=== PATIENT | male | born 1940 | race Caucasian/White ===

== ENCOUNTER 2018-12-04 15:52 | Inpatient (IN) | payer MEDICARE ==
[~2018-12-04] VITALS: Ht 177.8 cm; Wt 74.4 kg
[~2018-12-04 15:52] MED LIST: ASPI-482 PO; CYAN1TAB28 PO; CYAN500L4 SL; FERR-36 PO; FERR55TA PO; FISH1CAP PO; GARL10002 PO; LISI-334 PO; METO25TA4 PO; MULT-18 PO; MULT1TAB52 PO; NAPR-514 PO; NAPR-677 PO; PRAV40TA2 PO; TERA2CAP3 PO
[2018-12-04] MEDS ORDERED: ASPIRIN CHEWABLE 81 MG TABLET. PO ONE (16:15)
--- NOTE | 2018-12-04 16:30 | PHYS DOC ---
Past Medical History Past Medical History: Cancer, High Cholesterol, Heart Disease, Hypertension Additional Past Medical Histor: Prostate cancer Past Surgical History: Coronary Bypass Surgery, Other Additional Past Surgical Histo: Hx of Prostate CA w/treatment and resolved, 11 stents, 2 CABG Alcohol Use: Rarely Drug Use: None Adult General Chief Complaint Chief Complaint: CHEST PAIN HPI HPI Patient is a 78 year old male who presents with 1 month history of shortness of breath and squeezing chest pain with exertion. Patient has history of a 11 stints and his wood floor layer is Josephine. Review of Systems Review of Systems Constitutional: Denies fever or chills [] Eyes: Denies change in visual acuity, redness, or eye pain [] HENT: Denies nasal congestion or sore throat [] Respiratory: cough or shortness of breath [] Cardiovascular: bilateral chest tightness GI: Denies abdominal pain, nausea, vomiting, bloody stools or diarrhea [] : Denies dysuria or hematuria [] Musculoskeletal: Denies back pain or joint pain [] Integument: Denies rash or skin lesions [] Neurologic: Denies headache, focal weakness or sensory changes [] All other systems were reviewed and found to be within normal limits, except as documented in this note. Current Medications Current Medications Current Medications Medications (Trade) Dose Ordered Sig/Ava Start Time Stop Time Status Last Admin Dose Admin Acetaminophen (Tylenol) 650 mg PRN Q4HRS PRN 12/04/18 17:00 12/05/18 16:59 Aspirin (Children'S Aspirin) 324 mg 1X ONCE 12/04/18 16:15 12/04/18 16:16 DC 12/04/18 16:41 324 MG Aspirin (Ecotrin) 81 mg DAILY 12/05/18 09:00 Atorvastatin Calcium (Lipitor) 20 mg DAILY 12/05/18 09:00 Cyanocobalamin (Vitamin B-12) 500 mcg DAILY 12/05/18 09:00 Fentanyl Citrate (Fentanyl 2ml Vial) 50 mcg PRN Q1HR PRN 12/04/18 17:00 12/04/18 17:40 DC Ferrous Sulfate (Feosol) 325 mg DAILY 12/05/18 09:00 Fish Oil (Fish Oil) 1,000 mg TID 12/04/18 21:00 Heparin Sodium (Porcine) (Heparin Sodium) 1,950 unit PRN Q6HRS PRN 12/04/18 17:45 Heparin Sodium/ Dextrose 500 ml @ 0 mls/hr CONT PRN 12/04/18 17:45 Lisinopril (Prinivil) 40 mg DAILY 12/05/18 09:00 Metoprolol Tartrate (Lopressor) 12.5 mg BID 12/04/18 21:00 Morphine Sulfate (Morphine Sulfate) 2 mg PRN Q2HR PRN 12/04/18 17:45 Multivitamins (Thera M Plus) 1 tab DAILY 12/05/18 09:00 Nitroglycerin (Nitrostat) 0.4 mg PRN Q5MIN PRN 12/04/18 17:00 12/05/18 16:59 Non-Formulary Medication (Garlic ) 1,000 mg BID 12/04/18 21:00 UNV Ondansetron HCl (Zofran) 4 mg PRN Q6HRS PRN 12/04/18 17:45 Terazosin HCl (Hytrin) 2 mg DAILY 12/05/18 09:00 UNV Allergies Allergies Allergies Coded Allergies Type Severity Reaction Last Updated Verified No Known Drug Allergies 11/29/13 No Physical Exam Physical Exam Constitutional: Well developed, well nourished, no acute distress, non-toxic appearance. [] HENT: Normocephalic, atraumatic, bilateral external ears normal, oropharynx moist, no oral exudates, nose normal. [] Eyes: PERRLA, EOMI, conjunctiva normal, no discharge. [] Neck: Normal range of motion, no tenderness, supple, no stridor. [] Cardiovascular:Heart rate regular rhythm, no murmur [] Lungs & Thorax: Bilateral upper lung lobes are clear in bilateral lower lung lobes are diminished. Abdomen: Bowel sounds normal, soft, no tenderness, no masses, no pulsatile masses. [] Skin: Warm, dry, no erythema, no rash. [] Back: No tenderness, no CVA tenderness. [] Extremities: No tenderness, no cyanosis, no clubbing, ROM intact, no edema. [] Neurologic: Alert and oriented X 3, normal motor function, normal sensory function, no focal deficits noted. [] Psychologic: Affect normal, judgement normal, mood normal. [] Current Patient Data Vital Signs Vital Signs Date Time Temp Pulse Resp B/P (MAP) Pulse Ox O2 Delivery O2 Flow Rate FiO2 12/04/18 16:00 98.4 72 18 196/81 (119) 98 Room Air 98.4 Lab Values Laboratory Tests Test 12/04/18 16:30 White Blood Count 5.3 x10^3/uL (4.0-11.0) Red Blood Count 3.75 x10^6/uL (4.30-5.70) L Hemoglobin 11.3 g/dL (13.0-17.5) L Hematocrit 33.6 % (39.0-53.0) L Mean Corpuscular Volume 90 fL (79-100) Mean Corpuscular Hemoglobin 30 pg (25-35) Mean Corpuscular Hemoglobin Concent 34 g/dL (31-37) Red Cell Distribution Width 14.1 % (11.5-14.5) Platelet Count 127 x10^3/uL (140-400) L Neutrophils (%) (Auto) 73 % (31-73) Lymphocytes (%) (Auto) 16 % (24-48) L Monocytes (%) (Auto) 6 % (0-9) Eosinophils (%) (Auto) 4 % (0-3) H Basophils (%) (Auto) 1 % (0-3) Neutrophils # (Auto) 3.9 x10^3uL (1.8-7.7) Lymphocytes # (Auto) 0.9 x10^3/uL (1.0-4.8) L Monocytes # (Auto) 0.3 x10^3/uL (0.0-1.1) Eosinophils # (Auto) 0.2 x10^3/uL (0.0-0.7) Basophils # (Auto) 0.0 x10^3/uL (0.0-0.2) Sodium Level 143 mmol/L (136-145) Potassium Level 4.2 mmol/L (3.5-5.1) Chloride Level 107 mmol/L (98-107) Carbon Dioxide Level 25 mmol/L (21-32) Anion Gap 11 (6-14) Blood Urea Nitrogen 26 mg/dL (8-26) Creatinine 1.4 mg/dL (0.7-1.3) H Estimated GFR (Cockcroft-Gault) 48.8 BUN/Creatinine Ratio 19 (6-20) Glucose Level 181 mg/dL (70-99) H Calcium Level 8.7 mg/dL (8.5-10.1) Total Bilirubin 0.3 mg/dL (0.2-1.0) Aspartate Amino Transferase (AST) 23 U/L (15-37) Alanine Aminotransferase (ALT) 28 U/L (16-63) Alkaline Phosphatase 59 U/L (46-116) Troponin I Quantitative 0.085 ng/mL (0.000-0.055) OZ-Pbz-K-Type Natriuretic Peptide 1054 pg/mL (0-449) H Total Protein 7.0 g/dL (6.4-8.2) Albumin 3.7 g/dL (3.4-5.0) Albumin/Globulin Ratio 1.1 (1.0-1.7) Laboratory Tests 12/04/18 16:30 Laboratory Tests 12/04/18 16:30 EKG EKG Sinus Rhythm and no STEMI[] Interpretation Time: [address] Sharma Radiology/Procedures Radiology/Procedures [] Impressions: [facility] [address] [place] [address] IMAGING REPORT Signed PATIENT: DOUG WALLS ACCOUNT: [id number] : 1940 LOCATION: ER AGE: 78 SEX: M EXAM STATUS: REG ER ORD. PHYSICIAN: ASHUTOSH ROQUE APRN REASON: chest pain PROCEDURE: PORTABLE CHEST 1V Single view chest dated 12/04/2018. Comparison made to 02/04/2014. CLINICAL INDICATION: Chest pain. Cough. FINDINGS: Single upright portable exam performed. Heart and mediastinal contours are stable. Patient is status post median sternotomy. Lungs are somewhat hyperinflated but otherwise clear. No consolidation or pleural effusion. No pneumothorax. IMPRESSION: 1. No acute radiographic abnormality. Stable findings compared to 02/04/2014. Electronically signed by: Larry Fitch MD (12/04/2018 4:28 PM) [facility] DICTATED and SIGNED BY: LARRY FITCH MD DATE: 12/04/18 1629 Course & Med Decision Making Course & Med Decision Making Patient is a 78 year old male who presents with 1 month history of shortness of breath and squeezing chest pain with exertion. The pain goes from left-to- right on his chest and does not radiate to the back. Patient has history of a 11 stints and his wood floor layer is Josephine. Alert and oriented. Speaks in full sentences. Skin is pink warm and dry. Mucous membranes are moist. Lungs are clear in upper lobes and diminished in lower lobes. Chest pain cannot be re- producible with palpation. Patient states he has no pain or tightness at this time. Patient states he has had a cough the last month but it is not productive. Patient denies fever, nausea, vomiting, diarrhea, abdominal pain, back pain. Patient has no extremity edema. Abdomen is soft and nontender. EKG shows sinus rhythm and no STEMI. Heart score 5. 1655: I have spoken to Dr. Crowder for admission for chest pain and consulted cardiology. Chest x-ray shows no acute findings. Blood work are unremarkable. Patient is stable and agreeable to admission. 1738: Troponin 0.085. I have notified Dr Villanueva. Dragon Disclaimer Dragon Disclaimer This electronic medical record was generated, in whole or in part, using a voice recognition dictation system. Departure Departure Impression: Primary Impression: Chest pain Disposition: ADMITTED INPATIENT Admitting Physician: Gina Crowder Condition: STABLE Referrals: IVETH HENLEY DO (PCP) Problem Qualifiers Primary Impression: Chest pain Chest pain type: unspecified Qualified Codes: R07.9 - Chest pain, unspecified ASHUTOSH ROQUE APRN Dec 04, 2018 16:30
[2018-12-04 16:39] LABS: BASO % 1 % (0-3); EOS # 0.2 x10^3/uL (0.0-0.7); EOS % 4 % (0-3); HEMATOCRIT 33.6 % (39.0-53.0); HEMOGLOBIN 11.3 g/dL (13.0-17.5); LYMPH # 0.9 x10^3/uL (1.0-4.8); LYMPH % 16 % (24-48); MEAN CORPUSCULAR HEMOGLOBIN 30 pg (25-35); MEAN CORPUSCULAR HGB CONC 34 g/dL (31-37); MEAN CORPUSCULAR VOLUME 90 fL (79-100); MONO # 0.3 x10^3/uL (0.0-1.1); MONO % 6 % (0-9); NEUT # 3.9 x10^3uL (1.8-7.7); NEUT % 73 % (31-73); PLATELET COUNT 127 x10^3/uL (140-400); RED BLOOD COUNT 3.75 x10^6/uL (4.30-5.70); RED CELL DISTRIBUTION WIDTH 14.1 % (11.5-14.5); WHITE BLOOD COUNT 5.3 x10^3/uL (4.0-11.0)
[2018-12-04] MEDS ORDERED: NITROGLYCERIN SUBLINGUAL 0.4 MG BOTTLE OF 25. SL PRN (17:00)
[2018-12-04] MEDS ORDERED: ACETAMINOPHEN 325 MG TABLET. PO PRN (17:00)
[2018-12-04] MEDS ORDERED: ONDANSETRON PF 4 MG/2 ML VIAL. IV PRN ×2 (17:00→17:45)
[2018-12-04] MEDS ORDERED: fentaNYL PF VIAL 100 MCG/2 ML VIAL IV PRN (17:00)
[2018-12-04 17:13] LABS: CALCIUM 8.7 mg/dL (8.5-10.1); CREATININE 1.4 mg/dL (0.7-1.3); GFR 48.8
[2018-12-04 17:14] LABS: POTASSIUM 4.2 mmol/L (3.5-5.1)
[2018-12-04 17:33] LABS: ALBUMIN 3.7 g/dL (3.4-5.0); ALBUMIN/GLOBULIN RATIO 1.1 (1.0-1.7); TOTAL BILIRUBIN 0.3 mg/dL (0.2-1.0)
--- NOTE | 2018-12-04 17:39 | PDOC1 ---
History and Physical Date of Admission Date of Admission DATE: 12/04/18 TIME: 17:35 Identification/Chief Complaint Chief Complaint CP on exertion Source Source: Caregiver, Chart review, Patient History of Present Illness History of Present Illness Known patient of Dr. Love, sees him every 5 months. 1 month history of intermittent S OA on exertion and chest pain, exertional. Mostly when he is walking too fast or clmibing few steps in house. Otherwise at rest he is doing fine. Patient on aspirin 81 and other medicines that is unrecalled. His pharmacy is [facility]. Past history: hypertension dyslipidemia and 11 cardiac stents. Troponin 0.085 and currently chest pain-free. Admitted for chest pain rule out in this high-risk patient. No reports of diaphoresis but claims that he thought his gait was unsteady because he was "not feeling good" Past Medical History Cardiovascular: CAD, HTN, Other Pulmonary: No pertinent hx CENTRAL NERVOUS SYSTEM: Other GI: No pertinent hx Heme/Onc: No pertinent hx Hepatobiliary: No pertinent hx Psych: No pertinent hx Musculoskeletal: Osteoarthritis Rheumatologic: No pertinent hx Infectious disease: No pertinent hx Renal/: Benign prostatic enlarg. Endocrine: No pertinent hx Past Surgical History Past Surgical History: CABG Family History Family History: Coronary Artery Disease, Diabetes Social History Smoke: No ALCOHOL: none Drugs: None Current Problem List Problem List Problems Medical Problems: (1) Chest pain Status: Acute Current Medications Current Medications Current Medications Aspirin (Children'S Aspirin) 324 mg 1X ONCE PO Last administered on 12/04/18at 16:41; Start 12/04/18 at 16:15; Stop 12/04/18 at 16:16; Status DC Ondansetron HCl (Zofran) 4 mg PRN Q8HRS PRN IV NAUSEA/VOMITING; Start 12/04/18 at 17:00; Stop 12/05/18 at 16:59 Fentanyl Citrate (Fentanyl 2ml Vial) 50 mcg PRN Q1HR PRN IV PAIN; Start at 17:00; Stop 12/05/18 at 16:59 Acetaminophen (Tylenol) 650 mg PRN Q4HRS PRN PO FEVER; Start 12/04/18 at 17:00 ; Stop 12/05/18 at 16:59 Nitroglycerin (Nitrostat) 0.4 mg PRN Q5MIN PRN SL CHEST PAIN; Start 12/04/18 at 17:00; Stop 12/05/18 at 16:59 Active Scripts Active Reported Aspir 81 (Aspirin) 81 Mg Tablet.dr 1 Tab PO DAILY Naproxen 500 Mg Tablet 500 Mg PO PRN BID PRN Multivitamins (Multivitamin) 1 Each Tablet 1 Each PO DAILY Iron (Ferrous Sulfate) 325 Mg Tablet 325 Mg PO DAILY B-12 (Cyanocobalamin (Vitamin B-12)) 500 Mcg Tab.rapdis 500 Mcg SL DAILY Garlic 1,000 Mg Capsule 1,000 Mg PO BID Fish Oil 1,200 Mg Fish Oil (Fish Oil/Dha/Epa) 1 Each Capsule 1 Each PO TID Metoprolol Tartrate 25 Mg Tablet 0.5 Tab PO BID Lisinopril 20 Mg Tablet 40 Mg PO DAILY Terazosin Hcl 2 Mg Capsule 2 Mg PO DAILY Pravastatin Sodium 40 Mg Tablet 80 Mg PO DAILY Allergies Allergies: Coded Allergies: No Known Drug Allergies (Unverified , 11/29/13) ROS Review of System As per history of present illness, the rest of ROS 14 point negative Physical Exam General: Alert, Oriented X3, Cooperative, No acute distress HEENT: Atraumatic, PERRLA, EOMI Lungs: Clear to auscultation, Normal air movement Heart: S1S2, RRR, no thrills, no rubs, no gallops Cardiovascular: S1, S2 Abdomen: Normal bowel sounds, Soft, No tenderness, No hepatosplenomegaly, No masses Male Genitals Exam: normal genitalia, normal prostate Rectal Exam: not examined PELVIC: Nml ext genitalia Extremities: No clubbing, No cyanosis, No edema, Normal pulses, No tenderness/ swelling Skin: No rashes, No breakdown, No significant lesion Vitals Vitals Vital Signs Date Time Temp Pulse Resp B/P (MAP) Pulse Ox O2 Delivery O2 Flow Rate FiO2 12/04/18 16:00 98.4 72 18 196/81 (119) 98 Room Air 98.4 Labs Labs Laboratory Tests Test 12/04/18 16:30 White Blood Count 5.3 x10^3/uL (4.0-11.0) Red Blood Count 3.75 x10^6/uL (4.30-5.70) Hemoglobin 11.3 g/dL (13.0-17.5) Hematocrit 33.6 % (39.0-53.0) Mean Corpuscular Volume 90 fL (79-100) Mean Corpuscular Hemoglobin 30 pg (25-35) Mean Corpuscular Hemoglobin Concent 34 g/dL (31-37) Red Cell Distribution Width 14.1 % (11.5-14.5) Platelet Count 127 x10^3/uL (140-400) Neutrophils (%) (Auto) 73 % (31-73) Lymphocytes (%) (Auto) 16 % (24-48) Monocytes (%) (Auto) 6 % (0-9) Eosinophils (%) (Auto) 4 % (0-3) Basophils (%) (Auto) 1 % (0-3) Neutrophils # (Auto) 3.9 x10^3uL (1.8-7.7) Lymphocytes # (Auto) 0.9 x10^3/uL (1.0-4.8) Monocytes # (Auto) 0.3 x10^3/uL (0.0-1.1) Eosinophils # (Auto) 0.2 x10^3/uL (0.0-0.7) Basophils # (Auto) 0.0 x10^3/uL (0.0-0.2) Sodium Level 143 mmol/L (136-145) Potassium Level 4.2 mmol/L (3.5-5.1) Chloride Level 107 mmol/L (98-107) Carbon Dioxide Level 25 mmol/L (21-32) Anion Gap 11 (6-14) Blood Urea Nitrogen 26 mg/dL (8-26) Creatinine 1.4 mg/dL (0.7-1.3) Estimated GFR (Cockcroft-Gault) 48.8 BUN/Creatinine Ratio 19 (6-20) Glucose Level 181 mg/dL (70-99) Calcium Level 8.7 mg/dL (8.5-10.1) Total Bilirubin 0.3 mg/dL (0.2-1.0) Aspartate Amino Transf (AST/SGOT) 23 U/L (15-37) Alanine Aminotransferase (ALT/SGPT) 28 U/L (16-63) Alkaline Phosphatase 59 U/L (46-116) Troponin I Quantitative 0.085 ng/mL (0.000-0.055) XD-Gka-Y-Type Natriuretic Peptide 1054 pg/mL (0-449) Total Protein 7.0 g/dL (6.4-8.2) Albumin 3.7 g/dL (3.4-5.0) Albumin/Globulin Ratio 1.1 (1.0-1.7) Laboratory Tests Test 12/04/18 16:30 White Blood Count 5.3 x10^3/uL (4.0-11.0) Red Blood Count 3.75 x10^6/uL (4.30-5.70) Hemoglobin 11.3 g/dL (13.0-17.5) Hematocrit 33.6 % (39.0-53.0) Mean Corpuscular Volume 90 fL (79-100) Mean Corpuscular Hemoglobin 30 pg (25-35) Mean Corpuscular Hemoglobin Concent 34 g/dL (31-37) Red Cell Distribution Width 14.1 % (11.5-14.5) Platelet Count 127 x10^3/uL (140-400) Neutrophils (%) (Auto) 73 % (31-73) Lymphocytes (%) (Auto) 16 % (24-48) Monocytes (%) (Auto) 6 % (0-9) Eosinophils (%) (Auto) 4 % (0-3) Basophils (%) (Auto) 1 % (0-3) Neutrophils # (Auto) 3.9 x10^3uL (1.8-7.7) Lymphocytes # (Auto) 0.9 x10^3/uL (1.0-4.8) Monocytes # (Auto) 0.3 x10^3/uL (0.0-1.1) Eosinophils # (Auto) 0.2 x10^3/uL (0.0-0.7) Basophils # (Auto) 0.0 x10^3/uL (0.0-0.2) Sodium Level 143 mmol/L (136-145) Potassium Level 4.2 mmol/L (3.5-5.1) Chloride Level 107 mmol/L (98-107) Carbon Dioxide Level 25 mmol/L (21-32) Anion Gap 11 (6-14) Blood Urea Nitrogen 26 mg/dL (8-26) Creatinine 1.4 mg/dL (0.7-1.3) Estimated GFR (Cockcroft-Gault) 48.8 BUN/Creatinine Ratio 19 (6-20) Glucose Level 181 mg/dL (70-99) Calcium Level 8.7 mg/dL (8.5-10.1) Total Bilirubin 0.3 mg/dL (0.2-1.0) Aspartate Amino Transf (AST/SGOT) 23 U/L (15-37) Alanine Aminotransferase (ALT/SGPT) 28 U/L (16-63) Alkaline Phosphatase 59 U/L (46-116) Troponin I Quantitative 0.085 ng/mL (0.000-0.055) EB-Uwd-O-Type Natriuretic Peptide 1054 pg/mL (0-449) Total Protein 7.0 g/dL (6.4-8.2) Albumin 3.7 g/dL (3.4-5.0) Albumin/Globulin Ratio 1.1 (1.0-1.7) VTE Prophylaxis Ordered VTE Prophylaxis Devices: Yes VTE Pharmacological Prophylaxi: Yes Assessment/Plan Assessment/Plan Stable angina Known CAD with 11 indwelling stents Hypertension, dyslipidemia on meds GERD PLAN: Admit CVC, trend enzymes, consult cardiology Get home meds from [facility] in [place] Nothing by mouth post midnight in case LHC tmr Seen at ER FULL CODE CHIQUITA LANDAVERDE MD Dec 04, 2018 17:39
[2018-12-04] MEDS ORDERED: HEPARIN 25,000UTS/500ML PREMIX 500 ML IV PRN (17:45)
[2018-12-04] MEDS ORDERED: MORPHINE SULFATE 2 MG/ML VIAL. IV PRN (17:45)
[2018-12-04 19:31] VITALS: BP_SYST 155; BP_SYST 173; BP_DIAS 74
--- NOTE | 2018-12-04 20:53 | EKG ---
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
[2018-12-04] MEDS: METOPROLOL TART IMMED RELEASE 25 MG TABLET. PO SCH (20:54)
[2018-12-04] MEDS: OMEGA-3 FATTY ACIDS/FISH OIL 1,000 MG CAPSULE. PO SCH (20:54)
[2018-12-04] MEDS: HEPARIN for IV BOLUS 10,000 UNIT/10 ML VIAL. IV PRN (20:55)
[2018-12-04] MEDS ORDERED: NON FORMULARY ITEM (Garlic 1,000 MG) PO SCH (21:00)
[2018-12-04 22:33] VITALS: BP 151/56
[2018-12-05 03:21] VITALS: BP 153/70
[2018-12-05 04:18] LABS: HEMATOCRIT 33.1 % (39.0-53.0); HEMOGLOBIN 11.1 g/dL (13.0-17.5); RED BLOOD COUNT 3.69 x10^6/uL (4.30-5.70); WHITE BLOOD COUNT 4.7 x10^3/uL (4.0-11.0)
[2018-12-05] MEDS: HEPARIN for IV BOLUS 10,000 UNIT/10 ML VIAL. IV PRN (04:57)
[2018-12-05 07:00] VITALS: BP 153/80
--- NOTE | 2018-12-05 07:30 | NUR ---
Around 0715 patient ambulated to the restroom without calling and pulled out his IV in his right forearm by accident. Direct pressure was applied to the old IV site and bandaide applied, no further complications noted. Blood cleaned up on floor and patient per hospital policy. 20 gauge IV started by Mallory (shift superintendent RN) in the right hand in one stick. IV Heparin drip restarted. Patient education completed about only getting up with assistance. No further complications or concerns noted. Will continue to monitor.
[2018-12-05] MEDS ORDERED: ANTI-COAG MONITOR BY PHARMACY. MC PRN (07:45)
[2018-12-05] MEDS: METOPROLOL TART IMMED RELEASE 25 MG TABLET. PO SCH ×2 (08:59→20:43)
[2018-12-05] MEDS: TERAZOSIN 1 MG CAPSULE. PO SCH (09:00)
[2018-12-05] MEDS: LISINOPRIL 20 MG TABLET PO SCH (09:00)
[2018-12-05] MEDS: FERROUS SULFATE 325 MG TABLET. PO SCH (09:00)
[2018-12-05] MEDS: MULTIVITAMIN with MINERAL TABLET. PO SCH (09:00)
[2018-12-05] MEDS: ASPIRIN ENTERIC COATED 81 MG TABLET.DR. PO SCH (09:00)
[2018-12-05] MEDS: OMEGA-3 FATTY ACIDS/FISH OIL 1,000 MG CAPSULE. PO SCH ×3 (09:00→20:42)
[2018-12-05] MEDS: CYANOCOBALAMIN (VITAMIN B-12) 1,000 MCG TABLET. PO SCH (09:00)
[2018-12-05] MEDS: ATORVASTATIN CALCIUM 20 MG TABLET PO SCH (09:04)
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
[2018-12-05 11:00] VITALS: BP 172/72
--- NOTE | 2018-12-05 11:27 | PDOC2 ---
CARDIAC CONSULT DATE OF CONSULT Date of Consult DATE: 12/05/18 TIME: 11:26 REASON FOR CONSULT Reason for Consult: Chest pain REFERRING PHYSICIAN Referring Physician: Dr. Franks SOURCE Source: Chart review, Patient HISTORY OF PRESENT ILLNESS HISTORY OF PRESENT ILLNESS This is an 78 yo male, with a history of CAD s/p previous CABG x2 and subsequent stents, who presented secondary to chest pain. Patient reports experiencing intermittent chest pain with exertion for the last month. Yesterday , had episode when he was pushing his in her wheelchair to the a bathroom. Describes as central chest heaviness. Shelby like someone was pushing on his chest. Associated with shortness of breath. No dizziness, diaphoresis, palpitations, or nausea/vomiting. Resolved with rest after about 30 minute. Reports compliance with medications. Blood pressure significantly elevated upon arrival. No further CP overnight. PAST MEDICAL HISTORY Cardiovascular: CAD, HTN, Hyperlipidemia Pulmonary: No pertinent hx CENTRAL NERVOUS SYSTEM: Other (no pertinent hx) GI: No pertinent hx Heme/Onc: No pertinent hx Hepatobiliary: No pertinent hx Psych: No pertinent hx Musculoskeletal: Osteoarthritis Rheumatologic: No pertinent hx Infectious disease: No pertinent hx ENT: No pertinent hx Renal/: No pertinent hx, Prostate Ca. Endocrine: No pertinent hx Dermatology: No pertinent hx PAST SURGICAL HISTORY Past Surgical History: CABG, Hernia Repair FAMILY HISTORY Family History: Coronary Artery Disease SOCIAL HISTORY Smoke: No ALCOHOL: none Drugs: None Lives: with Family CURRENT MEDICATIONS CURRENT MEDICATIONS Current Medications Medications (Trade) Dose Ordered Sig/Ava Route PRN Reason Start Time Stop Time Status Last Admin Dose Admin Aspirin (Children'S Aspirin) 324 mg 1X ONCE PO 12/04/18 16:15 12/04/18 16:16 DC 12/04/18 16:41 Lisinopril (Prinivil) 40 mg DAILY PO 12/05/18 09:00 12/05/18 09:00 Metoprolol Tartrate (Lopressor) 12.5 mg BID PO 12/04/18 21:00 12/05/18 08:59 Fish Oil (Fish Oil) 1,000 mg TID PO 12/04/18 21:00 12/04/18 20:54 Atorvastatin Calcium (Lipitor) 20 mg DAILY PO 12/05/18 09:00 12/05/18 09:04 Heparin Sodium/ Dextrose 500 ml @ 0 mls/hr CONT PRN IV SEE I/O RECORD 12/04/18 17:45 12/04/18 21:01 Heparin Sodium (Porcine) (Heparin Sodium) 1,950 unit PRN Q6HRS PRN IV FOR UFH LEVEL LESS THAN 0.2 12/04/18 17:45 12/05/18 04:57 ALLERGIES ALLERGIES: Coded Allergies: No Known Drug Allergies (Unverified , 11/29/13) ROS Review of System 14 point ROS conducted with pertinent positives noted above in HPI. PHYSICAL EXAM General: Alert, Oriented X3, Cooperative, No acute distress HEENT: Atraumatic, Mucous membr. moist/pink Lungs: Clear to auscultation Heart: Regular rate, Normal S1, Normal S2 Abdomen: Soft, No tenderness Extremities: No edema, Normal pulses Skin: No significant lesion Neuro: Normal speech, Sensation intact Psych/Mental Status: Mental status NL, Mood NL MUSCULOSKELETAL: Osteoarthritic changes both hands VITALS VITALS Vital Signs Date Time Temp Pulse Resp B/P (MAP) Pulse Ox O2 Delivery O2 Flow Rate FiO2 12/05/18 11:00 97.9 63 20 172/72 (105) 97 Room Air 97.9 LABS Lab: Laboratory Tests Test 12/04/18 16:30 12/04/18 23:00 12/05/18 03:10 12/05/18 03:50 White Blood Count 5.3 x10^3/uL (4.0-11.0) 4.7 x10^3/uL (4.0-11.0) Red Blood Count 3.75 x10^6/uL (4.30-5.70) 3.69 x10^6/uL (4.30-5.70) Hemoglobin 11.3 g/dL (13.0-17.5) 11.1 g/dL (13.0-17.5) Hematocrit 33.6 % (39.0-53.0) 33.1 % (39.0-53.0) Mean Corpuscular Volume 90 fL (79-100) 90 fL (79-100) Mean Corpuscular Hemoglobin 30 pg (25-35) 30 pg (25-35) Mean Corpuscular Hemoglobin Concent 34 g/dL (31-37) 33 g/dL (31-37) Red Cell Distribution Width 14.1 % (11.5-14.5) 14.0 % (11.5-14.5) Platelet Count 127 x10^3/uL (140-400) 112 x10^3/uL (140-400) Neutrophils (%) (Auto) 73 % (31-73) Lymphocytes (%) (Auto) 16 % (24-48) Monocytes (%) (Auto) 6 % (0-9) Eosinophils (%) (Auto) 4 % (0-3) Basophils (%) (Auto) 1 % (0-3) Neutrophils # (Auto) 3.9 x10^3uL (1.8-7.7) Lymphocytes # (Auto) 0.9 x10^3/uL (1.0-4.8) Monocytes # (Auto) 0.3 x10^3/uL (0.0-1.1) Eosinophils # (Auto) 0.2 x10^3/uL (0.0-0.7) Basophils # (Auto) 0.0 x10^3/uL (0.0-0.2) Sodium Level 143 mmol/L (136-145) Potassium Level 4.2 mmol/L (3.5-5.1) Chloride Level 107 mmol/L (98-107) Carbon Dioxide Level 25 mmol/L (21-32) Anion Gap 11 (6-14) Blood Urea Nitrogen 26 mg/dL (8-26) Creatinine 1.4 mg/dL (0.7-1.3) Estimated GFR (Cockcroft-Gault) 48.8 BUN/Creatinine Ratio 19 (6-20) Glucose Level 181 mg/dL (70-99) Calcium Level 8.7 mg/dL (8.5-10.1) Total Bilirubin 0.3 mg/dL (0.2-1.0) Aspartate Amino Transf (AST/SGOT) 23 U/L (15-37) Alanine Aminotransferase (ALT/SGPT) 28 U/L (16-63) Alkaline Phosphatase 59 U/L (46-116) Troponin I Quantitative 0.085 ng/mL (0.000-0.055) 0.079 ng/mL (0.000-0.055) 0.062 ng/mL (0.000-0.055) JM-Esd-F-Type Natriuretic Peptide 1054 pg/mL (0-449) Total Protein 7.0 g/dL (6.4-8.2) Albumin 3.7 g/dL (3.4-5.0) Albumin/Globulin Ratio 1.1 (1.0-1.7) Heparin Anti-Xa Act, Unfractionated 0.17 IU/mL (0.30-0.70) ECHOCARDIOGRAM ECHOCARDIOGRAM <Conclusion> Left ventricle systolic function is normal. The Ejection Fraction is 55-60%. There is mild concentric left ventricular hypertrophy. Transmitral Doppler flow pattern is Grade I-abnormal relaxation pattern. The left atrium is moderately dilated. The right atrium is moderately dilated. Doppler and Color-flow revealed mild mitral regurgitation. Doppler and Color Flow revealed trace to mild tricuspid regurgitation. The PA pressure was estimated at 26 mmHg. The IVC is normal in size and collapses >50% with inspiration. There is no evidence of significant pericardial effusion. DATE: 02/05/14 1802 STRESS TEST STRESS TEST Conclusion 1. Lexiscan nuclear stress test performed as per protocol. 2. No EKG evidence of stress-induced ischemia. 3. Borderline anterior wall defect suggestive of reversible ischemia. 4. No evidence of infarction. 5. Normal left ventricular systolic function with an ejection fraction of 67%. 6. Mildly abnormal Lexiscan stress test. DATE: 11/30/13 1336 HEART CATH HEART CATH Conclusion 1. Mildly elevated left ventricular filling pressure. 2. Normal LV systolic function. EF 65% 3. Severe three vessel coronary artery disease. 4. Patent SVG to LAD/D1/OM1 and SVG to RPL1/RPL2 Recommendations Aggressive Medical Therapy Event monitor to rule out significant arrhythmias. No driving until he is seen in f/u in 4 weeks. DATE: 01/01/16 1404 ASSESSMENT/PLAN ASSESSMENT/PLAN 1. Chest pain, mixed features. Possibly secondary to uncontrolled BP 2. Accelerated hypertension; remains elevated 3. Mild troponin elevation; peak 0.085 \. Most probably type II, demand ischemia in the setting of #2. 4. CAD s/p remote CABG x2 and subsequent PCI/stent. Most recent cath i n2016 showed patent SVG to LAD/D1/OM1 and SVG to RPL1/RPL2. BRUCE graft occluded and small to moderate sized RCA with a long diffuse 50-60% stenosis, which is unchanged from 2 yrs ago 5. Hyperlipidemia; statin Recommendations Echo to assess LV systolic function Resume secondary prevention BP control. BB and ABRAN resumed. Will add Norvasc as BP remains elevated Increased ambulation NPO p MN. If patient has recurrence of chest pain despite adequate BP control, will consider cardiac cath in am. RODNEY FRASER APRN Dec 05, 2018 11:27
--- NOTE | 2018-12-05 12:24 | NUR ---
SS following for discharge planning. SS reviewed pt chart. Pt is from home and is currently on room air. No discharge needs noted at this time. SS will continue to follow for pending discharge needs.
[2018-12-05] MEDS: amLODIPine BESYLATE 5 MG TABLET PO SCH (13:24)
[2018-12-05 15:00] VITALS: BP 151/65
[2018-12-05 19:00] VITALS: BP 179/79
[2018-12-05 22:37] VITALS: BP 149/58
[2018-12-06 00:46] LABS: CHOLESTEROL/HDL RATIO 2.7
[2018-12-06 03:01] VITALS: BP 152/66
[2018-12-06 07:00] VITALS: BP 155/71
[2018-12-06] MEDS: OMEGA-3 FATTY ACIDS/FISH OIL 1,000 MG CAPSULE. PO SCH ×2 (10:45→15:53)
[2018-12-06] MEDS: ASPIRIN ENTERIC COATED 81 MG TABLET.DR. PO SCH (10:46)
[2018-12-06] MEDS: FERROUS SULFATE 325 MG TABLET. PO SCH (10:46)
[2018-12-06] MEDS: MULTIVITAMIN with MINERAL TABLET. PO SCH (10:46)
[2018-12-06] MEDS: TERAZOSIN 1 MG CAPSULE. PO SCH (10:47)
[2018-12-06] MEDS: ATORVASTATIN CALCIUM 20 MG TABLET PO SCH (10:47)
[2018-12-06 10:48] VITALS: BP 140/69
[2018-12-06] MEDS: amLODIPine BESYLATE 5 MG TABLET PO SCH (10:48)
[2018-12-06] MEDS: METOPROLOL TART IMMED RELEASE 25 MG TABLET. PO SCH (10:49)
[2018-12-06] MEDS: LISINOPRIL 20 MG TABLET PO SCH (10:50)
--- NOTE | 2018-12-06 11:02 | CARD ---
MR#: [id number] Date of Study: 12/05/2018 Ordering Physician: RODNEY FRASER, Referring Physician: CHIQUITA LANDAVERDE Tech: Liudmila Rojas [facility] APPROVED REPORT EXAM: Two-dimensional and M-mode echocardiogram with Doppler and color Doppler. Other Information Quality : GoodHR: 62bpm Rhythm : NSR INDICATION Hypertension/HCVD CAD Chest Pain RISK FACTORS Hypertension Hyperlipidemia 2D DIMENSIONS RVDd4.4 (2.9-3.5cm)Left Atrium(2D)5.8 (1.6-4.0cm) IVSd1.2 (0.7-1.1cm)Aortic Root(2D)3.9 (2.0-3.7cm) LVDd4.9 (3.9-5.9cm)LVOT Diameter2.4 (1.8-2.4cm) PWd1.3 (0.7-1.1cm)LVDs3.1 (2.5-4.0cm) FS (%) 35.8 %SV72.2 ml LVEF(%)65.2 (>50%) Aortic Valve AoV Peak William.138.6cm/Gricelda Peak GR.7.7mmHg LVOT Peak William.125.5cm/sAVA (VMAX)4.00cm2 AI P 1/2 [id number] Mitral Valve MV E Kzponazl03.9cm/sMV DECEL [id number] MV A Nznejujg24.7cm/sE/A Ratio1.3 MV A Lrxlalsx510mr Pulmonary Valve PV Peak Dikegflm603.8cm/s Tricuspid Valve TR P. Cdgiprad015bz/sTR Peak Gr.22mmHg Pulmonary Vein S1 Hesklnnq70.4cm/sD2 Lqaufkwc08.7cm/s PVa [id number] LEFT VENTRICLE The left ventricle is normal size. There is mild concentric left ventricular hypertrophy. The left ve ntricular systolic function is normal. The ejection fraction is estimated at 55%. There is normal LV segmental wall motion. No left ventricle thrombus noted on this study. There is no ventricular septal defect visualized. RIGHT VENTRICLE The right ventricle is normal size. There is normal right ventricular wall thickness. The right ventr icular systolic function is normal. ATRIA The left atrium is moderately dilated. The right atrium is mildly dilated. AORTIC VALVE The aortic valve is calcified but opens well. Doppler and Color Flow revealed mild aortic regurgitati on. There is no significant aortic valvular stenosis. MITRAL VALVE The mitral valve is mildly thickened. Doppler and Color-flow revealed mild to moderate mitral regurgi tation. TRICUSPID VALVE The tricuspid valve is normal in structure and function. Doppler and Color Flow revealed mild tricusp id regurgitation. Estimated PAP is 25 mmHg. PULMONIC VALVE The pulmonary valve is normal in structure and function. Mild pulmonic regurgitation. GREAT VESSELS The aortic root is mildly enlarged. The IVC is normal in size and collapses >50% with inspiration. PERICARDIAL EFFUSION There is no pleural effusion. There is no evidence of significant pericardial effusion. Critical Notification Critical Value: No <Conclusion> The left ventricular systolic function is normal. The ejection fraction is estimated at 55%. There is normal LV segmental wall motion. The left atrium is moderately dilated. Mild aortic regurgitation. Mild to moderate mitral regurgitation. Mild tricuspid regurgitation. Estimated PAP is 25 mmHg. There is no evidence of significant pericardial effusion. Signed by : Robin Joy, Electronically Approved : 12/06/2018 11:02:29
[2018-12-06] MEDS: CYANOCOBALAMIN (VITAMIN B-12) 1,000 MCG TABLET. PO SCH (11:31)
--- NOTE | 2018-12-06 12:04 | PDOC ---
PROGRESS NOTES History of Present Illness History of Present Illness Assessment/Plan Assessment/Plan Stable angina Known CAD with 11 indwelling stents HIGH RISK PT START IV HEPARIN DRIP Hypertension, dyslipidemia on meds GERD PLAN: Admit CVC, enzymes, cardiology following home meds HOME TODAY, WILL PLAN CATH OUPT IF PAIN RE-OCCURS FULL CODE Vitals Vitals Vital Signs Date Time Temp Pulse Resp B/P (MAP) Pulse Ox O2 Delivery O2 Flow Rate FiO2 12/06/18 10:50 66 140/69 12/06/18 10:48 98.1 18 93 Room Air 98.1 Physical Exam Physical Exam Eyes: PERRLA, EOMI, conjunctiva normal, no discharge. [] Neck: Normal range of motion, no tenderness, supple, no stridor. [] Cardiovascular:Heart rate regular rhythm, no murmur [] Lungs & Thorax: Bilateral upper lung lobes are clear in bilateral lower lung lobes are diminished. Abdomen: Bowel sounds normal, soft, no tenderness, no masses, no pulsatile masses. [] Skin: Warm, dry, no erythema, no rash. [] Back: No tenderness, no CVA tenderness. [] Extremities: No tenderness, no cyanosis, no clubbing, ROM intact, no edema. [] Neurologic: Alert and oriented X 3, normal motor function, normal sensory function, no focal deficits noted. [] Psychologic: Affect normal, judgement normal, mood normal. [] General: Alert, Oriented X3, Cooperative, No acute distress Heart: Regular rate, Normal S1, Normal S2 Lungs: Clear, Other (DIMINISHED) Abdomen: Soft, No tenderness Extremities: No cyanosis, No edema, Normal pulses Skin: No significant lesion Labs LABS LEFT VENTRICLE The left ventricle is normal size. There is mild concentric left ventricular hypertrophy. The left ventricular systolic function is normal. The ejection fraction is estimated at 55%. There is normal LV segmental wall motion. No left ventricle thrombus noted on this study. There is no ventricular septal defect visualized. RIGHT VENTRICLE The right ventricle is normal size. There is normal right ventricular wall thickness. The right ventricular systolic function is normal. ATRIA The left atrium is moderately dilated. The right atrium is mildly dilated. AORTIC VALVE The aortic valve is calcified but opens well. Doppler and Color Flow revealed mild aortic regurgitation. There is no significant aortic valvular stenosis. MITRAL VALVE The mitral valve is mildly thickened. Doppler and Color-flow revealed mild to moderate mitral regurgitation. TRICUSPID VALVE The tricuspid valve is normal in structure and function. Doppler and Color Flow revealed mild tricuspid regurgitation. Estimated PAP is 25 mmHg. PULMONIC VALVE The pulmonary valve is normal in structure and function. Mild pulmonic regurgitation. GREAT VESSELS The aortic root is mildly enlarged. The IVC is normal in size and collapses >50 % with inspiration. PERICARDIAL EFFUSION There is no pleural effusion. There is no evidence of significant pericardial effusion. Critical Notification Critical Value: No <Conclusion> The left ventricular systolic function is normal. The ejection fraction is estimated at 55%. There is normal LV segmental wall motion. The left atrium is moderately dilated. Mild aortic regurgitation. Mild to moderate mitral regurgitation. Mild tricuspid regurgitation. Estimated PAP is 25 mmHg. There is no evidence of significant pericardial effusion. Assessment and Plan Assessmemt and Plan Problems Medical Problems: (1) Chest pain Status: Acute Comment Review of Relevant I have reviewed the following items nicola (where applicable) has been applied. Labs Laboratory Tests Test 12/04/18 16:30 12/04/18 23:00 12/05/18 03:10 12/05/18 03:50 White Blood Count 5.3 x10^3/uL (4.0-11.0) 4.7 x10^3/uL (4.0-11.0) Red Blood Count 3.75 x10^6/uL (4.30-5.70) 3.69 x10^6/uL (4.30-5.70) Hemoglobin 11.3 g/dL (13.0-17.5) 11.1 g/dL (13.0-17.5) Hematocrit 33.6 % (39.0-53.0) 33.1 % (39.0-53.0) Mean Corpuscular Volume 90 fL (79-100) 90 fL (79-100) Mean Corpuscular Hemoglobin 30 pg (25-35) 30 pg (25-35) Mean Corpuscular Hemoglobin Concent 34 g/dL (31-37) 33 g/dL (31-37) Red Cell Distribution Width 14.1 % (11.5-14.5) 14.0 % (11.5-14.5) Platelet Count 127 x10^3/uL (140-400) 112 x10^3/uL (140-400) Neutrophils (%) (Auto) 73 % (31-73) Lymphocytes (%) (Auto) 16 % (24-48) Monocytes (%) (Auto) 6 % (0-9) Eosinophils (%) (Auto) 4 % (0-3) Basophils (%) (Auto) 1 % (0-3) Neutrophils # (Auto) 3.9 x10^3uL (1.8-7.7) Lymphocytes # (Auto) 0.9 x10^3/uL (1.0-4.8) Monocytes # (Auto) 0.3 x10^3/uL (0.0-1.1) Eosinophils # (Auto) 0.2 x10^3/uL (0.0-0.7) Basophils # (Auto) 0.0 x10^3/uL (0.0-0.2) Sodium Level 143 mmol/L (136-145) Potassium Level 4.2 mmol/L (3.5-5.1) Chloride Level 107 mmol/L (98-107) Carbon Dioxide Level 25 mmol/L (21-32) Anion Gap 11 (6-14) Blood Urea Nitrogen 26 mg/dL (8-26) Creatinine 1.4 mg/dL (0.7-1.3) Estimated GFR (Cockcroft-Gault) 48.8 BUN/Creatinine Ratio 19 (6-20) Glucose Level 181 mg/dL (70-99) Calcium Level 8.7 mg/dL (8.5-10.1) Total Bilirubin 0.3 mg/dL (0.2-1.0) Aspartate Amino Transf (AST/SGOT) 23 U/L (15-37) Alanine Aminotransferase (ALT/SGPT) 28 U/L (16-63) Alkaline Phosphatase 59 U/L (46-116) Troponin I Quantitative 0.085 ng/mL (0.000-0.055) 0.079 ng/mL (0.000-0.055) 0.062 ng/mL (0.000-0.055) JP-Cnj-Z-Type Natriuretic Peptide 1054 pg/mL (0-449) Total Protein 7.0 g/dL (6.4-8.2) Albumin 3.7 g/dL (3.4-5.0) Albumin/Globulin Ratio 1.1 (1.0-1.7) Heparin Anti-Xa Act, Unfractionated 0.17 IU/mL (0.30-0.70) Triglycerides Level 42 mg/dL (0-150) Cholesterol Level 109 mg/dL (0-200) LDL Cholesterol, Calculated 60 mg/dL (0-100) VLDL Cholesterol, Calculated 8 mg/dL (0-40) Non-HDL Cholesterol Calculated 68 mg/dL (0-129) HDL Cholesterol 41 mg/dL (40-60) Cholesterol/HDL Ratio 2.7 Test 12/05/18 10:50 Heparin Anti-Xa Act, Unfractionated 0.33 IU/mL (0.30-0.70) Medications Current Medications Aspirin (Children'S Aspirin) 324 mg 1X ONCE PO Last administered on 12/04/18at 16:41; Start 12/04/18 at 16:15; Stop 12/04/18 at 16:16; Status DC Ondansetron HCl (Zofran) 4 mg PRN Q8HRS PRN IV NAUSEA/VOMITING; Start 12/04/18 at 17:00; Stop 12/04/18 at 17:40; Status DC Fentanyl Citrate (Fentanyl 2ml Vial) 50 mcg PRN Q1HR PRN IV PAIN; Start at 17:00; Stop 12/04/18 at 17:40; Status DC Acetaminophen (Tylenol) 650 mg PRN Q4HRS PRN PO FEVER; Start 12/04/18 at 17:00 ; Stop 12/05/18 at 16:59; Status DC Nitroglycerin (Nitrostat) 0.4 mg PRN Q5MIN PRN SL CHEST PAIN; Start 12/04/18 at 17:00; Stop 12/05/18 at 16:59; Status DC Ondansetron HCl (Zofran) 4 mg PRN Q6HRS PRN IV NAUSEA/VOMITING; Start 12/04/18 at 17:45 Morphine Sulfate (Morphine Sulfate) 2 mg PRN Q2HR PRN IV PAIN; Start 12/04/18 at 17:45 Aspirin (Ecotrin) 81 mg DAILY PO Last administered on 12/06/18at 10:46; Start at 09:00 Ferrous Sulfate (Feosol) 325 mg DAILY PO Last administered on 12/06/18at 10:46; Start 12/05/18 at 09:00 Lisinopril (Prinivil) 40 mg DAILY PO Last administered on 12/06/18 10:50; Start 12/05/18 at 09:00 Metoprolol Tartrate (Lopressor) 12.5 mg BID PO Last administered on 12/06/18 10:49; Start 12/04/18 at 21:00 Cyanocobalamin (Vitamin B-12) 500 mcg DAILY PO Last administered on 12/06/18 11:31; Start 12/05/18 at 09:00 Fish Oil (Fish Oil) 1,000 mg TID PO Last administered on 12/06/18 10:45; Start 12/04/18 at 21:00 Non-Formulary Medication (Garlic ) 1,000 mg BID PO ; Start 12/04/18 at 21:00; Status UNV Multivitamins (Thera M Plus) 1 tab DAILY PO Last administered on 12/06/18 10: 46; Start 12/05/18 at 09:00 Atorvastatin Calcium (Lipitor) 20 mg DAILY PO Last administered on 12/06/18 10 :47; Start 12/05/18 at 09:00 Terazosin HCl (Hytrin) 2 mg DAILY PO Last administered on 12/06/18 10:47; Start 12/05/18 at 09:00 Heparin Sodium/ Dextrose 500 ml @ 0 mls/hr CONT PRN IV SEE I/O RECORD Last administered on 12/04/18 21:01; Start 12/04/18 at 17:45; Stop 12/05/18 at 16:23 ; Status DC Heparin Sodium (Porcine) (Heparin Sodium) 1,950 unit PRN Q6HRS PRN IV FOR UFH LEVEL LESS THAN 0.2 Last administered on 12/05/18 04:57; Start 12/04/18 at 17: 45; Stop 12/05/18 at 16:23; Status DC Info (Anti-Coagulation Monitoring By Pharmacy) 1 each PRN DAILY PRN MC SEE COMMENTS Last administered on 12/05/18 13:40; Start 12/05/18 at 07:45; Stop 09/13 at 16:24; Status DC Amlodipine Besylate (Norvasc) 5 mg DAILY PO Last administered on 12/06/18 10: 48; Start 12/05/18 at 12:30 Active Scripts Active Reported Aspir 81 (Aspirin) 81 Mg Tablet.dr 1 Tab PO DAILY Naproxen 500 Mg Tablet 500 Mg PO PRN BID PRN Multivitamins (Multivitamin) 1 Each Tablet 1 Each PO DAILY Iron (Ferrous Sulfate) 325 Mg Tablet 325 Mg PO DAILY B-12 (Cyanocobalamin (Vitamin B-12)) 500 Mcg Tab.rapdis 500 Mcg SL DAILY Garlic 1,000 Mg Capsule 1,000 Mg PO BID Fish Oil 1,200 Mg Fish Oil (Fish Oil/Dha/Epa) 1 Each Capsule 1 Each PO TID Metoprolol Tartrate 25 Mg Tablet 0.5 Tab PO BID Lisinopril 20 Mg Tablet 40 Mg PO DAILY Terazosin Hcl 2 Mg Capsule 2 Mg PO DAILY Pravastatin Sodium 40 Mg Tablet 80 Mg PO DAILY Vitals/I & O Vital Sign - Last 24 Hours 12/05/18 12/05/18 12/05/18 12/05/18 13:24 15:00 19:00 20:00 Temp 98.0 98.0 98.0 98.0 Pulse 63 60 64 Resp 18 18 B/P (MAP) 140/77 151/65 (93) 179/79 (112) Pulse Ox 96 94 O2 Delivery Room Air Room Air Room Air 12/05/18 12/05/18 12/06/18 12/06/18 20:43 22:37 03:01 07:00 Temp 97.8 97.3 97.6 97.8 97.3 97.6 Pulse 62 58 59 62 Resp 16 16 16 B/P (MAP) 158/71 149/58 (88) 152/66 (94) 155/71 (99) Pulse Ox 93 94 95 O2 Delivery Room Air Room Air Room Air 12/06/18 12/06/18 12/06/18 12/06/18 08:00 10:47 10:48 10:48 Temp 98.1 98.1 Pulse 68 66 62 Resp 18 B/P (MAP) 140/69 140/69 140/69 (92) Pulse Ox 93 O2 Delivery Room Air Room Air 12/06/18 12/06/18 10:49 10:50 Pulse 64 66 B/P (MAP) 140/69 140/69 Intake and Output 12/05/18 12/05/18 12/06/18 15:00 23:00 07:00 Intake Total 0 ml 200 ml Output Total 800 ml Balance -800 ml 0 ml 200 ml IVETH HILL MD Dec 06, 2018 12:04
[2018-12-06 14:55] VITALS: BP 105/56
--- NOTE | 2018-12-06 16:49 | PDOC3 ---
Discharge Summary Date of Admission: Dec 04, 2018 Date of Discharge: Dec 06, 2018 Follow-Up: 3-5 days Admitting Diagnosis comment: ssessment/Plan Assessment/Plan angina Known CAD with 11 indwelling stents HIGH RISK //IV HEPARIN DRIP d/c Hypertension, dyslipidemia on meds GERD PLAN: Admit CVC, enzymes, cardiology following ok with discharge today home meds HOME TODAY, WILL PLAN CATH OUPT IF PAIN RE-OCCURS FULL CODE Vitals Vitals Vital Signs Date Time Temp Pulse Resp B/P (MAP) Pulse Ox O2 Delivery O2 Flow Rate FiO2 12/06/18 10:50 66 140/69 12/06/18 10:48 98.1 18 93 Room Air 98.1 Physical Exam Physical Exam Eyes: PERRLA, EOMI, conjunctiva normal, no discharge. [] Neck: Normal range of motion, no tenderness, supple, no stridor. [] Cardiovascular:Heart rate regular rhythm, no murmur [] Lungs & Thorax: Bilateral upper lung lobes are clear in bilateral lower lung lobes are diminished. Abdomen: Bowel sounds normal, soft, no tenderness, no masses, no pulsatile masses. [] Skin: Warm, dry, no erythema, no rash. [] Back: No tenderness, no CVA tenderness. [] Extremities: No tenderness, no cyanosis, no clubbing, ROM intact, no edema. [] Neurologic: Alert and oriented X 3, normal motor function, normal sensory function, no focal deficits noted. [] Psychologic: Affect normal, judgement normal, mood normal. [] General: Alert, Oriented X3, Cooperative, No acute distress Heart: Regular rate, Normal S1, Normal S2 Lungs: Clear, Other (DIMINISHED) Abdomen: Soft, No tenderness Extremities: No cyanosis, No edema, Normal pulses Skin: No significant lesion Labs LABS LEFT VENTRICLE The left ventricle is normal size. There is mild concentric left ventricular hypertrophy. The left ventricular systolic function is normal. The ejection fraction is estimated at 55%. There is normal LV segmental wall motion. No left ventricle thrombus noted on this study. There is no ventricular septal defect visualized. RIGHT VENTRICLE The right ventricle is normal size. There is normal right ventricular wall thickness. The right ventricular systolic function is normal. ATRIA The left atrium is moderately dilated. The right atrium is mildly dilated. AORTIC VALVE The aortic valve is calcified but opens well. Doppler and Color Flow revealed mild aortic regurgitation. There is no significant aortic valvular stenosis. MITRAL VALVE The mitral valve is mildly thickened. Doppler and Color-flow revealed mild to moderate mitral regurgitation. TRICUSPID VALVE The tricuspid valve is normal in structure and function. Doppler and Color Flow revealed mild tricuspid regurgitation. Estimated PAP is 25 mmHg. PULMONIC VALVE The pulmonary valve is normal in structure and function. Mild pulmonic regurgitation. GREAT VESSELS The aortic root is mildly enlarged. The IVC is normal in size and collapses >50 % with inspiration. PERICARDIAL EFFUSION There is no pleural effusion. There is no evidence of significant pericardial effusion. Critical Notification Critical Value: No <Conclusion> The left ventricular systolic function is normal. The ejection fraction is estimated at 55%. There is normal LV segmental wall motion. The left atrium is moderately dilated. Mild aortic regurgitation. Mild to moderate mitral regurgitation. Mild tricuspid regurgitation. Estimated PAP is 25 mmHg. There is no evidence of significant pericardial effusion. FINAL DIAGNOSIS Problems Medical Problems: (1) Chest pain Status: Acute Brief Hospital Course Mr. Aguilar is a 78 old [sex] who presented with [ angina] CONDITION AT DISCHARGE: Improved Discharge Medications Current Medications Aspirin (Children'S Aspirin) 324 mg 1X ONCE PO Last administered on 12/04/18at 16:41; Start 12/04/18 at 16:15; Stop 12/04/18 at 16:16; Status DC Ondansetron HCl (Zofran) 4 mg PRN Q8HRS PRN IV NAUSEA/VOMITING; Start 12/04/18 at 17:00; Stop 12/04/18 at 17:40; Status DC Fentanyl Citrate (Fentanyl 2ml Vial) 50 mcg PRN Q1HR PRN IV PAIN; Start at 17:00; Stop 12/04/18 at 17:40; Status DC Acetaminophen (Tylenol) 650 mg PRN Q4HRS PRN PO FEVER; Start 12/04/18 at 17:00 ; Stop 12/05/18 at 16:59; Status DC Nitroglycerin (Nitrostat) 0.4 mg PRN Q5MIN PRN SL CHEST PAIN; Start 12/04/18 at 17:00; Stop 12/05/18 at 16:59; Status DC Ondansetron HCl (Zofran) 4 mg PRN Q6HRS PRN IV NAUSEA/VOMITING; Start 12/04/18 at 17:45 Morphine Sulfate (Morphine Sulfate) 2 mg PRN Q2HR PRN IV PAIN; Start 12/04/18 at 17:45 Aspirin (Ecotrin) 81 mg DAILY PO Last administered on 12/06/18 10:46; Start at 09:00 Ferrous Sulfate (Feosol) 325 mg DAILY PO Last administered on 12/06/18 10:46; Start 12/05/18 at 09:00 Lisinopril (Prinivil) 40 mg DAILY PO Last administered on 12/06/18 10:50; Start 12/05/18 at 09:00 Metoprolol Tartrate (Lopressor) 12.5 mg BID PO Last administered on 12/06/18 10:49; Start 12/04/18 at 21:00 Cyanocobalamin (Vitamin B-12) 500 mcg DAILY PO Last administered on 12/06/18 11:31; Start 12/05/18 at 09:00 Fish Oil (Fish Oil) 1,000 mg TID PO Last administered on 12/06/18 15:53; Start 12/04/18 at 21:00 Non-Formulary Medication (Garlic ) 1,000 mg BID PO ; Start 12/04/18 at 21:00; Status UNV Multivitamins (Thera M Plus) 1 tab DAILY PO Last administered on 12/06/18 10: 46; Start 12/05/18 at 09:00 Atorvastatin Calcium (Lipitor) 20 mg DAILY PO Last administered on 12/06/18 10 :47; Start 12/05/18 at 09:00 Terazosin HCl (Hytrin) 2 mg DAILY PO Last administered on 12/06/18 10:47; Start 12/05/18 at 09:00 Heparin Sodium/ Dextrose 500 ml @ 0 mls/hr CONT PRN IV SEE I/O RECORD Last administered on 12/04/18 21:01; Start 12/04/18 at 17:45; Stop 12/05/18 at 16:23 ; Status DC Heparin Sodium (Porcine) (Heparin Sodium) 1,950 unit PRN Q6HRS PRN IV FOR UFH LEVEL LESS THAN 0.2 Last administered on 12/05/18 04:57; Start 12/04/18 at 17: 45; Stop 12/05/18 at 16:23; Status DC Info (Anti-Coagulation Monitoring By Pharmacy) 1 each PRN DAILY PRN MC SEE COMMENTS Last administered on 12/05/18at 13:40; Start 12/05/18 at 07:45; Stop 09/13 at 16:24; Status DC Amlodipine Besylate (Norvasc) 5 mg DAILY PO Last administered on 12/06/18at 10: 48; Start 12/05/18 at 12:30 Active Scripts Active Reported Aspir 81 (Aspirin) 81 Mg Tablet.dr 1 Tab PO DAILY Naproxen 500 Mg Tablet 500 Mg PO PRN BID PRN Multivitamins (Multivitamin) 1 Each Tablet 1 Each PO DAILY Iron (Ferrous Sulfate) 325 Mg Tablet 325 Mg PO DAILY B-12 (Cyanocobalamin (Vitamin B-12)) 500 Mcg Tab.rapdis 500 Mcg SL DAILY Garlic 1,000 Mg Capsule 1,000 Mg PO BID Fish Oil 1,200 Mg Fish Oil (Fish Oil/Dha/Epa) 1 Each Capsule 1 Each PO TID Metoprolol Tartrate 25 Mg Tablet 0.5 Tab PO BID Lisinopril 20 Mg Tablet 40 Mg PO DAILY Terazosin Hcl 2 Mg Capsule 2 Mg PO DAILY Pravastatin Sodium 40 Mg Tablet 80 Mg PO DAILY Vital Signs Vital Signs Date Time Temp Pulse Resp B/P (MAP) Pulse Ox O2 Delivery O2 Flow Rate FiO2 12/06/18 14:55 98.0 59 18 105/56 (72) 91 Room Air 98.0 Labs Laboratory Tests Test 12/04/18 23:00 12/05/18 03:10 12/05/18 03:50 12/05/18 10:50 Troponin I Quantitative 0.079 ng/mL (0.000-0.055) 0.062 ng/mL (0.000-0.055) Heparin Anti-Xa Act, Unfractionated 0.17 IU/mL (0.30-0.70) 0.33 IU/mL (0.30-0.70) Triglycerides Level 42 mg/dL (0-150) Cholesterol Level 109 mg/dL (0-200) LDL Cholesterol, Calculated 60 mg/dL (0-100) VLDL Cholesterol, Calculated 8 mg/dL (0-40) Non-HDL Cholesterol Calculated 68 mg/dL (0-129) HDL Cholesterol 41 mg/dL (40-60) Cholesterol/HDL Ratio 2.7 White Blood Count 4.7 x10^3/uL (4.0-11.0) Red Blood Count 3.69 x10^6/uL (4.30-5.70) Hemoglobin 11.1 g/dL (13.0-17.5) Hematocrit 33.1 % (39.0-53.0) Mean Corpuscular Volume 90 fL (79-100) Mean Corpuscular Hemoglobin 30 pg (25-35) Mean Corpuscular Hemoglobin Concent 33 g/dL (31-37) Red Cell Distribution Width 14.0 % (11.5-14.5) Platelet Count 112 x10^3/uL (140-400) Allergies Allergies Coded Allergies Type Severity Reaction Last Updated Verified No Known Drug Allergies 11/29/13 No Disposition/Orders: D/C to Home Patient Instructions d/c planning 33 min IVETH HILL MD Dec 06, 2018 16:49
[2018-12-06] MEDS ORDERED: AMLO5TAB10 PO (16:51)
--- NOTE | 2018-12-06 16:52 | DISCH ---
DISCHARGE INSTRUCTIONS Condition on Discharge Condition on Discharge: Stable Activity After Discharge Activity Instructions for Disc: Avoid exertion Bathing Instructions: No Tub Bath until see Lifting Instructions after Dis: Do not lift >10 pounds Exercise Instruction after Dis: Walk 10 min, 3 x per day, Walk 15 min, 3 x per day, Walk 30 min, 3 x per week Driving Instructions after Dis: Do not drive today Weight Bearing Status after Di: No restrictions Diet after Discharge Diet after Discharge: Cardiac Diet Texture: Regular Liquid Texture: Thin Liquid Swallowing Supervision: None needed Checks after Discharge Checks after discharge: Check blood press - daily Contacting the DRGrace after DC Call your doctor for: Concerns you may have Treatment/Equipment after DC Adaptive Equipment Issued: None IVETH HILL MD Dec 06, 2018 16:52
--- NOTE | 2018-12-06 17:17 | PDOC ---
PROGRESS NOTES Subjective Subjective Patient denied any chest pain today Objective Objective Vital Signs Date Time Temp Pulse Resp B/P (MAP) Pulse Ox O2 Delivery O2 Flow Rate FiO2 12/06/18 14:55 98.0 59 18 105/56 (72) 91 Room Air 98.0 Intake and Output 12/06/18 07:00 Intake Total 200 ml Output Total 800 ml Balance -600 ml Intake Oral 200 ml Output Urine Total 800 ml Physical Exam Abdomen: Soft, No tenderness Heart: Regular rate, Normal S1, Normal S2 Extremities: No cyanosis, No edema, Normal pulses General: Alert, Oriented X3, Cooperative, No acute distress HEENT: Atraumatic, Mucous membr. moist/pink Lungs: Clear to auscultation MUSCULOSKELETAL: Osteoarthritic changes both hands Neuro: Normal speech, Sensation intact Psych/Mental Status: Mental status NL, Mood NL Skin: No significant lesion Assessment Assessment 1. Chest pain, with mixed features in a patient with known history of coronary artery disease s/p CABG. Most recent cath in 2015 showed patent SVG to LAD/D1/ OM1 and SVG to RPL1/RPL2. BRUCE graft occluded and small to moderate sized RCA with a long diffuse 50-60% stenosis, which is unchanged from 2 yrs ago. Slight troponin elevation probably demand ischemia. 2-D echo showed normal LV systolic function without any wall motion abnormalities. He is presently chest pain- free. Continue current secondary prevention measures and follow-up with our office in 1 month. 2. Accelerated hypertension; blood pressure better controlled since admission. 3. Hyperlipidemia; statin Plan Plan of Care Problems Medical Problems: (1) Chest pain Status: Acute Comment Review of Relevant I have reviewed the following items nicola (where applicable) has been applied. Vitals/I & O Vital Sign - Last 24 Hours 12/05/18 12/05/18 12/05/18 12/05/18 19:00 20:00 20:43 22:37 Temp 98.0 97.8 98.0 97.8 Pulse 64 62 58 Resp 18 16 B/P (MAP) 179/79 (112) 158/71 149/58 (88) Pulse Ox 94 93 O2 Delivery Room Air Room Air Room Air 12/06/18 12/06/18 12/06/18 12/06/18 03:01 07:00 08:00 10:47 Temp 97.3 97.6 97.3 97.6 Pulse 59 62 68 Resp 16 16 B/P (MAP) 152/66 (94) 155/71 (99) 140/69 Pulse Ox 94 95 O2 Delivery Room Air Room Air Room Air 12/06/18 12/06/18 12/06/18 12/06/18 10:48 10:48 10:49 10:50 Temp 98.1 98.1 Pulse 66 62 64 66 Resp 18 B/P (MAP) 140/69 140/69 (92) 140/69 140/69 Pulse Ox 93 O2 Delivery Room Air 12/06/18 14:55 Temp 98.0 98.0 Pulse 59 Resp 18 B/P (MAP) 105/56 (72) Pulse Ox 91 O2 Delivery Room Air Intake and Output 12/05/18 12/05/18 12/06/18 15:00 23:00 07:00 Intake Total 0 ml 200 ml Output Total 800 ml Balance -800 ml 0 ml 200 ml RON MICHEL MD Dec 06, 2018 17:17
== END 2018-12-06 18:30 | disposition home or self-care (01) | DRG 305 ==
LOC: ER 15:52 → 2 NORTH 16:45
PROVIDERS: ADMIT Internal Medicine; ATTEND Internal Medicine
DX: I16.0 Hypertensive urgency (principal); I24.8 Other forms of acute ischemic heart disease; I25.118 Atherosclerotic heart disease of native coronary artery with other forms of angina pectoris; I10 Essential (primary) hypertension; E78.5 Hyperlipidemia, unspecified; M19.90 Unspecified osteoarthritis, unspecified site; K21.9 Gastro-esophageal reflux disease without esophagitis; E78.00 Pure hypercholesterolemia, unspecified; Z85.46 Personal history of malignant neoplasm of prostate; Z95.5 Presence of coronary angioplasty implant and graft; Z95.1 Presence of aortocoronary bypass graft; Z83.3 Family history of diabetes mellitus; Z82.49 Family history of ischemic heart disease and other diseases of the circulatory system
CPT/HCPCS: 36415; 71045; 80053; 80061; 83880; 84484; 85025; 85027; 85520; 93005; 93306; J1644; 99285-25

== ENCOUNTER 2019-08-25 13:20 | Inpatient (IN) | payer MEDICARE ==
[~2019-08-25] VITALS: Ht 177.8 cm; Wt 70.0 kg
[~2019-08-25 13:20] MED LIST changes: +AMLO5TAB10 PO; +ASPI-630 PO; +ASPI325T11 PO; +ATOR20TA PO; +ATOR20TA58 PO; +CLOP75TA PO; +GABA300C18 PO; +IRON150C11 PO; +METO-239 PO; +NAPR-683 PO; +PANT40TA77 PO; +PRED20TA PO; +TRAM50TA PO; +VALA1000 PO
[2019-08-25 13:52] LABS: BASO % 1 % (0-3); EOS # 0.2 x10^3/uL (0.0-0.7); EOS % 3 % (0-3); HEMATOCRIT 39.1 % (39.0-53.0); LYMPH % 17 % (24-48); MEAN CORPUSCULAR HEMOGLOBIN 30 pg (25-35); MEAN CORPUSCULAR HGB CONC 33 g/dL (31-37); MEAN CORPUSCULAR VOLUME 90 fL (79-100); MONO # 0.5 x10^3/uL (0.0-1.1); MONO % 8 % (0-9); NEUT # 4.3 x10^3/uL (1.8-7.7); NEUT % 71 % (31-73); PLATELET COUNT 156 x10^3/uL (140-400); RED BLOOD COUNT 4.36 x10^6/uL (4.30-5.70); RED CELL DISTRIBUTION WIDTH 15.5 % (11.5-14.5)
--- NOTE | 2019-08-25 14:00 | PHYS DOC ---
Past Medical History Past Medical History: CAD, Cancer, High Cholesterol, Heart Disease, Hypertension Additional Past Medical Histor: Prostate cancer Past Surgical History: Coronary Bypass Surgery, Tonsillectomy, Other Additional Past Surgical Histo: Hx of Prostate CA w/treatment and resolved, 12 stents, 2 CABG Alcohol Use: None Drug Use: None Adult General Chief Complaint Chief Complaint: SHORTNESS OF BREATH HPI HPI Patient is a 79 year old male with history of CAD who presents with exertional chest pain with dyspnea for the past month. Patient reports dyspnea with mild exertion and is unable to walk greater than 60 feet rapid gradually declining without to stop to catch his breath. He reports chest tightness that is nonradiating that is improved with rest. Reports occasional dizziness or lightheadedness along with palpitations. Denies nausea vomiting or sweats. Denies abdominal pain. Denies increased leg pain or swelling. No history of DVT, PE or congestive heart failure. Accompanied at bedside by his son.[] Review of Systems Review of Systems Review symptoms as per history of present illness. All other review symptoms are negative. All other systems were reviewed and found to be within normal limits, except as documented in this note. Allergies Allergies Allergies Coded Allergies Type Severity Reaction Last Updated Verified No Known Drug Allergies 11/29/13 No Physical Exam Physical Exam Constitutional: Well developed, well nourished, no acute distress, non-toxic appearance. [] HENT: Normocephalic, atraumatic, bilateral external ears normal, oropharynx moist, nose normal. [] Eyes: PERRLA, EOMI, conjunctiva normal. [] Neck: Normal range of motion, no tenderness. [] Cardiovascular: Irregular rhythm. [] Lungs & Thorax: Bilateral breath sounds clear to auscultation [] Abdomen: Bowel sounds normal, soft, no epigastric pain/tenderness. [] Skin: Warm, dry. [] Back: No tenderness, no CVA tenderness. [] Extremities: No tenderness, no edema. [] Neurologic: Alert and oriented X 3, normal motor function, normal sensory function, no focal deficits noted. [] Psychologic: Affect normal, judgement normal, mood normal. [] Current Patient Data Vital Signs Vital Signs Date Time Temp Pulse Resp B/P (MAP) Pulse Ox O2 Delivery O2 Flow Rate FiO2 08/25/19 14:30 60 16 143/62 (89) 91 Room Air 08/25/19 13:37 98.9 98.9 Lab Values Laboratory Tests Test 08/25/19 13:45 White Blood Count 6.0 x10^3/uL (4.0-11.0) Red Blood Count 4.36 x10^6/uL (4.30-5.70) Hemoglobin 13.0 g/dL (13.0-17.5) Hematocrit 39.1 % (39.0-53.0) Mean Corpuscular Volume 90 fL (79-100) Mean Corpuscular Hemoglobin 30 pg (25-35) Mean Corpuscular Hemoglobin Concent 33 g/dL (31-37) Red Cell Distribution Width 15.5 % (11.5-14.5) H Platelet Count 156 x10^3/uL (140-400) Neutrophils (%) (Auto) 71 % (31-73) Lymphocytes (%) (Auto) 17 % (24-48) L Monocytes (%) (Auto) 8 % (0-9) Eosinophils (%) (Auto) 3 % (0-3) Basophils (%) (Auto) 1 % (0-3) Neutrophils # (Auto) 4.3 x10^3/uL (1.8-7.7) Lymphocytes # (Auto) 1.0 x10^3/uL (1.0-4.8) Monocytes # (Auto) 0.5 x10^3/uL (0.0-1.1) Eosinophils # (Auto) 0.2 x10^3/uL (0.0-0.7) Basophils # (Auto) 0.0 x10^3/uL (0.0-0.2) Sodium Level 138 mmol/L (136-145) Potassium Level 4.9 mmol/L (3.5-5.1) Chloride Level 104 mmol/L (98-107) Carbon Dioxide Level 22 mmol/L (21-32) Anion Gap 12 (6-14) Blood Urea Nitrogen 24 mg/dL (8-26) Creatinine 1.5 mg/dL (0.7-1.3) H Estimated GFR (Cockcroft-Gault) 44.9 BUN/Creatinine Ratio 16 (6-20) Glucose Level 103 mg/dL (70-99) H Lactic Acid Level 1.1 mmol/L (0.4-2.0) Calcium Level 9.1 mg/dL (8.5-10.1) Magnesium Level 1.9 mg/dL (1.8-2.4) Total Bilirubin 0.5 mg/dL (0.2-1.0) Aspartate Amino Transferase (AST) 21 U/L (15-37) Alanine Aminotransferase (ALT) 13 U/L (16-63) L Alkaline Phosphatase 81 U/L (46-116) Troponin I Quantitative < 0.017 ng/mL (0.000-0.055) AY-Aok-H-Type Natriuretic Peptide 3157 pg/mL (0-449) H Total Protein 7.7 g/dL (6.4-8.2) Albumin 3.7 g/dL (3.4-5.0) Albumin/Globulin Ratio 0.9 (1.0-1.7) L Thyroid Stimulating Hormone (TSH) 5.524 uIU/mL (0.358-3.74) H Laboratory Tests 08/25/19 13:45 Laboratory Tests 08/25/19 13:45 EKG EKG [EKG: Sinus bradycardia with frequent PACs and aberrant conduction per Dr. Hannah gonzalez.] Radiology/Procedures Radiology/Procedures [CXR: No acute disease per radiology report] Course & Med Decision Making Course & Med Decision Making Pertinent Labs and Imaging studies reviewed. (See chart for details) [Patient placed and cardiovascular monitors. IV Lasix given. Patient cardiac arrhythmia. Dr. Perez content producer for hospital service to admit. EKG reviewed with Dr. Robertson. EKG is consistent with sinus per day with frequent PACs and aberrant conduction. ] Dragon Disclaimer Dragon Disclaimer This electronic medical record was generated, in whole or in part, using a voice recognition dictation system. Departure Departure Impression: Primary Impression: CHF (congestive heart failure) Disposition: ADMITTED INPATIENT Condition: IMPROVED Referrals: IVETH HENLEY DO (PCP) ETHAN BENAVIDEZ DO Aug 25, 2019 14:00
[2019-08-25 14:03] LABS: CALCIUM 9.1 mg/dL (8.5-10.1); CREATININE 1.5 mg/dL (0.7-1.3); GFR 44.9; POTASSIUM 4.9 mmol/L (3.5-5.1)
[2019-08-25 14:09] LABS: ALBUMIN 3.7 g/dL (3.4-5.0); ALBUMIN/GLOBULIN RATIO 0.9 (1.0-1.7); MAGNESIUM 1.9 mg/dL (1.8-2.4); TOTAL BILIRUBIN 0.5 mg/dL (0.2-1.0); TOTAL PROTEIN 7.7 g/dL (6.4-8.2)
--- NOTE | 2019-08-25 14:59 | RAD ---
CHEST AP ONLY Clinical Indication: Shortness of air Comparison: AP chest May 17, 2019 Findings: Median sternotomy wires and changes of CABG. Atherosclerotic and mildly tortuous thoracic aorta. There is mild cardiomegaly. The cardiomediastinal silhouette is normal. Lungs are clear. Incidental azygos fissure. There is no pneumothorax. No pleural effusion is appreciated. No acute bone abnormality. IMPRESSION: No acute cardiopulmonary process. Electronically signed by: Richard Caldwell MD (08/25/2019 2:56 PM) [facility]
[2019-08-25] MEDS ORDERED: FUROSEMIDE 40 MG/4 ML VIAL. IVP ONE (15:45)
--- NOTE | 2019-08-25 17:25 | PDOC1 ---
History and Physical Date of Admission Date of Admission DATE: 08/25/19 TIME: 17:25 Identification/Chief Complaint Chief Complaint Chest pain Source Source: Patient History of Present Illness History of Present Illness Mr Aguilar is an 79 yo M w/ PMHx CAD s/p REGI x12, CABG x2, prostate Cancer in remission, High Cholesterol, Heart Disease, Hypertension who p/w acute chest pain. He describes it as exertional chest pain with dyspnea for the past month that has progressively worsened. Unable to walk greater than 60 feet without to stop to catch his breath. His pain is described as substernal chest tightness that is nonradiating that is improved with rest with associated dizziness and palpitations. Denies nausea vomiting or sweats. Denies abdominal pain. Denies increased leg pain or swelling. His son bedside notes he underwent coronary angiography this past March and was given strict instructions to return if he experienced chest discomfort again. EKG was sinus michelle with frequent PACs and aberrant conduction. Telemetry occasionally looks to be mobitz II. CXR with no pathology. Labs significant for negative trop and Cr 1.5. In april was 1.1. Admitted for further w/u and care. Past Medical History Cardiovascular: CAD, HTN, Hyperlipidemia Pulmonary: No pertinent hx CENTRAL NERVOUS SYSTEM: CVA GI: No pertinent hx Heme/Onc: No pertinent hx Hepatobiliary: No pertinent hx Psych: No pertinent hx Musculoskeletal: Osteoarthritis, Other Rheumatologic: No pertinent hx Infectious disease: No pertinent hx Renal/: Prostate Ca. Endocrine: No pertinent hx Past Surgical History Past Surgical History: Cataract Removal, Hernia Repair, Other Family History Family History: Coronary Artery Disease, Hypertension Social History Smoke: No ALCOHOL: none Drugs: None Current Medications Current Medications Current Medications Furosemide (Lasix) 40 mg 1X ONCE IVP Last administered on 08/25/19at 16:33; Start 08/25/19 at 15:45; Stop 08/25/19 at 15:47; Status DC Active Scripts Active Prednisone 20 Mg Tablet 0.5 Tab PO DAILY 14 Days Clopidogrel (Clopidogrel Bisulfate) 75 Mg Tablet 75 Mg PO [id number] 30 Days Reported Aspirin 81 Mg Tab.chew 1 Tab PO DAILY Poly-Iron (Iron Polysaccharides Complex) 150 Mg Capsule 150 Mg PO BID Atorvastatin Calcium 20 Mg Tablet 20 Mg PO HS Pantoprazole Sodium (Pantoprazole Sodium) 40 Mg Tablet.dr 40 Mg PO DAILYAC Metoprolol Succinate ( Xl ) (Metoprolol Succinate) 25 Mg Tab.er.24h 12.5 Mg PO DAILY Amlodipine Besylate 5 Mg Tablet 5 Mg PO DAILY Tramadol Hcl 50 Mg Tablet 50 Mg PO Q6HRS PRN Gabapentin (Gabapentin) 300 Mg Capsule 300 Mg PO BID Lisinopril 20 Mg Tablet 20 Mg PO DAILY Allergies Allergies: Coded Allergies: No Known Drug Allergies (Unverified , 11/29/13) ROS General: YES: Fatigue, Malaise; No: Chills, Night Sweats, Appetite, Other PSYCHOLOGICAL ROS: No: Anxiety, Behavioral Disorder, Concentration difficultie, Decreased libido, Depression, Disorientation, Hallucinations, Hostility, Irritablity, Memory difficulties, Mood Swings, Obsessive thoughts, Physical abuse, Sexual abuse, Sleep disturbances, Suicidal ideation, Other Eyes: No Blurry vision, No Decreased vision, No Double vision, No Dry eyes, No Excessive tearing, No Eye Pain, No Itchy Eyes, No Loss of vision, No Photophobia, No Scotomata, No Uses contacts, No Uses glasses, No Other HEENT: No: Heacaches, Visual Changes, Hearing change, Nasal congestion, Nasal discharge, Oral lesions, Sinus pain, Sore Throat, Epistaxis, Sneezing, Snoring, Tinnitus, Vertigo, Vocal changes, Other ALLERGY AND IMMUNOLOGY: No: Hives, Insect Bite Sensitivity, Itchy/Watery Eyes, Nasal Congestion, Post Nasal Drip, Seasonal Allergies, Other Hematological and Lymphatic: No: Bleeding Problems, Blood Clots, Blood Transfusions, Brusing, Night Sweats, Pallor, Swollen Lymph Nodes, Other ENDOCRINE: No: Breast Changes, Galactorrhea, Hair Pattern Changes, Hot Flashes, Malaise/lethargy, Mood Swings, Palpitations, Polydipsia/polyuria, Skin Changes, Temperature Intolerance, Unexpected Weight Changes, Other Breast: No New/Changing Breast Lumps, No Nipple changes, No Nipple discharge, No Other Respiratory: YES: Shortness of breath, SOB with excertion; No: Cough, Hemoptysis, Orthopnea, Pleuritic Pain, Sputum Changes, Stridor, Tachypnea, Wheezing, Other Cardiovascular: yes Chest Pain, yes Palpitations, yes Orthopnea, yes Paroxysmal Noc. Dyspnea, yes Lt Headedness; No Edema, No Other Gastrointestinal: No Nausea, No Vomiting, No Abdominal Pain, No Diarrhea, No Constipation, No Melena, No Hematochezia, No Other Genitourinary: No Dysuria, No Frequency, No Incontinence, No Hematuria, No Retention, No Discharge, No Urgency, No Pain, No Flank Pain, No Other, No , No , No , No , No , No , No Musculoskeletal: No Gait Disturbance, No Joint Pain, No Joint Stiffness, No Joint Swelling, No Muscle Pain, No Muscular Weakness, No Pain In:, No Swelling In:, No Other Neurological: No Behavorial Changes, No Bowel/Bladder ControlChng, No Confusion, No Dizziness, No Gait Disturbance, No Headaches, No Impaired Coord/balance, No Memory Loss, No Numbness/Tingling, No Seizures, No Speech Problems, No Tremors, No Visual Changes, No Weakness, No Other Skin: No Dry Skin, No Eczema, No Hair Changes, No Lumps, No Mole Changes, No Mottling, No Nail Changes, No Pruritus, No Rash, No Skin Lesion Changes, No Other, No Acne Physical Exam General: Alert, Cooperative, No acute distress HEENT: Atraumatic, PERRLA, EOMI, Mucous membr. moist/pink Lungs: Clear to auscultation, Normal air movement Heart: S1S2, RRR, no thrills, no rubs Abdomen: Normal bowel sounds, Soft, No tenderness, No hepatosplenomegaly, No masses Extremities: No clubbing, No cyanosis, Normal pulses, No tenderness/swelling, Other (1+ edema) Skin: No rashes, No breakdown, No significant lesion Neuro: Normal gait, Normal speech, Strength at 5/5 X4 ext, Normal tone, Sensation intact, Cranial nerves 3-12 NL, Reflexes 2+ Psych/Mental Status: Mental status NL, Mood NL Vitals Vitals Vital Signs Date Time Temp Pulse Resp B/P (MAP) Pulse Ox O2 Delivery O2 Flow Rate FiO2 08/25/19 16:30 59 15 149/53 (85) 96 Room Air 08/25/19 13:37 98.9 98.9 Labs Labs Laboratory Tests Test 08/25/19 13:45 White Blood Count 6.0 x10^3/uL (4.0-11.0) Red Blood Count 4.36 x10^6/uL (4.30-5.70) Hemoglobin 13.0 g/dL (13.0-17.5) Hematocrit 39.1 % (39.0-53.0) Mean Corpuscular Volume 90 fL (79-100) Mean Corpuscular Hemoglobin 30 pg (25-35) Mean Corpuscular Hemoglobin Concent 33 g/dL (31-37) Red Cell Distribution Width 15.5 % (11.5-14.5) Platelet Count 156 x10^3/uL (140-400) Neutrophils (%) (Auto) 71 % (31-73) Lymphocytes (%) (Auto) 17 % (24-48) Monocytes (%) (Auto) 8 % (0-9) Eosinophils (%) (Auto) 3 % (0-3) Basophils (%) (Auto) 1 % (0-3) Neutrophils # (Auto) 4.3 x10^3/uL (1.8-7.7) Lymphocytes # (Auto) 1.0 x10^3/uL (1.0-4.8) Monocytes # (Auto) 0.5 x10^3/uL (0.0-1.1) Eosinophils # (Auto) 0.2 x10^3/uL (0.0-0.7) Basophils # (Auto) 0.0 x10^3/uL (0.0-0.2) Sodium Level 138 mmol/L (136-145) Potassium Level 4.9 mmol/L (3.5-5.1) Chloride Level 104 mmol/L (98-107) Carbon Dioxide Level 22 mmol/L (21-32) Anion Gap 12 (6-14) Blood Urea Nitrogen 24 mg/dL (8-26) Creatinine 1.5 mg/dL (0.7-1.3) Estimated GFR (Cockcroft-Gault) 44.9 BUN/Creatinine Ratio 16 (6-20) Glucose Level 103 mg/dL (70-99) Lactic Acid Level 1.1 mmol/L (0.4-2.0) Calcium Level 9.1 mg/dL (8.5-10.1) Magnesium Level 1.9 mg/dL (1.8-2.4) Total Bilirubin 0.5 mg/dL (0.2-1.0) Aspartate Amino Transf (AST/SGOT) 21 U/L (15-37) Alanine Aminotransferase (ALT/SGPT) 13 U/L (16-63) Alkaline Phosphatase 81 U/L (46-116) Troponin I Quantitative < 0.017 ng/mL (0.000-0.055) GV-Hgz-K-Type Natriuretic Peptide 3157 pg/mL (0-449) Total Protein 7.7 g/dL (6.4-8.2) Albumin 3.7 g/dL (3.4-5.0) Albumin/Globulin Ratio 0.9 (1.0-1.7) Thyroid Stimulating Hormone (TSH) 5.524 uIU/mL (0.358-3.74) Laboratory Tests Test 08/25/19 13:45 White Blood Count 6.0 x10^3/uL (4.0-11.0) Red Blood Count 4.36 x10^6/uL (4.30-5.70) Hemoglobin 13.0 g/dL (13.0-17.5) Hematocrit 39.1 % (39.0-53.0) Mean Corpuscular Volume 90 fL (79-100) Mean Corpuscular Hemoglobin 30 pg (25-35) Mean Corpuscular Hemoglobin Concent 33 g/dL (31-37) Red Cell Distribution Width 15.5 % (11.5-14.5) Platelet Count 156 x10^3/uL (140-400) Neutrophils (%) (Auto) 71 % (31-73) Lymphocytes (%) (Auto) 17 % (24-48) Monocytes (%) (Auto) 8 % (0-9) Eosinophils (%) (Auto) 3 % (0-3) Basophils (%) (Auto) 1 % (0-3) Neutrophils # (Auto) 4.3 x10^3/uL (1.8-7.7) Lymphocytes # (Auto) 1.0 x10^3/uL (1.0-4.8) Monocytes # (Auto) 0.5 x10^3/uL (0.0-1.1) Eosinophils # (Auto) 0.2 x10^3/uL (0.0-0.7) Basophils # (Auto) 0.0 x10^3/uL (0.0-0.2) Sodium Level 138 mmol/L (136-145) Potassium Level 4.9 mmol/L (3.5-5.1) Chloride Level 104 mmol/L (98-107) Carbon Dioxide Level 22 mmol/L (21-32) Anion Gap 12 (6-14) Blood Urea Nitrogen 24 mg/dL (8-26) Creatinine 1.5 mg/dL (0.7-1.3) Estimated GFR (Cockcroft-Gault) 44.9 BUN/Creatinine Ratio 16 (6-20) Glucose Level 103 mg/dL (70-99) Lactic Acid Level 1.1 mmol/L (0.4-2.0) Calcium Level 9.1 mg/dL (8.5-10.1) Magnesium Level 1.9 mg/dL (1.8-2.4) Total Bilirubin 0.5 mg/dL (0.2-1.0) Aspartate Amino Transf (AST/SGOT) 21 U/L (15-37) Alanine Aminotransferase (ALT/SGPT) 13 U/L (16-63) Alkaline Phosphatase 81 U/L (46-116) Troponin I Quantitative < 0.017 ng/mL (0.000-0.055) WP-Cyt-Q-Type Natriuretic Peptide 3157 pg/mL (0-449) Total Protein 7.7 g/dL (6.4-8.2) Albumin 3.7 g/dL (3.4-5.0) Albumin/Globulin Ratio 0.9 (1.0-1.7) Thyroid Stimulating Hormone (TSH) 5.524 uIU/mL (0.358-3.74) Images Images CXR - no acute abnormality VTE Prophylaxis Ordered VTE Prophylaxis Devices: Yes VTE Pharmacological Prophylaxi: Yes Assessment/Plan Assessment/Plan A/P: Chest pain - very high risk ACS. This sounds like unstable angina. nitrates or ranolazine may be indicated Aberrant conduction - will keep on telemetry, high risk for heart block TEAGAN - likely vasomotor nephropathy, will give some IVF CAD s/p REGI x12, CABG x2 - cont meds, consult cardiology Prostate Cancer in remission - stable High Cholesterol - cont statin Hypertension - Cont meds FEN - Cardiac diet PPX - lovenox FULL CODE Dispo - inpatient high risk ACS, TEAGAN MARSHA FRIAS MD Aug 25, 2019 17:25
[2019-08-25 17:33] VITALS: BP 187/84
[2019-08-25] MEDS ORDERED: ASPI325T8 PO (17:38)
[2019-08-25] MEDS ORDERED: OMEG1CAP50 PO (17:38)
[2019-08-25 19:20] VITALS: BP 165/55
[2019-08-25] MEDS ORDERED: ONDANSETRON PF 4 MG/2 ML VIAL. IVP PRN (21:45)
[2019-08-25] MEDS ORDERED: traMADol 50 MG TABLET PO PRN (21:45)
[2019-08-25] MEDS ORDERED: NITROGLYCERIN SUBLINGUAL 0.4 MG BOTTLE OF 25. SL PRN (21:45)
[2019-08-25] MEDS ORDERED: ACETAMINOPHEN 500 MG TABLET PO PRN (21:45)
[2019-08-25] MEDS: IRON POLYSACCHARIDE COMPLEX 150 MG CAPSULE PO SCH (22:35)
[2019-08-25] MEDS: ATORVASTATIN CALCIUM 20 MG TABLET PO SCH (22:35)
[2019-08-25] MEDS: GABAPENTIN 300 MG CAPSULE. PO SCH (22:35)
[2019-08-25] MEDS: ENOXAPARIN 30 MG/0.3 ML SYRINGE. SQ SCH (22:36)
[2019-08-25 22:37] VITALS: BP 156/68
[2019-08-26 03:55] VITALS: BP 119/63
[2019-08-26 07:00] VITALS: BP 153/66
--- NOTE | 2019-08-26 07:55 | CONS ---
DATE OF CONSULTATION: 08/26/2019 REASON FOR CONSULTATION: Shortness of breath and chest discomfort. HISTORY OF PRESENT ILLNESS: The patient is a pleasant 79-year-old man who comes into the hospital with progressive exertional dyspnea and chest discomfort. He reports that his symptoms started 4 weeks ago and have slowly worsened. Of note, he was admitted to the hospital in 03/2019 and underwent a PCI to one of his vein grafts. 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 Nonetheless, his symptoms were overall well controlled until approximately 3-4 weeks ago as noted. The patient reports that when he is at home, climbing from his basement steps to his kitchen causes him significant discomfort and dyspnea. He denies any associated palpitations, but he has struggled in the past with dizziness and lightheadedness. Upon arrival to the ER, he was noted to have initially heart rates in the 40s and 50s with sinus bradycardia and frequent PACs. He apparently also underwent an event monitor through the office, which I do not have the records of at this time, but he reports that there were no acute abnormalities on these event recordings. He was previously planned for an implantable loop recorder. PAST MEDICAL HISTORY: 1. Coronary artery disease, status post bypass x 2 with the most recent bypass consisting of an SVG to the LAD, OM1 and D1 and an SVG to the RPL1 and RPL2. 2. Hypertension. 3. Dyslipidemia. 4. Syncope previously with no obvious cause noted. SOCIAL HISTORY: The patient denies any alcohol, tobacco or illicit drug use. FAMILY HISTORY: Noncontributory. ALLERGIES: No known drug allergies. CURRENT CARDIAC MEDICATIONS: 1. Metoprolol XL 12.5 mg daily. 2. Amlodipine 5 mg daily. 3. Plavix 75 mg daily. 4. Aspirin 325 mg daily. 5. Atorvastatin 20 mg daily. 6. Enoxaparin 30 mg subcutaneous prophylaxis dose. 7. Fish oil 1000 mg daily. REVIEW OF SYSTEMS: Negative unless otherwise mentioned above in HPI. PHYSICAL EXAMINATION: VITAL SIGNS: 97.4, 62, 20, 119/63, 95% on room air. GENERAL: He is very alert and oriented, no acute distress. HEAD AND NECK: Unremarkable. CARDIAC: Regular rate and rhythm without any obvious murmurs, rubs or gallops. LUNGS: Clear to auscultation bilaterally. ABDOMEN: Soft, nontender, nondistended. EXTREMITIES: No edema, 2+ radial and 1+ dorsalis pedis pulses. NEUROLOGIC: No focal deficits. DIAGNOSTIC STUDIES: 1. Hemoglobin 13.0, platelets 156. Creatinine 1.5 at baseline. Troponin is negative x 1. BNP elevated at 3157. TSH at 5.5. 2. EKG demonstrates sinus bradycardia with what appears to be frequent PACs with aberrant conduction versus PVC. 3. Chest x-ray does not demonstrate any acute consolidation or heart failure process. 4. Echocardiogram in 03/2019 reveals normal LV systolic function with mild aortic and mitral insufficiency. Cardiac catheterization as noted above. IMPRESSION: 1. Dyspnea: Differential diagnosis includes diastolic heart failure versus residual small vessel ischemia. His chest x-ray and physical exam would not lend themselves to a diagnosis of heart failure, but he does have significant exertional dyspnea. His BNP level does suggest acute decompensated heart failure state. 2. History of hypertension, currently well controlled. 3. History of syncope in the setting of bradycardia: Unclear if bradycardia may be contributing to some of his heart failure symptoms. RECOMMENDATIONS: 1. We will review his outpatient event monitor recordings and we will discuss with him tomorrow regarding pacemaker placement if necessary. I don't think his symptoms are related to bradycardia. 2. We will plan for an ambulatory pulse oxygenation evaluation today and consider a right and left heart catheterization tomorrow given his worsening symptoms. Thank you for this consultation. Continue current medical therapy. AGUSTINA PHILLIPS MD DR: DENTON/hanane JOB#: [id number] / [id number] KIMBERLY
[2019-08-26] MEDS: ASPIRIN 325 MG TABLET PO SCH (08:08)
[2019-08-26] MEDS: GABAPENTIN 300 MG CAPSULE. PO SCH ×2 (08:08→21:23)
[2019-08-26] MEDS: OMEGA-3 FATTY ACIDS/FISH OIL 1,000 MG CAPSULE. PO SCH (08:08)
[2019-08-26] MEDS: PANTOPRAZOLE 40 MG TABLET.DR. PO SCH (08:08)
[2019-08-26] MEDS: IRON POLYSACCHARIDE COMPLEX 150 MG CAPSULE PO SCH ×2 (08:08→21:23)
[2019-08-26] MEDS: CLOPIDOGREL BISULFATE 75 MG TABLET PO SCH (08:08)
[2019-08-26] MEDS: METOPROLOL SUCC 24HR ER 25 MG TAB.ER.24H. PO SCH (08:09)
[2019-08-26] MEDS: amLODIPine BESYLATE 5 MG TABLET PO SCH (08:09)
[2019-08-26 11:00] VITALS: BP 106/74
--- NOTE | 2019-08-26 13:25 | PDOC ---
PROGRESS NOTES Chief Complaint Chief Complaint A/P: Chest pain - very high risk ACS. This sounds like unstable angina. nitrates or ranolazine may be indicated Aberrant conduction - will keep on telemetry, high risk for heart block. Bradycardic Dyspnea - likely dCHF or anginal sx TEAGAN - likely vasomotor nephropathy, will give some IVF CAD s/p REGI x12, CABG x2 - cont meds, consult cardiology Prostate Cancer in remission - stable High Cholesterol - cont statin Hypertension - Cont meds FEN - Cardiac diet PPX - lovenox FULL CODE Dispo - inpatient high risk ACS, TEAGAN History of Present Illness History of Present Illness Mr Aguilar is an 79 yo M w/ PMHx CAD s/p REGI x12, CABG x2, prostate Cancer in remission, High Cholesterol, Heart Disease, Hypertension who p/w acute chest pain. He describes it as exertional chest pain with dyspnea for the past month that has progressively worsened. Unable to walk greater than 60 feet without to stop to catch his breath. His pain is described as substernal chest tightness that is nonradiating that is improved with rest with associated dizziness and palpitations. Denies nausea vomiting or sweats. Denies abdominal pain. Denies increased leg pain or swelling. His son bedside notes he underwent coronary angiography this past March and was given strict instructions to return if he experienced chest discomfort again. EKG was sinus michelle with frequent PACs and aberrant conduction. Telemetry occasionally looks to be mobitz II. CXR with no pathology. Labs significant for negative trop and Cr 1.5. In april was 1.1. Admitted for further w/u and care. Still with bradycardia, he is feeling about the same as admission. He did walk to his door, but got short of breath after that. Chest still tight, but more distant. Vitals Vitals Vital Signs Date Time Temp Pulse Resp B/P (MAP) Pulse Ox O2 Delivery O2 Flow Rate FiO2 08/26/19 11:00 97.5 71 20 106/74 (85) 95 Room Air 97.5 Physical Exam General: Alert, Cooperative, No acute distress Lungs: Clear Abdomen: Normal bowel sounds, Soft, No tenderness, No hepatosplenomegaly, No masses Extremities: No clubbing, No cyanosis, Normal pulses, No tenderness/swelling, Other (1+ edema) Skin: No rashes, No breakdown, No significant lesion Labs LABS Laboratory Tests Test 08/25/19 13:45 White Blood Count 6.0 x10^3/uL (4.0-11.0) Red Blood Count 4.36 x10^6/uL (4.30-5.70) Hemoglobin 13.0 g/dL (13.0-17.5) Hematocrit 39.1 % (39.0-53.0) Mean Corpuscular Volume 90 fL (79-100) Mean Corpuscular Hemoglobin 30 pg (25-35) Mean Corpuscular Hemoglobin Concent 33 g/dL (31-37) Red Cell Distribution Width 15.5 % (11.5-14.5) Platelet Count 156 x10^3/uL (140-400) Neutrophils (%) (Auto) 71 % (31-73) Lymphocytes (%) (Auto) 17 % (24-48) Monocytes (%) (Auto) 8 % (0-9) Eosinophils (%) (Auto) 3 % (0-3) Basophils (%) (Auto) 1 % (0-3) Neutrophils # (Auto) 4.3 x10^3/uL (1.8-7.7) Lymphocytes # (Auto) 1.0 x10^3/uL (1.0-4.8) Monocytes # (Auto) 0.5 x10^3/uL (0.0-1.1) Eosinophils # (Auto) 0.2 x10^3/uL (0.0-0.7) Basophils # (Auto) 0.0 x10^3/uL (0.0-0.2) Sodium Level 138 mmol/L (136-145) Potassium Level 4.9 mmol/L (3.5-5.1) Chloride Level 104 mmol/L (98-107) Carbon Dioxide Level 22 mmol/L (21-32) Anion Gap 12 (6-14) Blood Urea Nitrogen 24 mg/dL (8-26) Creatinine 1.5 mg/dL (0.7-1.3) Estimated GFR (Cockcroft-Gault) 44.9 BUN/Creatinine Ratio 16 (6-20) Glucose Level 103 mg/dL (70-99) Lactic Acid Level 1.1 mmol/L (0.4-2.0) Calcium Level 9.1 mg/dL (8.5-10.1) Magnesium Level 1.9 mg/dL (1.8-2.4) Total Bilirubin 0.5 mg/dL (0.2-1.0) Aspartate Amino Transf (AST/SGOT) 21 U/L (15-37) Alanine Aminotransferase (ALT/SGPT) 13 U/L (16-63) Alkaline Phosphatase 81 U/L (46-116) Troponin I Quantitative < 0.017 ng/mL (0.000-0.055) GF-Chs-E-Type Natriuretic Peptide 3157 pg/mL (0-449) Total Protein 7.7 g/dL (6.4-8.2) Albumin 3.7 g/dL (3.4-5.0) Albumin/Globulin Ratio 0.9 (1.0-1.7) Thyroid Stimulating Hormone (TSH) 5.524 uIU/mL (0.358-3.74) Comment Review of Relevant I have reviewed the following items nicola (where applicable) has been applied. Labs Laboratory Tests Test 08/25/19 13:45 White Blood Count 6.0 x10^3/uL (4.0-11.0) Red Blood Count 4.36 x10^6/uL (4.30-5.70) Hemoglobin 13.0 g/dL (13.0-17.5) Hematocrit 39.1 % (39.0-53.0) Mean Corpuscular Volume 90 fL (79-100) Mean Corpuscular Hemoglobin 30 pg (25-35) Mean Corpuscular Hemoglobin Concent 33 g/dL (31-37) Red Cell Distribution Width 15.5 % (11.5-14.5) Platelet Count 156 x10^3/uL (140-400) Neutrophils (%) (Auto) 71 % (31-73) Lymphocytes (%) (Auto) 17 % (24-48) Monocytes (%) (Auto) 8 % (0-9) Eosinophils (%) (Auto) 3 % (0-3) Basophils (%) (Auto) 1 % (0-3) Neutrophils # (Auto) 4.3 x10^3/uL (1.8-7.7) Lymphocytes # (Auto) 1.0 x10^3/uL (1.0-4.8) Monocytes # (Auto) 0.5 x10^3/uL (0.0-1.1) Eosinophils # (Auto) 0.2 x10^3/uL (0.0-0.7) Basophils # (Auto) 0.0 x10^3/uL (0.0-0.2) Sodium Level 138 mmol/L (136-145) Potassium Level 4.9 mmol/L (3.5-5.1) Chloride Level 104 mmol/L (98-107) Carbon Dioxide Level 22 mmol/L (21-32) Anion Gap 12 (6-14) Blood Urea Nitrogen 24 mg/dL (8-26) Creatinine 1.5 mg/dL (0.7-1.3) Estimated GFR (Cockcroft-Gault) 44.9 BUN/Creatinine Ratio 16 (6-20) Glucose Level 103 mg/dL (70-99) Lactic Acid Level 1.1 mmol/L (0.4-2.0) Calcium Level 9.1 mg/dL (8.5-10.1) Magnesium Level 1.9 mg/dL (1.8-2.4) Total Bilirubin 0.5 mg/dL (0.2-1.0) Aspartate Amino Transf (AST/SGOT) 21 U/L (15-37) Alanine Aminotransferase (ALT/SGPT) 13 U/L (16-63) Alkaline Phosphatase 81 U/L (46-116) Troponin I Quantitative < 0.017 ng/mL (0.000-0.055) VM-Pns-F-Type Natriuretic Peptide 3157 pg/mL (0-449) Total Protein 7.7 g/dL (6.4-8.2) Albumin 3.7 g/dL (3.4-5.0) Albumin/Globulin Ratio 0.9 (1.0-1.7) Thyroid Stimulating Hormone (TSH) 5.524 uIU/mL (0.358-3.74) Laboratory Tests Test 08/25/19 13:45 White Blood Count 6.0 x10^3/uL (4.0-11.0) Red Blood Count 4.36 x10^6/uL (4.30-5.70) Hemoglobin 13.0 g/dL (13.0-17.5) Hematocrit 39.1 % (39.0-53.0) Mean Corpuscular Volume 90 fL (79-100) Mean Corpuscular Hemoglobin 30 pg (25-35) Mean Corpuscular Hemoglobin Concent 33 g/dL (31-37) Red Cell Distribution Width 15.5 % (11.5-14.5) Platelet Count 156 x10^3/uL (140-400) Neutrophils (%) (Auto) 71 % (31-73) Lymphocytes (%) (Auto) 17 % (24-48) Monocytes (%) (Auto) 8 % (0-9) Eosinophils (%) (Auto) 3 % (0-3) Basophils (%) (Auto) 1 % (0-3) Neutrophils # (Auto) 4.3 x10^3/uL (1.8-7.7) Lymphocytes # (Auto) 1.0 x10^3/uL (1.0-4.8) Monocytes # (Auto) 0.5 x10^3/uL (0.0-1.1) Eosinophils # (Auto) 0.2 x10^3/uL (0.0-0.7) Basophils # (Auto) 0.0 x10^3/uL (0.0-0.2) Sodium Level 138 mmol/L (136-145) Potassium Level 4.9 mmol/L (3.5-5.1) Chloride Level 104 mmol/L (98-107) Carbon Dioxide Level 22 mmol/L (21-32) Anion Gap 12 (6-14) Blood Urea Nitrogen 24 mg/dL (8-26) Creatinine 1.5 mg/dL (0.7-1.3) Estimated GFR (Cockcroft-Gault) 44.9 BUN/Creatinine Ratio 16 (6-20) Glucose Level 103 mg/dL (70-99) Lactic Acid Level 1.1 mmol/L (0.4-2.0) Calcium Level 9.1 mg/dL (8.5-10.1) Magnesium Level 1.9 mg/dL (1.8-2.4) Total Bilirubin 0.5 mg/dL (0.2-1.0) Aspartate Amino Transf (AST/SGOT) 21 U/L (15-37) Alanine Aminotransferase (ALT/SGPT) 13 U/L (16-63) Alkaline Phosphatase 81 U/L (46-116) Troponin I Quantitative < 0.017 ng/mL (0.000-0.055) TD-Tjs-R-Type Natriuretic Peptide 3157 pg/mL (0-449) Total Protein 7.7 g/dL (6.4-8.2) Albumin 3.7 g/dL (3.4-5.0) Albumin/Globulin Ratio 0.9 (1.0-1.7) Thyroid Stimulating Hormone (TSH) 5.524 uIU/mL (0.358-3.74) Medications Current Medications Furosemide (Lasix) 40 mg 1X ONCE IVP Last administered on 08/25/19 16:33; Start 08/25/19 at 15:45; Stop 08/25/19 at 15:47; Status DC Amlodipine Besylate (Norvasc) 5 mg DAILY PO Last administered on 08/26/19 08:09; Start 08/26/19 at 09:00 Aspirin (Vivian Aspirin) 325 mg DAILYWBKFT PO Last administered on 08/26/19 08:08; Start 08/26/19 at 08:00 Atorvastatin Calcium (Lipitor) 20 mg HS PO Last administered on 08/25/19at 22:35; Start 08/25/19 at 22:15 Clopidogrel Bisulfate (Plavix) 75 mg DAILYWBKFT PO Last administered on 08/26/19 08:08; Start 08/26/19 at 08:00 Gabapentin (Neurontin) 300 mg BID PO Last administered on 08/26/19 08:08; Start 08/25/19 at 22:15 Polysaccharide Iron Complex (Niferex 150) 150 mg BID PO Last administered on 08/26/19 08:08; Start 08/25/19 at 22:15 Metoprolol Succinate (Toprol Xl) 12.5 mg DAILY PO Last administered on 08/26/19 08:09; Start 08/26/19 at 09:00 Fish Oil (Fish Oil) 1,000 mg DAILY PO Last administered on 08/26/19 08:08; Start 08/26/19 at 09:00 Pantoprazole Sodium (Protonix) 40 mg DAILYAC PO Last administered on 08/26/19 08:08; Start 08/26/19 at 07:30 Tramadol HCl (Ultram) 50 mg PRN Q6HRS PRN PO PAIN; Start 08/25/19 at 21:45 Enoxaparin Sodium (Lovenox 30mg Syringe) 30 mg Q24H SQ Last administered on 08/25/19at 22:36; Start 08/25/19 at 22:00 Ondansetron HCl (Zofran) 4 mg PRN Q6HRS PRN IVP NAUSEA/VOMITING; Start 08/25/19 at 21:45 Acetaminophen (Tylenol) 500 mg PRN Q6HRS PRN PO MILD PAIN / TEMP; Start 08/25/19 at 21:45 Nitroglycerin (Nitrostat) 0.4 mg PRN Q5MIN PRN SL CHEST PAIN; Start 08/25/19 at 21:45 Active Scripts Active Clopidogrel (Clopidogrel Bisulfate) 75 Mg Tablet 75 Mg PO DAILYWBKFT 30 Days Reported Poly-Iron (Iron Polysaccharides Complex) 150 Mg Capsule 150 Mg PO BID Atorvastatin Calcium 20 Mg Tablet 20 Mg PO HS Pantoprazole Sodium (Pantoprazole Sodium) 40 Mg Tablet.dr 40 Mg PO DAILYAC Metoprolol Succinate ( Xl ) (Metoprolol Succinate) 25 Mg Tab.er.24h 12.5 Mg PO DAILY Amlodipine Besylate 5 Mg Tablet 5 Mg PO DAILY Tramadol Hcl 50 Mg Tablet 50 Mg PO Q6HRS PRN Gabapentin (Gabapentin) 300 Mg Capsule 300 Mg PO BID Lisinopril 20 Mg Tablet 20 Mg PO DAILY Aspirin 325 Mg Tablet 1 Tab PO DAILY Vitals/I & O Vital Sign - Last 24 Hours 08/25/19 08/25/19 08/25/19 08/25/19 13:30 13:37 14:00 14:30 Temp 98.9 98.9 Pulse 62 57 54 60 Resp 17 20 17 16 B/P (MAP) 157/62 (93) 157/62 (93) 151/70 (97) 143/62 (89) Pulse Ox 92 93 92 91 O2 Delivery Room Air Room Air Room Air Room Air 08/25/19 08/25/19 08/25/19 08/25/19 15:00 15:30 16:00 16:30 Pulse 55 59 58 59 Resp 16 16 16 15 B/P (MAP) 146/57 (86) 160/67 (98) 153/70 (97) 149/53 (85) Pulse Ox 91 95 98 96 O2 Delivery Room Air Room Air Room Air Room Air 08/25/19 08/25/19 08/25/19 08/25/19 17:33 19:20 20:00 22:37 Temp 97.6 97.4 98.2 97.6 97.4 98.2 Pulse 62 67 68 Resp 18 22 18 B/P (MAP) 187/84 (118) 165/55 (91) 156/68 (97) Pulse Ox 96 93 97 O2 Delivery Room Air Room Air Room Air Room Air 08/26/19 08/26/19 08/26/19 08/26/19 03:55 07:00 08:00 08:09 Temp 97.4 97.8 97.4 97.8 Pulse 62 66 81 Resp 20 20 B/P (MAP) 119/63 (81) 153/66 (95) 153/66 Pulse Ox 95 96 O2 Delivery Room Air Room Air Room Air 08/26/19 08/26/19 08:09 11:00 Temp 97.5 97.5 Pulse 81 71 Resp 20 B/P (MAP) 153/66 106/74 (85) Pulse Ox 95 O2 Delivery Room Air Intake and Output 08/25/19 08/25/19 08/26/19 15:00 23:00 07:00 Intake Total 100 ml Output Total 100 ml 300 ml 1500 ml Balance -100 ml -300 ml -1400 ml MARSHA FRIAS MD Aug 26, 2019 13:25
[2019-08-26 15:00] VITALS: BP 127/61
[2019-08-26 19:00] VITALS: BP 116/56
[2019-08-26] MEDS: ATORVASTATIN CALCIUM 20 MG TABLET PO SCH (21:23)
[2019-08-26] MEDS: ENOXAPARIN 30 MG/0.3 ML SYRINGE. SQ SCH (21:24)
[2019-08-26 23:00] VITALS: BP 126/61
[2019-08-27 03:00] VITALS: BP 117/55
[2019-08-27 07:00] VITALS: BP 115/72
[2019-08-27] MEDS ORDERED: ACETAMINOPHEN/CODEINE 300/30MG TABLET. PO PRN (08:45)
[2019-08-27] MEDS ORDERED: CALCIUM CARBONATE 500 MG TAB.CHEW PO PRN (08:45)
[2019-08-27] MEDS ORDERED: ACETAMINOPHEN 500 MG TABLET PO PRN (08:45)
[2019-08-27] MEDS: PANTOPRAZOLE 40 MG TABLET.DR. PO SCH (09:14)
[2019-08-27] MEDS: OMEGA-3 FATTY ACIDS/FISH OIL 1,000 MG CAPSULE. PO SCH (09:14)
[2019-08-27] MEDS: ASPIRIN 325 MG TABLET PO SCH (09:15)
[2019-08-27] MEDS: amLODIPine BESYLATE 5 MG TABLET PO SCH (09:15)
[2019-08-27] MEDS: CLOPIDOGREL BISULFATE 75 MG TABLET PO SCH (09:15)
[2019-08-27] MEDS: IRON POLYSACCHARIDE COMPLEX 150 MG CAPSULE PO SCH ×2 (09:16→20:47)
[2019-08-27] MEDS: GABAPENTIN 300 MG CAPSULE. PO SCH ×2 (09:16→20:47)
[2019-08-27] MEDS: METOPROLOL SUCC 24HR ER 25 MG TAB.ER.24H. PO SCH (09:16)
[2019-08-27 09:51] LABS: BASO % 0 % (0-3); EOS # 0.2 x10^3/uL (0.0-0.7); EOS % 4 % (0-3); HEMATOCRIT 39.9 % (39.0-53.0); HEMOGLOBIN 13.2 g/dL (13.0-17.5); LYMPH # 0.8 x10^3/uL (1.0-4.8); LYMPH % 16 % (24-48); MEAN CORPUSCULAR HEMOGLOBIN 30 pg (25-35); MEAN CORPUSCULAR HGB CONC 33 g/dL (31-37); MEAN CORPUSCULAR VOLUME 90 fL (79-100); MONO # 0.3 x10^3/uL (0.0-1.1); MONO % 7 % (0-9); NEUT # 3.6 x10^3/uL (1.8-7.7); NEUT % 74 % (31-73); PLATELET COUNT 147 x10^3/uL (140-400); RED BLOOD COUNT 4.44 x10^6/uL (4.30-5.70); RED CELL DISTRIBUTION WIDTH 15.6 % (11.5-14.5); WHITE BLOOD COUNT 4.9 x10^3/uL (4.0-11.0)
[2019-08-27 10:00] LABS: CALCIUM 8.8 mg/dL (8.5-10.1); GFR 32.2; POTASSIUM 4.8 mmol/L (3.5-5.1)
[2019-08-27] MEDS ORDERED: IV NORMAL SALINE 1000ML BAG 1,000 ML IV ONE (10:30)
[2019-08-27 11:00] VITALS: BP 127/61
--- NOTE | 2019-08-27 11:04 | PDOC ---
PROGRESS NOTES Chief Complaint Chief Complaint A/P: Chest pain - very high risk ACS. Hx CABG Aberrant conduction - Dyspnea - likely dCHF or anginal sx TEAGAN - likely vasomotor nephropathy, CAD s/p REGI x12, CABG x2 - Prostate Cancer in remission - stable High Cholesterol - cont statin Hypertension - Cont meds History of Present Illness History of Present Illness no complaints no CP sounds like planned for C tmr WIll make NPO post MN PLAN: Cont present meds NPO post MN in case H tmr 6 MW was recommended Tuesday note cards - i ordered Vitals Vitals Vital Signs Date Time Temp Pulse Resp B/P (MAP) Pulse Ox O2 Delivery O2 Flow Rate FiO2 08/27/19 09:16 70 115/72 08/27/19 07:00 97.2 18 93 Room Air 97.2 Physical Exam General: Alert, Oriented X3, Cooperative, No acute distress Heart: Regular rate, Normal S1, Normal S2, No murmurs Lungs: Clear Abdomen: Normal bowel sounds, Soft, No tenderness, No hepatosplenomegaly, No masses Extremities: No clubbing, No cyanosis, Normal pulses, No tenderness/swelling, Other (1+ edema) Skin: No rashes, No breakdown, No significant lesion Labs LABS Laboratory Tests Test 08/27/19 09:35 White Blood Count 4.9 x10^3/uL (4.0-11.0) Red Blood Count 4.44 x10^6/uL (4.30-5.70) Hemoglobin 13.2 g/dL (13.0-17.5) Hematocrit 39.9 % (39.0-53.0) Mean Corpuscular Volume 90 fL (79-100) Mean Corpuscular Hemoglobin 30 pg (25-35) Mean Corpuscular Hemoglobin Concent 33 g/dL (31-37) Red Cell Distribution Width 15.6 % (11.5-14.5) Platelet Count 147 x10^3/uL (140-400) Neutrophils (%) (Auto) 74 % (31-73) Lymphocytes (%) (Auto) 16 % (24-48) Monocytes (%) (Auto) 7 % (0-9) Eosinophils (%) (Auto) 4 % (0-3) Basophils (%) (Auto) 0 % (0-3) Neutrophils # (Auto) 3.6 x10^3/uL (1.8-7.7) Lymphocytes # (Auto) 0.8 x10^3/uL (1.0-4.8) Monocytes # (Auto) 0.3 x10^3/uL (0.0-1.1) Eosinophils # (Auto) 0.2 x10^3/uL (0.0-0.7) Basophils # (Auto) 0.0 x10^3/uL (0.0-0.2) Sodium Level 139 mmol/L (136-145) Potassium Level 4.8 mmol/L (3.5-5.1) Chloride Level 104 mmol/L (98-107) Carbon Dioxide Level 25 mmol/L (21-32) Anion Gap 10 (6-14) Blood Urea Nitrogen 42 mg/dL (8-26) Creatinine 2.0 mg/dL (0.7-1.3) Estimated GFR (Cockcroft-Gault) 32.2 Glucose Level 176 mg/dL (70-99) Calcium Level 8.8 mg/dL (8.5-10.1) Review of Systems Review of Systems neg14 pt reviewed with him Comment Review of Relevant I have reviewed the following items nicola (where applicable) has been applied. Labs Laboratory Tests Test 08/25/19 13:45 08/27/19 09:35 White Blood Count 6.0 x10^3/uL (4.0-11.0) 4.9 x10^3/uL (4.0-11.0) Red Blood Count 4.36 x10^6/uL (4.30-5.70) 4.44 x10^6/uL (4.30-5.70) Hemoglobin 13.0 g/dL (13.0-17.5) 13.2 g/dL (13.0-17.5) Hematocrit 39.1 % (39.0-53.0) 39.9 % (39.0-53.0) Mean Corpuscular Volume 90 fL (79-100) 90 fL (79-100) Mean Corpuscular Hemoglobin 30 pg (25-35) 30 pg (25-35) Mean Corpuscular Hemoglobin Concent 33 g/dL (31-37) 33 g/dL (31-37) Red Cell Distribution Width 15.5 % (11.5-14.5) 15.6 % (11.5-14.5) Platelet Count 156 x10^3/uL (140-400) 147 x10^3/uL (140-400) Neutrophils (%) (Auto) 71 % (31-73) 74 % (31-73) Lymphocytes (%) (Auto) 17 % (24-48) 16 % (24-48) Monocytes (%) (Auto) 8 % (0-9) 7 % (0-9) Eosinophils (%) (Auto) 3 % (0-3) 4 % (0-3) Basophils (%) (Auto) 1 % (0-3) 0 % (0-3) Neutrophils # (Auto) 4.3 x10^3/uL (1.8-7.7) 3.6 x10^3/uL (1.8-7.7) Lymphocytes # (Auto) 1.0 x10^3/uL (1.0-4.8) 0.8 x10^3/uL (1.0-4.8) Monocytes # (Auto) 0.5 x10^3/uL (0.0-1.1) 0.3 x10^3/uL (0.0-1.1) Eosinophils # (Auto) 0.2 x10^3/uL (0.0-0.7) 0.2 x10^3/uL (0.0-0.7) Basophils # (Auto) 0.0 x10^3/uL (0.0-0.2) 0.0 x10^3/uL (0.0-0.2) Sodium Level 138 mmol/L (136-145) 139 mmol/L (136-145) Potassium Level 4.9 mmol/L (3.5-5.1) 4.8 mmol/L (3.5-5.1) Chloride Level 104 mmol/L (98-107) 104 mmol/L (98-107) Carbon Dioxide Level 22 mmol/L (21-32) 25 mmol/L (21-32) Anion Gap 12 (6-14) 10 (6-14) Blood Urea Nitrogen 24 mg/dL (8-26) 42 mg/dL (8-26) Creatinine 1.5 mg/dL (0.7-1.3) 2.0 mg/dL (0.7-1.3) Estimated GFR (Cockcroft-Gault) 44.9 32.2 BUN/Creatinine Ratio 16 (6-20) Glucose Level 103 mg/dL (70-99) 176 mg/dL (70-99) Lactic Acid Level 1.1 mmol/L (0.4-2.0) Calcium Level 9.1 mg/dL (8.5-10.1) 8.8 mg/dL (8.5-10.1) Magnesium Level 1.9 mg/dL (1.8-2.4) Total Bilirubin 0.5 mg/dL (0.2-1.0) Aspartate Amino Transf (AST/SGOT) 21 U/L (15-37) Alanine Aminotransferase (ALT/SGPT) 13 U/L (16-63) Alkaline Phosphatase 81 U/L (46-116) Troponin I Quantitative < 0.017 ng/mL (0.000-0.055) UQ-Dvu-D-Type Natriuretic Peptide 3157 pg/mL (0-449) Total Protein 7.7 g/dL (6.4-8.2) Albumin 3.7 g/dL (3.4-5.0) Albumin/Globulin Ratio 0.9 (1.0-1.7) Thyroid Stimulating Hormone (TSH) 5.524 uIU/mL (0.358-3.74) Laboratory Tests Test 08/27/19 09:35 White Blood Count 4.9 x10^3/uL (4.0-11.0) Red Blood Count 4.44 x10^6/uL (4.30-5.70) Hemoglobin 13.2 g/dL (13.0-17.5) Hematocrit 39.9 % (39.0-53.0) Mean Corpuscular Volume 90 fL (79-100) Mean Corpuscular Hemoglobin 30 pg (25-35) Mean Corpuscular Hemoglobin Concent 33 g/dL (31-37) Red Cell Distribution Width 15.6 % (11.5-14.5) Platelet Count 147 x10^3/uL (140-400) Neutrophils (%) (Auto) 74 % (31-73) Lymphocytes (%) (Auto) 16 % (24-48) Monocytes (%) (Auto) 7 % (0-9) Eosinophils (%) (Auto) 4 % (0-3) Basophils (%) (Auto) 0 % (0-3) Neutrophils # (Auto) 3.6 x10^3/uL (1.8-7.7) Lymphocytes # (Auto) 0.8 x10^3/uL (1.0-4.8) Monocytes # (Auto) 0.3 x10^3/uL (0.0-1.1) Eosinophils # (Auto) 0.2 x10^3/uL (0.0-0.7) Basophils # (Auto) 0.0 x10^3/uL (0.0-0.2) Sodium Level 139 mmol/L (136-145) Potassium Level 4.8 mmol/L (3.5-5.1) Chloride Level 104 mmol/L (98-107) Carbon Dioxide Level 25 mmol/L (21-32) Anion Gap 10 (6-14) Blood Urea Nitrogen 42 mg/dL (8-26) Creatinine 2.0 mg/dL (0.7-1.3) Estimated GFR (Cockcroft-Gault) 32.2 Glucose Level 176 mg/dL (70-99) Calcium Level 8.8 mg/dL (8.5-10.1) Medications Current Medications Furosemide (Lasix) 40 mg 1X ONCE IVP Last administered on 08/25/19 16:33; Start 08/25/19 at 15:45; Stop 08/25/19 at 15:47; Status DC Amlodipine Besylate (Norvasc) 5 mg DAILY PO Last administered on 08/27/19 09:15; Start 08/26/19 at 09:00 Aspirin (Vivian Aspirin) 325 mg DAILYWBKFT PO Last administered on 08/27/19 09:15; Start 08/26/19 at 08:00 Atorvastatin Calcium (Lipitor) 20 mg HS PO Last administered on 08/26/19at 21:23; Start 08/25/19 at 22:15 Clopidogrel Bisulfate (Plavix) 75 mg DAILYWBKFT PO Last administered on 08/27/19 09:15; Start 08/26/19 at 08:00 Gabapentin (Neurontin) 300 mg BID PO Last administered on 08/27/19 09:16; Start 08/25/19 at 22:15 Polysaccharide Iron Complex (Niferex 150) 150 mg BID PO Last administered on 08/27/19at 09:16; Start 08/25/19 at 22:15 Metoprolol Succinate (Toprol Xl) 12.5 mg DAILY PO Last administered on 08/27/19at 09:16; Start 08/26/19 at 09:00 Fish Oil (Fish Oil) 1,000 mg DAILY PO Last administered on 08/27/19at 09:14; Start 08/26/19 at 09:00 Pantoprazole Sodium (Protonix) 40 mg DAILYAC PO Last administered on 08/27/19at 09:14; Start 08/26/19 at 07:30 Tramadol HCl (Ultram) 50 mg PRN Q6HRS PRN PO PAIN; Start 08/25/19 at 21:45 Enoxaparin Sodium (Lovenox 30mg Syringe) 30 mg Q24H SQ Last administered on 08/26/19at 21:24; Start 08/25/19 at 22:00 Ondansetron HCl (Zofran) 4 mg PRN Q6HRS PRN IVP NAUSEA/VOMITING; Start 08/25/19 at 21:45 Acetaminophen (Tylenol) 500 mg PRN Q6HRS PRN PO MILD PAIN / TEMP; Start 08/25/19 at 21:45 Nitroglycerin (Nitrostat) 0.4 mg PRN Q5MIN PRN SL CHEST PAIN; Start 08/25/19 at 21:45 Acetaminophen (Tylenol) 500 mg PRN Q6HRS PRN PO MILD PAIN / TEMP; Start 08/27/19 at 08:45; Status UNV Acetaminophen/ Codeine Phosphate (Tylenol #3) 1 tab PRN Q6HRS PRN PO MODERATE PAIN; Start 08/27/19 at 08:45 Calcium Carbonate/ Glycine (Tums) 500 mg PRN AFTMEALHC PRN PO INDIGESTION; Start 08/27/19 at 08:45 Sodium Chloride 1,000 ml @ 75 mls/hr 1X ONCE IV ; Start 08/27/19 at 10:30; Stop 08/27/19 at 23:49 Active Scripts Active Clopidogrel (Clopidogrel Bisulfate) 75 Mg Tablet 75 Mg PO DAILYWBKFT 30 Days Reported Poly-Iron (Iron Polysaccharides Complex) 150 Mg Capsule 150 Mg PO BID Atorvastatin Calcium 20 Mg Tablet 20 Mg PO HS Pantoprazole Sodium (Pantoprazole Sodium) 40 Mg Tablet.dr 40 Mg PO DAILYAC Metoprolol Succinate ( Xl ) (Metoprolol Succinate) 25 Mg Tab.er.24h 12.5 Mg PO DAILY Amlodipine Besylate 5 Mg Tablet 5 Mg PO DAILY Tramadol Hcl 50 Mg Tablet 50 Mg PO Q6HRS PRN Gabapentin (Gabapentin) 300 Mg Capsule 300 Mg PO BID Lisinopril 20 Mg Tablet 20 Mg PO DAILY Aspirin 325 Mg Tablet 1 Tab PO DAILY Vitals/I & O Vital Sign - Last 24 Hours 08/26/19 08/26/19 08/26/19 08/26/19 15:00 19:00 20:00 23:00 Temp 97.9 97.3 97.4 97.9 97.3 97.4 Pulse 56 57 55 Resp 20 20 20 B/P (MAP) 127/61 (83) 116/56 (76) 126/61 (82) Pulse Ox 97 93 92 O2 Delivery Room Air Room Air Room Air Room Air 08/27/19 08/27/19 08/27/19 08/27/19 03:00 07:00 09:15 09:16 Temp 98.1 97.2 98.1 97.2 Pulse 59 62 70 70 Resp 20 18 B/P (MAP) 117/55 (75) 115/72 (86) 115/72 115/72 Pulse Ox 93 93 O2 Delivery Room Air Room Air Intake and Output 08/26/19 08/26/19 08/27/19 15:00 23:00 07:00 Intake Total 300 ml 150 ml Output Total 500 ml 100 ml Balance -200 ml 50 ml CHIQUITA LANDAVERDE MD Aug 27, 2019 11:04
--- NOTE | 2019-08-27 12:43 | NUR ---
SS following for discharge planning. SS reviewed pt chart. Pt is from home with spouse and is currently on room air. PT/OT ordered. Pt has had previous stays in the past at [facility]. SS will await PT/OT evaluations and recommendations and will proceed accordingly with discharge planning.
--- NOTE | 2019-08-27 13:55 | EKG ---
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
[2019-08-27 15:00] VITALS: BP 135/63
--- NOTE | 2019-08-27 17:19 | PDOC ---
CARDIO Progress Notes Date and Time Date of Service 08/27/19 Time of Evaluation 1415 Subjective Subjective: No Chest Pain, No shortness of breath (at rest. C/o ANDERSEN), No Palpitations Vitals Vitals Vital Signs Date Time Temp Pulse Resp B/P (MAP) Pulse Ox O2 Delivery O2 Flow Rate FiO2 08/27/19 15:00 97.2 64 18 135/63 (87) 95 Room Air 97.2 Weight Weight [ ] Input and Output Intake and Output Intake and Output 08/27/19 07:00 Intake Total 450 ml Output Total 600 ml Balance -150 ml Intake Oral 450 ml Output Urine Total 600 ml # Voids 1 Laboratory Labs Laboratory Tests Test 08/27/19 09:35 White Blood Count 4.9 x10^3/uL (4.0-11.0) Red Blood Count 4.44 x10^6/uL (4.30-5.70) Hemoglobin 13.2 g/dL (13.0-17.5) Hematocrit 39.9 % (39.0-53.0) Mean Corpuscular Volume 90 fL (79-100) Mean Corpuscular Hemoglobin 30 pg (25-35) Mean Corpuscular Hemoglobin Concent 33 g/dL (31-37) Red Cell Distribution Width 15.6 % (11.5-14.5) Platelet Count 147 x10^3/uL (140-400) Neutrophils (%) (Auto) 74 % (31-73) Lymphocytes (%) (Auto) 16 % (24-48) Monocytes (%) (Auto) 7 % (0-9) Eosinophils (%) (Auto) 4 % (0-3) Basophils (%) (Auto) 0 % (0-3) Neutrophils # (Auto) 3.6 x10^3/uL (1.8-7.7) Lymphocytes # (Auto) 0.8 x10^3/uL (1.0-4.8) Monocytes # (Auto) 0.3 x10^3/uL (0.0-1.1) Eosinophils # (Auto) 0.2 x10^3/uL (0.0-0.7) Basophils # (Auto) 0.0 x10^3/uL (0.0-0.2) Sodium Level 139 mmol/L (136-145) Potassium Level 4.8 mmol/L (3.5-5.1) Chloride Level 104 mmol/L (98-107) Carbon Dioxide Level 25 mmol/L (21-32) Anion Gap 10 (6-14) Blood Urea Nitrogen 42 mg/dL (8-26) Creatinine 2.0 mg/dL (0.7-1.3) Estimated GFR (Cockcroft-Gault) 32.2 Glucose Level 176 mg/dL (70-99) Calcium Level 8.8 mg/dL (8.5-10.1) Physical Exam HEENT: Neck Supple W Full Motion Chest: Symmetric LUNGS: Clear to Auscultation Heart: S1S2, RRR Abdomen: Soft N/T Extremities: No Edema Neurology: alert, oriented, follow commands Assessment Assessment 1. Dyspnea; acute CHF versus small vessel ischemic. S/p IV Lasix therapy. Appears compensated 2. Sinus bradycardia; no significant pauses noted. Event monitor this past summer notable for Wenckebach and frequent PVCs 3. CAD; s/p CABG and recent PCI/stent. Cath 03/2019 with multivessel disease. [employer] of BRUCE to LAD graft and SVG to OM graft. Patent graft to the LAD and Dx system. Subtotal lesion in the vein graft to posterior lateral vessel; s/p PCI/stenting. Also had mid RCA disease with lesions up to 70-80%. Is CP free. 4. Hypertension; controlled 5. Hyperlipidemia; statin therapy 6. TEAGAN on CKD; Cr ^ from 1.5- 2 today. 7. History of prostate ca. Recommendations Agree with IVFs Continue DAPT and secondary prevention measures. ASA/plavix, statin NPO p [place]. Will repeat BMP in am Consider further ischemic workup in am. Consider outpatient loop recorder Supportive RODNEY Darling APRN Aug 27, 2019 17:18
[2019-08-27 19:35] VITALS: BP 129/57
[2019-08-27] MEDS: ATORVASTATIN CALCIUM 20 MG TABLET PO SCH (20:47)
[2019-08-27] MEDS: ENOXAPARIN 30 MG/0.3 ML SYRINGE. SQ SCH (20:48)
[2019-08-27 23:02] VITALS: BP 131/59
[2019-08-28 02:35] VITALS: BP 139/60
[2019-08-28 05:41] LABS: BASO % 0 % (0-3); EOS # 0.2 x10^3/uL (0.0-0.7); EOS % 4 % (0-3); HEMATOCRIT 37.2 % (39.0-53.0); HEMOGLOBIN 12.4 g/dL (13.0-17.5); LYMPH # 0.9 x10^3/uL (1.0-4.8); LYMPH % 17 % (24-48); MEAN CORPUSCULAR HEMOGLOBIN 30 pg (25-35); MEAN CORPUSCULAR HGB CONC 33 g/dL (31-37); MEAN CORPUSCULAR VOLUME 90 fL (79-100); MONO # 0.5 x10^3/uL (0.0-1.1); MONO % 9 % (0-9); NEUT # 3.9 x10^3/uL (1.8-7.7); NEUT % 70 % (31-73); PLATELET COUNT 128 x10^3/uL (140-400); RED BLOOD COUNT 4.16 x10^6/uL (4.30-5.70); RED CELL DISTRIBUTION WIDTH 15.2 % (11.5-14.5); WHITE BLOOD COUNT 5.6 x10^3/uL (4.0-11.0)
[2019-08-28 06:09] LABS: ALBUMIN 3.1 g/dL (3.4-5.0); ALBUMIN/GLOBULIN RATIO 0.9 (1.0-1.7); CALCIUM 8.4 mg/dL (8.5-10.1); CREATININE 1.5 mg/dL (0.7-1.3); GFR 44.9; POTASSIUM 4.5 mmol/L (3.5-5.1); TOTAL BILIRUBIN 0.4 mg/dL (0.2-1.0); TOTAL PROTEIN 6.6 g/dL (6.4-8.2)
[2019-08-28 07:00] VITALS: BP 183/77
[2019-08-28] MEDS ORDERED: ISOS30TA4 PO (09:10)
--- NOTE | 2019-08-28 09:11 | SNU/HH DC ---
DISCHARGE WITH HOME HEALTH DISCHARGE INFORMATION: Discharge Date: Aug 28, 2019 Condition on Discharge: Stable CODE STATUS: Code Status: Full HOME HEALTH: Face to Face: I certify this patient is under my care and that I, or a nurse practitioner or physician's registrar assistant working with me, had a face to face encounter that meets the physician face to face encounter requirements with this patient on []. 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 POST DISCHARGE ORDERS: Activity Instructions for Disc: Activity as tolerated, Avoid exertion Weight Bearing Status after Di: No restrictions, Full weight bearing, As tolerated DIET AFTER DISCHARGE: Cardiac Wound/Incision Care: No wound care needed CHECKS AFTER DISCHARGE: Checks after discharge: Check blood press - daily FOLLOW-UP: PCP to follow Home Health: [facility] sep 2019 (creat 1-2 )- stopped lisinopril TREATMENT/EQUIPMENT ORDERS: Adaptive Equipment Issued: None CERTIFICATION STATEMENT: Certification Statement: Certification Statement: Based on the above finding, I certify that this patient is confined to the home and needs intermittent care home care, physical therapy and/or speech therapy, or continues to need occupational therapy.~ This patient is under my care, and I have initiated the establishment of the plan of care.~ This patient will be followed by myself or a community physician who will periodically review the plan of care. Home Meds Active Scripts Isosorbide Mononitrate (ISOSORBIDE MONONITRATE ER) 30 Mg Tab.er.24h, 30 MG PO DAILY for htn, cp, #60 TAB.SR Prov:CHIQUITA LANDAVERDE MD 08/28/19 Clopidogrel Bisulfate (CLOPIDOGREL) 75 Mg Tablet, 75 MG PO DAILYWBKFT for Coronary artery disease for 30 Days, #30 TAB 2 Refills Prov:RODNEY FRASER APRN 03/29/19 Reported Medications Rodeo-3 Fatty Acids/Fish Oil (FISH OIL 1,000 MG SOFTGEL) 1 Each Capsule, 1 CAP PO DAILY for CAD for 30 Days, #30 CAP 0 Refills 08/25/19 Aspirin (ASPIRIN) 325 Mg Tablet, 1 TAB PO DAILY for CAD, #30 TAB 5 Refills 08/25/19 Iron Polysaccharides Complex (POLY-IRON) 150 Mg Capsule, 150 MG PO BID for anemia, CAP 05/19/19 Atorvastatin Calcium (ATORVASTATIN CALCIUM) 20 Mg Tablet, 20 MG PO HS for FOR CHOLESTEROL, #30 TAB 0 Refills 05/19/19 Pantoprazole Sodium (PANTOPRAZOLE SODIUM ) 40 Mg Tablet.dr, 40 MG PO DAILYAC for GERD, TAB 05/19/19 Metoprolol Succinate (METOPROLOL SUCCINATE ( XL )) 25 Mg Tab.er.24h, 12.5 MG PO DAILY for FOR HYPERTENSION, #30 TAB 0 Refills 05/19/19 Amlodipine Besylate (AMLODIPINE BESYLATE) 5 Mg Tablet, 5 MG PO DAILY for HTN, TAB 05/13/19 Tramadol Hcl (TRAMADOL HCL) 50 Mg Tablet, 50 MG PO Q6HRS PRN for PAIN, TAB 05/13/19 Gabapentin (GABAPENTIN ) 300 Mg Capsule, 300 MG PO BID for NEUROGENIC PAIN, CAP 05/13/19 Discontinued Reported Medications Lisinopril (LISINOPRIL) 20 Mg Tablet, 20 MG PO DAILY for hypertention 02/04/14 Aspirin (ASPIRIN) 81 Mg Tab.chew, 1 TAB PO DAILY for CAD, #30 TAB 3 Refills 05/19/19 CHIQUITA LANDAVERDE MD Aug 28, 2019 09:11
[2019-08-28] MEDS: ASPIRIN 325 MG TABLET PO SCH (09:48)
[2019-08-28] MEDS: ISOSORBIDE MONONITRATE ER 30 MG TAB.ER.24H PO SCH (09:48)
[2019-08-28] MEDS: OMEGA-3 FATTY ACIDS/FISH OIL 1,000 MG CAPSULE. PO SCH (09:49)
[2019-08-28] MEDS: METOPROLOL SUCC 24HR ER 25 MG TAB.ER.24H. PO SCH (09:49)
[2019-08-28] MEDS: PANTOPRAZOLE 40 MG TABLET.DR. PO SCH (09:49)
[2019-08-28] MEDS: IRON POLYSACCHARIDE COMPLEX 150 MG CAPSULE PO SCH ×2 (09:49→22:19)
[2019-08-28] MEDS: amLODIPine BESYLATE 5 MG TABLET PO SCH (09:49)
[2019-08-28] MEDS: CLOPIDOGREL BISULFATE 75 MG TABLET PO SCH (09:49)
[2019-08-28] MEDS: GABAPENTIN 300 MG CAPSULE. PO SCH ×2 (09:50→22:18)
--- NOTE | 2019-08-28 10:03 | PDOC ---
CARDIO Progress Notes Date and Time Date of Service 08/28/19 Time of Evaluation 1000 Subjective Subjective: No Chest Pain, No shortness of breath (at rest. C/o ANDERSEN), No Palpitations Vitals Vitals Vital Signs Date Time Temp Pulse Resp B/P (MAP) Pulse Ox O2 Delivery O2 Flow Rate FiO2 08/28/19 09:49 72 183/77 08/28/19 07:00 97.5 20 96 Room Air 97.5 Weight Weight [ ] Input and Output Intake and Output Intake and Output 08/28/19 07:00 Intake Total 1040 ml Output Total 1090 ml Balance -50 ml Intake Oral 1040 ml Output Urine Total 1090 ml # Voids 1 Laboratory Labs Laboratory Tests Test 08/28/19 05:15 White Blood Count 5.6 x10^3/uL (4.0-11.0) Red Blood Count 4.16 x10^6/uL (4.30-5.70) Hemoglobin 12.4 g/dL (13.0-17.5) Hematocrit 37.2 % (39.0-53.0) Mean Corpuscular Volume 90 fL (79-100) Mean Corpuscular Hemoglobin 30 pg (25-35) Mean Corpuscular Hemoglobin Concent 33 g/dL (31-37) Red Cell Distribution Width 15.2 % (11.5-14.5) Platelet Count 128 x10^3/uL (140-400) Neutrophils (%) (Auto) 70 % (31-73) Lymphocytes (%) (Auto) 17 % (24-48) Monocytes (%) (Auto) 9 % (0-9) Eosinophils (%) (Auto) 4 % (0-3) Basophils (%) (Auto) 0 % (0-3) Neutrophils # (Auto) 3.9 x10^3/uL (1.8-7.7) Lymphocytes # (Auto) 0.9 x10^3/uL (1.0-4.8) Monocytes # (Auto) 0.5 x10^3/uL (0.0-1.1) Eosinophils # (Auto) 0.2 x10^3/uL (0.0-0.7) Basophils # (Auto) 0.0 x10^3/uL (0.0-0.2) Sodium Level 140 mmol/L (136-145) Potassium Level 4.5 mmol/L (3.5-5.1) Chloride Level 106 mmol/L (98-107) Carbon Dioxide Level 24 mmol/L (21-32) Anion Gap 10 (6-14) Blood Urea Nitrogen 41 mg/dL (8-26) Creatinine 1.5 mg/dL (0.7-1.3) Estimated GFR (Cockcroft-Gault) 44.9 BUN/Creatinine Ratio 27 (6-20) Glucose Level 86 mg/dL (70-99) Calcium Level 8.4 mg/dL (8.5-10.1) Total Bilirubin 0.4 mg/dL (0.2-1.0) Aspartate Amino Transf (AST/SGOT) 14 U/L (15-37) Alanine Aminotransferase (ALT/SGPT) 16 U/L (16-63) Alkaline Phosphatase 72 U/L (46-116) Total Protein 6.6 g/dL (6.4-8.2) Albumin 3.1 g/dL (3.4-5.0) Albumin/Globulin Ratio 0.9 (1.0-1.7) Physical Exam HEENT: Neck Supple W Full Motion Chest: Symmetric LUNGS: Clear to Auscultation Heart: S1S2, RRR Abdomen: Soft N/T Extremities: No Edema Neurology: alert, oriented, follow commands Assessment Assessment 1. Dyspnea; acute CHF versus small vessel ischemic. Now compensated 2. Sinus bradycardia; no significant pauses noted. Event monitor this past summer notable for Wenckebach and frequent PVCs 3. CAD; s/p CABG and recent PCI/stent. Cath 03/2019 with multivessel disease. ORDER CLERK of BRUCE to LAD graft and SVG to OM graft. Patent graft to the LAD and Dx system. Subtotal lesion in the vein graft to posterior lateral vessel; s/p PCI/stenting. Also had mid RCA disease with lesions up to 70-80%. Is CP free. 4. Hypertension; controlled 5. Hyperlipidemia; statin therapy 6. TEAGAN on CKD; Cr better today s/p IVFs Recommendations Continue DAPT and secondary prevention measures. ASA/plavix, statin Pulmonary evaluation NPO p MN. Will proceed with MPI in am to evaluate presence of reversible ischemia Consider outpatient loop recorder Supportive care RODNEY FRASER APRN Aug 28, 2019 10:03
[2019-08-28 11:00] VITALS: BP 111/59
--- NOTE | 2019-08-28 12:11 | PDOC ---
PROGRESS NOTES Chief Complaint Chief Complaint A/P: Chest pain - very high risk ACS. Hx CABG Aberrant conduction - Dyspnea - likely dCHF or anginal sx TEAGAN - likely vasomotor nephropathy, CAD s/p REGI x12, CABG x2 - Prostate Cancer in remission - stable High Cholesterol - cont statin Hypertension - Cont meds History of Present Illness History of Present Illness no complaints walking with PT for mPI today no CP PLAN: Cont present meds MPI today I saw him walking with PT, did great No o2 needs, initially thoughts of 6 MW Vitals Vitals Vital Signs Date Time Temp Pulse Resp B/P (MAP) Pulse Ox O2 Delivery O2 Flow Rate FiO2 08/28/19 09:49 72 183/77 08/28/19 08:00 Room Air 08/28/19 07:00 97.5 20 96 97.5 Physical Exam General: Alert, Oriented X3, Cooperative, No acute distress Heart: Regular rate, Normal S1, Normal S2, No murmurs Lungs: Clear Abdomen: Normal bowel sounds, Soft, No tenderness, No hepatosplenomegaly, No masses Extremities: No clubbing, No cyanosis, Normal pulses, No tenderness/swelling, Other (1+ edema) Skin: No rashes, No breakdown, No significant lesion Labs LABS Laboratory Tests Test 08/28/19 05:15 White Blood Count 5.6 x10^3/uL (4.0-11.0) Red Blood Count 4.16 x10^6/uL (4.30-5.70) Hemoglobin 12.4 g/dL (13.0-17.5) Hematocrit 37.2 % (39.0-53.0) Mean Corpuscular Volume 90 fL (79-100) Mean Corpuscular Hemoglobin 30 pg (25-35) Mean Corpuscular Hemoglobin Concent 33 g/dL (31-37) Red Cell Distribution Width 15.2 % (11.5-14.5) Platelet Count 128 x10^3/uL (140-400) Neutrophils (%) (Auto) 70 % (31-73) Lymphocytes (%) (Auto) 17 % (24-48) Monocytes (%) (Auto) 9 % (0-9) Eosinophils (%) (Auto) 4 % (0-3) Basophils (%) (Auto) 0 % (0-3) Neutrophils # (Auto) 3.9 x10^3/uL (1.8-7.7) Lymphocytes # (Auto) 0.9 x10^3/uL (1.0-4.8) Monocytes # (Auto) 0.5 x10^3/uL (0.0-1.1) Eosinophils # (Auto) 0.2 x10^3/uL (0.0-0.7) Basophils # (Auto) 0.0 x10^3/uL (0.0-0.2) Sodium Level 140 mmol/L (136-145) Potassium Level 4.5 mmol/L (3.5-5.1) Chloride Level 106 mmol/L (98-107) Carbon Dioxide Level 24 mmol/L (21-32) Anion Gap 10 (6-14) Blood Urea Nitrogen 41 mg/dL (8-26) Creatinine 1.5 mg/dL (0.7-1.3) Estimated GFR (Cockcroft-Gault) 44.9 BUN/Creatinine Ratio 27 (6-20) Glucose Level 86 mg/dL (70-99) Calcium Level 8.4 mg/dL (8.5-10.1) Total Bilirubin 0.4 mg/dL (0.2-1.0) Aspartate Amino Transf (AST/SGOT) 14 U/L (15-37) Alanine Aminotransferase (ALT/SGPT) 16 U/L (16-63) Alkaline Phosphatase 72 U/L (46-116) Total Protein 6.6 g/dL (6.4-8.2) Albumin 3.1 g/dL (3.4-5.0) Albumin/Globulin Ratio 0.9 (1.0-1.7) Review of Systems Review of Systems no cp, neg 14 pt reviewed Comment Review of Relevant I have reviewed the following items nicola (where applicable) has been applied. Labs Laboratory Tests Test 08/27/19 09:35 08/28/19 05:15 White Blood Count 4.9 x10^3/uL (4.0-11.0) 5.6 x10^3/uL (4.0-11.0) Red Blood Count 4.44 x10^6/uL (4.30-5.70) 4.16 x10^6/uL (4.30-5.70) Hemoglobin 13.2 g/dL (13.0-17.5) 12.4 g/dL (13.0-17.5) Hematocrit 39.9 % (39.0-53.0) 37.2 % (39.0-53.0) Mean Corpuscular Volume 90 fL (79-100) 90 fL (79-100) Mean Corpuscular Hemoglobin 30 pg (25-35) 30 pg (25-35) Mean Corpuscular Hemoglobin Concent 33 g/dL (31-37) 33 g/dL (31-37) Red Cell Distribution Width 15.6 % (11.5-14.5) 15.2 % (11.5-14.5) Platelet Count 147 x10^3/uL (140-400) 128 x10^3/uL (140-400) Neutrophils (%) (Auto) 74 % (31-73) 70 % (31-73) Lymphocytes (%) (Auto) 16 % (24-48) 17 % (24-48) Monocytes (%) (Auto) 7 % (0-9) 9 % (0-9) Eosinophils (%) (Auto) 4 % (0-3) 4 % (0-3) Basophils (%) (Auto) 0 % (0-3) 0 % (0-3) Neutrophils # (Auto) 3.6 x10^3/uL (1.8-7.7) 3.9 x10^3/uL (1.8-7.7) Lymphocytes # (Auto) 0.8 x10^3/uL (1.0-4.8) 0.9 x10^3/uL (1.0-4.8) Monocytes # (Auto) 0.3 x10^3/uL (0.0-1.1) 0.5 x10^3/uL (0.0-1.1) Eosinophils # (Auto) 0.2 x10^3/uL (0.0-0.7) 0.2 x10^3/uL (0.0-0.7) Basophils # (Auto) 0.0 x10^3/uL (0.0-0.2) 0.0 x10^3/uL (0.0-0.2) Sodium Level 139 mmol/L (136-145) 140 mmol/L (136-145) Potassium Level 4.8 mmol/L (3.5-5.1) 4.5 mmol/L (3.5-5.1) Chloride Level 104 mmol/L (98-107) 106 mmol/L (98-107) Carbon Dioxide Level 25 mmol/L (21-32) 24 mmol/L (21-32) Anion Gap 10 (6-14) 10 (6-14) Blood Urea Nitrogen 42 mg/dL (8-26) 41 mg/dL (8-26) Creatinine 2.0 mg/dL (0.7-1.3) 1.5 mg/dL (0.7-1.3) Estimated GFR (Cockcroft-Gault) 32.2 44.9 Glucose Level 176 mg/dL (70-99) 86 mg/dL (70-99) Calcium Level 8.8 mg/dL (8.5-10.1) 8.4 mg/dL (8.5-10.1) BUN/Creatinine Ratio 27 (6-20) Total Bilirubin 0.4 mg/dL (0.2-1.0) Aspartate Amino Transf (AST/SGOT) 14 U/L (15-37) Alanine Aminotransferase (ALT/SGPT) 16 U/L (16-63) Alkaline Phosphatase 72 U/L (46-116) Total Protein 6.6 g/dL (6.4-8.2) Albumin 3.1 g/dL (3.4-5.0) Albumin/Globulin Ratio 0.9 (1.0-1.7) Laboratory Tests Test 08/28/19 05:15 White Blood Count 5.6 x10^3/uL (4.0-11.0) Red Blood Count 4.16 x10^6/uL (4.30-5.70) Hemoglobin 12.4 g/dL (13.0-17.5) Hematocrit 37.2 % (39.0-53.0) Mean Corpuscular Volume 90 fL (79-100) Mean Corpuscular Hemoglobin 30 pg (25-35) Mean Corpuscular Hemoglobin Concent 33 g/dL (31-37) Red Cell Distribution Width 15.2 % (11.5-14.5) Platelet Count 128 x10^3/uL (140-400) Neutrophils (%) (Auto) 70 % (31-73) Lymphocytes (%) (Auto) 17 % (24-48) Monocytes (%) (Auto) 9 % (0-9) Eosinophils (%) (Auto) 4 % (0-3) Basophils (%) (Auto) 0 % (0-3) Neutrophils # (Auto) 3.9 x10^3/uL (1.8-7.7) Lymphocytes # (Auto) 0.9 x10^3/uL (1.0-4.8) Monocytes # (Auto) 0.5 x10^3/uL (0.0-1.1) Eosinophils # (Auto) 0.2 x10^3/uL (0.0-0.7) Basophils # (Auto) 0.0 x10^3/uL (0.0-0.2) Sodium Level 140 mmol/L (136-145) Potassium Level 4.5 mmol/L (3.5-5.1) Chloride Level 106 mmol/L (98-107) Carbon Dioxide Level 24 mmol/L (21-32) Anion Gap 10 (6-14) Blood Urea Nitrogen 41 mg/dL (8-26) Creatinine 1.5 mg/dL (0.7-1.3) Estimated GFR (Cockcroft-Gault) 44.9 BUN/Creatinine Ratio 27 (6-20) Glucose Level 86 mg/dL (70-99) Calcium Level 8.4 mg/dL (8.5-10.1) Total Bilirubin 0.4 mg/dL (0.2-1.0) Aspartate Amino Transf (AST/SGOT) 14 U/L (15-37) Alanine Aminotransferase (ALT/SGPT) 16 U/L (16-63) Alkaline Phosphatase 72 U/L (46-116) Total Protein 6.6 g/dL (6.4-8.2) Albumin 3.1 g/dL (3.4-5.0) Albumin/Globulin Ratio 0.9 (1.0-1.7) Medications Current Medications Furosemide (Lasix) 40 mg 1X ONCE IVP Last administered on 08/25/19at 16:33; Start 08/25/19 at 15:45; Stop 08/25/19 at 15:47; Status DC Amlodipine Besylate (Norvasc) 5 mg DAILY PO Last administered on 08/28/19at 09:49; Start 08/26/19 at 09:00 Aspirin (Vivian Aspirin) 325 mg DAILYWBKFT PO Last administered on 08/28/19 09:48; Start 08/26/19 at 08:00 Atorvastatin Calcium (Lipitor) 20 mg HS PO Last administered on 08/27/19 20:47; Start 08/25/19 at 22:15 Clopidogrel Bisulfate (Plavix) 75 mg DAILYWBKFT PO Last administered on 08/28/19 09:49; Start 08/26/19 at 08:00 Gabapentin (Neurontin) 300 mg BID PO Last administered on 08/28/19 09:50; Start 08/25/19 at 22:15 Polysaccharide Iron Complex (Niferex 150) 150 mg BID PO Last administered on 08/28/19 09:49; Start 08/25/19 at 22:15 Metoprolol Succinate (Toprol Xl) 12.5 mg DAILY PO Last administered on 08/28/19 09:49; Start 08/26/19 at 09:00 Fish Oil (Fish Oil) 1,000 mg DAILY PO Last administered on 08/28/19 09:49; Start 08/26/19 at 09:00 Pantoprazole Sodium (Protonix) 40 mg DAILYAC PO Last administered on 08/28/19 09:49; Start 08/26/19 at 07:30 Tramadol HCl (Ultram) 50 mg PRN Q6HRS PRN PO PAIN; Start 08/25/19 at 21:45 Enoxaparin Sodium (Lovenox 30mg Syringe) 30 mg Q24H SQ Last administered on 08/27/19 20:48; Start 08/25/19 at 22:00 Ondansetron HCl (Zofran) 4 mg PRN Q6HRS PRN IVP NAUSEA/VOMITING; Start 08/25/19 at 21:45 Acetaminophen (Tylenol) 500 mg PRN Q6HRS PRN PO MILD PAIN / TEMP; Start 08/25/19 at 21:45 Nitroglycerin (Nitrostat) 0.4 mg PRN Q5MIN PRN SL CHEST PAIN; Start 08/25/19 at 21:45 Acetaminophen (Tylenol) 500 mg PRN Q6HRS PRN PO MILD PAIN / TEMP; Start 08/27/19 at 08:45; Status UNV Acetaminophen/ Codeine Phosphate (Tylenol #3) 1 tab PRN Q6HRS PRN PO MODERATE PAIN; Start 08/27/19 at 08:45 Calcium Carbonate/ Glycine (Tums) 500 mg PRN AFTMEALHC PRN PO INDIGESTION; Start 08/27/19 at 08:45 Sodium Chloride 1,000 ml @ 75 mls/hr 1X ONCE IV Last administered on 08/27/19at 10:30; Start 08/27/19 at 10:30; Stop 08/27/19 at 23:49; Status DC Isosorbide Mononitrate (Imdur) 30 mg DAILY PO Last administered on 08/28/19at 09:48; Start 08/28/19 at 09:00 Active Scripts Active Isosorbide Mononitrate Er (Isosorbide Mononitrate) 30 Mg Tab.er.24h 30 Mg PO DAILY Clopidogrel (Clopidogrel Bisulfate) 75 Mg Tablet 75 Mg PO DAILYWBKFT 30 Days Reported Fish Oil 1,000 Mg Softgel (Paramus-3 Fatty Acids/Fish Oil) 1 Each Capsule 1 Cap PO DAILY 30 Days Aspirin 325 Mg Tablet 1 Tab PO DAILY Poly-Iron (Iron Polysaccharides Complex) 150 Mg Capsule 150 Mg PO BID Atorvastatin Calcium 20 Mg Tablet 20 Mg PO HS Pantoprazole Sodium (Pantoprazole Sodium) 40 Mg Tablet.dr 40 Mg PO DAILYAC Metoprolol Succinate ( Xl ) (Metoprolol Succinate) 25 Mg Tab.er.24h 12.5 Mg PO DAILY Amlodipine Besylate 5 Mg Tablet 5 Mg PO DAILY Tramadol Hcl 50 Mg Tablet 50 Mg PO Q6HRS PRN Gabapentin (Gabapentin) 300 Mg Capsule 300 Mg PO BID Vitals/I & O Vital Sign - Last 24 Hours 08/27/19 08/27/19 08/27/19 08/27/19 15:00 19:35 19:35 23:02 Temp 97.2 97.8 97.2 97.2 97.8 97.2 Pulse 64 67 66 Resp 18 20 16 B/P (MAP) 135/63 (87) 129/57 (81) 131/59 (83) Pulse Ox 95 97 96 O2 Delivery Room Air Room Air Room Air Room Air 08/28/19 08/28/19 08/28/19 08/28/19 02:35 07:00 08:00 09:48 Temp 97.8 97.5 97.8 97.5 Pulse 49 72 72 Resp 16 20 B/P (MAP) 139/60 (86) 183/77 (112) 183/77 Pulse Ox 96 96 O2 Delivery Room Air Room Air Room Air 08/28/19 08/28/19 09:49 09:49 Pulse 72 72 B/P (MAP) 183/77 183/77 Intake and Output 08/27/19 08/27/19 08/28/19 15:00 23:00 07:00 Intake Total 400 ml 640 ml 0 ml Output Total 240 ml 850 ml Balance 160 ml 640 ml -850 ml Nutrition Consultation Dietary Evaluation: Recommendations by RD: Increase Calorie Intake Comments: Continue w/cardiac diet as ordered, honor food preferences, and provide snacks as requested Expected Outcomes/Goals: PO intake to meet >75% est needs Interpretation of weight loss: >10% in 6 months Malnutrition Findings: Body Fat Depletion (Non Severe: Mild Depletion Weight Status: Appropriate CHIQUITA LANDAVERDE MD Aug 28, 2019 12:10
[2019-08-28] MEDS ORDERED: REGADENOSON 0.4 MG/5 ML DISP.SYRIN. IV ONE (13:00)
--- NOTE | 2019-08-28 14:59 | NUR ---
SS following up with discharge planning. PT/OT recommended home independent at discharge. Pt is currently on room air. SS will continue to follow for discharge planning.
[2019-08-28 15:00] VITALS: BP 137/64
--- NOTE | 2019-08-28 15:01 | RAD ---
MR#: [id number] Date of Study: 08/28/2019 Ordering Physician: RODNEY FRASER, Referring Physician: SLADE CHARLTON Tech: SERA Robledo ARRT (R) (N) APPROVED REPORT Test Type: Pharmacological Stress Nurse/Tech: Pauly Verde R.N. Test Indications: c/p Cardiac History: stents, CABG, htn, Medications: See Electronic Medical Record Medical History: See Electronic Medical Record Resting ECG: SR Resting Heart Rate: 66 bpm Resting Blood Pressure: 108/53mmHg Pretest Chest Pain: No chest pain Nurse/Tech Notes S1S2, lungs CTA Consent: The procedure was explained to the patient in lay terms. Informed consent was witnessed. Juan eout was entered into [employer]. History and Stress Test performed by SERA Robledo ARRT (R) (N) Pharm. Details Pharmacologic stress testing was performed using 0.4mg per 5ml of regadenoson given intravenously ove r 7-10 seconds. Stress Symptoms slight SOB, h/a POST EXERCISE Reason for Termination: Infusion complete Max HR: 101 bpm Max Blood Pressure: 123/38mmHg Blood Pressure response to exercise: Normal blood pressure response during stress. Heart Rate response to exercise: wnl Chest Pain: No. Arrhythmia: Yes. started having frequent pvc's ST Change: No. 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 No ischemic c hanges at peak stress. PVC's without any significant arrhythmias. Imaging Protocol IMAGE PROTOCOL: Rest Tc-99m/stress Tc-99m 1 day Rest: Stress: Viability: Radiopharm.Tc99m QdrtymgteCo40l Sestamibi Dose10.5mCi 30.5mCi Img Date 08/28/2019 08/28/2019 Inj-Img [id number]. 60min. Rest Admin Site:IV - Left AntecubitalAdministrator:SERA Robledo ARRT (R)(N) Stress Admin Site: IV - Left AntecubitalAdministrator: RT Masoud Madera)(N) STRESS DATA End Diast. Vol.114.0mlAv. Heart Rate72.0bpm End Syst. Vol.33.0mlCO Index BSA0.0L/min Myocardial Hcwz644.0gEject. Ytpylzbi64.0% Stress Rates Pk. Fill Rate2.78EDV/secLVtime Pk. Fill 90.88msec Pk. Empty Rate3.31ESV/secLVtime Pk. Avlye811.64msec 1/3 Pk. Fill2.00EDV/sec Stress Scores Regional WT0.00Summed WT1.00 Regional WM0.00Summed WM14.00 Study quality was good. Left Ventricular size was Normal at Rest and Stress. Lung uptake was . Left Ventricular ejection fraction is 71%. The rest and stress images show normal perfusion, normal contraction and thickening. LV Perf. Quant 17 Seg. SSS1.00 17 Seg. SRS0.00 17 Seg. SDS1.00 Stress Defect Extent (% LAD)0.00Rest Defect Extent (% LAD)0.00Rev. Defect Extent (% LAD)0.00 Stress Defect Extent (% LCX) 7.50Rest Defect Extent (% LCX)0.00Rev. Defect Extent (% LCX)7.50 Stress Defect Extent (% RCA)0.00Rest Defect Extent (% RCA)0.00Rev. Defect Extent (% RCA)0.00 Stress Defect Extent (% DARYL)1.30Rest Defect Extent (% DARYL)0.00Rev. Defect Extent (% DARYL)1.30 Conclusion 1. Regadenoson cardioisotope stress test did not show any evidence of ischemia or infarct. 2. Normal left ventricular systolic function with ejection fraction calculated at 71%. 3. Low risk for cardiac events. Signed by : Robin Joy, Electronically Approved : 08/28/2019 15:01:35
--- NOTE | 2019-08-28 17:26 | RAD ---
High-resolution chest CT without contrast Clinical indications: Shortness of air. Possible interstitial lung disease. COMPARISON: May 14, 2019 CTA of the chest. TECHNIQUE: High-resolution chest CT was performed without contrast. Without contrast, the sensitivity to detect organ pathology is decreased. PQRS compliance Statement One or more of the following individualized dose reduction techniques were utilized for this study: 1. Automated exposure control 2. Adjustment of the mA and/or kV according to patient size 3. Use of iterative reconstruction technique FINDINGS: No enlarged thoracic lymphadenopathy is evident. No focal aneurysmal dilatation of the thoracic aorta is seen. Calcified atheromatous disease of the coronary arteries is seen. Heart size is normal. No pericardial effusion is seen. Bilateral bronchiectasis is seen. There is mild linear atelectasis or scarring within both lower lobes and the inferior aspect of the right middle lobe and the inferior segment of the lingula. No lung consolidation or lung mass or groundglass lung infiltrates are seen. No peripheral interstitial lung infiltrates or honeycombing is seen and therefore there are no findings indicative of pulmonary fibrosis. No pleural effusion or pneumothorax is seen. The proximal bronchial tree is patent. No adrenal mass is evident. No lytic process is seen. IMPRESSION: Bilateral bronchiectasis. Bilateral linear atelectasis or scarring. No lung consolidation or lung mass is evident. There are no findings indicative of pulmonary fibrosis. Electronically signed by: Charlie Gutierres MD (08/28/2019 5:23 PM) [facility]
[2019-08-28 19:15] VITALS: BP 120/41
[2019-08-28] MEDS: ATORVASTATIN CALCIUM 20 MG TABLET PO SCH (22:19)
[2019-08-28] MEDS: ENOXAPARIN 30 MG/0.3 ML SYRINGE. SQ SCH (22:19)
[2019-08-28 23:00] VITALS: BP 163/75
--- NOTE | 2019-08-29 01:35 | CONS ---
DATE OF CONSULTATION: 08/28/2019 ATTENDING PHYSICIAN: Dr. Robertson. REASON FOR CONSULTATION: The patient is seen in pulmonary consultation at the request of Dr. Robertson for dyspnea. HISTORY OF PRESENT ILLNESS: The patient is an 79-year-old male that has a history of coronary artery disease, status post previous bypass x 2 with most recent stent placement back in 03/2019. The patient reports over the last several weeks, he has noticed some increasing shortness of breath, mostly with exertion. He is unable to climb on his steps in the home without experiencing dyspnea. I was asked to see him in consultation for further evaluation and management. He has never smoked, does not carry a diagnosis of asthma or COPD. 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 He denies fever or chills. No productive cough, no wheezing. He has had no previous history of DVT or pulmonary embolism. No recent acute onset of shortness of breath associated with pleurisy, syncope or near syncopal episode. PAST MEDICAL HISTORY: 1. Coronary artery disease as described above. 2. Hyperlipidemia. 3. Hypertension. 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 FAMILY HISTORY: No family history of lung disorders. ALLERGIES: No known drug allergies. REVIEW OF SYSTEMS: CONSTITUTIONAL: No fever or chills. EYES: No change in visual acuity. HENT: No nasal congestion or sore throat. PULMONARY: As indicated above. CARDIOVASCULAR: No chest pain. No pressure. GASTROINTESTINAL: No nausea, vomiting, or diarrhea. GENITOURINARY: No dysuria or frequency. MUSCULOSKELETAL: No localized muscle aches or joint pains. SKIN: No new skin rashes. NEUROLOGIC: No headaches, diplopia or blurred vision. PHYSICAL EXAMINATION: GENERAL: On exam, the patient was in no respiratory distress. VITAL SIGNS: Stable. O2 saturation was greater than 92%. HEENT: Eyes, the sclerae were nonicteric. NECK: Jugular venous distention was not elevated. No lymphadenopathy. CHEST: Full expansion. LUNGS: Adequate airway flow with no wheezes. CARDIOVASCULAR: Regular rate and rhythm with S1, S2, no S3. ABDOMEN: Soft, nontender, nondistended. EXTREMITIES: No clubbing, cyanosis or edema. IMAGING: Chest x-ray was reviewed, no acute cardiopulmonary process. LABORATORY DATA: Reviewed. White count was normal. Hemoglobin and hematocrit were noted. His stress test today revealed a normal left ventricular ejection fraction calculated at 71%. The isotope stress test did not show any evidence of ischemia or infarct. IMPRESSION: 1. Progressive dyspnea, etiology unclear. 2. Hypertension. 3. Dyslipidemia. 4. Coronary artery disease with previous bypass surgery and recent PCI back in 03/2019. PLAN: Clinically, I do not think that the patient's dyspnea is related to pulmonary system. With that being said, I will complete the work-up with a high resolution CT of the chest to rule out the possibility of interstitial lung disease, related to his occupation. In addition, I will check spirometry to rule out the possibility of obstructive lung disorder. I do appreciate the privilege in sharing in the patient's care. GABINO HERNANDEZ MD DR: YAMILA/hanane JOB#: [id number] / [id number]
[2019-08-29 03:11] VITALS: BP 152/66
[2019-08-29 07:00] VITALS: BP_SYST 126; BP_SYST 130; BP_DIAS 63; BP_DIAS 80
[2019-08-29] MEDS: PANTOPRAZOLE 40 MG TABLET.DR. PO SCH (07:38)
[2019-08-29] MEDS: ASPIRIN 325 MG TABLET PO SCH (09:06)
[2019-08-29] MEDS: IRON POLYSACCHARIDE COMPLEX 150 MG CAPSULE PO SCH (09:06)
[2019-08-29] MEDS: OMEGA-3 FATTY ACIDS/FISH OIL 1,000 MG CAPSULE. PO SCH (09:06)
[2019-08-29] MEDS: GABAPENTIN 300 MG CAPSULE. PO SCH (09:07)
[2019-08-29] MEDS: CLOPIDOGREL BISULFATE 75 MG TABLET PO SCH (09:07)
[2019-08-29] MEDS: METOPROLOL SUCC 24HR ER 25 MG TAB.ER.24H. PO SCH (09:08)
[2019-08-29] MEDS: ISOSORBIDE MONONITRATE ER 30 MG TAB.ER.24H PO SCH (09:09)
[2019-08-29] MEDS: amLODIPine BESYLATE 5 MG TABLET PO SCH (09:09)
--- NOTE | 2019-08-29 10:21 | PDOC ---
CARDIO Progress Notes Date and Time Date of Service 08/29/19 Time of Evaluation 1015 Subjective Subjective: No Chest Pain, No shortness of breath, No Palpitations Vitals Vitals Vital Signs Date Time Temp Pulse Resp B/P (MAP) Pulse Ox O2 Delivery O2 Flow Rate FiO2 08/29/19 09:09 73 176/72 08/29/19 07:45 Room Air 08/29/19 07:00 97.6 16 95 97.6 Weight Weight [ ] Input and Output Intake and Output Intake and Output 08/29/19 07:00 Intake Total 800 ml Output Total 700 ml Balance 100 ml Intake Oral 800 ml Output Urine Total 700 ml # Voids 1 Physical Exam HEENT: Neck Supple W Full Motion Chest: Symmetric LUNGS: Clear to Auscultation Heart: S1S2, RRR Abdomen: Soft N/T Extremities: No Edema Neurology: alert, oriented, follow commands Assessment Assessment 1. Dyspnea;improved 2. Sinus bradycardia; no significant pauses noted. Event monitor this past summer notable for Wenckebach and frequent PVCs 3. CAD; s/p CABG and recent PCI/stent. Cath 03/2019 with multivessel disease. 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 Patent graft to the LAD and Dx system. Subtotal lesion in the vein graft to posterior lateral vessel; s/p PCI/stenting. Also had mid RCA disease with lesions up to 70-80%. Is CP free. MPI without evidence of ischemia or infarct 4. Hypertension; controlled 5. Hyperlipidemia; statin therapy 6. TEAGAN on CKD Recommendations Continue DAPT and secondary prevention measures. ASA/plavix, statin, Imdur, and low-dose BB Supportive care May discharge from a CV standpoint and f/u in our office with Dr. Burton in 4 weeks RODNEY FRASER APRN Aug 29, 2019 10:21
[2019-08-29 11:00] VITALS: BP 121/59
--- NOTE | 2019-08-29 11:02 | PDOC ---
PULMONARY PROGRESS NOTES Subjective PAT NOT MORE SOA Vitals Vital Signs Date Time Temp Pulse Resp B/P (MAP) Pulse Ox O2 Delivery O2 Flow Rate FiO2 08/29/19 09:09 73 176/72 08/29/19 07:45 Room Air 08/29/19 07:00 97.6 16 95 97.6 ROS: No Nausea, No Chest Pain, No Abdominal Pain, No Increase Cough General: Alert, No acute distress Lungs: Crackles Cardiovascular: S1, S2 Abdomen: Soft Neuro Exam: Alert Extremities: No Edema Skin: Warm Labs Laboratory Tests Test 08/28/19 05:15 White Blood Count 5.6 x10^3/uL (4.0-11.0) Red Blood Count 4.16 x10^6/uL (4.30-5.70) Hemoglobin 12.4 g/dL (13.0-17.5) Hematocrit 37.2 % (39.0-53.0) Mean Corpuscular Volume 90 fL (79-100) Mean Corpuscular Hemoglobin 30 pg (25-35) Mean Corpuscular Hemoglobin Concent 33 g/dL (31-37) Red Cell Distribution Width 15.2 % (11.5-14.5) Platelet Count 128 x10^3/uL (140-400) Neutrophils (%) (Auto) 70 % (31-73) Lymphocytes (%) (Auto) 17 % (24-48) Monocytes (%) (Auto) 9 % (0-9) Eosinophils (%) (Auto) 4 % (0-3) Basophils (%) (Auto) 0 % (0-3) Neutrophils # (Auto) 3.9 x10^3/uL (1.8-7.7) Lymphocytes # (Auto) 0.9 x10^3/uL (1.0-4.8) Monocytes # (Auto) 0.5 x10^3/uL (0.0-1.1) Eosinophils # (Auto) 0.2 x10^3/uL (0.0-0.7) Basophils # (Auto) 0.0 x10^3/uL (0.0-0.2) Sodium Level 140 mmol/L (136-145) Potassium Level 4.5 mmol/L (3.5-5.1) Chloride Level 106 mmol/L (98-107) Carbon Dioxide Level 24 mmol/L (21-32) Anion Gap 10 (6-14) Blood Urea Nitrogen 41 mg/dL (8-26) Creatinine 1.5 mg/dL (0.7-1.3) Estimated GFR (Cockcroft-Gault) 44.9 BUN/Creatinine Ratio 27 (6-20) Glucose Level 86 mg/dL (70-99) Calcium Level 8.4 mg/dL (8.5-10.1) Total Bilirubin 0.4 mg/dL (0.2-1.0) Aspartate Amino Transf (AST/SGOT) 14 U/L (15-37) Alanine Aminotransferase (ALT/SGPT) 16 U/L (16-63) Alkaline Phosphatase 72 U/L (46-116) Total Protein 6.6 g/dL (6.4-8.2) Albumin 3.1 g/dL (3.4-5.0) Albumin/Globulin Ratio 0.9 (1.0-1.7) Medications Active Scripts Medications Dose Route/Sig Max Daily Dose Days Date Category Isosorbide Mononitrate Er (Isosorbide Mononitrate) 30 Mg Tab.er.24h 30 Mg PO DAILY 08/28/19 Rx Fish Oil 1,000 Mg Softgel ([place]-3 Fatty Acids/Fish Oil) 1 Each Capsule 1 Cap PO DAILY 30 08/25/19 Reported Aspirin 325 Mg Tablet 1 Tab PO DAILY 08/25/19 Reported Poly-Iron (Iron Polysaccharides Complex) 150 Mg Capsule 150 Mg PO BID 05/19/19 Reported Atorvastatin Calcium 20 Mg Tablet 20 Mg PO HS 05/19/19 Reported Pantoprazole Sodium (Pantoprazole Sodium) 40 Mg Tablet.dr 40 Mg PO DAILYAC 05/19/19 Reported Metoprolol Succinate ( Xl ) (Metoprolol Succinate) 25 Mg Tab.er.24h 12.5 Mg PO DAILY 05/19/19 Reported Amlodipine Besylate 5 Mg Tablet 5 Mg PO DAILY 05/13/19 Reported Tramadol Hcl 50 Mg Tablet 50 Mg PO Q6HRS PRN 05/13/19 Reported Gabapentin (Gabapentin) 300 Mg Capsule 300 Mg PO BID 05/13/19 Reported Clopidogrel (Clopidogrel Bisulfate) 75 Mg Tablet 75 Mg PO DAILYWBKFT 30 03/29/19 Rx Impression . 1. Progressive dyspnea, MULTIFACTORIAL SEC TO CARD SOME MILD OBSTRUCTIVE LUNG DZ 2. Hypertension. 3. Dyslipidemia. 4. Coronary artery disease with previous bypass surgery and recent PCI back in 03/2019. Plan . CT REVIEWED NO ILD OR FIBROSIS SOME MILD BRONCHIECTASIS SPIROMETRY TODAY FOLLOW UP IN OFFICE GABINO HERNANDEZ MD Aug 29, 2019 11:02
--- NOTE | 2019-08-29 13:06 | PDOC3 ---
Discharge Summary Visit Information Date of Admission: Aug 25, 2019 Date of Discharge: Aug 29, 2019 Admitting Diagnosis Comment: Chest pain - low risk MPI 71% EF Hx CABG Aberrant conduction - Dyspnea - likely dCHF TEAGAN - likely vasomotor nephropathy, CAD s/p REGI x12, CABG x2 - Prostate Cancer in remission - stable High Cholesterol - cont statin Hypertension - Cont meds Brief Hospital Course Allergies Allergies Coded Allergies Type Severity Reaction Last Updated Verified No Known Drug Allergies 11/29/13 No Vital Signs Vital Signs Date Time Temp Pulse Resp B/P (MAP) Pulse Ox O2 Delivery O2 Flow Rate FiO2 08/29/19 11:00 97.9 66 20 121/59 (79) 97 Room Air 97.9 08/29/19 07:00 Lab Results Laboratory Tests Test 08/28/19 05:15 White Blood Count 5.6 x10^3/uL (4.0-11.0) Red Blood Count 4.16 x10^6/uL (4.30-5.70) Hemoglobin 12.4 g/dL (13.0-17.5) Hematocrit 37.2 % (39.0-53.0) Mean Corpuscular Volume 90 fL (79-100) Mean Corpuscular Hemoglobin 30 pg (25-35) Mean Corpuscular Hemoglobin Concent 33 g/dL (31-37) Red Cell Distribution Width 15.2 % (11.5-14.5) Platelet Count 128 x10^3/uL (140-400) Neutrophils (%) (Auto) 70 % (31-73) Lymphocytes (%) (Auto) 17 % (24-48) Monocytes (%) (Auto) 9 % (0-9) Eosinophils (%) (Auto) 4 % (0-3) Basophils (%) (Auto) 0 % (0-3) Neutrophils # (Auto) 3.9 x10^3/uL (1.8-7.7) Lymphocytes # (Auto) 0.9 x10^3/uL (1.0-4.8) Monocytes # (Auto) 0.5 x10^3/uL (0.0-1.1) Eosinophils # (Auto) 0.2 x10^3/uL (0.0-0.7) Basophils # (Auto) 0.0 x10^3/uL (0.0-0.2) Sodium Level 140 mmol/L (136-145) Potassium Level 4.5 mmol/L (3.5-5.1) Chloride Level 106 mmol/L (98-107) Carbon Dioxide Level 24 mmol/L (21-32) Anion Gap 10 (6-14) Blood Urea Nitrogen 41 mg/dL (8-26) Creatinine 1.5 mg/dL (0.7-1.3) Estimated GFR (Cockcroft-Gault) 44.9 BUN/Creatinine Ratio 27 (6-20) Glucose Level 86 mg/dL (70-99) Calcium Level 8.4 mg/dL (8.5-10.1) Total Bilirubin 0.4 mg/dL (0.2-1.0) Aspartate Amino Transf (AST/SGOT) 14 U/L (15-37) Alanine Aminotransferase (ALT/SGPT) 16 U/L (16-63) Alkaline Phosphatase 72 U/L (46-116) Total Protein 6.6 g/dL (6.4-8.2) Albumin 3.1 g/dL (3.4-5.0) Albumin/Globulin Ratio 0.9 (1.0-1.7) Brief Hospital Course Mr. Aguilar is a 79 old with CAD and admitted foR CP but MPI Low risk wIth EF 71%. CLeared for home to cont all cardiAc meds, no PT needs. NEEDED to stop lisinopril bec creat 1.5 range, - i educated him, and asked for pcp RECHECK bmp I MONTH, jenny 140s SYSTOLIC,OFF ABRAN INHIBITOR cONSULTS; CARDS pROC mpi dISPO; HOME WITH Discharge Information Condition at Discharge: Improved, Stable Follow Up: Weeks (cards as instructed) Disposition/Orders: D/C to Home Scheduled Amlodipine Besylate (Amlodipine Besylate) 5 Mg Tablet, 5 MG PO DAILY for HTN, (Reported) Entered as Reported by: DENTON PEARL on 05/13/19 0112 Last Taken: Unknown Dose on 08/25/19 Last Action: Continued on 08/25/192148 by MARSHA FRIAS MD Aspirin (Aspirin) 325 Mg Tablet, 1 TAB PO DAILY for CAD, #30 Ref 5 (Reported) Entered as Reported by: NIRANJAN NAIK on 08/25/191737 Last Taken: Unknown Dose on 08/25/19 Last Action: Continued on 08/25/192148 by MARSHA FRIAS MD Atorvastatin Calcium (Atorvastatin Calcium) 20 Mg Tablet, 20 MG PO HS for FOR CHOLESTEROL, #30 Ref 0 (Reported) Entered as Reported by: NIRANJAN JHA on 05/19/19 1111 Last Taken: Unknown Dose on 08/25/19 Last Action: Continued on 08/25/192148 by MARSHA FRIAS MD Clopidogrel Bisulfate (Clopidogrel) 75 Mg Tablet, 75 MG PO DAILYWBKFT for Coronary artery disease for 30 Days, #30 Ref 2 Prescribed by: RODNEY FRASER APRN on 03/29/19 0850 Last Taken: Unknown Dose on 08/25/19 Last Action: Continued on 08/25/192148 by MARSHA FRIAS MD Gabapentin (Gabapentin ) 300 Mg Capsule, 300 MG PO BID for NEUROGENIC PAIN, (Reported) Entered as Reported by: DENTON PEARL on 05/13/19 0111 Last Taken: Unknown Dose on 08/25/19 Last Action: Continued on 08/25/192148 by MARSHA FRIAS MD Iron Polysaccharides Complex (Poly-Iron) 150 Mg Capsule, 150 MG PO BID for anemia, (Reported) Entered as Reported by: NIRANJAN JHA on 05/19/19 1113 Last Taken: Unknown Dose on 08/25/19 Last Action: Continued on 08/25/192148 by MARSHA FRIAS MD Isosorbide Mononitrate (Isosorbide Mononitrate Er) 30 Mg Tab.er.24h, 30 MG PO DAILY for htn, cp, #60 Prescribed by: CHIQUITA LANDAVERDE on 08/28/19 0910 Metoprolol Succinate (Metoprolol Succinate ( Xl )) 25 Mg Tab.er.24h, 12.5 MG PO DAILY for FOR HYPERTENSION, #30 Ref 0 (Reported) Entered as Reported by: NIRANJAN JHA on 05/19/19 1109 Last Taken: Unknown Dose on 08/25/19 Last Action: Continued on 08/25/192148 by MARSHA FRIAS MD [place]-3 Fatty Acids/Fish Oil (Fish Oil 1,000 Mg Softgel) 1 Each Capsule, 1 CAP PO DAILY for CAD for 30 Days, #30 Ref 0 (Reported) Entered as Reported by: NIRANJAN NAIK on 08/25/191737 Last Taken: Unknown Dose on 08/25/19 Last Action: Continued on 08/25/192148 by MARSHA FRIAS MD Pantoprazole Sodium (Pantoprazole Sodium ) 40 Mg Tablet.dr, 40 MG PO DAILYAC for GERD, (Reported) Entered as Reported by: NIRANJAN JHA on 05/19/19 1109 Last Taken: Unknown Dose on 08/25/19 Last Action: Continued on 08/25/192148 by MARSHA FRIAS MD Scheduled PRN Tramadol Hcl (Tramadol Hcl) 50 Mg Tablet, 50 MG PO Q6HRS PRN for PAIN, (Reported) Entered as Reported by: DENTON PEARL on 05/13/19 0111 Last Taken: Unknown Dose on 08/25/19 Last Action: Continued on 08/25/192148 by MARSHA FRIAS MD Discontinued Medications Aspirin (Aspirin) 81 Mg Tab.chew, 1 TAB PO DAILY for CAD, #30 Ref 3 (Reported) Entered as Reported by: NIRANJAN JHA on 05/19/19 112 Last Taken: Unknown Dose on 08/25/19 Last Action: Discontinued on 08/25/191737 by NIRANJAN NAIK Lisinopril (Lisinopril) 20 Mg Tablet, 20 MG PO DAILY for hypertention, (Reported) Entered as Reported by: ROOSEVELT WATTS on 02/04/14 1537 Last Taken: Unknown Dose on 08/25/19 Last Action: Reviewed on 08/25/191737 by CHIQUITA PEREZ MD Aug 29, 2019 13:06
[2019-08-29 15:00] VITALS: BP 114/67
--- NOTE | 2019-08-29 17:00 | NUR ---
Discharge Note: [place] Discharge instructions and discharge home medications reviewed with Patient and a copy given. All questions have been answered and understanding verbalized. The following instructions and handouts were given: HF, malnutrition, SOA Discontinued lines and drains: Peripheral IV intact. Patient discharged to Home or Self Care with Family Member via Wheelchair
--- NOTE | 2019-08-31 14:14 | RESP ---
DATE OF SERVICE: 08/29/2019 STUDY: The patient underwent a spirometry. FINDINGS: The FEV1 to FVC ratio was 79%. FEV1 was 3.11 liters at 105% of predicted. FVC was likewise normal at 102% of predicted. IMPRESSION: Spirometry, no evidence of airflow limitation. GABINO HERNANDEZ MD DR: YAMILA/hanane JOB#: [id number] / [id number]
== END 2019-08-29 17:00 | disposition home or self-care (01) | DRG 682 ==
LOC: ER 13:20 → 2 SOUTH 15:30
PROVIDERS: ADMIT Internal Medicine; ATTEND Internal Medicine
DX: N17.0 Acute kidney failure with tubular necrosis (principal); I50.31 Acute diastolic (congestive) heart failure; I13.0 Hypertensive heart and chronic kidney disease with heart failure and stage 1 through stage 4 chronic kidney disease, or unspecified chronic kidney disease; I25.110 Atherosclerotic heart disease of native coronary artery with unstable angina pectoris; M19.90 Unspecified osteoarthritis, unspecified site; N18.9 Chronic kidney disease, unspecified; I44.1 Atrioventricular block, second degree; E78.00 Pure hypercholesterolemia, unspecified; E78.5 Hyperlipidemia, unspecified; Z98.49 Cataract extraction status, unspecified eye; Z85.46 Personal history of malignant neoplasm of prostate; Z95.1 Presence of aortocoronary bypass graft; Z95.5 Presence of coronary angioplasty implant and graft; Z86.73 Personal history of transient ischemic attack (TIA), and cerebral infarction without residual deficits; Z82.49 Family history of ischemic heart disease and other diseases of the circulatory system
CPT/HCPCS: 36415; 71045; 71250; 78452; 80048; 80053; 83605; 83735; 83880; 84443; 84484; 85025; 93005; 93017; 94010; 94618; A9500; J1650; J1940; J2785; J7030; 97116; 97535; G0378

== ENCOUNTER 2020-06-12 14:01 | Outpatient (CLI) | payer MEDICARE ==
[2020-02-20 14:29] VITALS: BP 135/79
[~2020-06-12 14:01] MED LIST changes: +APIX2.5T PO; +ASPI325T8 PO; +ISOS30TA4 PO; +MULT-445 PO; -MULT1TAB52 PO; +OMEG1CAP50 PO; -VALA1000 PO; +VALA10008 PO
[2020-06-16] MEDS ORDERED: MAGN400C PO (07:17)
[2020-06-16] MEDS ORDERED: VITA1TAB19 PO (07:17)
[2020-06-16] MEDS ORDERED: TRAM50TA PO (07:17)
[2020-06-16] MEDS ORDERED: ESCITALOPRAM OX10 MG PO (07:17)
[2020-06-16] MEDS ORDERED: PYRI50CA PO (07:17)
[2020-06-16] MEDS ORDERED: APIX2.5T PO (07:20)
== END 2020-06-16 13:04 | disposition home or self-care (01) ==
LOC: LAB 14:01
PROVIDERS: ATTEND Internal Medicine Cardiovascular Disease
DX: Z01.812 Encounter for preprocedural laboratory examination (principal); I25.10 Atherosclerotic heart disease of native coronary artery without angina pectoris; Z20.828 Contact with and (suspected) exposure to other viral communicable diseases
CPT/HCPCS: U0003-CS

== ENCOUNTER → 2020-06-16 | Outpatient (CLI) | payer MEDICARE ==
[~2020-06-16] VITALS: Ht 177.8 cm; Wt 77.1 kg
[2020-06-16] VITALS (10 sets, daily range): BP systolic 117–169; BP diastolic 58–81
[~2020-06-16] MED LIST changes: +0.9 % SODIUM CHLORIDE 10 ML DISP.SYRIN. IV PRN; +ESCITALOPRAM OX10 MG PO; +HEPARIN for ARTERIAL LINE 1,500 ML ONE; +HYDROcodone/APAP 5/325MG 1 TAB TABLET PO PRN; +IODIXANOL 320 MG/ML 100 ML VIAL. IART ONE; +IODIXANOL 320 MG/ML 100 ML VIAL. ONE; +IV NORMAL SALINE 1000ML BAG 1,000 ML IV SCH; +LIDOCAINE 1% Multi-Dose 20 ML VIAL. INJ ONE; +LIDOCAINE 1% Multi-Dose 20 ML VIAL. ONE; +MAGN400C PO; +MIDAZOLAM HCL/PF 5 MG/5 ML VIAL. IV ONE; +MIDAZOLAM HCL/PF 5 MG/5 ML VIAL. ONE; +NITROGLYCERIN SUBLINGUAL 0.4 MG BOTTLE OF 25. SL PRN; +PYRI50CA PO; +VITA1TAB19 PO; +fentaNYL PF VIAL 100 MCG/2 ML VIAL IV ONE; +fentaNYL PF VIAL 100 MCG/2 ML VIAL ONE
[2020-06-16 07:48] LABS: HEMATOCRIT 38.7 % (39.0-53.0); HEMOGLOBIN 13.3 g/dL (13.0-17.5); RED BLOOD COUNT 4.32 x10^6/uL (4.30-5.70); RED CELL DISTRIBUTION WIDTH 13.5 % (11.5-14.5); WHITE BLOOD COUNT 5.6 x10^3/uL (4.0-11.0)
[2020-06-16 07:54] LABS: CALCIUM 8.7 mg/dL (8.5-10.1); CREATININE 1.3 mg/dL (0.7-1.3); POTASSIUM 4.5 mmol/L (3.5-5.1)
[2020-06-16 08:04] LABS: PROTHROMBIN TIME PATIENT 12.8 SEC (11.7-14.0)
--- NOTE | 2020-06-16 09:36 | PDOC ---
MODERATE SEDATION ASSESSMENT RISKS/ALTERNATIVES Risks/Alternatives Risks and alternatives of this type of sedation and procedure discussed with: RISK/ALTERNATIVES: Patient H & P ON CHART H & P H & P on chart and reviewed for co-morbid conditions and appropriate labs. H&P ON CHART: Yes STATUS PREG STATUS ASSESSED: N/A MEDS/ALLERGIES REVIEWED Meds/Allergies Reviewed Medications and Allergies including time and route of recently administered narcotics and sedatives. MEDS/ALLERGIES REVIEWED: Yes ASA RATING ASA RATING: II AIRWAY ASSESSMENT Airway Assessment Airway patency, oral function limitations, presence of caps, crowns, dentures, partials, and ability to extend neck assessed. AIRWAY ASSESSMENT: Yes MALLAMPATI SCORE MALLAMPATI SCORE: II PRE-SEDATION ASSESSMENT PRE-SEDATION ASSESSMENT: Yes AYDIN VINES MD Jun 16, 2020 09:36
--- NOTE | 2020-06-16 12:11 | CARD ---
MR#: [id number] Date of Study: 06/16/2020 Ordering Physician: AYDIN VILLANUEVA, Referring Physician: AYDIN VILLANUEVA, Raul: Sola Connauarmindajessika APPROVED REPORT Procedures Left heart catheterization Selective coronary angiogram Bypass graft injections. The patient is an 79-year-old male with a history of bypass surgery, multiple stents and episodes of mild recurrence of chest pain. He had a stent placed approximately 1 year ago. He had recurrence of symptoms. After discussion of risks and benefits of a cardiac catheterization the patient consented to an angiogram to determine the status as his most recent stent and to see if any new lesions had f ormed. After informed consent was obtained the patient was brought to the heart catheterization lab. The ar ea of the right femoral artery was prepared in the usual manner with Betadine, sterile draping and lo chucky anesthetic. An 18-gauge needle was used to enter the right femoral artery, a wire placed and a 6 Maltese sheath placed over wire. A 6 Maltese JL4 diagnostic catheter was advanced and used to engage the left system. Sequential injections of various views were obtained. A 6 Maltese JR4 diagnostic c atheter was then advanced in the ascending aorta. It was used to engage the right coronary artery , the saphenous vein graft to the right PL artery and the saphenous vein graft to the diagonal left cir cumflex system. Sequential injections in various views of all vessels were obtained. The catheter w as then removed and a pigtail catheter advanced to the left ventricle. No left ventriculogram was pe rformed. Pressures were obtained and a pullback pressure measurement was made. The catheter was rem richard from the patient. Injection of the sheath showed normal placement. The sheath was removed and sealed with an Angio-Seal product. The patient had no immediate complications. Findings. Hemodynamics. LV pressure of 150/4/14, aortic root pressure of 148/90. Coronaries. Left main. The left main had a 30% lesion. Left anterior descending. The LAD was proximally occluded as it had been on previous angiograms. Left circumflex. The left circumflex was proximally occluded as it had been on previous angiograms. Right coronary artery. The right coronary was a moderate to moderately small vessel. It had diffuse proximal to mid disease with lesions up to 80%. Grafts. The BRUCE graft to the LAD was occluded on a previous angiogram. The saphenous vein graft to the obtuse marginal system which had been stented was occluded as it has been on a previous angiogram. The saphenous vein graft to the LAD and diagonal system was patent with no new lesions from the previ ous angiogram. The saphenous gradient vein graft to the right PL branch was previously stented and was patent. <Conclusion> Multivessel coronary artery disease as noted above. Previously occluded BRUCE to the LAD and a saphenous vein graft to the left circumflex system. Patent stent in the saphenous vein graft to the right PL branch. Diffuse disease in the right coronary artery. Signed by : Aydin Villanueva MD Electronically Approved : 06/16/2020 12:10:32
--- NOTE | 2020-06-16 13:02 | NUR ---
pt discharged to home via [facility]
--- NOTE | 2020-06-16 13:02 | NUR ---
pt discharged to home via private vehicle with family. PIV dc'd. Discharged instructions reviewed with pt.
== END | disposition home or self-care (01) ==
LOC: CCL 06:41
PROVIDERS: ATTEND Internal Medicine Cardiovascular Disease
DX: I25.10 Atherosclerotic heart disease of native coronary artery without angina pectoris (principal); E78.5 Hyperlipidemia, unspecified; I13.0 Hypertensive heart and chronic kidney disease with heart failure and stage 1 through stage 4 chronic kidney disease, or unspecified chronic kidney disease; N18.3 Chronic kidney disease, stage 3 (moderate); I50.9 Heart failure, unspecified; E11.22 Type 2 diabetes mellitus with diabetic chronic kidney disease; E78.00 Pure hypercholesterolemia, unspecified; Z98.890 Other specified postprocedural states; Z79.84 Long term (current) use of oral hypoglycemic drugs; Z95.0 Presence of cardiac pacemaker; Z79.899 Other long term (current) drug therapy
CPT/HCPCS: 36415; 80048; 85027; 85610; 93459; 99152; 99153; C1760; C1769; C1892; G0269; J1644; J2250; J3010; J3490; Q9967; C1771

== ENCOUNTER → 2021-04-10 | Outpatient (CLI) | payer MEDICARE ==
[2020-06-16 12:00] VITALS: BP 132/65
[~2021-04-10] MED LIST changes: -0.9 % SODIUM CHLORIDE 10 ML DISP.SYRIN. IV PRN; +AMLO-186 PO; -AMLO5TAB10 PO; -HEPARIN for ARTERIAL LINE 1,500 ML ONE; -HYDROcodone/APAP 5/325MG 1 TAB TABLET PO PRN; -IODIXANOL 320 MG/ML 100 ML VIAL. IART ONE; -IODIXANOL 320 MG/ML 100 ML VIAL. ONE; -ISOS30TA4 PO; +ISOS30TA68 PO; -IV NORMAL SALINE 1000ML BAG 1,000 ML IV SCH; -LIDOCAINE 1% Multi-Dose 20 ML VIAL. INJ ONE; -LIDOCAINE 1% Multi-Dose 20 ML VIAL. ONE; -LISI-334 PO; +LISI20TA18 PO; -MIDAZOLAM HCL/PF 5 MG/5 ML VIAL. IV ONE; -MIDAZOLAM HCL/PF 5 MG/5 ML VIAL. ONE; -NITROGLYCERIN SUBLINGUAL 0.4 MG BOTTLE OF 25. SL PRN; -fentaNYL PF VIAL 100 MCG/2 ML VIAL IV ONE; -fentaNYL PF VIAL 100 MCG/2 ML VIAL ONE
--- NOTE | 2021-04-13 18:16 | CARD ---
MR#: [id number] Date of Study: 04/10/2021 Ordering Physician: AYDIN VILLANUEVA, Referring Physician: AYDIN VILLANUEVA, Tech: Delfino Jeffrey [facility] APPROVED REPORT EXAM: Two-dimensional and M-mode echocardiogram with Doppler and color Doppler. Other Information Quality : AverageHR: 64bpm Rhythm : NSR INDICATION Dyspnea upon exertion Surgery/Intervention ICD/Pacemaker: CABG: RISK FACTORS Hypertension Hyperlipidemia 2D DIMENSIONS Left Atrium(2D)5.4 (1.6-4.0cm)IVSd1.2 (0.7-1.1cm) Aortic Root(2D)3.7 (2.0-3.7cm)LVDd4.5 (3.9-5.9cm) LVOT Diameter2.3 (1.8-2.4cm)PWd1.2 (0.7-1.1cm) LVDs3.5 (2.5-4.0cm)FS (%) 21.2 % SV39.4 ml Aortic Valve AoV Peak William.86.1cm/sAoV VTI20.1cm AO Peak GR.3.0mmHgLVOT Peak William.74.9cm/s AO Mean GR.2mmHgAVA (VMAX)3.49cm2 AI P 1/2 [id number] Mitral Valve MV E Ttxtfdaw53.1cm/sMV E Peak Gr.4mmHg MV DECEL [id number] A Gwweopad92.2cm/s MV E Mean Gr.1mmHgE/A Ratio1.1 Pulmonary Valve PV Peak Kimycntu57.0cm/s Tricuspid Valve TR P. [id number]/sTR Peak Gr.22mmHg Pulmonary Vein S1 Mvrfdfsc57.9cm/sD2 Zejvlwps33.3cm/s LEFT VENTRICLE The left ventricle is normal size. There is borderline to mild concentric left ventricular hypertroph y. The systolic function is mildly impaired. The Ejection Fraction is estimated at 45%. There is mild global hypokinesis with increased septal hypokinesis. No left ventricle thrombus noted on this stud y. There is no ventricular septal defect visualized. There is no left ventricular aneurysm. There is no mass noted in the left ventricle. RIGHT VENTRICLE The right ventricle is normal size. There is normal right ventricular wall thickness. The right ventr icular systolic function is normal. There is a device lead noted in RV ATRIA The left atrium is moderately dilated. The right atrium is mildly dilated. The interatrial septum is intact with no evidence for an atrial septal defect or patent foramen ovale as noted on 2-D or Dopple r imaging. AORTIC VALVE The aortic valve is mildly sclerotic. Doppler and Color Flow revealed mild aortic regurgitation. Ther e is no significant aortic valvular stenosis. There is no aortic valvular vegetation. MITRAL VALVE The mitral valve is normal in structure and function. There is no evidence of mitral valve prolapse. There is no mitral valve stenosis. Doppler and Color-flow revealed mild mitral regurgitation. TRICUSPID VALVE The tricuspid valve is normal in structure and function. Doppler and Color Flow revealed mild tricusp id regurgitation. There is no tricuspid valve prolapse or vegetation. There is no tricuspid valve tamy nosis. PULMONIC VALVE The pulmonary valve is normal in structure and function. Doppler and Color Flow revealed no pulmonic valvular regurgitation. There is no pulmonic valvular stenosis. GREAT VESSELS The aortic root is normal in size. The ascending aorta is normal in size. The pulmonary artery is nor mal. The IVC is normal in size and collapses >50% with inspiration. PERICARDIAL EFFUSION There is no pleural effusion. There is no evidence of significant pericardial effusion. Critical Notification Critical Value: No <Conclusion> The left ventricle is normal size. The systolic function is mildly impaired. The Ejection Fraction is estimated at 45%. There is mild global hypokinesis with increased septal hypokinesis. There is borderline to mild concentric left ventricular hypertrophy. Doppler and Color Flow revealed mild aortic regurgitation. There is no significant aortic valvular stenosis. Doppler and Color-flow revealed mild mitral regurgitation. Doppler and Color Flow revealed mild tricuspid regurgitation. Signed by : Aydin Villanueva MD Electronically Approved : 04/13/2021 18:16:23
== END ==
LOC: ECHO 15:02
PROVIDERS: ATTEND Internal Medicine Cardiovascular Disease
DX: I08.3 Combined rheumatic disorders of mitral, aortic and tricuspid valves (principal); R06.09 Other forms of dyspnea
CPT/HCPCS: 93306

== ENCOUNTER 2021-12-11 12:03 | Inpatient (IN) | payer MEDICARE ==
[2021-12-10 19:57] VITALS: BP 140/71
[~2021-12-11] VITALS: Ht 177.8 cm; Wt 73.7 kg
[2021-12-11 12:50] LABS: BASO % 1 % (0-3); EOS # 0.1 x10^3/uL (0.0-0.7); EOS % 2 % (0-3); HEMATOCRIT 41.4 % (39.0-53.0); HEMOGLOBIN 13.1 g/dL (13.0-17.5); LYMPH # 0.7 x10^3/uL (1.0-4.8); LYMPH % 19 % (24-48); MEAN CORPUSCULAR HEMOGLOBIN 28 pg (25-35); MEAN CORPUSCULAR HGB CONC 32 g/dL (31-37); MEAN CORPUSCULAR VOLUME 88 fL (79-100); MONO # 0.4 x10^3/uL (0.0-1.1); MONO % 12 % (0-9); NEUT # 2.5 x10^3/uL (1.8-7.7); NEUT % 66 % (31-73); PLATELET COUNT 101 x10^3/uL (140-400); RED BLOOD COUNT 4.73 x10^6/uL (4.30-5.70); RED CELL DISTRIBUTION WIDTH 16.4 % (11.5-14.5); WHITE BLOOD COUNT 3.8 x10^3/uL (4.0-11.0)
[2021-12-11 13:00] LABS: CALCIUM 8.9 mg/dL (8.5-10.1); CREATININE 1.7 mg/dL (0.7-1.3); GFR 38.7; POTASSIUM 4.5 mmol/L (3.5-5.1)
--- NOTE | 2021-12-11 13:01 | RAD ---
XR CHEST 1V History: Reason: soa, cp / Spl. Instructions: / History: Comparison: February 20, 2020 Findings: Severe diffuse interstitial thickening with ill-defined opacities. Small bilateral pleural effusions, left greater the right. Left-sided pacemaker. Enlarged cardiac size. Prior median sternotomy. No pne umothorax. Glenohumeral DJD, left greater than right. Impression: 1. Severe diffuse interstitial thickening with ill-defined opacities, concerning for pulmonary edema . 2. Small bilateral pleural effusions, left greater than right. Electronically signed by: Buck Turner DO (12/11/2021 12:59 PM) [id number]
[2021-12-11 13:05] LABS: ALBUMIN 3.3 g/dL (3.4-5.0); ALBUMIN/GLOBULIN RATIO 0.8 (1.0-1.7); MAGNESIUM 1.9 mg/dL (1.8-2.4); TOTAL BILIRUBIN 1.8 mg/dL (0.2-1.0); TOTAL PROTEIN 7.2 g/dL (6.4-8.2)
[2021-12-11 13:23] LABS: PLT ESTIMATE DECREASED (ADEQUATE)
[2021-12-11 13:24] LABS: ANISOCYTOSIS SLIGHT; BIZZARE CELLS OCC
[2021-12-11] MEDS ORDERED: FUROSEMIDE 40 MG/4 ML VIAL. IVP ONE (13:30)
--- NOTE | 2021-12-11 13:44 | PHYS DOC ---
Past Medical History Past Medical History: CAD, Cancer, CVA, High Cholesterol, Heart Disease, Hypertension, CA Additional Past Medical Histor: Prostate cancer Past Surgical History: Coronary Bypass Surgery, Tonsillectomy, Other Additional Past Surgical Histo: Hx of Prostate CA w/treatment and resolved, 12 stents, 2 CABG Smoking Status: Never Smoker Alcohol Use: Rarely Drug Use: None General Adult EDM: Chief Complaint: CHEST PAIN HPI: HPI: 81-year-old male past medical history of CVA, CAD w/CABG, HFrEF (45%, 7/21), tachybradycardia system status post dual-chamber pacemaker, hypertension, hyperlipidemia, and prostate cancer, presents to the ED with complaints of "my breathing hurts when chest so bad, it has been going on for quite some time," for the past 3 months. Rthat will be acceptable at work right now we have had a pediatric on this morning at 6 down for the remodeled clinic but I cannot airway That was like 8:00 CPR for an hour now there is even no change in color like remainders shoulder malleolus no Visicol Dr. Rossi which I have not anticoagulated told me about how dangerous those are eports pain is worse with walking and when he goes to [facility] he needs to use a motorized cart to get around due to difficulties breathing with walking. Ports history of right leg swelling. No prior history of DVT or PE. Was seen by Dr. Love for this and referred to Dr. Elizabeth. Has a chest x-ray scheduled for December [address] Elizabeth on December 22. 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 Denies any history of tobacco use. No history of underlying lung disease or asthma. No history of COVID and has been vaccinated for COVID Review of Systems: Review of Systems: Constitutional: Denies fever or chills. [] Eyes: Denies change in visual acuity. [] HENT: Denies nasal congestion or sore throat. [] Respiratory: Denies cough or hemoptysis Cardiovascular: Denies syncope or edema. [] GI: Denies abdominal pain, nausea, vomiting, bloody stools or diarrhea. [] : Denies dysuria or hematuria Musculoskeletal: Denies back pain or joint pain. [] Integument: Denies rash or diaphoresis Neurologic: Denies headache, focal weakness or sensory changes. [] Endocrine: Denies polyuria or polydipsia. [] Lymphatic: Denies swollen glands. [] Psychiatric: Denies depression or anxiety. [] Heart Score: C/O Chest Pain: No Risk Factors: Risk Factors: DM, Current or recent (<one month) smoker, HTN, HLP, family history of CAD, obesity. Risk Scores: Score 0 - 3: 2.5% MACE over next 6 weeks - Discharge Home Score 4 - 6: 20.3% MACE over next 6 weeks - Admit for Clinical Observation Score 7 - 10: 72.7% MACE over next 6 weeks - Early Invasive Strategies Allergies: Allergies: Allergies Coded Allergies Type Severity Reaction Last Updated Verified No Known Drug Allergies 11/29/13 No Physical Exam: PE: Constitutional: Well developed, well nourished, no acute distress, non-toxic appearance. HENT: Normocephalic, atraumatic, Eyes: EOMI, conjunctiva normal, no discharge. Neck: Normal range of motion, supple, Cardiovascular: S1/2 present, regular rhythm Lungs & Thorax: Speaking in full sentences, bilateral equal chest rise, no tachypnea or increased work of breathing Abdomen: soft, no tenderness, Skin: Warm, dry, no erythema, no rash. [] Back: No tenderness, no CVA tenderness. [] Extremities: No tenderness, no cyanosis, right lower extremity swelling present Neurologic: Alert and oriented X 3, normal motor function, normal sensory function, no focal deficits noted. [] Psychologic: Affect normal, judgement normal, mood normal. [] Current Patient Data: Labs: Laboratory Tests Test 12/11/21 12:25 White Blood Count 3.8 x10^3/uL (4.0-11.0) L Red Blood Count 4.73 x10^6/uL (4.30-5.70) Hemoglobin 13.1 g/dL (13.0-17.5) Hematocrit 41.4 % (39.0-53.0) Mean Corpuscular Volume 88 fL (79-100) Mean Corpuscular Hemoglobin 28 pg (25-35) Mean Corpuscular Hemoglobin Concent 32 g/dL (31-37) Red Cell Distribution Width 16.4 % (11.5-14.5) H Platelet Count 101 x10^3/uL (140-400) L Neutrophils (%) (Auto) 66 % (31-73) Lymphocytes (%) (Auto) 19 % (24-48) L Monocytes (%) (Auto) 12 % (0-9) H Eosinophils (%) (Auto) 2 % (0-3) Basophils (%) (Auto) 1 % (0-3) Neutrophils # (Auto) 2.5 x10^3/uL (1.8-7.7) Lymphocytes # (Auto) 0.7 x10^3/uL (1.0-4.8) L Monocytes # (Auto) 0.4 x10^3/uL (0.0-1.1) Eosinophils # (Auto) 0.1 x10^3/uL (0.0-0.7) Basophils # (Auto) 0.0 x10^3/uL (0.0-0.2) Platelet Estimate Pending Sodium Level 140 mmol/L (136-145) Potassium Level 4.5 mmol/L (3.5-5.1) Chloride Level 106 mmol/L (98-107) Carbon Dioxide Level 25 mmol/L (21-32) Anion Gap 9 (6-14) Blood Urea Nitrogen 22 mg/dL (8-26) Creatinine 1.7 mg/dL (0.7-1.3) H Estimated GFR (Cockcroft-Gault) 38.7 BUN/Creatinine Ratio 13 (6-20) Glucose Level 94 mg/dL (70-99) Calcium Level 8.9 mg/dL (8.5-10.1) Magnesium Level 1.9 mg/dL (1.8-2.4) Total Bilirubin 1.8 mg/dL (0.2-1.0) H Aspartate Amino Transferase (AST) 46 U/L (15-37) H Alanine Aminotransferase (ALT) 49 U/L (16-63) Alkaline Phosphatase 107 U/L (46-116) Troponin I High Sensitivity 32 ng/L (4-75) JC-Tts-Q-Type Natriuretic Peptide 40419 pg/mL (0-449) H Total Protein 7.2 g/dL (6.4-8.2) Albumin 3.3 g/dL (3.4-5.0) L Albumin/Globulin Ratio 0.8 (1.0-1.7) L Lipase 98 U/L (73-393) Laboratory Tests 3/18/22 12:25 Laboratory Tests 12/11/21 12:25 Vital Signs: Vital Signs Date Time Temp Pulse Resp B/P (MAP) Pulse Ox O2 Delivery O2 Flow Rate FiO2 12/11/21 13:11 63 22 167/79 (108) 98 Room Air 12/11/21 12:03 97.9 97.9 EKG: EKG: Ventricular paced rhythm (LBBB present) at 74 bpm, left axis deviation, QTC 520, T wave inversion 1 aVL, no ST elevation or ST depression, denies any active chest pain Ventricular paced rhythm 61 bpm, left axis deviation, QTC 531, T wave inversion 1, aVL and V6, no ST elevation or ST depression Radiology/Procedures: Radiology/Procedures: IMAGING REPORT Signed PATIENT: DOUG WALLS RACCOUNT: [id number] : 1940 LOCATION: ER AGE: 81 SEX: M EXAM STATUS: REG ER ORD. PHYSICIAN: ZENA HERNÁNDEZ DO REASON: soa, cp PROCEDURE: PORTABLE CHEST 1V XR CHEST 1V History: Reason: soa, cp / Spl. Instructions: / History: Comparison: February 20, 2020 Findings: Severe diffuse interstitial thickening with ill-defined opacities. Small bilateral pleural effusions, left greater the right. Left-sided pacemaker. Enlar ged cardiac size. Prior median sternotomy. No pneumothorax. Glenohumeral DJD, left greater than right. Impression: 1. Severe diffuse interstitial thickening with ill-defined opacities, concerning for pulmonary edema. 2. Small bilateral pleural effusions, left greater than right. Electronically signed by: Buck Turner DO (12/11/2021 12:59 PM) [id number] DICTATED and SIGNED BY: BUCK TURNER DO DATE: 12/11/21 1258 IMAGING REPORT Signed PATIENT: DOUG WALLS RACCOUNT: [id number] : 1940 LOCATION: [address] [place] [address] AGE: 81 SEX: M EXAM STATUS: ADM IN ORD. PHYSICIAN: ZENA HERNÁNDEZ DO REASON: soa/cp ABD. PAIN PROCEDURE: CT CHEST ABDOMEN PELVIS WO CT CHEST_ABDOMEN_ AND PELVIS WITHOUT CONTRAST History: Abdominal pain. Shortness of breath. Technique: CT of the chest, abdomen and pelvis were performed with intravenous contrast. Coronal and sagittal reconstructions were performed. Exposure: One or more of the following individualized dose reduction techniques were utilized for this examination: 1. Automated exposure control 2. Adjustment of the mA and/or kV according to patient size 3. Use of iterative reconstruction technique. Comparison: CT chest May 14, 2019 Findings: Chest: Moderate bilateral pleural effusions with adjacent atelectasis, left greater than right. Cardiomegaly. Prior median sternotomy. Moderate atheromatous plaque within the aorta. Coronary artery calcifications. Small mediastinal lymp h nodes. No pathologic enlarged lymph nodes. No pneumothorax. Left upper and lower lobe groundglass opacities with mild bibasilar opacities in the right middle and lower lobes. Abdomen and pelvis: Small to moderate upper abdominal and pelvic ascites most prominent perihepatic. Mesenteric edema. The liver, spleen, adrenal glands, and pancreas have unremarkable noncontrast appearance. No renal calculi. No hydronephrosis. Decompressed urinary bladder. Distended gallbladder. No gallbladder wall thickening. Colonic diverticulosis. Appendix is not well seen. No evidence of bowel obstruction. No pathologic lymphadenopathy. Severe atheromatous plaque throughout the nonaneurysmal abdominal aorta and branch vessels. Postoperative changes within the region of the prostate. Bones: Small sclerotic lesions within within the right posterior 10th and right anterior fourth ribs, unchanged. Small sclerotic lesions within T10 and T12 vertebral bodies, unchanged. Sclerotic lesions within the right iliac bone measures 0.7 cm and 1.6 cm. Multilevel lumbar spondylosis. Impression: Chest CT: 1. Moderate bilateral pleural effusions with adjacent atelectasis. 2. Multifocal ground glass opacities, may represent edema or infection. Abdomen and pelvis CT: 1. Small to moderate abdominal and pelvic ascites with mesenteric edema. 2. Distended gallbladder. 3. Scattered sclerotic lesions within the pelvis, thoracic spine and right ribs, may represent bone islands in the absence of concern for malignancy. Electronically signed by: Buck Turner DO (12/11/2021 3:21 PM) [id number] DICTATED and SIGNED BY: BUCK TURNER DO DATE: 12/11/21 1458 IMAGING REPORT Signed PATIENT: DOUG WALLS RACCOUNT: [id number] : 1940 LOCATION: ER AGE: 81 SEX: M EXAM STATUS: REG ER ORD. PHYSICIAN: ZENA HERNÁNDEZ DO REASON: right leg swelling, r/o dvt PROCEDURE: VENOUS LOWER EXTREMITY RIGHT EXAMINATION: US DPLX VENOUS EXTREMITY LOWER RT (LOWER EXTREMITY VENOUS ULTRASOUND) CLINICAL HISTORY: Right lower extremity edema. TECHNIQUE: Sonographic grayscale images obtained of the right lower extremity deep venous system with color flow Doppler, compression, and augmentation techniques as indicated. Images obtained and stored in a permanent archive. COMPARISON: None FINDINGS: No evidence of absent flow or incompressibility within the common femoral vein, femoral vein, or popliteal vein. Visualized calf veins appear patent on limited evaluation. IMPRESSION: No evidence of right lower extremity DVT. Electronically signed by: Colt Peters DO (12/11/2021 1:55 PM) [facility] DICTATED and SIGNED BY: COLT PETERS DO DATE: 12/11/21 1352 Course & Med Decision Making: Course & Med Decision Making Pertinent Labs and Imaging studies reviewed. (See chart for details) Concern for exertional dyspnea in the setting of chest pain, c/w pulmonary edema and bilateral small pleural effusions. IV Lasix given in emergency department. Labs show elevated BNP and CKD. CT chest, abdomen pelvis without contrast concerning for effusions, edema vs infectious process, rapid covid pending. Right venous US no evidence of DVT. Will admit for further medical management and cardiology consultation. Patient stable at time of admission agrees with this plan. I have spoken with the patient and/or caregivers. I have explained the patient's condition, diagnosis and treatment plan based on the information available to me at this time. I have answered the patient's and/or caregivers questions and answered any concerns. The patient and/or caregivers have as good an understanding of the patient's diagnosis, condition and treatment plan as can be expected at this point. The patient has been stabilized within the capability of the emergency department. The patient will be transported for further care and management or will be moved to an observation or inpatient service. I have communicated with the staff or medical practitioner taking over this patient's care. Cristina Disclaimer: Cristina Disclaimer: This electronic medical record was generated, in whole or in part, using a voice recognition dictation system. Departure Departure Impression: Primary Impression: Acute exacerbation of CHF (congestive heart failure) Additional Impressions: Bilateral pleural effusion CKD (chronic kidney disease) Disposition: ADMITTED INPATIENT Admitting Physician: ARMEN (Dr. Schulz) Condition: STABLE Referrals: IVETH HENLEY DO (PCP) ZENA HERNÁNDEZ DO Dec 11, 2021 13:44
--- NOTE | 2021-12-11 13:57 | RAD ---
EXAMINATION: US DPLX VENOUS EXTREMITY LOWER RT (LOWER EXTREMITY VENOUS ULTRASOUND) CLINICAL HISTORY: Right lower extremity edema. TECHNIQUE: Sonographic grayscale images obtained of the right lower extremity deep venous system with color flow Doppler, compression, and augmentation techniques as indicated. Images obtained and stor ed in a permanent archive. COMPARISON: None FINDINGS: No evidence of absent flow or incompressibility within the common femoral vein, femoral vein, or popl iteal vein. Visualized calf veins appear patent on limited evaluation. IMPRESSION: No evidence of right lower extremity DVT. Electronically signed by: Colt Bautista DO (12/11/2021 1:55 PM) [facility]
[2021-12-11 14:02] LABS: AMPHETAMINE/METHAMPHETAMINE NEG (NEG); BARBITURATES NEG (NEG); BENZODIAZEPINES NEG (NEG); CANNABINOIDS NEG (NEG); COCAINE NEG (NEG); METHADONE NEG (NEG); OPIATES NEG (NEG); PHENCYCLIDINE NEG (NEG)
[2021-12-11 14:30] VITALS: BP 163/85
--- NOTE | 2021-12-11 14:45 | NUR ---
ADMISSION PATIENT ARRIVES ON THE FLOOR VIA W/C FROM ED. ROOM AIR, NO DISTRESS NOTED. TELE APPLIED, ET VS OBTAINED.
[2021-12-11 15:00] VITALS: BP 163/85
[2021-12-11] MEDS ORDERED: ONDANSETRON PF 4 MG/2 ML VIAL. IVP PRN (15:15)
[2021-12-11] MEDS ORDERED: oxyCODONE/APAP 5/325 1 TAB TABLET PO PRN (15:15)
[2021-12-11] MEDS ORDERED: ELECTROLYTE (NON-ICU) PROTOCOL. MC PRN (15:15)
[2021-12-11] MEDS ORDERED: CALCIUM CARBONATE 500 MG TAB.CHEW PO PRN (15:15)
--- NOTE | 2021-12-11 15:15 | PDOC1 ---
History and Physical Date of Service: DOS: DATE: 12/11/21 TIME: 15:15 Chief Complaint: Chief Complain: Shortness of breath, chest pain History of Present Illness: HPI: Patient is an 81-year-old male who presented to the emergency room due to a 3- month history of left-sided chest pain. Says it was not particularly worse today (he eventually decided to present to the emergency room. Says that he has seen Dr. Stapleton for this issue after their office visit was referred to Dr. Hernandez. Has not been able to follow-up since then. Apparently has a chest x-ray scheduled for the and her appointment on the with pulmonary. Patient also does endorse shortness of breath going on with all of this. He has a chronic right lower extremity swelling. Denies any history of lung disease. Cardiac disease listed below. Covid vaccinated Past Medical/Surgical History: PMH/PSH: CVA, CAD w/CABG, HFrEF (45%, 7), tachybradycardia Allergies: Allergies: Coded Allergies: No Known Drug Allergies (Unverified , 11/29/13) Family History: Family History: htn Social History: Social History: Denies tobacco or drug use. Social alcohol use Current Medications: Current Medications Current Medications Furosemide (Lasix) 40 mg 1X ONCE IVP Last administered on 12/11/21at 13:42; Start 12/11/21 at 13:30; Stop 12/11/21 at 13:33; Status DC Active Scripts Active Metoprolol Succinate ( Xl ) (Metoprolol Succinate) 25 Mg Tab.er.24h 25 Mg PO DAILY 30 Days Eliquis (Apixaban) 2.5 Mg Tablet 2.5 Mg PO BID 30 Days Clopidogrel (Clopidogrel Bisulfate) 75 Mg Tablet 75 Mg PO DAILYWBKFT 30 Days Reported Eliquis (Apixaban) 2.5 Mg Tablet 2.5 Mg PO BID Vitamin B-6 (Pyridoxine Hcl) 50 Mg Capsule 2 Cap PO DAILY 30 Days B Complex (Vitamin B Complex) 1 Each Tablet 1 Tab PO DAILY 30 Days Magnesium (Magnesium Oxide) 400 Mg Capsule 1 Cap PO DAILY 30 Days Tramadol Hcl 50 Mg Tablet 50 Mg PO DAILY PRN Escitalopram Oxalate 10 Mg Tablet 1 Tab PO DAILY Fish Oil 1,000 Mg Softgel ([place]-3 Fatty Acids/Fish Oil) 1 Each Capsule 1 Cap PO DAILY 30 Days Atorvastatin Calcium 20 Mg Tablet 40 Mg PO HS Pantoprazole Sodium (Pantoprazole Sodium) 40 Mg Tablet.dr 40 Mg PO DAILYAC Gabapentin (Gabapentin) 300 Mg Capsule 300 Mg PO BID ROS: Review of Systems Review of System Unless noted in HPI 14 point review of systems was negative Physical Exam: Vital Signs: Vital Signs Date Time Temp Pulse Resp B/P (MAP) Pulse Ox O2 Delivery O2 Flow Rate FiO2 12/11/21 14:00 62 20 162/76 (104) 96 Room Air 12/11/21 12:03 97.9 97.9 Physcial Exam: GEN: No apparent distress. Alert and oriented HEENT: Normal cephalic, atraumatic, external auditory canals are patent EYES: Extraocular muscles are intact, pupil are equally round and reactive to light and accommodation MUSCULOSKELETAL: Well developed , well nourished, good range of motion ENDOCRINE: No thyromegaly was palpated LYMPHATICS: No cervical chain or axillary nodes were noted HEMATOPOIETIC: No bruising NECK: Supple, no JVD, no thyromegaly was noted LUNGS: Clear to auscultation in all lung macias without rhonchi or wheezing HEART: RRR, S1, S2 present. Peripheral pulses intact, no obvious murmurs noted ABDOMEN: Soft, nontender. Positive bowel sounds, no organomegaly, normal bowel sounds EXTREMITIES: Without clubbing, cyanosis, or edema. Pedal pulses intact. Negative Homans sign NEUROLOGIC: Normal speech and tone. A&O x 3, moves all extremities, no obvious focal deficits PSYCHIATRIC: Normal affect, normal mood. Stable SKIN: No ulcerations or rashes, good skin turgor, no jaundice VASCULAR: Good capillary refill, neurovascular bundle appears to be intact Labs: Labs: Laboratory Tests Test 12/11/21 12:25 12/11/21 13:45 White Blood Count 3.8 x10^3/uL (4.0-11.0) Red Blood Count 4.73 x10^6/uL (4.30-5.70) Hemoglobin 13.1 g/dL (13.0-17.5) Hematocrit 41.4 % (39.0-53.0) Mean Corpuscular Volume 88 fL (79-100) Mean Corpuscular Hemoglobin 28 pg (25-35) Mean Corpuscular Hemoglobin Concent 32 g/dL (31-37) Red Cell Distribution Width 16.4 % (11.5-14.5) Platelet Count 101 x10^3/uL (140-400) Neutrophils (%) (Auto) 66 % (31-73) Lymphocytes (%) (Auto) 19 % (24-48) Monocytes (%) (Auto) 12 % (0-9) Eosinophils (%) (Auto) 2 % (0-3) Basophils (%) (Auto) 1 % (0-3) Neutrophils # (Auto) 2.5 x10^3/uL (1.8-7.7) Lymphocytes # (Auto) 0.7 x10^3/uL (1.0-4.8) Monocytes # (Auto) 0.4 x10^3/uL (0.0-1.1) Eosinophils # (Auto) 0.1 x10^3/uL (0.0-0.7) Basophils # (Auto) 0.0 x10^3/uL (0.0-0.2) Platelet Estimate Decreased (ADEQUATE) Giant Platelets Occ Anisocytosis Slight RBC Morphology Bizarre Forms Occ Sodium Level 140 mmol/L (136-145) Potassium Level 4.5 mmol/L (3.5-5.1) Chloride Level 106 mmol/L (98-107) Carbon Dioxide Level 25 mmol/L (21-32) Anion Gap 9 (6-14) Blood Urea Nitrogen 22 mg/dL (8-26) Creatinine 1.7 mg/dL (0.7-1.3) Estimated GFR (Cockcroft-Gault) 38.7 BUN/Creatinine Ratio 13 (6-20) Glucose Level 94 mg/dL (70-99) Calcium Level 8.9 mg/dL (8.5-10.1) Magnesium Level 1.9 mg/dL (1.8-2.4) Total Bilirubin 1.8 mg/dL (0.2-1.0) Aspartate Amino Transf (AST/SGOT) 46 U/L (15-37) Alanine Aminotransferase (ALT/SGPT) 49 U/L (16-63) Alkaline Phosphatase 107 U/L (46-116) Troponin I High Sensitivity 32 ng/L (4-75) QG-Vgn-J-Type Natriuretic Peptide 04788 pg/mL (0-449) Total Protein 7.2 g/dL (6.4-8.2) Albumin 3.3 g/dL (3.4-5.0) Albumin/Globulin Ratio 0.8 (1.0-1.7) Lipase 98 U/L (73-393) Urine Opiates Screen Neg (NEG) Urine Methadone Screen Neg (NEG) Urine Barbiturates Neg (NEG) Urine Phencyclidine Screen Neg (NEG) Urine Amphetamine/Methamphetamine Neg (NEG) Urine Benzodiazepines Screen Neg (NEG) Urine Cocaine Screen Neg (NEG) Urine Cannabinoids Screen Neg (NEG) Urine Ethyl Alcohol Neg (NEG) Laboratory Tests Test 12/11/21 12:25 12/11/21 13:45 White Blood Count 3.8 x10^3/uL (4.0-11.0) Red Blood Count 4.73 x10^6/uL (4.30-5.70) Hemoglobin 13.1 g/dL (13.0-17.5) Hematocrit 41.4 % (39.0-53.0) Mean Corpuscular Volume 88 fL (79-100) Mean Corpuscular Hemoglobin 28 pg (25-35) Mean Corpuscular Hemoglobin Concent 32 g/dL (31-37) Red Cell Distribution Width 16.4 % (11.5-14.5) Platelet Count 101 x10^3/uL (140-400) Neutrophils (%) (Auto) 66 % (31-73) Lymphocytes (%) (Auto) 19 % (24-48) Monocytes (%) (Auto) 12 % (0-9) Eosinophils (%) (Auto) 2 % (0-3) Basophils (%) (Auto) 1 % (0-3) Neutrophils # (Auto) 2.5 x10^3/uL (1.8-7.7) Lymphocytes # (Auto) 0.7 x10^3/uL (1.0-4.8) Monocytes # (Auto) 0.4 x10^3/uL (0.0-1.1) Eosinophils # (Auto) 0.1 x10^3/uL (0.0-0.7) Basophils # (Auto) 0.0 x10^3/uL (0.0-0.2) Platelet Estimate Decreased (ADEQUATE) Giant Platelets Occ Anisocytosis Slight RBC Morphology Bizarre Forms Occ Sodium Level 140 mmol/L (136-145) Potassium Level 4.5 mmol/L (3.5-5.1) Chloride Level 106 mmol/L (98-107) Carbon Dioxide Level 25 mmol/L (21-32) Anion Gap 9 (6-14) Blood Urea Nitrogen 22 mg/dL (8-26) Creatinine 1.7 mg/dL (0.7-1.3) Estimated GFR (Cockcroft-Gault) 38.7 BUN/Creatinine Ratio 13 (6-20) Glucose Level 94 mg/dL (70-99) Calcium Level 8.9 mg/dL (8.5-10.1) Magnesium Level 1.9 mg/dL (1.8-2.4) Total Bilirubin 1.8 mg/dL (0.2-1.0) Aspartate Amino Transf (AST/SGOT) 46 U/L (15-37) Alanine Aminotransferase (ALT/SGPT) 49 U/L (16-63) Alkaline Phosphatase 107 U/L (46-116) Troponin I High Sensitivity 32 ng/L (4-75) QF-Btm-E-Type Natriuretic Peptide 87091 pg/mL (0-449) Total Protein 7.2 g/dL (6.4-8.2) Albumin 3.3 g/dL (3.4-5.0) Albumin/Globulin Ratio 0.8 (1.0-1.7) Lipase 98 U/L (73-393) Urine Opiates Screen Neg (NEG) Urine Methadone Screen Neg (NEG) Urine Barbiturates Neg (NEG) Urine Phencyclidine Screen Neg (NEG) Urine Amphetamine/Methamphetamine Neg (NEG) Urine Benzodiazepines Screen Neg (NEG) Urine Cocaine Screen Neg (NEG) Urine Cannabinoids Screen Neg (NEG) Urine Ethyl Alcohol Neg (NEG) Assessment/Plan Assessment/Plan Acute on chronic CHF, bilateral pleural effusions ascites. History of CAD HFrEF 45% EF tachybradycardia -Presented today with 3-month history of chronic chest pain -Elevated BNP otherwise cardiac work-up unremarkable. -Given 40 IV Lasix in emergency room. Will give another dose tonight. Also given ascites will give a dose of 50 or 100 Aldactone -Home meds resumed as indicated -Cards and pulmonary consults -not sure if GI needs to be involed with ascites, will see how things progress -cardiac diet, 2L fluid restriction Justifications for Admission Other Justification EUCEDA,CHRISTOPHER MD Dec 11, 2021 15:15
--- NOTE | 2021-12-11 15:24 | RAD ---
CT CHEST_ABDOMEN_ AND PELVIS WITHOUT CONTRAST History: Abdominal pain. Shortness of breath. Technique: CT of the chest, abdomen and pelvis were performed with intravenous contrast. Coronal and sagittal reconstructions were performed. Exposure: One or more of the following individualized dose reduction techniques were utilized for thi s examination: 1. Automated exposure control 2. Adjustment of the mA and/or kV according to patient size 3. Use of iterative reconstruction technique. Comparison: CT chest May 14, 2019 Findings: Chest: Moderate bilateral pleural effusions with adjacent atelectasis, left greater than right. Cardi omegaly. Prior median sternotomy. Moderate atheromatous plaque within the aorta. Coronary artery calc ifications. Small mediastinal lymph nodes. No pathologic enlarged lymph nodes. No pneumothorax. Left upper and lower lobe groundglass opacities with mild bibasilar opacities in the right middle and lower lobes. Abdomen and pelvis: Small to moderate upper abdominal and pelvic ascites most prominent perihepatic. Mesenteric edema. The liver, spleen, adrenal glands, and pancreas have unremarkable noncontrast appearance. No renal ca lculi. No hydronephrosis. Decompressed urinary bladder. Distended gallbladder. No gallbladder wall thickening. Colonic diverticulosis. Appendix is not well seen. No evidence of bowel obstruction. No pathologic ly mphadenopathy. Severe atheromatous plaque throughout the nonaneurysmal abdominal aorta and branch ves sels. Postoperative changes within the region of the prostate. Bones: Small sclerotic lesions within within the right posterior 10th and right anterior fourth ribs, unchanged. Small sclerotic lesions within T10 and T12 vertebral bodies, unchanged. Sclerotic lesions within the right iliac bone measures 0.7 cm and 1.6 cm. Multilevel lumbar spondylosis. Impression: Chest CT: 1. Moderate bilateral pleural effusions with adjacent atelectasis. 2. Multifocal ground glass opacities, may represent edema or infection. Abdomen and pelvis CT: 1. Small to moderate abdominal and pelvic ascites with mesenteric edema. 2. Distended gallbladder. 3. Scattered sclerotic lesions within the pelvis, thoracic spine and right ribs, may represent bone islands in the absence of concern for malignancy. Electronically signed by: Buck Turner DO (12/11/2021 3:21 PM) [id number]
--- NOTE | 2021-12-11 15:55 | EKG ---
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
--- NOTE | 2021-12-11 15:56 | EKG ---
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
[2021-12-11] MEDS: FUROSEMIDE 40 MG/4 ML VIAL. IVP SCH (16:18)
[2021-12-11 19:23] VITALS: BP 151/77
[2021-12-11] MEDS: ATORVASTATIN CALCIUM 20 MG TABLET PO SCH (20:35)
[2021-12-11] MEDS: APIXABAN 2.5 MG TABLET. PO SCH (20:35)
[2021-12-11] MEDS: GABAPENTIN 300 MG CAPSULE. PO SCH (20:35)
[2021-12-11] MEDS: SENNOSIDES/DOCUSATE 8.6/50MG TABLET. PO SCH (20:36)
[2021-12-11 22:47] VITALS: BP 125/58
[2021-12-12 03:02] VITALS: BP 138/72
--- NOTE | 2021-12-12 04:11 | NUR ---
Pt. heard calling out after fall, nursing went into room and found pt. on floor and bleeding from nose and skin tear on right wrist and upper lip area. Pt. totally alert and oriented and stated, "I think I just lost my balance on the way to the bathroom." Pt. assisted back to bed and used urinal at bedside instead of carrying it to bathroom to use it. Call light in reach and encouraged pt to use it and bed alarm on. Call in to Dr. Schulz, awaiting call back.
[2021-12-12 07:00] VITALS: BP 122/76
[2021-12-12] MEDS: SENNOSIDES/DOCUSATE 8.6/50MG TABLET. PO SCH ×2 (07:57→20:22)
[2021-12-12] MEDS: CLOPIDOGREL BISULFATE 75 MG TABLET PO SCH ×2 (07:57→08:00)
[2021-12-12] MEDS: METOPROLOL SUCC 24HR ER 25 MG TAB.ER.24H. PO SCH (07:57)
[2021-12-12] MEDS: CITALOPRAM 20 MG TABLET. PO SCH (07:57)
[2021-12-12] MEDS: GABAPENTIN 300 MG CAPSULE. PO SCH ×2 (07:57→20:22)
[2021-12-12] MEDS: FUROSEMIDE 40 MG/4 ML VIAL. IVP SCH (07:58)
[2021-12-12] MEDS: PANTOPRAZOLE 40 MG TABLET.DR. PO SCH (07:58)
[2021-12-12] MEDS: APIXABAN 2.5 MG TABLET. PO SCH ×2 (07:58→20:22)
--- NOTE | 2021-12-12 08:04 | CONS ---
DATE OF CONSULTATION: 12/12/2021 REASON FOR CONSULTATION: I was asked to see this 81-year-old gentleman for shortness of breath, chest pain. HISTORY OF PRESENT ILLNESS: He is a lifelong nonsmoker, does not have any history of lung disease. He has significant history of coronary artery disease status post CABG and cardiac catheterization in 2019 did show 3-vessel disease. His last echo done in 2020 did show ejection fraction of 45%. He has had shortness of breath and chest pain for the past 3 months. The pain is vague and in his chest area. He presented to the Emergency Room and received Lasix. Now, he denies shortness of breath or chest pain. He is on Eliquis. He denies cough, sputum production, fever or chills. He received COVID vaccine. PAST MEDICAL HISTORY: Coronary artery disease, CABG, systolic CHF, cardiomyopathy, prostate cancer, hypercholesterolemia, hypertension, tonsillectomy. ALLERGIES: No known drug allergies. MEDICATIONS: Currently, he is on Celexa, Toprol-XL, Plavix, Protonix, Neurontin, Lipitor, Eliquis, Lasix 40 mg IV daily. SOCIAL HISTORY: Lifelong nonsmoker. FAMILY HISTORY: Hypertension. REVIEW OF SYSTEMS: As mentioned as above. He fell earlier this morning, had some nosebleed, now it is stopped. Other systems otherwise negative. PHYSICAL EXAMINATION: GENERAL: This is an elderly gentleman. VITAL SIGNS: His O2 saturation on room air is 94%, respiratory rate 20, heart rate 60, blood pressure 138/72, temperature 97.7. HEENT: Normocephalic, atraumatic. Pupils equal, round, reactive to light. Nose: There is some edema on the bridge of the nose, dried blood in nostrils. NECK: There is no JVD or lymphadenopathy. CARDIOVASCULAR: Regular rate and rhythm. Distant heart sounds. CHEST: Inspection is normal. LUNGS: There are bibasilar crackles, dullness at the bases. ABDOMEN: Soft. There is no mass. EXTREMITIES: There is no edema. LYMPHATICS: There is no lymphadenopathy. NEUROLOGIC: Alert and oriented. LABORATORY DATA: I reviewed the following lab data: CT of the chest did show bilateral pleural effusion with atelectasis. Multifocal ground glass opacities. CT of abdomen and pelvis showed small to moderate abdominal and pelvic ascites and mesenteric edema, distended gallbladder, scattered sclerotic lesions with the pelvis, thoracic spine, right ribs, may represent bone island in the absence of concern for malignancy. His lower extremity venous Doppler was negative. WBC 3.8, hemoglobin 13.1, platelet 101. Sodium 140, potassium 4.5, chloride 106, CO2 of 25, BUN 22, creatinine 1.7, total bilirubin 1.8. Troponin 32/29/34 within normal limit. BNP 14,217. His urine drug screen was negative. IMPRESSION: 1. Dyspnea secondary to acute systolic congestive heart failure, doubt pulmonary embolism as he has been on Eliquis. 2. Abnormal CT of the chest consistent with acute systolic congestive heart failure. 3. Acute systolic congestive heart failure. 4. Coronary artery disease. 5. Acute kidney injury. PLAN AND RECOMMENDATION: 1. Elevated bilirubin and distended bladder in CT, workup per primary. 2. I suspect his ascites is secondary to volume overload. 3. I agree with Lasix. Monitor creatinine and potassium. 4. Influenza A and B and COVID testing. 5. Status post fall, agree with CT of the head, which was ordered per primary. 6. I agree with Cardiology consultation. 7. His chest pain and shortness of breath resolved with Lasix. 8. The findings and recommendations were discussed with the patient and RN. I have answered all of the patient's questions. Thank you very much for allowing me to participate in care of this very nice gentleman. GAIL GUILLAUME: Adelina TID: [id number]
[2021-12-12 08:08] LABS: INFLUENZA A PATIENT NEGATIVE (NEGATIVE); INFLUENZA B PATIENT NEGATIVE (NEGATIVE)
--- NOTE | 2021-12-12 10:58 | PDOC ---
[facility] PROGRESS NOTE Date of Service DOS: DATE: 12/12/21 TIME: 10:55 Chief Complaint Chief Complaint Acute on chronic systolic diastolic heart failure History of CAD TEAGAN Fall with facial trauma last night History of Present Illness History of Present Illness 12/12/2021 Patient seen and examined He fell last night and suffered facial trauma We have a CT of the head it is just completed but results are pending Discussed with RN Chart reviewed Vitals/I&O Vitals/I&O: Vital Signs Date Time Temp Pulse Resp B/P (MAP) Pulse Ox O2 Delivery O2 Flow Rate FiO2 12/12/21 08:00 Room Air 12/12/21 07:57 60 138/72 12/12/21 07:00 97.5 18 94 97.5 I & O 12/11/21 12/11/21 12/12/21 15:00 23:00 07:00 Intake Total 150 ml 0 ml Output Total 2350 ml 1450 ml Balance -2200 ml -1450 ml Physical Exam Physical Exam: HEENT He has some bruising around both eyes and the nasal septum and nares appear a little swollen and bruised General: No acute distress Heart: Regular rate Lungs: Crackles Abdomen: Normal bowel sounds Extremities: No clubbing Skin: No rashes Labs Labs: Laboratory Tests Test 12/11/21 12:25 12/11/21 13:45 12/11/21 15:47 12/11/21 22:30 White Blood Count 3.8 x10^3/uL (4.0-11.0) Red Blood Count 4.73 x10^6/uL (4.30-5.70) Hemoglobin 13.1 g/dL (13.0-17.5) Hematocrit 41.4 % (39.0-53.0) Mean Corpuscular Volume 88 fL (79-100) Mean Corpuscular Hemoglobin 28 pg (25-35) Mean Corpuscular Hemoglobin Concent 32 g/dL (31-37) Red Cell Distribution Width 16.4 % (11.5-14.5) Platelet Count 101 x10^3/uL (140-400) Neutrophils (%) (Auto) 66 % (31-73) Lymphocytes (%) (Auto) 19 % (24-48) Monocytes (%) (Auto) 12 % (0-9) Eosinophils (%) (Auto) 2 % (0-3) Basophils (%) (Auto) 1 % (0-3) Neutrophils # (Auto) 2.5 x10^3/uL (1.8-7.7) Lymphocytes # (Auto) 0.7 x10^3/uL (1.0-4.8) Monocytes # (Auto) 0.4 x10^3/uL (0.0-1.1) Eosinophils # (Auto) 0.1 x10^3/uL (0.0-0.7) Basophils # (Auto) 0.0 x10^3/uL (0.0-0.2) Platelet Estimate Decreased (ADEQUATE) Giant Platelets Occ Anisocytosis Slight RBC Morphology Bizarre Forms Occ Sodium Level 140 mmol/L (136-145) Potassium Level 4.5 mmol/L (3.5-5.1) Chloride Level 106 mmol/L (98-107) Carbon Dioxide Level 25 mmol/L (21-32) Anion Gap 9 (6-14) Blood Urea Nitrogen 22 mg/dL (8-26) Creatinine 1.7 mg/dL (0.7-1.3) Estimated GFR (Cockcroft-Gault) 38.7 BUN/Creatinine Ratio 13 (6-20) Glucose Level 94 mg/dL (70-99) Calcium Level 8.9 mg/dL (8.5-10.1) Magnesium Level 1.9 mg/dL (1.8-2.4) Total Bilirubin 1.8 mg/dL (0.2-1.0) Aspartate Amino Transf (AST/SGOT) 46 U/L (15-37) Alanine Aminotransferase (ALT/SGPT) 49 U/L (16-63) Alkaline Phosphatase 107 U/L (46-116) Troponin I High Sensitivity 32 ng/L (4-75) 29 ng/L (4-75) 34 ng/L (4-75) VT-Eym-G-Type Natriuretic Peptide 67225 pg/mL (0-449) Total Protein 7.2 g/dL (6.4-8.2) Albumin 3.3 g/dL (3.4-5.0) Albumin/Globulin Ratio 0.8 (1.0-1.7) Lipase 98 U/L (73-393) Urine Opiates Screen Neg (NEG) Urine Methadone Screen Neg (NEG) Urine Barbiturates Neg (NEG) Urine Phencyclidine Screen Neg (NEG) Urine Amphetamine/Methamphetamine Neg (NEG) Urine Benzodiazepines Screen Neg (NEG) Urine Cocaine Screen Neg (NEG) Urine Cannabinoids Screen Neg (NEG) Urine Ethyl Alcohol Neg (NEG) Test 12/12/21 07:20 Influenza Type A Antigen Negative (NEGATIVE) Influenza Type B Antigen Negative (NEGATIVE) SARS-CoV-2 Antigen (Rapid) Negative (NEGATIVE) Assessment and Plan Assessmemt and Plan HeartProblems Medical Problems: (1) Acute exacerbation of CHF (congestive heart failure) Status: Acute (2) Bilateral pleural effusion Status: Acute (3) CKD (chronic kidney disease) Status: Acu Acute on chronic systolic diastolic heart failure History of CAD TEAGAN Fall with facial trauma last night Plan Awaiting CT report Continue cardiac monitoring As needed O2 per nasal cannula Wound correction meds DVT prophylaxis PT OT Full code Suspect he will need fpc We will consult GI regarding elevated bilirubin Respiratory isolation Cardiology consultation pending Awaiting Covid and flu testing Long-term prognosis guarded Per pulmonary recommendations please see the following and we certainly agree and appreciate their input; IMPRESSION: 1. Dyspnea secondary to acute systolic congestive heart failure, doubt pulmonary embolism as he has been on Eliquis. 2. Abnormal CT of the chest consistent with acute systolic congestive heart failure. 3. Acute systolic congestive heart failure. 4. Coronary artery disease. 5. Acute kidney injury. PLAN AND RECOMMENDATION: 1. Elevated bilirubin and distended bladder in CT, workup per primary. 2. I suspect his ascites is secondary to volume overload. 3. I agree with Lasix. Monitor creatinine and potassium. 4. Influenza A and B and COVID testing. 5. Status post fall, agree with CT of the head, which was ordered per primary. 6. I agree with Cardiology consultation. 7. His chest pain and shortness of breath resolved with Lasix. 8. The findings and recommendations were discussed with the patient and RN. I have answered all of the patient's questions. Comment Review of Relevant I have reviewed the following items nicola (where applicable) has been applied. Medications: Current Medications Medications (Trade) Dose Ordered Sig/Ava Route PRN Reason Start Time Stop Time Status Last Admin Dose Admin Furosemide (Lasix) 40 mg 1X ONCE IVP 12/11/21 13:30 12/11/21 13:33 DC 12/11/21 13:42 Apixaban (Eliquis) 2.5 mg BID PO 12/11/21 21:00 12/12/21 07:58 Atorvastatin Calcium (Lipitor) 40 mg HS PO 12/11/21 21:00 12/11/21 20:35 Gabapentin (Neurontin) 300 mg BID PO 12/11/21 21:00 12/12/21 07:57 Metoprolol Succinate (Toprol Xl) 25 mg DAILY PO 12/12/21 09:00 12/12/21 07:57 Pantoprazole Sodium (Protonix) 40 mg DAILYAC PO 12/12/21 07:30 12/12/21 07:58 Citalopram Hydrobromide (CeleXA) 20 mg DAILY PO 12/12/21 09:00 12/12/21 07:57 Senna/Docusate Sodium (Senna Plus) 1 tab BID PO 12/11/21 21:00 12/12/21 07:57 Furosemide (Lasix) 40 mg DAILY IVP 12/11/21 16:00 12/12/21 07:58 Justifications for Admission Other Justification RADHA FOWLER III DO Dec 12, 2021 10:58
[2021-12-12 11:00] VITALS: BP 136/81
--- NOTE | 2021-12-12 13:27 | RAD ---
CT HEAD AND MAXILLOFACIAL WO History: Reason: fall FALL ON HIS NOSE / Spl. Instructions: / History: . Pain Comparison: February 15, 2020 Technique: Noncontrast CT imaging was performed of the head and maxillofacial. Coronal and sagittal r econstructions were performed. Exposure: One or more of the following individualized dose reduction techniques were utilized for thi s examination: 1. Automated exposure control 2. Adjustment of the mA and/or kV according to patient size 3. Use of iterative reconstruction technique. Findings: Head CT: No intracranial hemorrhage. No mass effect. No hydrocephalus. Mild brain parenchymal volume loss. Moderate foci of decreased attenuation within the hemispheric whi te matter, most often due to chronic microvascular ischemia, unchanged. Intracranial atheromatous chucky cifications. Maxillofacial CT: Acute comminuted bilateral nasal bone fracture with minimal displacement. There is overlying soft tissue swelling. Orbits are unremarkable. Mild right maxillary sinus mucosal thickening. Mild ethmoid sinus mucosal th ickening. Mastoid air cells are clear. Multilevel cervical spondylosis partially imaged. TMJ arthropa thy. Multifocal carious dentition. No acute calvarial fracture. Impression: Head CT: 1. No acute intracranial abnormality. Maxillofacial CT: 1. Acute comminuted bilateral nasal bone fracture. Electronically signed by: Buck Turner DO (12/12/2021 1:25 PM) [facility]
[2021-12-12 14:59] VITALS: BP 133/64
--- NOTE | 2021-12-12 15:05 | NUR ---
CT OF FACIAL RESULT CALLED TO DR. FOWLER. NO ORDERS RECEIVED.
--- NOTE | 2021-12-12 17:25 | PDOC2 ---
CONSULT Date of Consult Date of Consult DATE: 12/12/21 TIME: 17:17 Reason for Consult Reason for Consult: Shortness of breath, chest pain Referring Physician Referring Physician: Dr. Schulz Identification/Chief Complaint Chief Complaint Shortness of breath and chest pain. Source Source: Chart review, Patient History of Present Illness Reason for Visit: The patient is a 81-year-old male who was admitted through the emergency room for episodes of increasing shortness of breath and chest discomfort. His initial studies were significant for a chest x-ray with probable pulmonary edema, a CT scan of the chest abdomen pelvis that showed moderate bilateral pleural effusions as well as edema. A right lower extremity venous ultrasound showed no DVT. His EKG shows a paced rhythm. Initial troponin was 32 and sequential troponins remain normal at 2934. Potassium 4.5, creatinine 1.7 and a BNP of 14 217. Patient is followed in the office and has an extensive cardiac history including previous bypass surgery and multiple PCI's. Most recent catheterization on 06/16/2020 showed diffuse disease but no interventions were performed and the patient was continued on medical treatment. Due to his persistent pain he had an outpatient nuclear stress test scheduled in 2 weeks. He additionally was being scheduled for pulmonary consult for his continued shortness of breath. He has a pacemaker placed in recent interrogation shows normal functioning. Past Medical History Cardiovascular: CAD, CHF, HTN, Hyperlipidemia Pulmonary: No pertinent hx CENTRAL NERVOUS SYSTEM: CVA GI: No pertinent hx Heme/Onc: No pertinent hx Hepatobiliary: No pertinent hx Psych: No pertinent hx Musculoskeletal: Osteoarthritis, Other Rheumatologic: No pertinent hx Infectious disease: Herpes zoster Renal/: Chronic renal insuff, Prostate Ca. Endocrine: No pertinent hx Past Surgical History Past Surgical History: CABG, Cataract Removal, Hernia Repair, Other (Multiple coronary PCI's) Family History Family History: Coronary Artery Disease Social History Social History: Other No ALCOHOL: none Drugs: None Lives: with Family Domestic Violence: Neg Current Problem List Problem List Problems Medical Problems: (1) Acute exacerbation of CHF (congestive heart failure) Status: Acute (2) Bilateral pleural effusion Status: Acute (3) CKD (chronic kidney disease) Status: Acute Current Medications Current Medications Current Medications Furosemide (Lasix) 40 mg 1X ONCE IVP Last administered on 12/11/21at 13:42; Start 12/11/21 at 13:30; Stop 12/11/21 at 13:33; Status DC Apixaban (Eliquis) 2.5 mg BID PO Last administered on 12/12/21at 07:58; Start 12/11/21 at 21:00 Atorvastatin Calcium (Lipitor) 40 mg HS PO Last administered on 12/11/21at 20:35; Start 12/11/21 at 21:00 Clopidogrel Bisulfate (Plavix) 75 mg DAILYWBKFT PO ; Start 12/12/21 at 08:00; Stop 12/12/21 at 08:11; Status DC Gabapentin (Neurontin) 300 mg BID PO Last administered on 12/12/21at 07:57; Start 12/11/21 at 21:00 Metoprolol Succinate (Toprol Xl) 25 mg DAILY PO Last administered on 12/12/21at 07:57; Start 12/12/21 at 09:00 Pantoprazole Sodium (Protonix) 40 mg DAILYAC PO Last administered on 12/12/21at 07:58; Start 12/12/21 at 07:30 Citalopram Hydrobromide (CeleXA) 20 mg DAILY PO Last administered on 12/12/21at 07:57; Start 12/12/21 at 09:00 Ondansetron HCl (Zofran) 4 mg PRN Q6HRS PRN IVP NAUSEA/VOMITING; Start 12/11/21 at 15:15 Calcium Carbonate/ Glycine (Tums) 500 mg PRN Q3HRS PRN PO UPSET STOMACH; Start 12/11/21 at 15:15 Info (Non-Icu Electrolyte Protocol) 1 ea PRN DAILY PRN MC SEE COMMENTS; Start 12/11/21 at 15:15 Oxycodone/ Acetaminophen (Percocet 5/325) 1 tab PRN Q4HRS PRN PO MILD PAIN, 1ST CHOICE; Start 12/11/21 at 15:15 Oxycodone/ Acetaminophen (Percocet 5/325) 2 tab PRN Q4HRS PRN PO MODERATE PAIN, SEVERE PAIN; Start 12/11/21 at 15:15 Senna/Docusate Sodium (Senna Plus) 1 tab BID PO Last administered on 12/12/21at 07:57; Start 12/11/21 at 21:00 Furosemide (Lasix) 40 mg DAILY IVP Last administered on 12/12/21at 07:58; Start 12/11/21 at 16:00 Active Scripts Active Metoprolol Succinate ( Xl ) (Metoprolol Succinate) 25 Mg Tab.er.24h 25 Mg PO DAILY 30 Days Eliquis (Apixaban) 2.5 Mg Tablet 2.5 Mg PO BID 30 Days Reported Eliquis (Apixaban) 2.5 Mg Tablet 2.5 Mg PO BID Vitamin B-6 (Pyridoxine Hcl) 50 Mg Capsule 2 Cap PO DAILY 30 Days B Complex (Vitamin B Complex) 1 Each Tablet 1 Tab PO DAILY 30 Days Magnesium (Magnesium Oxide) 400 Mg Capsule 1 Cap PO DAILY 30 Days Tramadol Hcl 50 Mg Tablet 50 Mg PO DAILY PRN Escitalopram Oxalate 10 Mg Tablet 1 Tab PO DAILY Fish Oil 1,000 Mg Softgel (Anza-3 Fatty Acids/Fish Oil) 1 Each Capsule 1 Cap PO DAILY 30 Days Atorvastatin Calcium 20 Mg Tablet 40 Mg PO HS Pantoprazole Sodium (Pantoprazole Sodium) 40 Mg Tablet.dr 40 Mg PO DAILYAC Gabapentin (Gabapentin) 300 Mg Capsule 300 Mg PO BID Allergies Allergies: Coded Allergies: No Known Drug Allergies (Unverified , 11/29/13) ROS General: YES: Fatigue Respiratory: YES: Shortness of breath, SOB with excertion Cardiovascular: yes Chest Pain Physical Exam General: mild distress HEENT: Atraumatic Lungs: Other (Bilaterally decreased breath sounds) Heart: Regular rate Abdomen: Normal bowel sounds Vitals VITALS Vital Signs Date Time Temp Pulse Resp B/P (MAP) Pulse Ox O2 Delivery O2 Flow Rate FiO2 12/12/21 14:59 96.7 59 18 133/64 (87) 95 Room Air 96.7 Labs Labs Laboratory Tests Test 12/11/21 12:25 12/11/21 13:45 12/11/21 15:47 12/11/21 22:30 White Blood Count 3.8 x10^3/uL (4.0-11.0) Red Blood Count 4.73 x10^6/uL (4.30-5.70) Hemoglobin 13.1 g/dL (13.0-17.5) Hematocrit 41.4 % (39.0-53.0) Mean Corpuscular Volume 88 fL (79-100) Mean Corpuscular Hemoglobin 28 pg (25-35) Mean Corpuscular Hemoglobin Concent 32 g/dL (31-37) Red Cell Distribution Width 16.4 % (11.5-14.5) Platelet Count 101 x10^3/uL (140-400) Neutrophils (%) (Auto) 66 % (31-73) Lymphocytes (%) (Auto) 19 % (24-48) Monocytes (%) (Auto) 12 % (0-9) Eosinophils (%) (Auto) 2 % (0-3) Basophils (%) (Auto) 1 % (0-3) Neutrophils # (Auto) 2.5 x10^3/uL (1.8-7.7) Lymphocytes # (Auto) 0.7 x10^3/uL (1.0-4.8) Monocytes # (Auto) 0.4 x10^3/uL (0.0-1.1) Eosinophils # (Auto) 0.1 x10^3/uL (0.0-0.7) Basophils # (Auto) 0.0 x10^3/uL (0.0-0.2) Platelet Estimate Decreased (ADEQUATE) Giant Platelets Occ Anisocytosis Slight RBC Morphology Bizarre Forms Occ Sodium Level 140 mmol/L (136-145) Potassium Level 4.5 mmol/L (3.5-5.1) Chloride Level 106 mmol/L (98-107) Carbon Dioxide Level 25 mmol/L (21-32) Anion Gap 9 (6-14) Blood Urea Nitrogen 22 mg/dL (8-26) Creatinine 1.7 mg/dL (0.7-1.3) Estimated GFR (Cockcroft-Gault) 38.7 BUN/Creatinine Ratio 13 (6-20) Glucose Level 94 mg/dL (70-99) Calcium Level 8.9 mg/dL (8.5-10.1) Magnesium Level 1.9 mg/dL (1.8-2.4) Total Bilirubin 1.8 mg/dL (0.2-1.0) Aspartate Amino Transf (AST/SGOT) 46 U/L (15-37) Alanine Aminotransferase (ALT/SGPT) 49 U/L (16-63) Alkaline Phosphatase 107 U/L (46-116) Troponin I High Sensitivity 32 ng/L (4-75) 29 ng/L (4-75) 34 ng/L (4-75) MD-Lri-N-Type Natriuretic Peptide 90422 pg/mL (0-449) Total Protein 7.2 g/dL (6.4-8.2) Albumin 3.3 g/dL (3.4-5.0) Albumin/Globulin Ratio 0.8 (1.0-1.7) Lipase 98 U/L (73-393) Urine Opiates Screen Neg (NEG) Urine Methadone Screen Neg (NEG) Urine Barbiturates Neg (NEG) Urine Phencyclidine Screen Neg (NEG) Urine Amphetamine/Methamphetamine Neg (NEG) Urine Benzodiazepines Screen Neg (NEG) Urine Cocaine Screen Neg (NEG) Urine Cannabinoids Screen Neg (NEG) Urine Ethyl Alcohol Neg (NEG) Test 12/12/21 07:08 12/12/21 07:20 Coronavirus (COVID-19)(PCR) Not detected (NOT DETECTD) Influenza Type A Antigen Negative (NEGATIVE) Influenza Type B Antigen Negative (NEGATIVE) SARS-CoV-2 Antigen (Rapid) Negative (NEGATIVE) Laboratory Tests Test 12/11/21 22:30 12/12/21 07:08 12/12/21 07:20 Troponin I High Sensitivity 34 ng/L (4-75) Coronavirus (COVID-19)(PCR) Not detected (NOT DETECTD) Influenza Type A Antigen Negative (NEGATIVE) Influenza Type B Antigen Negative (NEGATIVE) SARS-CoV-2 Antigen (Rapid) Negative (NEGATIVE) Images Images As above. Assessment/Plan Assessment/Plan 1. Acute on chronic systolic heart failure. Patient has been treated with diuresis and is feeling mildly better. We will continue on diuretics. Continuing to monitor lab. We will update an echocardiogram. 2. Chest discomfort. Long-term difficulties with chest discomfort as noted above. Catheterization as noted above. Once the patient's heart failure has resolved will proceed with a probable outpatient nuclear stress test as was previously scheduled. 3. Permanent pacemaker. Normal functioning on recent interrogation. 3. Bilateral pleural effusions. Continue diuresis. Followed by pulmonary. 5. Hyperlipidemia. Continue statin medications. 6. Hypertension. We will continue on present medications and monitor. Thank you for allowing us to participate in the care of your patient. AYDIN VINES MD Dec 12, 2021 17:25
[2021-12-12 18:44] VITALS: BP 140/71
[2021-12-12] MEDS: ATORVASTATIN CALCIUM 20 MG TABLET PO SCH (20:23)
[2021-12-12 22:20] VITALS: BP 127/68
[2021-12-13 02:40] VITALS: BP 137/69
[2021-12-13 04:23] LABS: BASO % 1 % (0-3); EOS # 0.1 x10^3/uL (0.0-0.7); EOS % 3 % (0-3); HEMATOCRIT 40.6 % (39.0-53.0); HEMOGLOBIN 13.5 g/dL (13.0-17.5); LYMPH # 0.7 x10^3/uL (1.0-4.8); LYMPH % 17 % (24-48); MEAN CORPUSCULAR HEMOGLOBIN 28 pg (25-35); MEAN CORPUSCULAR HGB CONC 33 g/dL (31-37); MEAN CORPUSCULAR VOLUME 85 fL (79-100); MONO # 0.5 x10^3/uL (0.0-1.1); MONO % 13 % (0-9); NEUT # 2.8 x10^3/uL (1.8-7.7); NEUT % 67 % (31-73); PLATELET COUNT 94 x10^3/uL (140-400); RED BLOOD COUNT 4.79 x10^6/uL (4.30-5.70); WHITE BLOOD COUNT 4.1 x10^3/uL (4.0-11.0)
[2021-12-13 04:47] LABS: CALCIUM 8.4 mg/dL (8.5-10.1); CREATININE 1.5 mg/dL (0.7-1.3); GFR 44.7; POTASSIUM 3.6 mmol/L (3.5-5.1)
--- NOTE | 2021-12-13 05:44 | PDOC ---
PULMONARY PROGRESS NOTES DATE: 12/13/21 TIME: 05:44 Subjective on 02 5lpm had ? apnea episode per rn denies cp sob Vitals Vital Signs Date Time Temp Pulse Resp B/P (MAP) Pulse Ox O2 Delivery O2 Flow Rate FiO2 12/13/21 02:40 98.0 65 20 137/69 (91) 96 Nasal Cannula 2.0 98.0 General: Alert, No acute distress HEENT: Other (nose bridge edema) Lungs: Crackles Cardiovascular: S1, S2 Abdomen: Soft Neuro Exam: Alert Extremities: No Edema Skin: Warm Labs Laboratory Tests Test 12/11/21 12:25 12/11/21 13:45 12/11/21 15:47 12/11/21 22:30 White Blood Count 3.8 x10^3/uL (4.0-11.0) Red Blood Count 4.73 x10^6/uL (4.30-5.70) Hemoglobin 13.1 g/dL (13.0-17.5) Hematocrit 41.4 % (39.0-53.0) Mean Corpuscular Volume 88 fL (79-100) Mean Corpuscular Hemoglobin 28 pg (25-35) Mean Corpuscular Hemoglobin Concent 32 g/dL (31-37) Red Cell Distribution Width 16.4 % (11.5-14.5) Platelet Count 101 x10^3/uL (140-400) Neutrophils (%) (Auto) 66 % (31-73) Lymphocytes (%) (Auto) 19 % (24-48) Monocytes (%) (Auto) 12 % (0-9) Eosinophils (%) (Auto) 2 % (0-3) Basophils (%) (Auto) 1 % (0-3) Neutrophils # (Auto) 2.5 x10^3/uL (1.8-7.7) Lymphocytes # (Auto) 0.7 x10^3/uL (1.0-4.8) Monocytes # (Auto) 0.4 x10^3/uL (0.0-1.1) Eosinophils # (Auto) 0.1 x10^3/uL (0.0-0.7) Basophils # (Auto) 0.0 x10^3/uL (0.0-0.2) Platelet Estimate Decreased (ADEQUATE) Giant Platelets Occ Anisocytosis Slight RBC Morphology Bizarre Forms Occ Sodium Level 140 mmol/L (136-145) Potassium Level 4.5 mmol/L (3.5-5.1) Chloride Level 106 mmol/L (98-107) Carbon Dioxide Level 25 mmol/L (21-32) Anion Gap 9 (6-14) Blood Urea Nitrogen 22 mg/dL (8-26) Creatinine 1.7 mg/dL (0.7-1.3) Estimated GFR (Cockcroft-Gault) 38.7 BUN/Creatinine Ratio 13 (6-20) Glucose Level 94 mg/dL (70-99) Calcium Level 8.9 mg/dL (8.5-10.1) Magnesium Level 1.9 mg/dL (1.8-2.4) Total Bilirubin 1.8 mg/dL (0.2-1.0) Aspartate Amino Transf (AST/SGOT) 46 U/L (15-37) Alanine Aminotransferase (ALT/SGPT) 49 U/L (16-63) Alkaline Phosphatase 107 U/L (46-116) Troponin I High Sensitivity 32 ng/L (4-75) 29 ng/L (4-75) 34 ng/L (4-75) YT-Bbq-O-Type Natriuretic Peptide 91108 pg/mL (0-449) Total Protein 7.2 g/dL (6.4-8.2) Albumin 3.3 g/dL (3.4-5.0) Albumin/Globulin Ratio 0.8 (1.0-1.7) Lipase 98 U/L (73-393) Urine Opiates Screen Neg (NEG) Urine Methadone Screen Neg (NEG) Urine Barbiturates Neg (NEG) Urine Phencyclidine Screen Neg (NEG) Urine Amphetamine/Methamphetamine Neg (NEG) Urine Benzodiazepines Screen Neg (NEG) Urine Cocaine Screen Neg (NEG) Urine Cannabinoids Screen Neg (NEG) Urine Ethyl Alcohol Neg (NEG) Test 12/12/21 07:08 12/12/21 07:20 12/13/21 04:00 Coronavirus (COVID-19)(PCR) Not detected (NOT DETECTD) Influenza Type A Antigen Negative (NEGATIVE) Influenza Type B Antigen Negative (NEGATIVE) SARS-CoV-2 Antigen (Rapid) Negative (NEGATIVE) White Blood Count 4.1 x10^3/uL (4.0-11.0) Red Blood Count 4.79 x10^6/uL (4.30-5.70) Hemoglobin 13.5 g/dL (13.0-17.5) Hematocrit 40.6 % (39.0-53.0) Mean Corpuscular Volume 85 fL (79-100) Mean Corpuscular Hemoglobin 28 pg (25-35) Mean Corpuscular Hemoglobin Concent 33 g/dL (31-37) Red Cell Distribution Width 16.0 % (11.5-14.5) Platelet Count 94 x10^3/uL (140-400) Neutrophils (%) (Auto) 67 % (31-73) Lymphocytes (%) (Auto) 17 % (24-48) Monocytes (%) (Auto) 13 % (0-9) Eosinophils (%) (Auto) 3 % (0-3) Basophils (%) (Auto) 1 % (0-3) Neutrophils # (Auto) 2.8 x10^3/uL (1.8-7.7) Lymphocytes # (Auto) 0.7 x10^3/uL (1.0-4.8) Monocytes # (Auto) 0.5 x10^3/uL (0.0-1.1) Eosinophils # (Auto) 0.1 x10^3/uL (0.0-0.7) Basophils # (Auto) 0.0 x10^3/uL (0.0-0.2) Sodium Level 138 mmol/L (136-145) Potassium Level 3.6 mmol/L (3.5-5.1) Chloride Level 103 mmol/L (98-107) Carbon Dioxide Level 25 mmol/L (21-32) Anion Gap 10 (6-14) Blood Urea Nitrogen 24 mg/dL (8-26) Creatinine 1.5 mg/dL (0.7-1.3) Estimated GFR (Cockcroft-Gault) 44.7 Glucose Level 93 mg/dL (70-99) Calcium Level 8.4 mg/dL (8.5-10.1) Laboratory Tests Test 12/12/21 07:08 12/12/21 07:20 12/13/21 04:00 Coronavirus (COVID-19)(PCR) Not detected (NOT DETECTD) Influenza Type A Antigen Negative (NEGATIVE) Influenza Type B Antigen Negative (NEGATIVE) SARS-CoV-2 Antigen (Rapid) Negative (NEGATIVE) White Blood Count 4.1 x10^3/uL (4.0-11.0) Red Blood Count 4.79 x10^6/uL (4.30-5.70) Hemoglobin 13.5 g/dL (13.0-17.5) Hematocrit 40.6 % (39.0-53.0) Mean Corpuscular Volume 85 fL (79-100) Mean Corpuscular Hemoglobin 28 pg (25-35) Mean Corpuscular Hemoglobin Concent 33 g/dL (31-37) Red Cell Distribution Width 16.0 % (11.5-14.5) Platelet Count 94 x10^3/uL (140-400) Neutrophils (%) (Auto) 67 % (31-73) Lymphocytes (%) (Auto) 17 % (24-48) Monocytes (%) (Auto) 13 % (0-9) Eosinophils (%) (Auto) 3 % (0-3) Basophils (%) (Auto) 1 % (0-3) Neutrophils # (Auto) 2.8 x10^3/uL (1.8-7.7) Lymphocytes # (Auto) 0.7 x10^3/uL (1.0-4.8) Monocytes # (Auto) 0.5 x10^3/uL (0.0-1.1) Eosinophils # (Auto) 0.1 x10^3/uL (0.0-0.7) Basophils # (Auto) 0.0 x10^3/uL (0.0-0.2) Sodium Level 138 mmol/L (136-145) Potassium Level 3.6 mmol/L (3.5-5.1) Chloride Level 103 mmol/L (98-107) Carbon Dioxide Level 25 mmol/L (21-32) Anion Gap 10 (6-14) Blood Urea Nitrogen 24 mg/dL (8-26) Creatinine 1.5 mg/dL (0.7-1.3) Estimated GFR (Cockcroft-Gault) 44.7 Glucose Level 93 mg/dL (70-99) Calcium Level 8.4 mg/dL (8.5-10.1) Medications Active Scripts Medications Dose Route/Sig Max Daily Dose Days Date Category Eliquis (Apixaban) 2.5 Mg Tablet 2.5 Mg PO BID 06/16/20 Reported Vitamin B-6 (Pyridoxine Hcl) 50 Mg Capsule 2 Cap PO DAILY 30 06/16/20 Reported B Complex (Vitamin B Complex) 1 Each Tablet 1 Tab PO DAILY 30 06/16/20 Reported Magnesium (Magnesium Oxide) 400 Mg Capsule 1 Cap PO DAILY 30 06/16/20 Reported Tramadol Hcl 50 Mg Tablet 50 Mg PO DAILY PRN 06/16/20 Reported Escitalopram Oxalate 10 Mg Tablet 1 Tab PO DAILY 06/16/20 Reported Metoprolol Succinate ( Xl ) (Metoprolol Succinate) 25 Mg Tab.er.24h 25 Mg PO DAILY 30 02/20/20 Rx Eliquis (Apixaban) 2.5 Mg Tablet 2.5 Mg PO BID 30 02/20/20 Rx Fish Oil 1,000 Mg Softgel ([place]-3 Fatty Acids/Fish Oil) 1 Each Capsule 1 Cap PO DAILY 30 08/25/19 Reported Atorvastatin Calcium 20 Mg Tablet 40 Mg PO HS 05/19/19 Reported Pantoprazole Sodium (Pantoprazole Sodium) 40 Mg Tablet.dr 40 Mg PO DAILYAC 05/19/19 Reported Gabapentin (Gabapentin) 300 Mg Capsule 300 Mg PO BID 05/13/[address]: 1. No acute intracranial abnormality. Maxillofacial CT: 1. Acute comminuted bilateral nasal bone fracture. Impression . IMPRESSION: 1. Dyspnea secondary to acute systolic congestive heart failure, doubt pulmonary embolism as he has been on Eliquis. 2. Abnormal CT of the chest consistent with acute systolic congestive heart failure. 3. Acute systolic congestive heart failure. 4. Coronary artery disease. 5. Acute kidney injury. Plan . PLAN AND RECOMMENDATION: 1. Elevated bilirubin and distended gallbladder in CT, workup per primary. 2. I suspect his ascites is secondary to volume overload. 3. Lasix. keep I<O Monitor creatinine and potassium. repeat cxr in am may need thoracentesis 4. Influenza A and B and COVID testing, neg 5. Status post fall, CT of the head, Head CT: No acute intracranial abnormality. Acute comminuted bilateral nasal bone fracture. PER PRIMARY 6. follow Cardiology recommendation. echo ordered mpi as out pt planned 7. His chest pain and shortness of breath resolved with Lasix. 8. ? apnea during sleep ? joce recommend psg as out pt 9. titrate fio2 to keep sat 90% 10. suspect has old blood inside his nose add ns nasal spray prn The findings and recommendations were discussed with the patient and RN. PANCHO LOPEZ MD Dec 13, 2021 05:44
[2021-12-13] MEDS ORDERED: SODIUM CHLORIDE 0.65% NASAL SPRAY 45ML BOTTLE. NS PRN (06:30)
[2021-12-13 06:31] VITALS: BP 140/72
[2021-12-13] MEDS: SENNOSIDES/DOCUSATE 8.6/50MG TABLET. PO SCH ×2 (07:44→20:51)
[2021-12-13] MEDS: METOPROLOL SUCC 24HR ER 25 MG TAB.ER.24H. PO SCH (07:44)
[2021-12-13] MEDS: CITALOPRAM 20 MG TABLET. PO SCH (07:44)
[2021-12-13] MEDS: GABAPENTIN 300 MG CAPSULE. PO SCH ×2 (07:44→20:50)
[2021-12-13] MEDS: PANTOPRAZOLE 40 MG TABLET.DR. PO SCH (07:45)
[2021-12-13] MEDS: FUROSEMIDE 40 MG/4 ML VIAL. IVP SCH (07:45)
[2021-12-13] MEDS: APIXABAN 2.5 MG TABLET. PO SCH ×2 (07:45→20:50)
--- NOTE | 2021-12-13 10:09 | PDOC2 ---
CONSULT Date of Consult Date of Consult DATE: 12/13/21 TIME: 10:03 Reason for Consult Reason for Consult: RENAL FAILURE Referring Physician Referring Physician: KINSEY Identification/Chief Complaint Chief Complaint SOB AND CHEST PAIN History of Present Illness Reason for Visit: THIS IS AN 81 YR OLD WITH SOB AND CHEST. NOTED TO HAVE CHF WITH ELEVATED BNP LEVELS. CARDIOLOGY EVALUATION AND ECHO PENDING. CR OF 1.7. HAS HX OF HTN AND CKD. CR BASELINE IS ABOUT 1.5-1.7. HE HAS A HX OF CAD WITH PPM AND CABG IN THE PAST. NO OTHER HX NOTED. CT IMAGING OF THE ABD SHOWED NORMAL RENAL MORPHOLOGY Past Medical History Cardiovascular: CAD, CHF, HTN, Hyperlipidemia Pulmonary: No pertinent hx CENTRAL NERVOUS SYSTEM: CVA GI: No pertinent hx Heme/Onc: No pertinent hx Hepatobiliary: No pertinent hx Psych: No pertinent hx Musculoskeletal: Osteoarthritis, Other Rheumatologic: No pertinent hx Infectious disease: Herpes zoster Renal/: Chronic renal insuff, Prostate Ca. Endocrine: No pertinent hx Past Surgical History Past Surgical History: CABG, Cataract Removal, Hernia Repair, Other (Multiple coronary PCI's) Family History Family History: Coronary Artery Disease Social History Social History: Other No ALCOHOL: none Drugs: None Lives: with Family Domestic Violence: Neg Current Problem List Problem List Problems Medical Problems: (1) Acute exacerbation of CHF (congestive heart failure) Status: Acute (2) Bilateral pleural effusion Status: Acute (3) CKD (chronic kidney disease) Status: Acute Current Medications Current Medications Current Medications Furosemide (Lasix) 40 mg 1X ONCE IVP Last administered on 12/11/21at 13:42; Start 12/11/21 at 13:30; Stop 12/11/21 at 13:33; Status DC Apixaban (Eliquis) 2.5 mg BID PO Last administered on 12/13/21at 07:45; Start 12/11/21 at 21:00 Atorvastatin Calcium (Lipitor) 40 mg HS PO Last administered on 12/12/21at 20:23; Start 12/11/21 at 21:00 Clopidogrel Bisulfate (Plavix) 75 mg DAILYWBKFT PO ; Start 12/12/21 at 08:00; Stop 12/12/21 at 08:11; Status DC Gabapentin (Neurontin) 300 mg BID PO Last administered on 12/13/21at 07:44; Start 12/11/21 at 21:00 Metoprolol Succinate (Toprol Xl) 25 mg DAILY PO Last administered on 12/13/21at 07:44; Start 12/12/21 at 09:00 Pantoprazole Sodium (Protonix) 40 mg DAILYAC PO Last administered on 12/13/21at 07:45; Start 12/12/21 at 07:30 Citalopram Hydrobromide (CeleXA) 20 mg DAILY PO Last administered on 12/13/21at 07:44; Start 12/12/21 at 09:00 Ondansetron HCl (Zofran) 4 mg PRN Q6HRS PRN IVP NAUSEA/VOMITING; Start 12/11/21 at 15:15 Calcium Carbonate/ Glycine (Tums) 500 mg PRN Q3HRS PRN PO UPSET STOMACH; Start 12/11/21 at 15:15 Info (Non-Icu Electrolyte Protocol) 1 ea PRN DAILY PRN MC SEE COMMENTS; Start 12/11/21 at 15:15 Oxycodone/ Acetaminophen (Percocet 5/325) 1 tab PRN Q4HRS PRN PO MILD PAIN, 1ST CHOICE Last administered on 12/13/21at 07:59; Start 12/11/21 at 15:15 Oxycodone/ Acetaminophen (Percocet 5/325) 2 tab PRN Q4HRS PRN PO MODERATE PAIN, SEVERE PAIN; Start 12/11/21 at 15:15 Senna/Docusate Sodium (Senna Plus) 1 tab BID PO Last administered on 12/13/21at 07:44; Start 12/11/21 at 21:00 Furosemide (Lasix) 40 mg DAILY IVP Last administered on 12/13/21at 07:45; Start 12/11/21 at 16:00 Sodium Chloride (Saline Mist Nasal) 1 hortencia PRN Q1HR PRN NS NASAL CONGESTION Last administered on 12/13/21at 07:43; Start 12/13/21 at 06:30 Active Scripts Active Metoprolol Succinate ( Xl ) (Metoprolol Succinate) 25 Mg Tab.er.24h 25 Mg PO DAILY 30 Days Eliquis (Apixaban) 2.5 Mg Tablet 2.5 Mg PO BID 30 Days Reported Eliquis (Apixaban) 2.5 Mg Tablet 2.5 Mg PO BID Vitamin B-6 (Pyridoxine Hcl) 50 Mg Capsule 2 Cap PO DAILY 30 Days B Complex (Vitamin B Complex) 1 Each Tablet 1 Tab PO DAILY 30 Days Magnesium (Magnesium Oxide) 400 Mg Capsule 1 Cap PO DAILY 30 Days Tramadol Hcl 50 Mg Tablet 50 Mg PO DAILY PRN Escitalopram Oxalate 10 Mg Tablet 1 Tab PO DAILY Fish Oil 1,000 Mg Softgel ([place]-3 Fatty Acids/Fish Oil) 1 Each Capsule 1 Cap PO DAILY 30 Days Atorvastatin Calcium 20 Mg Tablet 40 Mg PO HS Pantoprazole Sodium (Pantoprazole Sodium) 40 Mg Tablet.dr 40 Mg PO DAILYAC Gabapentin (Gabapentin) 300 Mg Capsule 300 Mg PO BID Allergies Allergies: Coded Allergies: No Known Drug Allergies (Unverified , 11/29/13) ROS General: YES: Fatigue PSYCHOLOGICAL ROS: YES: Anxiety Eyes: Yes Decreased vision HEENT: YES: Heacaches Respiratory: YES: Cough, Shortness of breath Cardiovascular: yes Chest Pain Gastrointestinal: Yes Nausea Genitourinary: YES Other (NOCTURIA) Musculoskeletal: Yes Muscular Weakness Neurological: Yes Weakness Skin: Yes Dry Skin Physical Exam General: Alert, Cooperative, No acute distress HEENT: Atraumatic, PERRLA Lungs: Clear to auscultation Heart: Regular rate Abdomen: Normal bowel sounds Extremities: No clubbing Skin: No breakdown Neuro: Normal speech Psych/Mental Status: Mood NL MUSCULOSKELETAL: No joint tenderness, No deformity, No swelling Vitals VITALS Vital Signs Date Time Temp Pulse Resp B/P (MAP) Pulse Ox O2 Delivery O2 Flow Rate FiO2 12/13/21 07:59 97 Room Air 2.0 12/13/21 07:44 65 137/69 12/13/21 06:31 98.4 18 98.4 Labs Labs Laboratory Tests Test 12/11/21 12:25 12/11/21 13:45 12/11/21 15:47 12/11/21 22:30 White Blood Count 3.8 x10^3/uL (4.0-11.0) Red Blood Count 4.73 x10^6/uL (4.30-5.70) Hemoglobin 13.1 g/dL (13.0-17.5) Hematocrit 41.4 % (39.0-53.0) Mean Corpuscular Volume 88 fL (79-100) Mean Corpuscular Hemoglobin 28 pg (25-35) Mean Corpuscular Hemoglobin Concent 32 g/dL (31-37) Red Cell Distribution Width 16.4 % (11.5-14.5) Platelet Count 101 x10^3/uL (140-400) Neutrophils (%) (Auto) 66 % (31-73) Lymphocytes (%) (Auto) 19 % (24-48) Monocytes (%) (Auto) 12 % (0-9) Eosinophils (%) (Auto) 2 % (0-3) Basophils (%) (Auto) 1 % (0-3) Neutrophils # (Auto) 2.5 x10^3/uL (1.8-7.7) Lymphocytes # (Auto) 0.7 x10^3/uL (1.0-4.8) Monocytes # (Auto) 0.4 x10^3/uL (0.0-1.1) Eosinophils # (Auto) 0.1 x10^3/uL (0.0-0.7) Basophils # (Auto) 0.0 x10^3/uL (0.0-0.2) Platelet Estimate Decreased (ADEQUATE) Giant Platelets Occ Anisocytosis Slight RBC Morphology Bizarre Forms Occ Sodium Level 140 mmol/L (136-145) Potassium Level 4.5 mmol/L (3.5-5.1) Chloride Level 106 mmol/L (98-107) Carbon Dioxide Level 25 mmol/L (21-32) Anion Gap 9 (6-14) Blood Urea Nitrogen 22 mg/dL (8-26) Creatinine 1.7 mg/dL (0.7-1.3) Estimated GFR (Cockcroft-Gault) 38.7 BUN/Creatinine Ratio 13 (6-20) Glucose Level 94 mg/dL (70-99) Calcium Level 8.9 mg/dL (8.5-10.1) Magnesium Level 1.9 mg/dL (1.8-2.4) Total Bilirubin 1.8 mg/dL (0.2-1.0) Aspartate Amino Transf (AST/SGOT) 46 U/L (15-37) Alanine Aminotransferase (ALT/SGPT) 49 U/L (16-63) Alkaline Phosphatase 107 U/L (46-116) Troponin I High Sensitivity 32 ng/L (4-75) 29 ng/L (4-75) 34 ng/L (4-75) IK-Dom-O-Type Natriuretic Peptide 35052 pg/mL (0-449) Total Protein 7.2 g/dL (6.4-8.2) Albumin 3.3 g/dL (3.4-5.0) Albumin/Globulin Ratio 0.8 (1.0-1.7) Lipase 98 U/L (73-393) Urine Opiates Screen Neg (NEG) Urine Methadone Screen Neg (NEG) Urine Barbiturates Neg (NEG) Urine Phencyclidine Screen Neg (NEG) Urine Amphetamine/Methamphetamine Neg (NEG) Urine Benzodiazepines Screen Neg (NEG) Urine Cocaine Screen Neg (NEG) Urine Cannabinoids Screen Neg (NEG) Urine Ethyl Alcohol Neg (NEG) Test 12/12/21 07:08 12/12/21 07:20 12/13/21 04:00 Coronavirus (COVID-19)(PCR) Not detected (NOT DETECTD) Influenza Type A Antigen Negative (NEGATIVE) Influenza Type B Antigen Negative (NEGATIVE) SARS-CoV-2 Antigen (Rapid) Negative (NEGATIVE) White Blood Count 4.1 x10^3/uL (4.0-11.0) Red Blood Count 4.79 x10^6/uL (4.30-5.70) Hemoglobin 13.5 g/dL (13.0-17.5) Hematocrit 40.6 % (39.0-53.0) Mean Corpuscular Volume 85 fL (79-100) Mean Corpuscular Hemoglobin 28 pg (25-35) Mean Corpuscular Hemoglobin Concent 33 g/dL (31-37) Red Cell Distribution Width 16.0 % (11.5-14.5) Platelet Count 94 x10^3/uL (140-400) Neutrophils (%) (Auto) 67 % (31-73) Lymphocytes (%) (Auto) 17 % (24-48) Monocytes (%) (Auto) 13 % (0-9) Eosinophils (%) (Auto) 3 % (0-3) Basophils (%) (Auto) 1 % (0-3) Neutrophils # (Auto) 2.8 x10^3/uL (1.8-7.7) Lymphocytes # (Auto) 0.7 x10^3/uL (1.0-4.8) Monocytes # (Auto) 0.5 x10^3/uL (0.0-1.1) Eosinophils # (Auto) 0.1 x10^3/uL (0.0-0.7) Basophils # (Auto) 0.0 x10^3/uL (0.0-0.2) Sodium Level 138 mmol/L (136-145) Potassium Level 3.6 mmol/L (3.5-5.1) Chloride Level 103 mmol/L (98-107) Carbon Dioxide Level 25 mmol/L (21-32) Anion Gap 10 (6-14) Blood Urea Nitrogen 24 mg/dL (8-26) Creatinine 1.5 mg/dL (0.7-1.3) Estimated GFR (Cockcroft-Gault) 44.7 Glucose Level 93 mg/dL (70-99) Calcium Level 8.4 mg/dL (8.5-10.1) Laboratory Tests Test 12/13/21 04:00 White Blood Count 4.1 x10^3/uL (4.0-11.0) Red Blood Count 4.79 x10^6/uL (4.30-5.70) Hemoglobin 13.5 g/dL (13.0-17.5) Hematocrit 40.6 % (39.0-53.0) Mean Corpuscular Volume 85 fL (79-100) Mean Corpuscular Hemoglobin 28 pg (25-35) Mean Corpuscular Hemoglobin Concent 33 g/dL (31-37) Red Cell Distribution Width 16.0 % (11.5-14.5) Platelet Count 94 x10^3/uL (140-400) Neutrophils (%) (Auto) 67 % (31-73) Lymphocytes (%) (Auto) 17 % (24-48) Monocytes (%) (Auto) 13 % (0-9) Eosinophils (%) (Auto) 3 % (0-3) Basophils (%) (Auto) 1 % (0-3) Neutrophils # (Auto) 2.8 x10^3/uL (1.8-7.7) Lymphocytes # (Auto) 0.7 x10^3/uL (1.0-4.8) Monocytes # (Auto) 0.5 x10^3/uL (0.0-1.1) Eosinophils # (Auto) 0.1 x10^3/uL (0.0-0.7) Basophils # (Auto) 0.0 x10^3/uL (0.0-0.2) Sodium Level 138 mmol/L (136-145) Potassium Level 3.6 mmol/L (3.5-5.1) Chloride Level 103 mmol/L (98-107) Carbon Dioxide Level 25 mmol/L (21-32) Anion Gap 10 (6-14) Blood Urea Nitrogen 24 mg/dL (8-26) Creatinine 1.5 mg/dL (0.7-1.3) Estimated GFR (Cockcroft-Gault) 44.7 Glucose Level 93 mg/dL (70-99) Calcium Level 8.4 mg/dL (8.5-10.1) Images Images PATIENT: DOUG WALLS RACCOUNT: [id number] : 1940 LOCATION: ER AGE: 81 SEX: M EXAM STATUS: REG ER ORD. PHYSICIAN: ZENA HERNÁNDEZ DO REASON: soa, cp PROCEDURE: PORTABLE CHEST 1V XR CHEST 1V History: Reason: soa, cp / Spl. Instructions: / History: Comparison: February 20, 2020 Findings: Severe diffuse interstitial thickening with ill-defined opacities. Small bilateral pleural effusions, left greater the right. Left-sided pacemaker. Enlarged cardiac size. Prior median sternotomy. No pneumothorax. Glenohumeral DJD, left greater than right. Impression: 1. Severe diffuse interstitial thickening with ill-defined opacities, concerning for pulmonary edema. 2. Small bilateral pleural effusions, left greater than right. Electronically signed by: Buck Turner DO (12/11/2021 12:59 PM) [id number] Assessment/Plan Assessment/Plan IMP CKD STAGE 3B WITH CR STABLE AT 1.5-1.7 ACUTE ON CHRONIC SYSTOLIC CHF CHEST PAIN-HX OF CAD AND CABG HX OF PPM HX HTN PLAN CONT WITH DIURESIS LABS IN AM CARDIOLOGY EVAL WILL FOLLOW JUNG MONGE MD Dec 13, 2021 10:09
[2021-12-13 10:44] VITALS: BP 109/58
--- NOTE | 2021-12-13 12:14 | PDOC2 ---
CONSULT Date of Consult Date of Consult DATE: 12/13/21 TIME: 12:10 Reason for Consult Reason for Consult: Abnormal LFTS History of Present Illness Reason for Visit: 81 yo Male admitted for CHF/breathing difficulties is sen with increased T laine and AST level with normal ALT and Alk phos. He deneis any history of liver disease or alcohol abuse. Ct scan of abd was unrevealing for cirrhosis or mass. Presently he is feeling better without additional complaints. Past Medical History Cardiovascular: CAD, CHF, HTN, Hyperlipidemia Pulmonary: No pertinent hx CENTRAL NERVOUS SYSTEM: CVA GI: No pertinent hx Heme/Onc: No pertinent hx Hepatobiliary: No pertinent hx Psych: No pertinent hx Musculoskeletal: Osteoarthritis, Other Rheumatologic: No pertinent hx Infectious disease: Herpes zoster Renal/: Chronic renal insuff, Prostate Ca. Endocrine: No pertinent hx Past Surgical History Past Surgical History: CABG, Cataract Removal, Hernia Repair, Other (Multiple coronary PCI's) Family History Family History: Coronary Artery Disease Social History Social History: Other No ALCOHOL: none Drugs: None Lives: with Family Domestic Violence: Neg Current Problem List Problem List Problems Medical Problems: (1) Acute exacerbation of CHF (congestive heart failure) Status: Acute (2) Bilateral pleural effusion Status: Acute (3) CKD (chronic kidney disease) Status: Acute Current Medications Current Medications Current Medications Furosemide (Lasix) 40 mg 1X ONCE IVP Last administered on 12/11/21at 13:42; Start 12/11/21 at 13:30; Stop 12/11/21 at 13:33; Status DC Apixaban (Eliquis) 2.5 mg BID PO Last administered on 12/13/21at 07:45; Start 12/11/21 at 21:00 Atorvastatin Calcium (Lipitor) 40 mg HS PO Last administered on 12/12/21at 20:23 ; Start 12/11/21 at 21:00 Clopidogrel Bisulfate (Plavix) 75 mg DAILYWBKFT PO ; Start 12/12/21 at 08:00; Stop 12/12/21 at 08:11; Status DC Gabapentin (Neurontin) 300 mg BID PO Last administered on 12/13/21at 07:44; Start 12/11/21 at 21:00 Metoprolol Succinate (Toprol Xl) 25 mg DAILY PO Last administered on 12/13/21at 07:44; Start 12/12/21 at 09:00 Pantoprazole Sodium (Protonix) 40 mg DAILYAC PO Last administered on 12/13/21at 07:45; Start 12/12/21 at 07:30 Citalopram Hydrobromide (CeleXA) 20 mg DAILY PO Last administered on 12/13/21at 07:44; Start 12/12/21 at 09:00 Ondansetron HCl (Zofran) 4 mg PRN Q6HRS PRN IVP NAUSEA/VOMITING; Start 12/11/21 at 15:15 Calcium Carbonate/ Glycine (Tums) 500 mg PRN Q3HRS PRN PO UPSET STOMACH; Start 12/11/21 at 15:15 Info (Non-Icu Electrolyte Protocol) 1 ea PRN DAILY PRN MC SEE COMMENTS; Start 12/11/21 at 15:15 Oxycodone/ Acetaminophen (Percocet 5/325) 1 tab PRN Q4HRS PRN PO MILD PAIN, 1ST CHOICE Last administered on 12/13/21at 07:59; Start 12/11/21 at 15:15 Oxycodone/ Acetaminophen (Percocet 5/325) 2 tab PRN Q4HRS PRN PO MODERATE PAIN, SEVERE PAIN; Start 12/11/21 at 15:15 Senna/Docusate Sodium (Senna Plus) 1 tab BID PO Last administered on 12/13/21at 07:44; Start 12/11/21 at 21:00 Furosemide (Lasix) 40 mg DAILY IVP Last administered on 12/13/21at 07:45; Start 12/11/21 at 16:00 Sodium Chloride (Saline Mist Nasal) 1 hortencia PRN Q1HR PRN NS NASAL CONGESTION Last administered on 12/13/21at 07:43; Start 12/13/21 at 06:30 Active Scripts Active Metoprolol Succinate ( Xl ) (Metoprolol Succinate) 25 Mg Tab.er.24h 25 Mg PO DAILY 30 Days Eliquis (Apixaban) 2.5 Mg Tablet 2.5 Mg PO BID 30 Days Reported Eliquis (Apixaban) 2.5 Mg Tablet 2.5 Mg PO BID Vitamin B-6 (Pyridoxine Hcl) 50 Mg Capsule 2 Cap PO DAILY 30 Days B Complex (Vitamin B Complex) 1 Each Tablet 1 Tab PO DAILY 30 Days Magnesium (Magnesium Oxide) 400 Mg Capsule 1 Cap PO DAILY 30 Days Tramadol Hcl 50 Mg Tablet 50 Mg PO DAILY PRN Escitalopram Oxalate 10 Mg Tablet 1 Tab PO DAILY Fish Oil 1,000 Mg Softgel ([place]-3 Fatty Acids/Fish Oil) 1 Each Capsule 1 Cap PO DAILY 30 Days Atorvastatin Calcium 20 Mg Tablet 40 Mg PO HS Pantoprazole Sodium (Pantoprazole Sodium) 40 Mg Tablet.dr 40 Mg PO DAILYAC Gabapentin (Gabapentin) 300 Mg Capsule 300 Mg PO BID Allergies Allergies: Coded Allergies: No Known Drug Allergies (Unverified , 11/29/13) Physical Exam Lungs: Clear to auscultation Heart: Normal S1, Normal S2 Abdomen: Normal bowel sounds, Soft Vitals VITALS Vital Signs Date Time Temp Pulse Resp B/P (MAP) Pulse Ox O2 Delivery O2 Flow Rate FiO2 12/13/21 10:44 97.8 65 18 109/58 (75) 92 Nasal Cannula 2.0 97.8 Labs Labs Laboratory Tests Test 12/11/21 12:25 12/11/21 13:45 12/11/21 15:47 12/11/21 22:30 White Blood Count 3.8 x10^3/uL (4.0-11.0) Red Blood Count 4.73 x10^6/uL (4.30-5.70) Hemoglobin 13.1 g/dL (13.0-17.5) Hematocrit 41.4 % (39.0-53.0) Mean Corpuscular Volume 88 fL (79-100) Mean Corpuscular Hemoglobin 28 pg (25-35) Mean Corpuscular Hemoglobin Concent 32 g/dL (31-37) Red Cell Distribution Width 16.4 % (11.5-14.5) Platelet Count 101 x10^3/uL (140-400) Neutrophils (%) (Auto) 66 % (31-73) Lymphocytes (%) (Auto) 19 % (24-48) Monocytes (%) (Auto) 12 % (0-9) Eosinophils (%) (Auto) 2 % (0-3) Basophils (%) (Auto) 1 % (0-3) Neutrophils # (Auto) 2.5 x10^3/uL (1.8-7.7) Lymphocytes # (Auto) 0.7 x10^3/uL (1.0-4.8) Monocytes # (Auto) 0.4 x10^3/uL (0.0-1.1) Eosinophils # (Auto) 0.1 x10^3/uL (0.0-0.7) Basophils # (Auto) 0.0 x10^3/uL (0.0-0.2) Platelet Estimate Decreased (ADEQUATE) Giant Platelets Occ Anisocytosis Slight RBC Morphology Bizarre Forms Occ Sodium Level 140 mmol/L (136-145) Potassium Level 4.5 mmol/L (3.5-5.1) Chloride Level 106 mmol/L (98-107) Carbon Dioxide Level 25 mmol/L (21-32) Anion Gap 9 (6-14) Blood Urea Nitrogen 22 mg/dL (8-26) Creatinine 1.7 mg/dL (0.7-1.3) Estimated GFR (Cockcroft-Gault) 38.7 BUN/Creatinine Ratio 13 (6-20) Glucose Level 94 mg/dL (70-99) Calcium Level 8.9 mg/dL (8.5-10.1) Magnesium Level 1.9 mg/dL (1.8-2.4) Total Bilirubin 1.8 mg/dL (0.2-1.0) Aspartate Amino Transf (AST/SGOT) 46 U/L (15-37) Alanine Aminotransferase (ALT/SGPT) 49 U/L (16-63) Alkaline Phosphatase 107 U/L (46-116) Troponin I High Sensitivity 32 ng/L (4-75) 29 ng/L (4-75) 34 ng/L (4-75) IH-Gwz-[id number]-Type Natriuretic Peptide 32070 pg/mL (0-449) Total Protein 7.2 g/dL (6.4-8.2) Albumin 3.3 g/dL (3.4-5.0) Albumin/Globulin Ratio 0.8 (1.0-1.7) Lipase 98 U/L (73-393) Urine Opiates Screen Neg (NEG) Urine Methadone Screen Neg (NEG) Urine Barbiturates Neg (NEG) Urine Phencyclidine Screen Neg (NEG) Urine Amphetamine/Methamphetamine Neg (NEG) Urine Benzodiazepines Screen Neg (NEG) Urine Cocaine Screen Neg (NEG) Urine Cannabinoids Screen Neg (NEG) Urine Ethyl Alcohol Neg (NEG) Test 12/12/21 07:08 12/12/21 07:12/13/21 04:00 Coronavirus (COVID-19)(PCR) Not detected (NOT DETECTD) Influenza Type A Antigen Negative (NEGATIVE) Influenza Type B Antigen Negative (NEGATIVE) SARS-CoV-2 Antigen (Rapid) Negative (NEGATIVE) White Blood Count 4.1 x10^3/uL (4.0-11.0) Red Blood Count 4.79 x10^6/uL (4.30-5.70) Hemoglobin 13.5 g/dL (13.0-17.5) Hematocrit 40.6 % (39.0-53.0) Mean Corpuscular Volume 85 fL (79-100) Mean Corpuscular Hemoglobin 28 pg (25-35) Mean Corpuscular Hemoglobin Concent 33 g/dL (31-37) Red Cell Distribution Width 16.0 % (11.5-14.5) Platelet Count 94 x10^3/uL (140-400) Neutrophils (%) (Auto) 67 % (31-73) Lymphocytes (%) (Auto) 17 % (24-48) Monocytes (%) (Auto) 13 % (0-9) Eosinophils (%) (Auto) 3 % (0-3) Basophils (%) (Auto) 1 % (0-3) Neutrophils # (Auto) 2.8 x10^3/uL (1.8-7.7) Lymphocytes # (Auto) 0.7 x10^3/uL (1.0-4.8) Monocytes # (Auto) 0.5 x10^3/uL (0.0-1.1) Eosinophils # (Auto) 0.1 x10^3/uL (0.0-0.7) Basophils # (Auto) 0.0 x10^3/uL (0.0-0.2) Sodium Level 138 mmol/L (136-145) Potassium Level 3.6 mmol/L (3.5-5.1) Chloride Level 103 mmol/L (98-107) Carbon Dioxide Level 25 mmol/L (21-32) Anion Gap 10 (6-14) Blood Urea Nitrogen 24 mg/dL (8-26) Creatinine 1.5 mg/dL (0.7-1.3) Estimated GFR (Cockcroft-Gault) 44.7 Glucose Level 93 mg/dL (70-99) Calcium Level 8.4 mg/dL (8.5-10.1) Laboratory Tests Test 12/13/21 04:00 White Blood Count 4.1 x10^3/uL (4.0-11.0) Red Blood Count 4.79 x10^6/uL (4.30-5.70) Hemoglobin 13.5 g/dL (13.0-17.5) Hematocrit 40.6 % (39.0-53.0) Mean Corpuscular Volume 85 fL (79-100) Mean Corpuscular Hemoglobin 28 pg (25-35) Mean Corpuscular Hemoglobin Concent 33 g/dL (31-37) Red Cell Distribution Width 16.0 % (11.5-14.5) Platelet Count 94 x10^3/uL (140-400) Neutrophils (%) (Auto) 67 % (31-73) Lymphocytes (%) (Auto) 17 % (24-48) Monocytes (%) (Auto) 13 % (0-9) Eosinophils (%) (Auto) 3 % (0-3) Basophils (%) (Auto) 1 % (0-3) Neutrophils # (Auto) 2.8 x10^3/uL (1.8-7.7) Lymphocytes # (Auto) 0.7 x10^3/uL (1.0-4.8) Monocytes # (Auto) 0.5 x10^3/uL (0.0-1.1) Eosinophils # (Auto) 0.1 x10^3/uL (0.0-0.7) Basophils # (Auto) 0.0 x10^3/uL (0.0-0.2) Sodium Level 138 mmol/L (136-145) Potassium Level 3.6 mmol/L (3.5-5.1) Chloride Level 103 mmol/L (98-107) Carbon Dioxide Level 25 mmol/L (21-32) Anion Gap 10 (6-14) Blood Urea Nitrogen 24 mg/dL (8-26) Creatinine 1.5 mg/dL (0.7-1.3) Estimated GFR (Cockcroft-Gault) 44.7 Glucose Level 93 mg/dL (70-99) Calcium Level 8.4 mg/dL (8.5-10.1) Assessment/Plan Assessment/Plan Abnormal lFTS- most likely secondary to CHF. [place] disease possible as well. Plan repeat LFTS in am consider hepatitis serologies and US if they remain elevated CHAD MACARIO MD Dec 13, 2021 12:14
--- NOTE | 2021-12-13 12:50 | PDOC ---
[employer] PROGRESS NOTE Date of Service DOS: DATE: 12/13/21 TIME: 12:48 Chief Complaint Chief Complaint Acute on chronic systolic diastolic heart failure History of CAD TEAGAN Fall with facial trauma last night History of Present Illness History of Present Illness 12/13/2021 Patient seen and examined He is resting with no apparent distress CT of the head after his fall yesterday confirmed nasal fractures Chart reviewed Discussed with RN 12/12/2021 Patient seen and examined He fell last night and suffered facial trauma We have a CT of the head it is just completed but results are pending Discussed with RN Chart reviewed Vitals/I&O Vitals/I&O: Vital Signs Date Time Temp Pulse Resp B/P (MAP) Pulse Ox O2 Delivery O2 Flow Rate FiO2 12/13/21 10:44 97.8 65 18 109/58 (75) 92 Nasal Cannula 2.0 97.8 I & O 12/12/21 12/12/21 12/13/21 15:00 23:00 07:00 Intake Total 300 ml 450 ml 100 ml Output Total 500 ml 425 ml 300 ml Balance -200 ml 25 ml -200 ml Physical Exam Physical Exam: HEENT He has some bruising around both eyes and the nasal septum and nares appear a little swollen and bruised General: No acute distress Heart: Normal S1, Normal S2 Lungs: Crackles Abdomen: Normal bowel sounds, Soft Extremities: No clubbing Skin: No breakdown Labs Labs: Laboratory Tests Test 12/13/21 04:00 White Blood Count 4.1 x10^3/uL (4.0-11.0) Red Blood Count 4.79 x10^6/uL (4.30-5.70) Hemoglobin 13.5 g/dL (13.0-17.5) Hematocrit 40.6 % (39.0-53.0) Mean Corpuscular Volume 85 fL (79-100) Mean Corpuscular Hemoglobin 28 pg (25-35) Mean Corpuscular Hemoglobin Concent 33 g/dL (31-37) Red Cell Distribution Width 16.0 % (11.5-14.5) Platelet Count 94 x10^3/uL (140-400) Neutrophils (%) (Auto) 67 % (31-73) Lymphocytes (%) (Auto) 17 % (24-48) Monocytes (%) (Auto) 13 % (0-9) Eosinophils (%) (Auto) 3 % (0-3) Basophils (%) (Auto) 1 % (0-3) Neutrophils # (Auto) 2.8 x10^3/uL (1.8-7.7) Lymphocytes # (Auto) 0.7 x10^3/uL (1.0-4.8) Monocytes # (Auto) 0.5 x10^3/uL (0.0-1.1) Eosinophils # (Auto) 0.1 x10^3/uL (0.0-0.7) Basophils # (Auto) 0.0 x10^3/uL (0.0-0.2) Sodium Level 138 mmol/L (136-145) Potassium Level 3.6 mmol/L (3.5-5.1) Chloride Level 103 mmol/L (98-107) Carbon Dioxide Level 25 mmol/L (21-32) Anion Gap 10 (6-14) Blood Urea Nitrogen 24 mg/dL (8-26) Creatinine 1.5 mg/dL (0.7-1.3) Estimated GFR (Cockcroft-Gault) 44.7 Glucose Level 93 mg/dL (70-99) Calcium Level 8.4 mg/dL (8.5-10.1) Assessment and Plan Assessmemt and Plan Problems Medical Problems: (1) Acute exacerbation of CHF (congestive heart failure) Status: Acute (2) Bilateral pleural effusion Status: Acute (3) CKD (chronic kidney disease) Status: Acute Acute on chronic systolic diastolic heart failure History of CAD TEAGAN Fall with facial trauma and nasal fractures Plan Continue cardiac monitoring As needed O2 per nasal cannula [facility] meds DVT prophylaxis PT OT Full code Appreciate subspecialist input (GI and cardiology) Respiratory isolation Long-term prognosis guarded Suspect he will need to go to senior care Comment Review of Relevant I have reviewed the following items nicola (where applicable) has been applied. Medications: Current Medications Medications (Trade) Dose Ordered Sig/Ava Route PRN Reason Start Time Stop Time Status Last Admin Dose Admin Sodium Chloride (Saline Mist Nasal) 1 hortencia PRN Q1HR PRN NS NASAL CONGESTION 12/13/21 06:30 12/13/21 07:43 Justifications for Admission Other Justification RADHA FOWLER III DO Dec 13, 2021 12:50
--- NOTE | 2021-12-13 12:55 | PDOC ---
PROGRESS NOTES Date of Service DATE: 12/13/21 TIME: 12:53 Subjective Subjective Patient seen and examined He is significantly more comfortable today. Objective Objective Vital Signs Date Time Temp Pulse Resp B/P (MAP) Pulse Ox O2 Delivery O2 Flow Rate FiO2 12/13/21 10:44 97.8 65 18 109/58 (75) 92 Nasal Cannula 2.0 97.8 Intake and Output 12/13/21 07:00 Intake Total 850 ml Output Total 1225 ml Balance -375 ml Intake Oral 850 ml Output Urine Total 1225 ml Physical Exam Abdomen: Normal bowel sounds Heart: Regular rate General: No acute distress Lungs: Other (Mildly decreased breath sounds) Assessment Assessment Problems Medical Problems: (1) Acute exacerbation of CHF (congestive heart failure) Status: Acute (2) Bilateral pleural effusion Status: Acute (3) CKD (chronic kidney disease) Status: Acute Assessment/Plan 1. Acute on chronic systolic heart failure. Patient looks and feels better today. We will continue on present treatment. Monitoring lab. We will update the patient's echo. 2. Chest discomfort. Long-term difficulties with chest discomfort as noted above. Catheterization as noted above. Troponins are normal x3. Once the patient's heart failure has resolved will proceed with a probable outpatient nuclear stress test as was previously scheduled. 3. Permanent pacemaker. Normal functioning on recent interrogation. 3. Bilateral pleural effusions. Continue diuresis. Followed by pulmonary. 5. Hyperlipidemia. Continue statin medications. 6. Hypertension. We will continue on present medications and monitor. Comment Review of Relevant I have reviewed the following items nicola (where applicable) has been applied. Labs Laboratory Tests Test 12/11/21 13:45 12/11/21 15:47 12/11/21 22:30 12/12/21 07:08 Urine Opiates Screen Neg (NEG) Urine Methadone Screen Neg (NEG) Urine Barbiturates Neg (NEG) Urine Phencyclidine Screen Neg (NEG) Urine Amphetamine/Methamphetamine Neg (NEG) Urine Benzodiazepines Screen Neg (NEG) Urine Cocaine Screen Neg (NEG) Urine Cannabinoids Screen Neg (NEG) Urine Ethyl Alcohol Neg (NEG) Troponin I High Sensitivity 29 ng/L (4-75) 34 ng/L (4-75) Coronavirus (COVID-19)(PCR) Not detected (NOT DETECTD) Test 12/12/21 07:20 12/13/21 04:00 Influenza Type A Antigen Negative (NEGATIVE) Influenza Type B Antigen Negative (NEGATIVE) SARS-CoV-2 Antigen (Rapid) Negative (NEGATIVE) White Blood Count 4.1 x10^3/uL (4.0-11.0) Red Blood Count 4.79 x10^6/uL (4.30-5.70) Hemoglobin 13.5 g/dL (13.0-17.5) Hematocrit 40.6 % (39.0-53.0) Mean Corpuscular Volume 85 fL (79-100) Mean Corpuscular Hemoglobin 28 pg (25-35) Mean Corpuscular Hemoglobin Concent 33 g/dL (31-37) Red Cell Distribution Width 16.0 % (11.5-14.5) Platelet Count 94 x10^3/uL (140-400) Neutrophils (%) (Auto) 67 % (31-73) Lymphocytes (%) (Auto) 17 % (24-48) Monocytes (%) (Auto) 13 % (0-9) Eosinophils (%) (Auto) 3 % (0-3) Basophils (%) (Auto) 1 % (0-3) Neutrophils # (Auto) 2.8 x10^3/uL (1.8-7.7) Lymphocytes # (Auto) 0.7 x10^3/uL (1.0-4.8) Monocytes # (Auto) 0.5 x10^3/uL (0.0-1.1) Eosinophils # (Auto) 0.1 x10^3/uL (0.0-0.7) Basophils # (Auto) 0.0 x10^3/uL (0.0-0.2) Sodium Level 138 mmol/L (136-145) Potassium Level 3.6 mmol/L (3.5-5.1) Chloride Level 103 mmol/L (98-107) Carbon Dioxide Level 25 mmol/L (21-32) Anion Gap 10 (6-14) Blood Urea Nitrogen 24 mg/dL (8-26) Creatinine 1.5 mg/dL (0.7-1.3) Estimated GFR (Cockcroft-Gault) 44.7 Glucose Level 93 mg/dL (70-99) Calcium Level 8.4 mg/dL (8.5-10.1) Laboratory Tests Test 12/13/21 04:00 White Blood Count 4.1 x10^3/uL (4.0-11.0) Red Blood Count 4.79 x10^6/uL (4.30-5.70) Hemoglobin 13.5 g/dL (13.0-17.5) Hematocrit 40.6 % (39.0-53.0) Mean Corpuscular Volume 85 fL (79-100) Mean Corpuscular Hemoglobin 28 pg (25-35) Mean Corpuscular Hemoglobin Concent 33 g/dL (31-37) Red Cell Distribution Width 16.0 % (11.5-14.5) Platelet Count 94 x10^3/uL (140-400) Neutrophils (%) (Auto) 67 % (31-73) Lymphocytes (%) (Auto) 17 % (24-48) Monocytes (%) (Auto) 13 % (0-9) Eosinophils (%) (Auto) 3 % (0-3) Basophils (%) (Auto) 1 % (0-3) Neutrophils # (Auto) 2.8 x10^3/uL (1.8-7.7) Lymphocytes # (Auto) 0.7 x10^3/uL (1.0-4.8) Monocytes # (Auto) 0.5 x10^3/uL (0.0-1.1) Eosinophils # (Auto) 0.1 x10^3/uL (0.0-0.7) Basophils # (Auto) 0.0 x10^3/uL (0.0-0.2) Sodium Level 138 mmol/L (136-145) Potassium Level 3.6 mmol/L (3.5-5.1) Chloride Level 103 mmol/L (98-107) Carbon Dioxide Level 25 mmol/L (21-32) Anion Gap 10 (6-14) Blood Urea Nitrogen 24 mg/dL (8-26) Creatinine 1.5 mg/dL (0.7-1.3) Estimated GFR (Cockcroft-Gault) 44.7 Glucose Level 93 mg/dL (70-99) Calcium Level 8.4 mg/dL (8.5-10.1) Medications Current Medications Furosemide (Lasix) 40 mg 1X ONCE IVP Last administered on 12/11/21at 13:42; Start 12/11/21 at 13:30; Stop 12/11/21 at 13:33; Status DC Apixaban (Eliquis) 2.5 mg BID PO Last administered on 12/13/21at 07:45; Start 12/11/21 at 21:00 Atorvastatin Calcium (Lipitor) 40 mg HS PO Last administered on 12/12/21at 20:23; Start 12/11/21 at 21:00 Clopidogrel Bisulfate (Plavix) 75 mg DAILYWBKFT PO ; Start 12/12/21 at 08:00; S top 12/12/21 at 08:11; Status DC Gabapentin (Neurontin) 300 mg BID PO Last administered on 12/13/21at 07:44; Start 12/11/21 at 21:00 Metoprolol Succinate (Toprol Xl) 25 mg DAILY PO Last administered on 12/13/21at 07:44; Start 12/12/21 at 09:00 Pantoprazole Sodium (Protonix) 40 mg DAILYAC PO Last administered on 12/13/21at 07:45; Start 12/12/21 at 07:30 Citalopram Hydrobromide (CeleXA) 20 mg DAILY PO Last administered on 12/13/21at 07:44; Start 12/12/21 at 09:00 Ondansetron HCl (Zofran) 4 mg PRN Q6HRS PRN IVP NAUSEA/VOMITING; Start 12/11/21 at 15:15 Calcium Carbonate/ Glycine (Tums) 500 mg PRN Q3HRS PRN PO UPSET STOMACH; Start 12/11/21 at 15:15 Info (Non-Icu Electrolyte Protocol) 1 ea PRN DAILY PRN MC SEE COMMENTS; Start 12/11/21 at 15:15 Oxycodone/ Acetaminophen (Percocet 5/325) 1 tab PRN Q4HRS PRN PO MILD PAIN, 1ST CHOICE Last administered on 12/13/21at 07:59; Start 12/11/21 at 15:15 Oxycodone/ Acetaminophen (Percocet 5/325) 2 tab PRN Q4HRS PRN PO MODERATE PAIN, SEVERE PAIN; Start 12/11/21 at 15:15 Senna/Docusate Sodium (Senna Plus) 1 tab BID PO Last administered on 12/13/21at 07:44; Start 12/11/21 at 21:00 Furosemide (Lasix) 40 mg DAILY IVP Last administered on 12/13/21at 07:45; Start 12/11/21 at 16:00 Sodium Chloride (Saline Mist Nasal) 1 hortencia PRN Q1HR PRN NS NASAL CONGESTION Last administered on 12/13/21at 07:43; Start 12/13/21 at 06:30 Active Scripts Active Metoprolol Succinate ( Xl ) (Metoprolol Succinate) 25 Mg Tab.er.24h 25 Mg PO DAILY 30 Days Eliquis (Apixaban) 2.5 Mg Tablet 2.5 Mg PO BID 30 Days Reported Eliquis (Apixaban) 2.5 Mg Tablet 2.5 Mg PO BID Vitamin B-6 (Pyridoxine Hcl) 50 Mg Capsule 2 Cap PO DAILY 30 Days B Complex (Vitamin B Complex) 1 Each Tablet 1 Tab PO DAILY 30 Days Magnesium (Magnesium Oxide) 400 Mg Capsule 1 Cap PO DAILY 30 Days Tramadol Hcl 50 Mg Tablet 50 Mg PO DAILY PRN Escitalopram Oxalate 10 Mg Tablet 1 Tab PO DAILY Fish Oil 1,000 Mg Softgel ([place]-3 Fatty Acids/Fish Oil) 1 Each Capsule 1 Cap PO DAILY 30 Days Atorvastatin Calcium 20 Mg Tablet 40 Mg PO HS Pantoprazole Sodium (Pantoprazole Sodium) 40 Mg Tablet.dr 40 Mg PO DAILYAC Gabapentin (Gabapentin) 300 Mg Capsule 300 Mg PO BID Vitals/I & O Vital Sign - Last 24 Hours 12/12/21 12/12/21 12/12/21 12/12/21 14:59 18:44 20:03 22:20 Temp 96.7 97.3 98.9 96.7 97.3 98.9 Pulse 59 59 64 Resp 18 20 20 B/P (MAP) 133/64 (87) 140/71 (94) 127/68 (87) Pulse Ox 95 97 96 O2 Delivery Room Air Room Air Room Air Nasal Cannula O2 Flow Rate 2.0 12/13/21 12/13/21 12/13/21 12/13/21 02:40 06:31 07:44 07:59 Temp 98.0 98.4 98.0 98.4 Pulse 65 64 65 Resp 20 18 B/P (MAP) 137/69 (91) 140/72 (94) 137/69 Pulse Ox 96 97 97 O2 Delivery Nasal Cannula Nasal Cannula Room Air O2 Flow Rate 2.0 2.0 2.0 12/13/21 12/13/21 12/13/21 08:00 08:25 10:44 Temp 97.8 97.8 Pulse 65 Resp 20 18 B/P (MAP) 109/58 (75) Pulse Ox 92 92 O2 Delivery Room Air Room Air Nasal Cannula O2 Flow Rate 2.0 2.0 2.0 Intake and Output 12/12/21 12/12/21 12/13/21 15:00 23:00 07:00 Intake Total 300 ml 450 ml 100 ml Output Total 500 ml 425 ml 300 ml Balance -200 ml 25 ml -200 ml Justifications for Admission Other Justification AYDIN VINES MD Dec 13, 2021 12:55
--- NOTE | 2021-12-13 14:28 | RAD ---
XR SHOULDER_RIGHT 2+ VIEWS History: Reason: pain with fall / Spl. Instructions: / History: Technique: 3 views right shoulder Comparison: None. Findings: No dislocation. No acute fracture. Moderate glenohumeral DJD. Superior migration of the humeral head in relation to the glenoid, may indicate chronic rotator cuff tear. Linear calcination within the reg ion of the rotator cuff, may indicate calcific tendinosis. Mild acromioclavicular DJD. Impression: 1. No acute osseous abnormality. 2. Moderate glenohumeral DJD with findings that may indicate chronic rotator cuff tear and calcific tendinosis. Electronically signed by: Buck Turner DO (12/13/2021 2:26 PM) ADRIANNE
[2021-12-13 15:00] VITALS: BP 94/48
[2021-12-13 19:30] VITALS: BP 109/47
[2021-12-13] MEDS: ATORVASTATIN CALCIUM 20 MG TABLET PO SCH (20:50)
[2021-12-13 22:45] VITALS: BP 124/71
[2021-12-14 03:27] VITALS: BP 121/60
[2021-12-14 04:10] LABS: BASO % 0 % (0-3); EOS # 0.1 x10^3/uL (0.0-0.7); EOS % 2 % (0-3); HEMOGLOBIN 12.8 g/dL (13.0-17.5); LYMPH # 0.8 x10^3/uL (1.0-4.8); LYMPH % 16 % (24-48); MEAN CORPUSCULAR HEMOGLOBIN 28 pg (25-35); MEAN CORPUSCULAR HGB CONC 33 g/dL (31-37); MEAN CORPUSCULAR VOLUME 85 fL (79-100); MONO # 0.7 x10^3/uL (0.0-1.1); MONO % 16 % (0-9); NEUT # 3.1 x10^3/uL (1.8-7.7); NEUT % 66 % (31-73); PLATELET COUNT 89 x10^3/uL (140-400); RED BLOOD COUNT 4.58 x10^6/uL (4.30-5.70); WHITE BLOOD COUNT 4.7 x10^3/uL (4.0-11.0)
[2021-12-14 04:42] LABS: ALBUMIN 2.6 g/dL (3.4-5.0); ALBUMIN/GLOBULIN RATIO 0.7 (1.0-1.7); CALCIUM 8.1 mg/dL (8.5-10.1); CREATININE 1.6 mg/dL (0.7-1.3); GFR 41.5; POTASSIUM 3.3 mmol/L (3.5-5.1); TOTAL BILIRUBIN 1.8 mg/dL (0.2-1.0); TOTAL PROTEIN 6.2 g/dL (6.4-8.2)
[2021-12-14 07:00] VITALS: BP 121/66
[2021-12-14] MEDS: CITALOPRAM 20 MG TABLET. PO SCH (08:39)
[2021-12-14] MEDS: GABAPENTIN 300 MG CAPSULE. PO SCH ×2 (08:39→21:34)
[2021-12-14] MEDS: PANTOPRAZOLE 40 MG TABLET.DR. PO SCH (08:39)
[2021-12-14] MEDS: METOPROLOL SUCC 24HR ER 25 MG TAB.ER.24H. PO SCH (08:39)
[2021-12-14] MEDS: APIXABAN 2.5 MG TABLET. PO SCH ×2 (08:39→21:34)
[2021-12-14] MEDS: FUROSEMIDE 40 MG/4 ML VIAL. IVP SCH (08:40)
[2021-12-14] MEDS: oxyCODONE/APAP 5/325 1 TAB TABLET PO PRN ×2 (08:57→13:05)
[2021-12-14] MEDS: SENNOSIDES/DOCUSATE 8.6/50MG TABLET. PO SCH ×2 (08:57→21:34)
--- NOTE | 2021-12-14 09:28 | PDOC ---
CARDIO Progress Notes Date and Time Date of Service 12/14/21 Time of Evaluation 0920 Subjective Subjective: No Chest Pain, No shortness of breath, No Palpitations, No Dizziness Vitals Vitals Vital Signs Date Time Temp Pulse Resp B/P (MAP) Pulse Ox O2 Delivery O2 Flow Rate FiO2 12/14/21 08:57 20 96 Nasal Cannula 2.0 12/14/21 08:39 75 121/66 12/14/21 07:00 97.6 97.6 Weight Weight [ ] Input and Output Intake and Output Intake and Output 12/14/21 07:00 Intake Total 1318 ml Output Total 400 ml Balance 918 ml Intake Oral 1318 ml Output Urine Total 400 ml Laboratory Labs Laboratory Tests Test 12/14/21 04:00 White Blood Count 4.7 x10^3/uL (4.0-11.0) Red Blood Count 4.58 x10^6/uL (4.30-5.70) Hemoglobin 12.8 g/dL (13.0-17.5) Hematocrit 39.0 % (39.0-53.0) Mean Corpuscular Volume 85 fL (79-100) Mean Corpuscular Hemoglobin 28 pg (25-35) Mean Corpuscular Hemoglobin Concent 33 g/dL (31-37) Red Cell Distribution Width 16.0 % (11.5-14.5) Platelet Count 89 x10^3/uL (140-400) Neutrophils (%) (Auto) 66 % (31-73) Lymphocytes (%) (Auto) 16 % (24-48) Monocytes (%) (Auto) 16 % (0-9) Eosinophils (%) (Auto) 2 % (0-3) Basophils (%) (Auto) 0 % (0-3) Neutrophils # (Auto) 3.1 x10^3/uL (1.8-7.7) Lymphocytes # (Auto) 0.8 x10^3/uL (1.0-4.8) Monocytes # (Auto) 0.7 x10^3/uL (0.0-1.1) Eosinophils # (Auto) 0.1 x10^3/uL (0.0-0.7) Basophils # (Auto) 0.0 x10^3/uL (0.0-0.2) Sodium Level 135 mmol/L (136-145) Potassium Level 3.3 mmol/L (3.5-5.1) Chloride Level 101 mmol/L (98-107) Carbon Dioxide Level 27 mmol/L (21-32) Anion Gap 7 (6-14) Blood Urea Nitrogen 25 mg/dL (8-26) Creatinine 1.6 mg/dL (0.7-1.3) Estimated GFR (Cockcroft-Gault) 41.5 BUN/Creatinine Ratio 16 (6-20) Glucose Level 104 mg/dL (70-99) Calcium Level 8.1 mg/dL (8.5-10.1) Magnesium Level 1.6 mg/dL (1.8-2.4) Total Bilirubin 1.8 mg/dL (0.2-1.0) Aspartate Amino Transf (AST/SGOT) 30 U/L (15-37) Alanine Aminotransferase (ALT/SGPT) 35 U/L (16-63) Alkaline Phosphatase 94 U/L (46-116) Total Protein 6.2 g/dL (6.4-8.2) Albumin 2.6 g/dL (3.4-5.0) Albumin/Globulin Ratio 0.7 (1.0-1.7) Physical Exam HEENT: Neck Supple W Full Motion Chest: Symmetric LUNGS: Other (diminished bases ) Heart: irregularly irregular (AFIB, rate controlled ) Abdomen: Soft N/T Extremities: No Edema Neurology: alert, oriented, follow commands Assessment Assessment 1. Acute on chronic systolic heart failure; improved s/p IV diuresis 2. 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 3. Chest pain, atypical. Most recent [facility] 06/15 without intervention. AMI ruled out. 4. CAD: past CABG with recent PCI/REGI 03/2019 on vein graft to the posterior lateral vessel. Clinically stable. 5. 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 recent device check with normal function, stable lead impedances. AFIB burden 100% 6. CKD; Cr stable 7. Hypertension; controlled 8. Hyperlipidemia; statin 9. Hypokalemia, hypomagnesemia 10. Elevated LFTs; improved Recommendations Covert Lasix to oral Secondary prevention Replace electrolytes Metoprolol for rate control Eliquis for stroke prophylaxis. Outpatient ischemic evaluation Supportive care Justicifation of Admission Dx: Justifications for Admission: Justification of Admission Dx: Yes Comments: Acute on chronic systolic CHF RODNEY FRASER APRN Dec 14, 2021 09:27
--- NOTE | 2021-12-14 09:43 | PDOC ---
[facility] PROGRESS NOTE Date of Service DOS: DATE: 12/14/21 TIME: 09:42 Chief Complaint Chief Complaint Acute on chronic systolic diastolic heart failure History of CAD TEAGAN Fall with facial trauma last night History of Present Illness History of Present Illness 12/14/2021 Patient seen and examined Discussed with RN Discussed with case management Chart reviewed He seems to be approaching his baseline 12/13/2021 Patient seen and examined He is resting with no apparent distress CT of the head after his fall yesterday confirmed nasal fractures Chart reviewed Discussed with RN 12/12/2021 Patient seen and examined He fell last night and suffered facial trauma We have a CT of the head it is just completed but results are pending Discussed with RN Chart reviewed Vitals/I&O Vitals/I&O: Vital Signs Date Time Temp Pulse Resp B/P (MAP) Pulse Ox O2 Delivery O2 Flow Rate FiO2 12/14/21 08:57 20 96 Nasal Cannula 2.0 12/14/21 08:39 75 121/66 12/14/21 07:00 97.6 97.6 I & O 12/13/21 12/13/21 12/14/21 15:00 23:00 07:00 Intake Total 418 ml 300 ml 600 ml Output Total 100 ml 300 ml Balance 318 ml 300 ml 300 ml Physical Exam Physical Exam: HEENT He has some bruising around both eyes and the nasal septum and nares appear a little swollen and bruised General: Alert, Oriented X3, No acute distress Heart: Regular rate Lungs: Clear Abdomen: Normal bowel sounds Extremities: No clubbing Skin: No breakdown Labs Labs: Laboratory Tests Test 12/14/21 04:00 White Blood Count 4.7 x10^3/uL (4.0-11.0) Red Blood Count 4.58 x10^6/uL (4.30-5.70) Hemoglobin 12.8 g/dL (13.0-17.5) Hematocrit 39.0 % (39.0-53.0) Mean Corpuscular Volume 85 fL (79-100) Mean Corpuscular Hemoglobin 28 pg (25-35) Mean Corpuscular Hemoglobin Concent 33 g/dL (31-37) Red Cell Distribution Width 16.0 % (11.5-14.5) Platelet Count 89 x10^3/uL (140-400) Neutrophils (%) (Auto) 66 % (31-73) Lymphocytes (%) (Auto) 16 % (24-48) Monocytes (%) (Auto) 16 % (0-9) Eosinophils (%) (Auto) 2 % (0-3) Basophils (%) (Auto) 0 % (0-3) Neutrophils # (Auto) 3.1 x10^3/uL (1.8-7.7) Lymphocytes # (Auto) 0.8 x10^3/uL (1.0-4.8) Monocytes # (Auto) 0.7 x10^3/uL (0.0-1.1) Eosinophils # (Auto) 0.1 x10^3/uL (0.0-0.7) Basophils # (Auto) 0.0 x10^3/uL (0.0-0.2) Sodium Level 135 mmol/L (136-145) Potassium Level 3.3 mmol/L (3.5-5.1) Chloride Level 101 mmol/L (98-107) Carbon Dioxide Level 27 mmol/L (21-32) Anion Gap 7 (6-14) Blood Urea Nitrogen 25 mg/dL (8-26) Creatinine 1.6 mg/dL (0.7-1.3) Estimated GFR (Cockcroft-Gault) 41.5 BUN/Creatinine Ratio 16 (6-20) Glucose Level 104 mg/dL (70-99) Calcium Level 8.1 mg/dL (8.5-10.1) Magnesium Level 1.6 mg/dL (1.8-2.4) Total Bilirubin 1.8 mg/dL (0.2-1.0) Aspartate Amino Transf (AST/SGOT) 30 U/L (15-37) Alanine Aminotransferase (ALT/SGPT) 35 U/L (16-63) Alkaline Phosphatase 94 U/L (46-116) Total Protein 6.2 g/dL (6.4-8.2) Albumin 2.6 g/dL (3.4-5.0) Albumin/Globulin Ratio 0.7 (1.0-1.7) Assessment and Plan Assessmemt and Plan Problems Medical Problems: (1) Acute exacerbation of CHF (congestive heart failure) Status: Acute (2) Bilateral pleural effusion Status: Acute (3) CKD (chronic kidney disease) Status: Acute Acute on chronic systolic diastolic heart failure History of CAD TEAGAN Fall with facial trauma and nasal fractures Plan Continue cardiac monitoring As needed O2 per nasal cannula Wound residential meds DVT prophylaxis PT OT Full code Appreciate subspecialist input (GI and cardiology) Respiratory isolation Long-term prognosis guarded He lives at home with his he wants to go there tomorrow if safe we will discharge tomorrow with home health or nursing home? Per cardiology recommendations please see the following and we certainly agree and appreciate their input; Assessment/Plan 1. Acute on chronic systolic heart failure. Patient looks and feels better today. We will continue on present treatment. Monitoring lab. We will update the patient's echo. 2. Chest discomfort. Long-term difficulties with chest discomfort as noted above. Catheterization as noted above. Troponins are normal x3. Once the patient's heart failure has resolved will proceed with a probable outpatient nuclear stress test as was previously scheduled. 3. Permanent pacemaker. Normal functioning on recent interrogation. 3. Bilateral pleural effusions. Continue diuresis. Followed by pulmonary. 5. Hyperlipidemia. Continue statin medications. 6. Hypertension. We will continue on present medications and monitor. Comment Review of Relevant I have reviewed the following items nicola (where applicable) has been applied. Justifications for Admission Other Justification RADHA FOWLER III DO Dec 14, 2021 09:43
--- NOTE | 2021-12-14 09:54 | NUR ---
SS following for discharge planning. SS reviewed pt chart and discussed with pt RN. Pt is from home with spouse and is currently requiring oxygen at two liters nasal canula. COVID19 negative. Pt has no home oxygen. Pulmonology, Nephrology, Cardiology, and GI following. Pt on IV Lasix. PT/OT recommended acute rehabilitation. SS met with pt and discussed discharge planning and inpatient rehabilitation. Pt declining inpatient rehabilitation stating that he has been to rehab twice and does not feel that it has done much for him. 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 Pt reported that he has home care services arranged for his . Pt reported that he will go home and get stronger once he's home because he needs to take care of his . SS discussed home healthcare with pt and pt is declining at this time. Pt's RN notified. SS will continue to follow for discharge planning.
[2021-12-14 10:10] VITALS: BP 139/60
--- NOTE | 2021-12-14 10:24 | RAD ---
XR CHEST 1V History: Reason: fu effusion / Spl. Instructions: / History: Comparison: December 11, 2021 Findings: Decreased interstitial thickening with ill-defined opacities. Small bilateral pleural effusions, decr eased compared to prior. Enlarged cardiac size, unchanged. Prior mid sternotomy. Left-sided pacemaker , unchanged. No pneumothorax. Glenohumeral DJD. Impression: 1. Decreased interstitial thickening and ill-defined opacities. 2. Decreased small pleural effusions. Electronically signed by: Buck Turner DO (12/14/2021 10:22 AM) [id number]
--- NOTE | 2021-12-14 10:33 | PDOC ---
DATE OF SERVICE DATE: 12/14/21 TIME: 10:33 SUBJECTIVE ROS Remains on nasal cannula. Denies any chest pain or shortness of breath. OBJECTIVE Vital Signs Vital Signs Date Time Temp Pulse Resp B/P (MAP) Pulse Ox O2 Delivery O2 Flow Rate FiO2 12/14/21 10:10 97.3 66 20 139/60 (86) 94 Nasal Cannula 2.0 97.3 I & 0 Intake and Output 12/14/21 07:00 Intake Total 1318 ml Output Total 400 ml Balance 918 ml Intake Oral 1318 ml Output Urine Total 400 ml PHYSICAL EXAM Physical Exam General: Alert, Cooperative, No acute distress HEENT: Atraumatic, PERRLA Lungs: Clear to auscultation Heart: Regular rate Abdomen: Normal bowel sounds Extremities: No clubbing Skin: No breakdown Neuro: Normal speech Psych/Mental Status: Mood NL MUSCULOSKELETAL: No joint tenderness, No deformity, No swelling DIAGNOSIS/ASSESSMENT Assessment & Plan CKD stage 3B - Creat stable at 1.5-1.7. Maintain fluid balance, avoid Nephrotoxins . Monitor Acute on Chronic systolic CHF Diuresis per Cardiology HypoNatremia mild , monitor HypoKalemia- Mild 2/2 diuresis- replace -HX of CAD HX HTN BP stable COMMENT/RELEVANT DATA Meds Current Medications Medications (Trade) Dose Ordered Sig/Ava Start Time Stop Time Status Last Admin Dose Admin Apixaban (Eliquis) 2.5 mg BID 12/11/21 21:00 12/14/21 08:39 2.5 MG Atorvastatin Calcium (Lipitor) 40 mg HS 12/11/21 21:00 12/13/21 20:50 40 MG Calcium Carbonate/ Glycine (Tums) 500 mg PRN Q3HRS PRN 12/11/21 15:15 Citalopram Hydrobromide (CeleXA) 20 mg DAILY 12/12/21 09:00 12/14/21 08:39 20 MG Clopidogrel Bisulfate (Plavix) 75 mg DAILYWBKFT 12/12/21 08:00 12/12/21 08:11 DC Furosemide (Lasix) 40 mg DAILY 12/11/21 16:00 12/14/21 08:40 40 MG Gabapentin (Neurontin) 300 mg BID 12/11/21 21:00 12/14/21 08:39 300 MG Info (Non-Icu Electrolyte Protocol) 1 ea PRN DAILY PRN 12/11/21 15:15 Metoprolol Succinate (Toprol Xl) 25 mg DAILY 12/12/21 09:00 12/14/21 08:39 25 MG Ondansetron HCl (Zofran) 4 mg PRN Q6HRS PRN 12/11/21 15:15 Oxycodone/ Acetaminophen (Percocet 5/325) 2 tab PRN Q4HRS PRN 12/11/21 15:15 12/14/21 08:57 2 TAB Pantoprazole Sodium (Protonix) 40 mg DAILYAC 12/12/21 07:30 12/14/21 08:39 40 MG Senna/Docusate Sodium (Senna Plus) 1 tab BID 12/11/21 21:00 12/13/21 20:51 1 TAB Sodium Chloride (Saline Mist Nasal) 1 hortencia PRN Q1HR PRN 12/13/21 06:30 12/13/21 07:43 1 HORTENCIA Lab Laboratory Tests Test 12/14/21 04:00 White Blood Count 4.7 x10^3/uL (4.0-11.0) Red Blood Count 4.58 x10^6/uL (4.30-5.70) Hemoglobin 12.8 g/dL (13.0-17.5) Hematocrit 39.0 % (39.0-53.0) Mean Corpuscular Volume 85 fL (79-100) Mean Corpuscular Hemoglobin 28 pg (25-35) Mean Corpuscular Hemoglobin Concent 33 g/dL (31-37) Red Cell Distribution Width 16.0 % (11.5-14.5) Platelet Count 89 x10^3/uL (140-400) Neutrophils (%) (Auto) 66 % (31-73) Lymphocytes (%) (Auto) 16 % (24-48) Monocytes (%) (Auto) 16 % (0-9) Eosinophils (%) (Auto) 2 % (0-3) Basophils (%) (Auto) 0 % (0-3) Neutrophils # (Auto) 3.1 x10^3/uL (1.8-7.7) Lymphocytes # (Auto) 0.8 x10^3/uL (1.0-4.8) Monocytes # (Auto) 0.7 x10^3/uL (0.0-1.1) Eosinophils # (Auto) 0.1 x10^3/uL (0.0-0.7) Basophils # (Auto) 0.0 x10^3/uL (0.0-0.2) Sodium Level 135 mmol/L (136-145) Potassium Level 3.3 mmol/L (3.5-5.1) Chloride Level 101 mmol/L (98-107) Carbon Dioxide Level 27 mmol/L (21-32) Anion Gap 7 (6-14) Blood Urea Nitrogen 25 mg/dL (8-26) Creatinine 1.6 mg/dL (0.7-1.3) Estimated GFR (Cockcroft-Gault) 41.5 BUN/Creatinine Ratio 16 (6-20) Glucose Level 104 mg/dL (70-99) Calcium Level 8.1 mg/dL (8.5-10.1) Magnesium Level 1.6 mg/dL (1.8-2.4) Total Bilirubin 1.8 mg/dL (0.2-1.0) Aspartate Amino Transf (AST/SGOT) 30 U/L (15-37) Alanine Aminotransferase (ALT/SGPT) 35 U/L (16-63) Alkaline Phosphatase 94 U/L (46-116) Total Protein 6.2 g/dL (6.4-8.2) Albumin 2.6 g/dL (3.4-5.0) Albumin/Globulin Ratio 0.7 (1.0-1.7) Results All relevant outside records, renal labs, imaging studies, telemetry/EKG's were reviewed. Other History: Reason: fu effusion / Spl. Instructions: / History: Comparison: December 11, 2021 Findings: Decreased interstitial thickening with ill-defined opacities. Small bilateral pleural effusions, decreased compared to prior. Enlarged cardiac size, unchanged. Prior mid sternotomy. Left-sided pacemaker, unchanged. No pneumothorax. Glenohumeral DJD. Impression: 1. Decreased interstitial thickening and ill-defined opacities. 2. Decreased small pleural effusions. Electronically signed by: Buck Turner DO (12/14/2021 10:22 AM) [id number] Justicifation of Admission Dx: Justifications for Admission: Justification of Admission Dx: N/A DAVID MACIAS MD Dec 14, 2021 10:33
--- NOTE | 2021-12-14 11:18 | PDOC ---
PULMONARY PROGRESS NOTES DATE: 12/14/21 TIME: 11:16 Subjective Remains on nasal cannula. Denies any chest pain or shortness of breath. Vitals Vital Signs Date Time Temp Pulse Resp B/P (MAP) Pulse Ox O2 Delivery O2 Flow Rate FiO2 12/14/21 10:10 97.3 66 20 139/60 (86) 94 Nasal Cannula 2.0 97.3 General: Alert, No acute distress HEENT: Other (nose bridge edema) Lungs: Clear Cardiovascular: S1, S2 Abdomen: Soft Neuro Exam: Alert Extremities: No Edema Skin: Warm Labs Laboratory Tests Test 12/13/21 04:00 12/14/21 04:00 White Blood Count 4.1 x10^3/uL (4.0-11.0) 4.7 x10^3/uL (4.0-11.0) Red Blood Count 4.79 x10^6/uL (4.30-5.70) 4.58 x10^6/uL (4.30-5.70) Hemoglobin 13.5 g/dL (13.0-17.5) 12.8 g/dL (13.0-17.5) Hematocrit 40.6 % (39.0-53.0) 39.0 % (39.0-53.0) Mean Corpuscular Volume 85 fL (79-100) 85 fL (79-100) Mean Corpuscular Hemoglobin 28 pg (25-35) 28 pg (25-35) Mean Corpuscular Hemoglobin Concent 33 g/dL (31-37) 33 g/dL (31-37) Red Cell Distribution Width 16.0 % (11.5-14.5) 16.0 % (11.5-14.5) Platelet Count 94 x10^3/uL (140-400) 89 x10^3/uL (140-400) Neutrophils (%) (Auto) 67 % (31-73) 66 % (31-73) Lymphocytes (%) (Auto) 17 % (24-48) 16 % (24-48) Monocytes (%) (Auto) 13 % (0-9) 16 % (0-9) Eosinophils (%) (Auto) 3 % (0-3) 2 % (0-3) Basophils (%) (Auto) 1 % (0-3) 0 % (0-3) Neutrophils # (Auto) 2.8 x10^3/uL (1.8-7.7) 3.1 x10^3/uL (1.8-7.7) Lymphocytes # (Auto) 0.7 x10^3/uL (1.0-4.8) 0.8 x10^3/uL (1.0-4.8) Monocytes # (Auto) 0.5 x10^3/uL (0.0-1.1) 0.7 x10^3/uL (0.0-1.1) Eosinophils # (Auto) 0.1 x10^3/uL (0.0-0.7) 0.1 x10^3/uL (0.0-0.7) Basophils # (Auto) 0.0 x10^3/uL (0.0-0.2) 0.0 x10^3/uL (0.0-0.2) Sodium Level 138 mmol/L (136-145) 135 mmol/L (136-145) Potassium Level 3.6 mmol/L (3.5-5.1) 3.3 mmol/L (3.5-5.1) Chloride Level 103 mmol/L (98-107) 101 mmol/L (98-107) Carbon Dioxide Level 25 mmol/L (21-32) 27 mmol/L (21-32) Anion Gap 10 (6-14) 7 (6-14) Blood Urea Nitrogen 24 mg/dL (8-26) 25 mg/dL (8-26) Creatinine 1.5 mg/dL (0.7-1.3) 1.6 mg/dL (0.7-1.3) Estimated GFR (Cockcroft-Gault) 44.7 41.5 Glucose Level 93 mg/dL (70-99) 104 mg/dL (70-99) Calcium Level 8.4 mg/dL (8.5-10.1) 8.1 mg/dL (8.5-10.1) BUN/Creatinine Ratio 16 (6-20) Magnesium Level 1.6 mg/dL (1.8-2.4) Total Bilirubin 1.8 mg/dL (0.2-1.0) Aspartate Amino Transf (AST/SGOT) 30 U/L (15-37) Alanine Aminotransferase (ALT/SGPT) 35 U/L (16-63) Alkaline Phosphatase 94 U/L (46-116) Total Protein 6.2 g/dL (6.4-8.2) Albumin 2.6 g/dL (3.4-5.0) Albumin/Globulin Ratio 0.7 (1.0-1.7) Laboratory Tests Test 12/14/21 04:00 White Blood Count 4.7 x10^3/uL (4.0-11.0) Red Blood Count 4.58 x10^6/uL (4.30-5.70) Hemoglobin 12.8 g/dL (13.0-17.5) Hematocrit 39.0 % (39.0-53.0) Mean Corpuscular Volume 85 fL (79-100) Mean Corpuscular Hemoglobin 28 pg (25-35) Mean Corpuscular Hemoglobin Concent 33 g/dL (31-37) Red Cell Distribution Width 16.0 % (11.5-14.5) Platelet Count 89 x10^3/uL (140-400) Neutrophils (%) (Auto) 66 % (31-73) Lymphocytes (%) (Auto) 16 % (24-48) Monocytes (%) (Auto) 16 % (0-9) Eosinophils (%) (Auto) 2 % (0-3) Basophils (%) (Auto) 0 % (0-3) Neutrophils # (Auto) 3.1 x10^3/uL (1.8-7.7) Lymphocytes # (Auto) 0.8 x10^3/uL (1.0-4.8) Monocytes # (Auto) 0.7 x10^3/uL (0.0-1.1) Eosinophils # (Auto) 0.1 x10^3/uL (0.0-0.7) Basophils # (Auto) 0.0 x10^3/uL (0.0-0.2) Sodium Level 135 mmol/L (136-145) Potassium Level 3.3 mmol/L (3.5-5.1) Chloride Level 101 mmol/L (98-107) Carbon Dioxide Level 27 mmol/L (21-32) Anion Gap 7 (6-14) Blood Urea Nitrogen 25 mg/dL (8-26) Creatinine 1.6 mg/dL (0.7-1.3) Estimated GFR (Cockcroft-Gault) 41.5 BUN/Creatinine Ratio 16 (6-20) Glucose Level 104 mg/dL (70-99) Calcium Level 8.1 mg/dL (8.5-10.1) Magnesium Level 1.6 mg/dL (1.8-2.4) Total Bilirubin 1.8 mg/dL (0.2-1.0) Aspartate Amino Transf (AST/SGOT) 30 U/L (15-37) Alanine Aminotransferase (ALT/SGPT) 35 U/L (16-63) Alkaline Phosphatase 94 U/L (46-116) Total Protein 6.2 g/dL (6.4-8.2) Albumin 2.6 g/dL (3.4-5.0) Albumin/Globulin Ratio 0.7 (1.0-1.7) Medications Active Scripts Medications Dose Route/Sig Max Daily Dose Days Date Category Eliquis (Apixaban) 2.5 Mg Tablet 2.5 Mg PO BID 06/16/20 Reported Vitamin B-6 (Pyridoxine Hcl) 50 Mg Capsule 2 Cap PO DAILY 30 06/16/20 Reported B Complex (Vitamin B Complex) 1 Each Tablet 1 Tab PO DAILY 30 06/16/20 Reported Magnesium (Magnesium Oxide) 400 Mg Capsule 1 Cap PO DAILY 30 06/16/20 Reported Tramadol Hcl 50 Mg Tablet 50 Mg PO DAILY PRN 06/16/20 Reported Escitalopram Oxalate 10 Mg Tablet 1 Tab PO DAILY 06/16/20 Reported Metoprolol Succinate ( Xl ) (Metoprolol Succinate) 25 Mg Tab.er.24h 25 Mg PO DAILY 30 02/20/20 Rx Eliquis (Apixaban) 2.5 Mg Tablet 2.5 Mg PO BID 30 02/20/20 Rx Fish Oil 1,000 Mg Softgel (Sunman-3 Fatty Acids/Fish Oil) 1 Each Capsule 1 Cap PO DAILY 30 08/25/19 Reported Atorvastatin Calcium 20 Mg Tablet 40 Mg PO HS 05/19/19 Reported Pantoprazole Sodium (Pantoprazole Sodium) 40 Mg Tablet.dr 40 Mg PO DAILYAC 05/19/19 Reported Gabapentin (Gabapentin) 300 Mg Capsule 300 Mg PO BID 05/13/[address]: 1. No acute intracranial abnormality. Maxillofacial CT: 1. Acute comminuted bilateral nasal bone fracture. Impression . IMPRESSION: 1. Dyspnea secondary to acute systolic congestive heart failure, doubt pulmonary embolism as he has been on Eliquis. 2. Abnormal CT of the chest consistent with acute systolic congestive heart failure. Patient has prominent interstitial markings and mild to moderate basal pleural effusions. 3. Acute systolic congestive heart failure. 4. Coronary artery disease. 5. Acute kidney injury. Stable 6. Cardiomyopathy with an EF of 45%. Plan . PLAN AND RECOMMENDATION: 1. Elevated bilirubin and distended gallbladder in CT, workup per primary. 2. I suspect his ascites is secondary to volume overload. 3. Lasix. keep I<O Monitor creatinine and potassium. Clinically stable. Will monitor closely for the need for thoracentesis. 4. Influenza A and B and COVID testing, neg 5. Status post fall, CT of the head, Head CT: No acute intracranial abnormality. Acute comminuted bilateral nasal bone fracture. PER PRIMARY 6. follow Cardiology recommendation. echo ordered mpi as out pt planned 7. His chest pain and shortness of breath resolved with Lasix. 8. ? apnea during sleep ? joce recommend psg as out pt 9. titrate fio2 to keep sat 90% 10. suspect has old blood inside his nose add ns nasal spray prn The findings and recommendations were discussed with the patient and RN. SALAS RODRIGUEZ MD Dec 14, 2021 11:18
--- NOTE | 2021-12-14 11:53 | PDOC ---
Date of Service: DATE: 12/14/21 TIME: 11:48 Subjective: Subjective: No GI complaints. Objective: Vital Signs: Vital Signs Date Time Temp Pulse Resp B/P (MAP) Pulse Ox O2 Delivery O2 Flow Rate FiO2 12/14/21 10:10 97.3 66 20 139/60 (86) 94 Nasal Cannula 2.0 97.3 Labs: Laboratory Tests Test 12/14/21 04:00 White Blood Count 4.7 x10^3/uL Red Blood Count 4.58 x10^6/uL Hemoglobin 12.8 g/dL Hematocrit 39.0 % Mean Corpuscular Volume 85 fL Mean Corpuscular Hemoglobin 28 pg Mean Corpuscular Hemoglobin Concent 33 g/dL Red Cell Distribution Width 16.0 % Platelet Count 89 x10^3/uL Neutrophils (%) (Auto) 66 % Lymphocytes (%) (Auto) 16 % Monocytes (%) (Auto) 16 % Eosinophils (%) (Auto) 2 % Basophils (%) (Auto) 0 % Neutrophils # (Auto) 3.1 x10^3/uL Lymphocytes # (Auto) 0.8 x10^3/uL Monocytes # (Auto) 0.7 x10^3/uL Eosinophils # (Auto) 0.1 x10^3/uL Basophils # (Auto) 0.0 x10^3/uL Sodium Level 135 mmol/L Potassium Level 3.3 mmol/L Chloride Level 101 mmol/L Carbon Dioxide Level 27 mmol/L Anion Gap 7 Blood Urea Nitrogen 25 mg/dL Creatinine 1.6 mg/dL Estimated GFR (Cockcroft-Gault) 41.5 BUN/Creatinine Ratio 16 Glucose Level 104 mg/dL Calcium Level 8.1 mg/dL Magnesium Level 1.6 mg/dL Total Bilirubin 1.8 mg/dL Aspartate Amino Transf (AST/SGOT) 30 U/L Alanine Aminotransferase (ALT/SGPT) 35 U/L Alkaline Phosphatase 94 U/L Total Protein 6.2 g/dL Albumin 2.6 g/dL Albumin/Globulin Ratio 0.7 PE: GEN: NAD LUNGS: diminished some, NC 2L HEART: RRR ABD: S/ND/NT NEURO/PSYCH: A & O 3, [place] A/P: CHF, CKD Mildly elevated bilirubin - stable COVID negative -- Doubt primary liver issue, monitor GI-jennings. Justicifation of Admission Dx: Justifications for Admission: Justification of Admission Dx: Yes JOEL HERNANDEZ Dec 14, 2021 11:53
[2021-12-14] MEDS ORDERED: POTASSIUM CHLORIDE 20 MEQ TABLET.ER. PO ONE (15:00)
[2021-12-14] MEDS ORDERED: MAGNESIUM SULFATE 2GM 50 ML IV ONE (15:00)
[2021-12-14 15:05] VITALS: BP 95/55
--- NOTE | 2021-12-14 16:48 | CARD ---
MR#: [id number] Date of Study: 12/14/2021 Ordering Physician: RODNEY FRAESR, Referring Physician: RODNEY FRASER, Tech: Liudmila Rojas [facility] APPROVED REPORT EXAM: Two-dimensional and M-mode echocardiogram with Doppler and color Doppler. Other Information Quality : GoodHR: 61bpm Rhythm : LBBB INDICATION Cardiac Disease: CAD RISK FACTORS Hypertension Obesity Hyperlipidemia Diabetes 2D DIMENSIONS Left Atrium(2D)5.6 (1.6-4.0cm)IVSd1.3 (0.7-1.1cm) Aortic Root(2D)4.1 (2.0-3.7cm)LVDd5.4 (3.9-5.9cm) LVOT Diameter2.6 (1.8-2.4cm)PWd1.2 (0.7-1.1cm) LVDs4.6 (2.5-4.0cm)FS (%) 14.1 % SV42.0 ml Tricuspid Valve TR P. [id number]/sTR Peak Gr.37mmHg LEFT VENTRICLE The Left Ventricle is mildly dilated. There is mild concentric left ventricular hypertrophy. The syst olic function is severely impaired. LV ejection fraction is estimated at 25%. There is severe global hypokinesis of the left ventricle. RIGHT VENTRICLE The right ventricle is mildly dilated. There is normal right ventricular wall thickness. Systolic fun ction is borderline reduced. ATRIA The left atrium is moderately dilated. The right atrium is mildly dilated. The interatrial septum is intact with no evidence for an atrial septal defect or patent foramen ovale as noted on 2-D or Dopple r imaging. AORTIC VALVE The aortic valve is normal in structure and function. There is no significant aortic valvular stenosi s. MITRAL VALVE The mitral valve is normal in structure and function. There is no evidence of mitral valve prolapse. There is no mitral valve stenosis. Doppler and Color-flow revealed moderate mitral regurgitation. TRICUSPID VALVE The tricuspid valve is normal in structure and function. Doppler and Color Flow revealed mild tricusp id regurgitation. Estimated PAP 47 mmHg. There is no tricuspid valve stenosis. PULMONIC VALVE The pulmonary valve is normal in structure and function. GREAT VESSELS The aortic root is normal in size. The ascending aorta is normal in size. The IVC is dilated and [place] apses <50% with inspiration. PERICARDIAL EFFUSION There is no evidence of significant pericardial effusion. Critical Notification Critical Value: No <Conclusion> The Left Ventricle is mildly dilated. The systolic function is severely impaired. LV ejection fraction is estimated at 25%. There is severe global hypokinesis of the left ventricle. There is mild concentric left ventricular hypertrophy. There is no significant aortic valvular stenosis. Doppler and Color-flow revealed moderate mitral regurgitation. Doppler and Color Flow revealed mild tricuspid regurgitation. Estimated PAP 47 mmHg. Signed by : Gautam Villanueva MD Electronically Approved : 12/14/2021 16:47:33
[2021-12-14 19:24] VITALS: BP 106/62
[2021-12-14] MEDS: ATORVASTATIN CALCIUM 20 MG TABLET PO SCH (21:34)
[2021-12-14 22:59] VITALS: BP 107/62
[2021-12-15 03:20] LABS: BASO % 0 % (0-3); EOS # 0.2 x10^3/uL (0.0-0.7); EOS % 3 % (0-3); HEMATOCRIT 37.6 % (39.0-53.0); HEMOGLOBIN 12.5 g/dL (13.0-17.5); LYMPH # 0.6 x10^3/uL (1.0-4.8); LYMPH % 12 % (24-48); MEAN CORPUSCULAR HEMOGLOBIN 28 pg (25-35); MEAN CORPUSCULAR HGB CONC 33 g/dL (31-37); MEAN CORPUSCULAR VOLUME 85 fL (79-100); MONO # 0.6 x10^3/uL (0.0-1.1); MONO % 12 % (0-9); NEUT # 3.7 x10^3/uL (1.8-7.7); NEUT % 73 % (31-73); PLATELET COUNT 96 x10^3/uL (140-400); RED BLOOD COUNT 4.43 x10^6/uL (4.30-5.70); RED CELL DISTRIBUTION WIDTH 16.1 % (11.5-14.5); WHITE BLOOD COUNT 5.1 x10^3/uL (4.0-11.0)
[2021-12-15 03:46] VITALS: BP 121/67
[2021-12-15 07:00] VITALS: BP 104/57
[2021-12-15] MEDS: PANTOPRAZOLE 40 MG TABLET.DR. PO SCH (08:21)
[2021-12-15] MEDS: CITALOPRAM 20 MG TABLET. PO SCH (08:22)
[2021-12-15] MEDS: METOPROLOL SUCC 24HR ER 25 MG TAB.ER.24H. PO SCH (08:22)
[2021-12-15] MEDS: APIXABAN 2.5 MG TABLET. PO SCH ×2 (08:22→20:09)
[2021-12-15] MEDS: GABAPENTIN 300 MG CAPSULE. PO SCH ×2 (08:22→20:09)
[2021-12-15] MEDS: FUROSEMIDE 40 MG/4 ML VIAL. IVP SCH (08:24)
[2021-12-15] MEDS: SENNOSIDES/DOCUSATE 8.6/50MG TABLET. PO SCH ×2 (08:24→20:09)
--- NOTE | 2021-12-15 08:32 | RAD ---
XR CHEST 1V History: Reason: CHF / Spl. Instructions: / History: Comparison: December 14, 2021 Findings: Mild interstitial thickening. Decreased patchy bibasilar opacities. Decreased small bilateral pleural effusions. Enlarged cardiac size, unchanged. Prior median sternotomy. Stable left-sided pacemaker. N o pneumothorax. Glenohumeral DJD. Impression: 1. Decreased patchy bibasilar opacities and small pleural effusions. Electronically signed by: Buck Turner DO (12/15/2021 8:29 AM) [id number]
--- NOTE | 2021-12-15 09:49 | PDOC ---
[employer] PROGRESS NOTE Date of Service DOS: DATE: 12/15/21 TIME: 09:39 Chief Complaint Chief Complaint Acute on chronic systolic diastolic heart failure History of CAD - s/p CABG x5 in 2002 [place] Fall with facial trauma - nasal fracture History of Present Illness History of Present Illness 12/15: Radiograph improved. His dyspnea on exertion has minimally improved no further wheezing. He is feeling weak and a little unsteady today especially after a fall. 12/14/2021 Patient seen and examined Discussed with RN Discussed with case management Chart reviewed He seems to be approaching his baseline 12/13/2021 Patient seen and examined He is resting with no apparent distress CT of the head after his fall yesterday confirmed nasal fractures Chart reviewed Discussed with RN 12/12/2021 Patient seen and examined He fell last night and suffered facial trauma We have a CT of the head it is just completed but results are pending Discussed with RN Chart reviewed Vitals/I&O Vitals/I&O: Vital Signs Date Time Temp Pulse Resp B/P (MAP) Pulse Ox O2 Delivery O2 Flow Rate FiO2 12/15/21 08:22 75 140/63 12/15/21 07:00 98.4 18 95 Room Air 98.4 12/14/21 19:30 2.0 I & O 12/14/21 12/14/21 12/15/21 15:00 23:00 07:00 Intake Total 610 ml 300 ml 100 ml Output Total 900 ml Balance 610 ml -600 ml 100 ml Physical Exam Physical Exam: HEENT He has some bruising around both eyes and the nasal septum and nares appear a little swollen and bruised General: Alert, Oriented X3, No acute distress Heart: Regular rate Lungs: Clear Abdomen: Normal bowel sounds Extremities: No clubbing Skin: No breakdown Labs Labs: Laboratory Tests Test 12/15/21 02:20 White Blood Count 5.1 x10^3/uL (4.0-11.0) Red Blood Count 4.43 x10^6/uL (4.30-5.70) Hemoglobin 12.5 g/dL (13.0-17.5) Hematocrit 37.6 % (39.0-53.0) Mean Corpuscular Volume 85 fL (79-100) Mean Corpuscular Hemoglobin 28 pg (25-35) Mean Corpuscular Hemoglobin Concent 33 g/dL (31-37) Red Cell Distribution Width 16.1 % (11.5-14.5) Platelet Count 96 x10^3/uL (140-400) Neutrophils (%) (Auto) 73 % (31-73) Lymphocytes (%) (Auto) 12 % (24-48) Monocytes (%) (Auto) 12 % (0-9) Eosinophils (%) (Auto) 3 % (0-3) Basophils (%) (Auto) 0 % (0-3) Neutrophils # (Auto) 3.7 x10^3/uL (1.8-7.7) Lymphocytes # (Auto) 0.6 x10^3/uL (1.0-4.8) Monocytes # (Auto) 0.6 x10^3/uL (0.0-1.1) Eosinophils # (Auto) 0.2 x10^3/uL (0.0-0.7) Basophils # (Auto) 0.0 x10^3/uL (0.0-0.2) Assessment and Plan Assessmemt and Plan Problems Medical Problems: (1) Acute exacerbation of CHF (congestive heart failure) Status: Acute (2) Bilateral pleural effusion Status: Acute (3) CKD (chronic kidney disease) Status: Acute Comment Review of Relevant I have reviewed the following items nicola (where applicable) has been applied. Medications: Current Medications Medications (Trade) Dose Ordered Sig/Ava Route PRN Reason Start Time Stop Time Status Last Admin Dose Admin Magnesium Sulfate 50 ml @ 25 mls/hr 1X ONCE IV 12/14/21 15:00 12/14/21 16:59 DC 12/14/21 14:58 Potassium Chloride (Klor-Con) 40 meq 1X ONCE PO 12/14/21 15:00 12/14/21 15:01 DC 12/14/21 14:52 Justifications for Admission Other Justification MARSHA FRIAS MD Dec 15, 2021 09:49
--- NOTE | 2021-12-15 10:05 | PDOC ---
Date of Service: DATE: 12/15/21 TIME: 10:03 Subjective: Subjective: No GI complaints. Objective: Vital Signs: Vital Signs Date Time Temp Pulse Resp B/P (MAP) Pulse Ox O2 Delivery O2 Flow Rate FiO2 12/15/21 08:22 75 140/63 12/15/21 07:50 Room Air 12/15/21 07:00 98.4 18 95 98.4 12/14/21 19:30 2.0 Labs: Laboratory Tests Test 12/15/21 02:20 White Blood Count 5.1 x10^3/uL Red Blood Count 4.43 x10^6/uL Hemoglobin 12.5 g/dL Hematocrit 37.6 % Mean Corpuscular Volume 85 fL Mean Corpuscular Hemoglobin 28 pg Mean Corpuscular Hemoglobin Concent 33 g/dL Red Cell Distribution Width 16.1 % Platelet Count 96 x10^3/uL Neutrophils (%) (Auto) 73 % Lymphocytes (%) (Auto) 12 % Monocytes (%) (Auto) 12 % Eosinophils (%) (Auto) 3 % Basophils (%) (Auto) 0 % Neutrophils # (Auto) 3.7 x10^3/uL Lymphocytes # (Auto) 0.6 x10^3/uL Monocytes # (Auto) 0.6 x10^3/uL Eosinophils # (Auto) 0.2 x10^3/uL Basophils # (Auto) 0.0 x10^3/uL Imaging: CXR 12/15 Impression: 1. Decreased patchy bibasilar opacities and small pleural effusions. PE: GEN: NAD LUNGS: some diminished, on room air HEART: RRR ABD: NABS, S/ND/NT NEURO/PSYCH: A & O 3 A/P: Mildly elevated bilirubin - 1.8 yesterday, doubt primary liver issue - suspect related to CHF -- Monitor GI-jennings. Justicifation of Admission Dx: Justifications for Admission: Justification of Admission Dx: Yes JOEL HERNANDEZ Dec 15, 2021 10:05
--- NOTE | 2021-12-15 10:11 | PDOC ---
PULMONARY PROGRESS NOTES DATE: 12/15/21 TIME: 10:10 Subjective Currently off the oxygen. Denies any chest pain or shortness of breath. Vitals Vital Signs Date Time Temp Pulse Resp B/P (MAP) Pulse Ox O2 Delivery O2 Flow Rate FiO2 12/15/21 08:22 75 140/63 12/15/21 07:50 Room Air 12/15/21 07:00 98.4 18 95 98.4 12/14/21 19:30 2.0 General: Alert, No acute distress HEENT: Other (nose bridge edema) Lungs: Clear Cardiovascular: S1, S2 Abdomen: Soft Neuro Exam: Alert Extremities: No Edema Skin: Warm Labs Laboratory Tests Test 12/14/21 04:00 12/15/21 02:20 White Blood Count 4.7 x10^3/uL (4.0-11.0) 5.1 x10^3/uL (4.0-11.0) Red Blood Count 4.58 x10^6/uL (4.30-5.70) 4.43 x10^6/uL (4.30-5.70) Hemoglobin 12.8 g/dL (13.0-17.5) 12.5 g/dL (13.0-17.5) Hematocrit 39.0 % (39.0-53.0) 37.6 % (39.0-53.0) Mean Corpuscular Volume 85 fL (79-100) 85 fL (79-100) Mean Corpuscular Hemoglobin 28 pg (25-35) 28 pg (25-35) Mean Corpuscular Hemoglobin Concent 33 g/dL (31-37) 33 g/dL (31-37) Red Cell Distribution Width 16.0 % (11.5-14.5) 16.1 % (11.5-14.5) Platelet Count 89 x10^3/uL (140-400) 96 x10^3/uL (140-400) Neutrophils (%) (Auto) 66 % (31-73) 73 % (31-73) Lymphocytes (%) (Auto) 16 % (24-48) 12 % (24-48) Monocytes (%) (Auto) 16 % (0-9) 12 % (0-9) Eosinophils (%) (Auto) 2 % (0-3) 3 % (0-3) Basophils (%) (Auto) 0 % (0-3) 0 % (0-3) Neutrophils # (Auto) 3.1 x10^3/uL (1.8-7.7) 3.7 x10^3/uL (1.8-7.7) Lymphocytes # (Auto) 0.8 x10^3/uL (1.0-4.8) 0.6 x10^3/uL (1.0-4.8) Monocytes # (Auto) 0.7 x10^3/uL (0.0-1.1) 0.6 x10^3/uL (0.0-1.1) Eosinophils # (Auto) 0.1 x10^3/uL (0.0-0.7) 0.2 x10^3/uL (0.0-0.7) Basophils # (Auto) 0.0 x10^3/uL (0.0-0.2) 0.0 x10^3/uL (0.0-0.2) Sodium Level 135 mmol/L (136-145) Potassium Level 3.3 mmol/L (3.5-5.1) Chloride Level 101 mmol/L (98-107) Carbon Dioxide Level 27 mmol/L (21-32) Anion Gap 7 (6-14) Blood Urea Nitrogen 25 mg/dL (8-26) Creatinine 1.6 mg/dL (0.7-1.3) Estimated GFR (Cockcroft-Gault) 41.5 BUN/Creatinine Ratio 16 (6-20) Glucose Level 104 mg/dL (70-99) Calcium Level 8.1 mg/dL (8.5-10.1) Magnesium Level 1.6 mg/dL (1.8-2.4) Total Bilirubin 1.8 mg/dL (0.2-1.0) Aspartate Amino Transf (AST/SGOT) 30 U/L (15-37) Alanine Aminotransferase (ALT/SGPT) 35 U/L (16-63) Alkaline Phosphatase 94 U/L (46-116) Total Protein 6.2 g/dL (6.4-8.2) Albumin 2.6 g/dL (3.4-5.0) Albumin/Globulin Ratio 0.7 (1.0-1.7) Laboratory Tests Test 12/15/21 02:20 White Blood Count 5.1 x10^3/uL (4.0-11.0) Red Blood Count 4.43 x10^6/uL (4.30-5.70) Hemoglobin 12.5 g/dL (13.0-17.5) Hematocrit 37.6 % (39.0-53.0) Mean Corpuscular Volume 85 fL (79-100) Mean Corpuscular Hemoglobin 28 pg (25-35) Mean Corpuscular Hemoglobin Concent 33 g/dL (31-37) Red Cell Distribution Width 16.1 % (11.5-14.5) Platelet Count 96 x10^3/uL (140-400) Neutrophils (%) (Auto) 73 % (31-73) Lymphocytes (%) (Auto) 12 % (24-48) Monocytes (%) (Auto) 12 % (0-9) Eosinophils (%) (Auto) 3 % (0-3) Basophils (%) (Auto) 0 % (0-3) Neutrophils # (Auto) 3.7 x10^3/uL (1.8-7.7) Lymphocytes # (Auto) 0.6 x10^3/uL (1.0-4.8) Monocytes # (Auto) 0.6 x10^3/uL (0.0-1.1) Eosinophils # (Auto) 0.2 x10^3/uL (0.0-0.7) Basophils # (Auto) 0.0 x10^3/uL (0.0-0.2) Medications Active Scripts Medications Dose Route/Sig Max Daily Dose Days Date Category Eliquis (Apixaban) 2.5 Mg Tablet 2.5 Mg PO BID 06/16/20 Reported Vitamin B-6 (Pyridoxine Hcl) 50 Mg Capsule 2 Cap PO DAILY 30 06/16/20 Reported B Complex (Vitamin B Complex) 1 Each Tablet 1 Tab PO DAILY 30 06/16/20 Reported Magnesium (Magnesium Oxide) 400 Mg Capsule 1 Cap PO DAILY 30 06/16/20 Reported Tramadol Hcl 50 Mg Tablet 50 Mg PO DAILY PRN 06/16/20 Reported Escitalopram Oxalate 10 Mg Tablet 1 Tab PO DAILY 06/16/20 Reported Metoprolol Succinate ( Xl ) (Metoprolol Succinate) 25 Mg Tab.er.24h 25 Mg PO DAILY 30 02/20/20 Rx Eliquis (Apixaban) 2.5 Mg Tablet 2.5 Mg PO BID 30 02/20/20 Rx Fish Oil 1,000 Mg Softgel ([place]-3 Fatty Acids/Fish Oil) 1 Each Capsule 1 Cap PO DAILY 30 08/25/19 Reported Atorvastatin Calcium 20 Mg Tablet 40 Mg PO HS 05/19/19 Reported Pantoprazole Sodium (Pantoprazole Sodium) 40 Mg Tablet.dr 40 Mg PO DAILYAC 05/19/19 Reported Gabapentin (Gabapentin) 300 Mg Capsule 300 Mg PO BID 05/13/19 Reported Comments Chest x-ray reviewed 12/15/2021. Resolving CHF and improving pleural effusions. Head CT: 1. No acute intracranial abnormality. Maxillofacial CT: 1. Acute comminuted bilateral nasal bone fracture. Impression . IMPRESSION: 1. Dyspnea secondary to acute systolic congestive heart failure, doubt pulmonary embolism as he has been on Eliquis. 2. Abnormal CT of the chest consistent with acute systolic congestive heart failure. Patient has prominent interstitial markings and mild to moderate basal pleural effusions. 3. Acute systolic congestive heart failure. 4. Coronary artery disease. 5. Acute kidney injury. Stable 6. Cardiomyopathy with an EF of 25%. Plan . PLAN AND RECOMMENDATION: 1. Patient is clinically improved. Chest x-ray shows resolution of CHF and improvement in basal effusions. No intervention for thoracentesis at present. 2. I suspect his ascites is secondary to volume overload. 3. Lasix. keep I<O Monitor creatinine and potassium. Clinically stable. 4. Influenza A and B and COVID testing, neg 5. Status post fall, CT of the head, Head CT: No acute intracranial abnormality. Acute comminuted bilateral nasal bone fracture. PER PRIMARY 6. follow Cardiology recommendation. echo ordered mpi as out pt planned 7. His chest pain and shortness of breath resolved with Lasix. 8. ? apnea during sleep ? joce recommend psg as out pt 9. titrate fio2 to keep sat 90% 10. Patient's overall pulmonary status is stable. SALAS RODRIGUEZ MD Dec 15, 2021 10:11
--- NOTE | 2021-12-15 10:18 | PDOC ---
DATE OF SERVICE DATE: 12/15/21 TIME: 10:17 SUBJECTIVE ROS Denies any chest pain or shortness of breath.States feeling better OBJECTIVE Vital Signs Vital Signs Date Time Temp Pulse Resp B/P (MAP) Pulse Ox O2 Delivery O2 Flow Rate FiO2 12/15/21 08:22 75 140/63 12/15/21 07:50 Room Air 12/15/21 07:00 98.4 18 95 98.4 12/14/21 19:30 2.0 I & 0 Intake and Output 12/15/21 07:00 Intake Total 1010 ml Output Total 900 ml Balance 110 ml Intake Oral 960 ml IV Total 50 ml Output Urine Total 900 ml PHYSICAL EXAM Physical Exam General: Alert, Cooperative, No acute distress HEENT: Atraumatic, PERRLA Lungs: Clear to auscultation Heart: Regular rate Abdomen: Normal bowel sounds Extremities: No clubbing Skin: No breakdown Neuro: Normal speech Psych/Mental Status: Mood NL MUSCULOSKELETAL: No joint tenderness, No deformity, No swelling DIAGNOSIS/ASSESSMENT Assessment & Plan CKD stage 3B - Creat stable at 1.5-1.7. Maintain fluid balance, avoid Nephrotoxins .No labs today Monitor Acute on Chronic systolic CHF Diuresis per Cardiology - currently on IV Lasix HypoNatremia mild , monitor HypoKalemia- Mild 2/2 diuresis- replace -HX of CAD HX HTN BP stable COMMENT/RELEVANT DATA Meds Current Medications Medications (Trade) Dose Ordered Sig/Ava Start Time Stop Time Status Last Admin Dose Admin Apixaban (Eliquis) 2.5 mg BID 12/11/21 21:00 12/15/21 08:22 2.5 MG Atorvastatin Calcium (Lipitor) 40 mg HS 12/11/21 21:00 12/14/21 21:34 40 MG Calcium Carbonate/ Glycine (Tums) 500 mg PRN Q3HRS PRN 12/11/21 15:15 Citalopram Hydrobromide (CeleXA) 20 mg DAILY 12/12/21 09:00 12/15/21 08:22 20 MG Clopidogrel Bisulfate (Plavix) 75 mg [id number] 12/12/21 08:00 12/12/21 08:11 DC Furosemide (Lasix) 40 mg DAILY 12/11/21 16:00 12/15/21 08:24 40 MG Gabapentin (Neurontin) 300 mg BID 12/11/21 21:00 12/15/21 08:22 300 MG Info (Non-Icu Electrolyte Protocol) 1 ea PRN DAILY PRN 12/11/21 15:15 Magnesium Sulfate 50 ml @ 25 mls/hr 1X ONCE 12/14/21 15:00 12/14/21 16:59 DC 12/14/21 14:58 25 MLS/HR Metoprolol Succinate (Toprol Xl) 25 mg DAILY 12/12/21 09:00 12/15/21 08:22 25 MG Ondansetron HCl (Zofran) 4 mg PRN Q6HRS PRN 12/11/21 15:15 Oxycodone/ Acetaminophen (Percocet 5/325) 2 tab PRN Q4HRS PRN 12/11/21 15:15 12/14/21 13:05 2 TAB Pantoprazole Sodium (Protonix) 40 mg DAILYAC 12/12/21 07:30 12/15/21 08:21 40 MG Potassium Chloride (Klor-Con) 40 meq 1X ONCE 12/14/21 15:00 12/14/21 15:01 DC 12/14/21 14:52 40 MEQ Senna/Docusate Sodium (Senna Plus) 1 tab BID 12/11/21 21:00 12/14/21 21:34 1 TAB Sodium Chloride (Saline Mist Nasal) 1 hortencia PRN Q1HR PRN 12/13/21 06:30 12/13/21 07:43 1 HORTENCIA Lab Laboratory Tests Test 12/15/21 02:20 White Blood Count 5.1 x10^3/uL (4.0-11.0) Red Blood Count 4.43 x10^6/uL (4.30-5.70) Hemoglobin 12.5 g/dL (13.0-17.5) Hematocrit 37.6 % (39.0-53.0) Mean Corpuscular Volume 85 fL (79-100) Mean Corpuscular Hemoglobin 28 pg (25-35) Mean Corpuscular Hemoglobin Concent 33 g/dL (31-37) Red Cell Distribution Width 16.1 % (11.5-14.5) Platelet Count 96 x10^3/uL (140-400) Neutrophils (%) (Auto) 73 % (31-73) Lymphocytes (%) (Auto) 12 % (24-48) Monocytes (%) (Auto) 12 % (0-9) Eosinophils (%) (Auto) 3 % (0-3) Basophils (%) (Auto) 0 % (0-3) Neutrophils # (Auto) 3.7 x10^3/uL (1.8-7.7) Lymphocytes # (Auto) 0.6 x10^3/uL (1.0-4.8) Monocytes # (Auto) 0.6 x10^3/uL (0.0-1.1) Eosinophils # (Auto) 0.2 x10^3/uL (0.0-0.7) Basophils # (Auto) 0.0 x10^3/uL (0.0-0.2) Results All relevant outside records, renal labs, imaging studies, telemetry/EKG's were reviewed. Justicifation of Admission Dx: Justifications for Admission: Justification of Admission Dx: Yes DAVID MACIAS MD Dec 15, 2021 10:18
[2021-12-15 11:00] VITALS: BP 110/62
--- NOTE | 2021-12-15 13:57 | PDOC ---
CARDIO Progress Notes Date and Time Date of Service 12/15/21 Time of Evaluation 1350 Subjective Subjective: No Chest Pain, No shortness of breath, No Palpitations, No Dizziness Vitals Vitals Vital Signs Date Time Temp Pulse Resp B/P (MAP) Pulse Ox O2 Delivery O2 Flow Rate FiO2 12/15/21 11:00 97.8 68 18 110/62 (78) 94 Room Air 97.8 12/14/21 19:30 2.0 Weight Weight [ ] Input and Output Intake and Output Intake and Output 12/15/21 07:00 Intake Total 1010 ml Output Total 900 ml Balance 110 ml Intake Oral 960 ml IV Total 50 ml Output Urine Total 900 ml Laboratory Labs Laboratory Tests Test 12/15/21 02:20 White Blood Count 5.1 x10^3/uL (4.0-11.0) Red Blood Count 4.43 x10^6/uL (4.30-5.70) Hemoglobin 12.5 g/dL (13.0-17.5) Hematocrit 37.6 % (39.0-53.0) Mean Corpuscular Volume 85 fL (79-100) Mean Corpuscular Hemoglobin 28 pg (25-35) Mean Corpuscular Hemoglobin Concent 33 g/dL (31-37) Red Cell Distribution Width 16.1 % (11.5-14.5) Platelet Count 96 x10^3/uL (140-400) Neutrophils (%) (Auto) 73 % (31-73) Lymphocytes (%) (Auto) 12 % (24-48) Monocytes (%) (Auto) 12 % (0-9) Eosinophils (%) (Auto) 3 % (0-3) Basophils (%) (Auto) 0 % (0-3) Neutrophils # (Auto) 3.7 x10^3/uL (1.8-7.7) Lymphocytes # (Auto) 0.6 x10^3/uL (1.0-4.8) Monocytes # (Auto) 0.6 x10^3/uL (0.0-1.1) Eosinophils # (Auto) 0.2 x10^3/uL (0.0-0.7) Basophils # (Auto) 0.0 x10^3/uL (0.0-0.2) Physical Exam HEENT: Neck Supple W Full Motion Chest: Symmetric LUNGS: Other (diminished bases ) Heart: irregularly irregular (AFIB, rate controlled ) Abdomen: Soft N/T Extremities: No Edema Neurology: alert, oriented, follow commands Assessment Assessment 1. Acute on chronic systolic heart failure; improved s/p IV diuresis 2. 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 3. Chest pain, atypical. Most recent C 06/15 without intervention. AMI ruled out. 4. CAD: past CABG with recent PCI/REGI 03/2019 on vein graft to the posterior lateral vessel. Clinically stable. 5. 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 recent device check with normal function, stable lead impedances. AFIB burden 100% 6. CKD; Cr stable 7. Hypertension; controlled 8. Hyperlipidemia; statin 9. Hypokalemia, hypomagnesemia 10. Elevated LFTs; improved Recommendations Covert Lasix to oral AM labs Secondary prevention Metoprolol for rate control Eliquis for stroke prophylaxis. Outpatient ischemic evaluation Supportive care Justicifation of Admission Dx: Justifications for Admission: Justification of Admission Dx: Yes RODNEY FRASER APRN Dec 15, 2021 13:57
[2021-12-15 15:00] VITALS: BP 111/50
--- NOTE | 2021-12-15 15:40 | NUR ---
SS following up with discharge planning. SS reviewed pt chart and discussed with pt RN. Pt is currently on room air. GI, Cardiology, Pulmonology, and Nephrology following. Pt on IV Lasix. COVID19 negative. Pt declining correction unit. Pt now agreeable to home healthcare with no preference of company. Referral sent to [facility], ; fax [phone], and pt accepted on services. SS will continue to follow for discharge planning.
[2021-12-15 19:40] VITALS: BP 111/53
[2021-12-15] MEDS: ATORVASTATIN CALCIUM 20 MG TABLET PO SCH (20:10)
[2021-12-15 22:35] VITALS: BP 108/52
[2021-12-16 02:50] VITALS: BP 109/59
[2021-12-16 05:09] LABS: BASO % 1 % (0-3); EOS # 0.2 x10^3/uL (0.0-0.7); EOS % 4 % (0-3); HEMOGLOBIN 11.8 g/dL (13.0-17.5); LYMPH # 0.7 x10^3/uL (1.0-4.8); LYMPH % 17 % (24-48); MEAN CORPUSCULAR HEMOGLOBIN 28 pg (25-35); MEAN CORPUSCULAR HGB CONC 33 g/dL (31-37); MEAN CORPUSCULAR VOLUME 85 fL (79-100); MONO # 0.5 x10^3/uL (0.0-1.1); MONO % 11 % (0-9); NEUT # 2.9 x10^3/uL (1.8-7.7); NEUT % 68 % (31-73); PLATELET COUNT 105 x10^3/uL (140-400); RED BLOOD COUNT 4.26 x10^6/uL (4.30-5.70); WHITE BLOOD COUNT 4.2 x10^3/uL (4.0-11.0)
[2021-12-16 05:26] LABS: CALCIUM 8.3 mg/dL (8.5-10.1); CREATININE 1.7 mg/dL (0.7-1.3); GFR 38.7
[2021-12-16 07:00] VITALS: BP 143/77
[2021-12-16] MEDS: CITALOPRAM 20 MG TABLET. PO SCH (08:25)
[2021-12-16] MEDS: SENNOSIDES/DOCUSATE 8.6/50MG TABLET. PO SCH (08:25)
[2021-12-16] MEDS: METOPROLOL SUCC 24HR ER 25 MG TAB.ER.24H. PO SCH (08:25)
[2021-12-16] MEDS: GABAPENTIN 300 MG CAPSULE. PO SCH (08:25)
[2021-12-16] MEDS: PANTOPRAZOLE 40 MG TABLET.DR. PO SCH (08:26)
[2021-12-16] MEDS: APIXABAN 2.5 MG TABLET. PO SCH (08:26)
[2021-12-16] MEDS ORDERED: FUROSEMIDE 20 MG TABLET PO SCH (09:00)
--- NOTE | 2021-12-16 09:15 | PDOC ---
DATE OF SERVICE DATE: 12/16/21 TIME: 09:15 SUBJECTIVE ROS Denies any chest pain or shortness of breath.States feeling better , Off O2, sitting up in chair OBJECTIVE Vital Signs Vital Signs Date Time Temp Pulse Resp B/P (MAP) Pulse Ox O2 Delivery O2 Flow Rate FiO2 12/16/21 08:25 70 143/77 12/16/21 07:34 Room Air 12/16/21 07:00 98.2 18 96 98.2 I & 0 Intake and Output 12/16/21 07:00 Intake Total 100 ml Output Total 1400 ml Balance -1300 ml Intake Oral 100 ml Output Urine Total 1400 ml # Voids 2 PHYSICAL EXAM Physical Exam General: Alert, Cooperative, No acute distress HEENT: Atraumatic, PERRLA Lungs: Clear to auscultation Heart: Regular rate Abdomen: Normal bowel sounds Extremities: No clubbing Skin: No breakdown Neuro: Normal speech Psych/Mental Status: Mood NL MUSCULOSKELETAL: No joint tenderness, No deformity, No swelling DIAGNOSIS/ASSESSMENT Assessment & Plan CKD stage 3B - Creat stable at 1.5-1.7. Maintain fluid balance, avoid Nephrotoxins .No labs today Monitor Acute on Chronic systolic CHF Diuresis per Cardiology - switched to PO lasix HypoNatremia mild , monitor HypoKalemia- resolved -HX of CAD HX HTN BP stable COMMENT/RELEVANT DATA Meds Current Medications Medications (Trade) Dose Ordered Sig/Ava Start Time Stop Time Status Last Admin Dose Admin Apixaban (Eliquis) 2.5 mg BID 12/11/21 21:00 12/16/21 08:26 2.5 MG Atorvastatin Calcium (Lipitor) 40 mg HS 12/11/21 21:00 12/15/21 20:10 40 MG Calcium Carbonate/ Glycine (Tums) 500 mg PRN Q3HRS PRN 12/11/21 15:15 Citalopram Hydrobromide (CeleXA) 20 mg DAILY 12/12/21 09:00 12/16/21 08:25 20 MG Clopidogrel Bisulfate (Plavix) 75 mg DAILYWBKFT 12/12/21 08:00 12/12/21 08:11 DC Furosemide (Lasix) 20 mg DAILY 12/16/21 09:00 12/16/21 08:26 20 MG Gabapentin (Neurontin) 300 mg BID 12/11/21 21:00 12/16/21 08:25 300 MG Info (Non-Icu Electrolyte Protocol) 1 ea PRN DAILY PRN 12/11/21 15:15 Magnesium Sulfate 50 ml @ 25 mls/hr 1X ONCE 12/14/21 15:00 12/14/21 16:59 DC 12/14/21 14:58 25 MLS/HR Metoprolol Succinate (Toprol Xl) 25 mg DAILY 12/12/21 09:00 12/16/21 08:25 25 MG Ondansetron HCl (Zofran) 4 mg PRN Q6HRS PRN 12/11/21 15:15 Oxycodone/ Acetaminophen (Percocet 5/325) 2 tab PRN Q4HRS PRN 12/11/21 15:15 12/14/21 13:05 2 TAB Pantoprazole Sodium (Protonix) 40 mg DAILYAC 12/12/21 07:30 12/16/21 08:26 40 MG Potassium Chloride (Klor-Con) 40 meq 1X ONCE 12/14/21 15:00 12/14/21 15:01 DC 12/14/21 14:52 40 MEQ Senna/Docusate Sodium (Senna Plus) 1 tab BID 12/11/21 21:00 12/16/21 08:25 1 TAB Sodium Chloride (Saline Mist Nasal) 1 hortencia PRN Q1HR PRN 12/13/21 06:30 12/13/21 07:43 1 HORTENCIA Lab Laboratory Tests Test 12/16/21 03:30 White Blood Count 4.2 x10^3/uL (4.0-11.0) Red Blood Count 4.26 x10^6/uL (4.30-5.70) Hemoglobin 11.8 g/dL (13.0-17.5) Hematocrit 36.0 % (39.0-53.0) Mean Corpuscular Volume 85 fL (79-100) Mean Corpuscular Hemoglobin 28 pg (25-35) Mean Corpuscular Hemoglobin Concent 33 g/dL (31-37) Red Cell Distribution Width 16.0 % (11.5-14.5) Platelet Count 105 x10^3/uL (140-400) Neutrophils (%) (Auto) 68 % (31-73) Lymphocytes (%) (Auto) 17 % (24-48) Monocytes (%) (Auto) 11 % (0-9) Eosinophils (%) (Auto) 4 % (0-3) Basophils (%) (Auto) 1 % (0-3) Neutrophils # (Auto) 2.9 x10^3/uL (1.8-7.7) Lymphocytes # (Auto) 0.7 x10^3/uL (1.0-4.8) Monocytes # (Auto) 0.5 x10^3/uL (0.0-1.1) Eosinophils # (Auto) 0.2 x10^3/uL (0.0-0.7) Basophils # (Auto) 0.0 x10^3/uL (0.0-0.2) Sodium Level 134 mmol/L (136-145) Potassium Level 4.0 mmol/L (3.5-5.1) Chloride Level 100 mmol/L (98-107) Carbon Dioxide Level 26 mmol/L (21-32) Anion Gap 8 (6-14) Blood Urea Nitrogen 34 mg/dL (8-26) Creatinine 1.7 mg/dL (0.7-1.3) Estimated GFR (Cockcroft-Gault) 38.7 Glucose Level 89 mg/dL (70-99) Calcium Level 8.3 mg/dL (8.5-10.1) Results All relevant outside records, renal labs, imaging studies, telemetry/EKG's were reviewed. Justicifation of Admission Dx: Justifications for Admission: Justification of Admission Dx: Yes DAVID MACIAS MD Dec 16, 2021 09:15
--- NOTE | 2021-12-16 09:26 | PDOC ---
Date of Service: DATE: 12/16/21 TIME: 09:23 Subjective: Subjective: Was sleeping still - says feels fine. Objective: Vital Signs: Vital Signs Date Time Temp Pulse Resp B/P (MAP) Pulse Ox O2 Delivery O2 Flow Rate FiO2 12/16/21 08:25 70 143/77 12/16/21 07:34 Room Air 12/16/21 07:00 98.2 18 96 98.2 Labs: Laboratory Tests Test 12/16/21 03:30 White Blood Count 4.2 x10^3/uL Red Blood Count 4.26 x10^6/uL Hemoglobin 11.8 g/dL Hematocrit 36.0 % Mean Corpuscular Volume 85 fL Mean Corpuscular Hemoglobin 28 pg Mean Corpuscular Hemoglobin Concent 33 g/dL Red Cell Distribution Width 16.0 % Platelet Count 105 x10^3/uL Neutrophils (%) (Auto) 68 % Lymphocytes (%) (Auto) 17 % Monocytes (%) (Auto) 11 % Eosinophils (%) (Auto) 4 % Basophils (%) (Auto) 1 % Neutrophils # (Auto) 2.9 x10^3/uL Lymphocytes # (Auto) 0.7 x10^3/uL Monocytes # (Auto) 0.5 x10^3/uL Eosinophils # (Auto) 0.2 x10^3/uL Basophils # (Auto) 0.0 x10^3/uL Sodium Level 134 mmol/L Potassium Level 4.0 mmol/L Chloride Level 100 mmol/L Carbon Dioxide Level 26 mmol/L Anion Gap 8 Blood Urea Nitrogen 34 mg/dL Creatinine 1.7 mg/dL Estimated GFR (Cockcroft-Gault) 38.7 Glucose Level 89 mg/dL Calcium Level 8.3 mg/dL PE: GEN: NAD - was sleeping LUNGS: CTAB HEART: RRR ABD: S/ND/NT NEURO/PSYCH: drowsy this morning A/P: Mildly elevated bilirubin - suspect related to CHF Mild anemia, thrombocytopenia CHF, CKD -- Can recheck LFTs. Justicifation of Admission Dx: Justifications for Admission: Justification of Admission Dx: Yes JOEL HERNANDEZ Dec 16, 2021 09:25
--- NOTE | 2021-12-16 09:47 | PDOC ---
PULMONARY PROGRESS NOTES DATE: 12/16/21 TIME: 09:46 Subjective Currently off the oxygen. Denies any chest pain or shortness of breath. Vitals Vital Signs Date Time Temp Pulse Resp B/P (MAP) Pulse Ox O2 Delivery O2 Flow Rate FiO2 12/16/21 08:25 70 143/77 12/16/21 07:34 Room Air 12/16/21 07:00 98.2 18 96 98.2 General: Alert, No acute distress HEENT: Other (nose bridge edema) Lungs: Clear Cardiovascular: S1, S2 Abdomen: Soft Neuro Exam: Alert Extremities: No Edema Skin: Warm Labs Laboratory Tests Test 12/15/21 02:20 12/16/21 03:30 White Blood Count 5.1 x10^3/uL (4.0-11.0) 4.2 x10^3/uL (4.0-11.0) Red Blood Count 4.43 x10^6/uL (4.30-5.70) 4.26 x10^6/uL (4.30-5.70) Hemoglobin 12.5 g/dL (13.0-17.5) 11.8 g/dL (13.0-17.5) Hematocrit 37.6 % (39.0-53.0) 36.0 % (39.0-53.0) Mean Corpuscular Volume 85 fL (79-100) 85 fL (79-100) Mean Corpuscular Hemoglobin 28 pg (25-35) 28 pg (25-35) Mean Corpuscular Hemoglobin Concent 33 g/dL (31-37) 33 g/dL (31-37) Red Cell Distribution Width 16.1 % (11.5-14.5) 16.0 % (11.5-14.5) Platelet Count 96 x10^3/uL (140-400) 105 x10^3/uL (140-400) Neutrophils (%) (Auto) 73 % (31-73) 68 % (31-73) Lymphocytes (%) (Auto) 12 % (24-48) 17 % (24-48) Monocytes (%) (Auto) 12 % (0-9) 11 % (0-9) Eosinophils (%) (Auto) 3 % (0-3) 4 % (0-3) Basophils (%) (Auto) 0 % (0-3) 1 % (0-3) Neutrophils # (Auto) 3.7 x10^3/uL (1.8-7.7) 2.9 x10^3/uL (1.8-7.7) Lymphocytes # (Auto) 0.6 x10^3/uL (1.0-4.8) 0.7 x10^3/uL (1.0-4.8) Monocytes # (Auto) 0.6 x10^3/uL (0.0-1.1) 0.5 x10^3/uL (0.0-1.1) Eosinophils # (Auto) 0.2 x10^3/uL (0.0-0.7) 0.2 x10^3/uL (0.0-0.7) Basophils # (Auto) 0.0 x10^3/uL (0.0-0.2) 0.0 x10^3/uL (0.0-0.2) Sodium Level 134 mmol/L (136-145) Potassium Level 4.0 mmol/L (3.5-5.1) Chloride Level 100 mmol/L (98-107) Carbon Dioxide Level 26 mmol/L (21-32) Anion Gap 8 (6-14) Blood Urea Nitrogen 34 mg/dL (8-26) Creatinine 1.7 mg/dL (0.7-1.3) Estimated GFR (Cockcroft-Gault) 38.7 Glucose Level 89 mg/dL (70-99) Calcium Level 8.3 mg/dL (8.5-10.1) Laboratory Tests Test 12/16/21 03:30 White Blood Count 4.2 x10^3/uL (4.0-11.0) Red Blood Count 4.26 x10^6/uL (4.30-5.70) Hemoglobin 11.8 g/dL (13.0-17.5) Hematocrit 36.0 % (39.0-53.0) Mean Corpuscular Volume 85 fL (79-100) Mean Corpuscular Hemoglobin 28 pg (25-35) Mean Corpuscular Hemoglobin Concent 33 g/dL (31-37) Red Cell Distribution Width 16.0 % (11.5-14.5) Platelet Count 105 x10^3/uL (140-400) Neutrophils (%) (Auto) 68 % (31-73) Lymphocytes (%) (Auto) 17 % (24-48) Monocytes (%) (Auto) 11 % (0-9) Eosinophils (%) (Auto) 4 % (0-3) Basophils (%) (Auto) 1 % (0-3) Neutrophils # (Auto) 2.9 x10^3/uL (1.8-7.7) Lymphocytes # (Auto) 0.7 x10^3/uL (1.0-4.8) Monocytes # (Auto) 0.5 x10^3/uL (0.0-1.1) Eosinophils # (Auto) 0.2 x10^3/uL (0.0-0.7) Basophils # (Auto) 0.0 x10^3/uL (0.0-0.2) Sodium Level 134 mmol/L (136-145) Potassium Level 4.0 mmol/L (3.5-5.1) Chloride Level 100 mmol/L (98-107) Carbon Dioxide Level 26 mmol/L (21-32) Anion Gap 8 (6-14) Blood Urea Nitrogen 34 mg/dL (8-26) Creatinine 1.7 mg/dL (0.7-1.3) Estimated GFR (Cockcroft-Gault) 38.7 Glucose Level 89 mg/dL (70-99) Calcium Level 8.3 mg/dL (8.5-10.1) Medications Active Scripts Medications Dose Route/Sig Max Daily Dose Days Date Category Eliquis (Apixaban) 2.5 Mg Tablet 2.5 Mg PO BID 06/16/20 Reported Vitamin B-6 (Pyridoxine Hcl) 50 Mg Capsule 2 Cap PO DAILY 30 06/16/20 Reported B Complex (Vitamin B Complex) 1 Each Tablet 1 Tab PO DAILY 30 06/16/20 Reported Magnesium (Magnesium Oxide) 400 Mg Capsule 1 Cap PO DAILY 30 06/16/20 Reported Tramadol Hcl 50 Mg Tablet 50 Mg PO DAILY PRN 06/16/20 Reported Escitalopram Oxalate 10 Mg Tablet 1 Tab PO DAILY 06/16/20 Reported Metoprolol Succinate ( Xl ) (Metoprolol Succinate) 25 Mg Tab.er.24h 25 Mg PO DAILY 30 02/20/20 Rx Eliquis (Apixaban) 2.5 Mg Tablet 2.5 Mg PO BID 30 02/20/20 Rx Fish Oil 1,000 Mg Softgel ([place]-3 Fatty Acids/Fish Oil) 1 Each Capsule 1 Cap PO DAILY 30 08/25/19 Reported Atorvastatin Calcium 20 Mg Tablet 40 Mg PO HS 05/19/19 Reported Pantoprazole Sodium (Pantoprazole Sodium) 40 Mg Tablet.dr 40 Mg PO DAILYAC 05/19/19 Reported Gabapentin (Gabapentin) 300 Mg Capsule 300 Mg PO BID 05/13/19 Reported Comments Chest x-ray reviewed 12/15/2021. Resolving CHF and improving pleural effusions. Head CT: 1. No acute intracranial abnormality. Maxillofacial CT: 1. Acute comminuted bilateral nasal bone fracture. Impression . IMPRESSION: 1. Dyspnea secondary to acute systolic congestive heart failure, doubt pulmonary embolism as he has been on Eliquis. Resolved. 2. Abnormal CT of the chest consistent with acute systolic congestive heart failure. Patient has prominent interstitial markings and mild to moderate basal pleural effusions. Significantly improved on follow-up chest x-ray. 3. Acute systolic congestive heart failure. 4. Coronary artery disease. 5. Acute kidney injury. Stable 6. Cardiomyopathy with an EF of 25%. Plan . PLAN AND RECOMMENDATION: 1. Patient is clinically improved. Chest x-ray shows resolution of CHF and improvement in basal effusions. No intervention for thoracentesis at present. 2. I suspect his ascites is secondary to volume overload. 3. Lasix. keep I<O Monitor creatinine and potassium. Clinically stable. 4. Influenza A and B and COVID testing, neg 5. Status post fall, CT of the head, Head CT: No acute intracranial abnormality. Acute comminuted bilateral nasal bone fracture. PER PRIMARY 6. follow Cardiology recommendation. echo ordered mpi as out pt planned 7. His chest pain and shortness of breath resolved with Lasix. 8. ? apnea during sleep ? joce recommend psg as out pt 9. titrate fio2 to keep sat 90% 10. Patient's overall pulmonary status is stable. SALAS RODRIGUEZ MD Dec 16, 2021 09:47
[2021-12-16 10:10] LABS: ALBUMIN 2.8 g/dL (3.4-5.0); DIRECT BILIRUBIN 0.7 mg/dL (0.0-0.2); TOTAL BILIRUBIN 1.6 mg/dL (0.2-1.0); TOTAL PROTEIN 6.1 g/dL (6.4-8.2)
[2021-12-16 10:29] VITALS: BP 108/55
--- NOTE | 2021-12-16 11:11 | PDOC ---
RODNEY FRASER [employer] 12/16/21 1111: CARDIO Progress Notes Date and Time Date of Service 12/16/21 Time of Evaluation 1100 Subjective Subjective: No Chest Pain, No shortness of breath, No Palpitations, No Dizziness Vitals Vitals Vital Signs Date Time Temp Pulse Resp B/P (MAP) Pulse Ox O2 Delivery O2 Flow Rate FiO2 12/16/21 10:29 97.4 65 18 108/55 (72) 99 Room Air 97.4 Weight Weight [ ] Input and Output Intake and Output Intake and Output 12/16/21 07:00 Intake Total 100 ml Output Total 1400 ml Balance -1300 ml Intake Oral 100 ml Output Urine Total 1400 ml # Voids 2 Laboratory Labs Laboratory Tests Test 12/16/21 03:30 White Blood Count 4.2 x10^3/uL (4.0-11.0) Red Blood Count 4.26 x10^6/uL (4.30-5.70) Hemoglobin 11.8 g/dL (13.0-17.5) Hematocrit 36.0 % (39.0-53.0) Mean Corpuscular Volume 85 fL (79-100) Mean Corpuscular Hemoglobin 28 pg (25-35) Mean Corpuscular Hemoglobin Concent 33 g/dL (31-37) Red Cell Distribution Width 16.0 % (11.5-14.5) Platelet Count 105 x10^3/uL (140-400) Neutrophils (%) (Auto) 68 % (31-73) Lymphocytes (%) (Auto) 17 % (24-48) Monocytes (%) (Auto) 11 % (0-9) Eosinophils (%) (Auto) 4 % (0-3) Basophils (%) (Auto) 1 % (0-3) Neutrophils # (Auto) 2.9 x10^3/uL (1.8-7.7) Lymphocytes # (Auto) 0.7 x10^3/uL (1.0-4.8) Monocytes # (Auto) 0.5 x10^3/uL (0.0-1.1) Eosinophils # (Auto) 0.2 x10^3/uL (0.0-0.7) Basophils # (Auto) 0.0 x10^3/uL (0.0-0.2) Sodium Level 134 mmol/L (136-145) Potassium Level 4.0 mmol/L (3.5-5.1) Chloride Level 100 mmol/L (98-107) Carbon Dioxide Level 26 mmol/L (21-32) Anion Gap 8 (6-14) Blood Urea Nitrogen 34 mg/dL (8-26) Creatinine 1.7 mg/dL (0.7-1.3) Estimated GFR (Cockcroft-Gault) 38.7 Glucose Level 89 mg/dL (70-99) Calcium Level 8.3 mg/dL (8.5-10.1) Total Bilirubin 1.6 mg/dL (0.2-1.0) Direct Bilirubin 0.7 mg/dL (0.0-0.2) Aspartate Amino Transf (AST/SGOT) 38 U/L (15-37) Alanine Aminotransferase (ALT/SGPT) 40 U/L (16-63) Alkaline Phosphatase 88 U/L (46-116) Total Protein 6.1 g/dL (6.4-8.2) Albumin 2.8 g/dL (3.4-5.0) Physical Exam HEENT: Neck Supple W Full Motion Chest: Symmetric LUNGS: Other (diminished bases ) Heart: irregularly irregular (AFIB, rate controlled ) Abdomen: Soft N/T Extremities: No Edema Neurology: alert, oriented, follow commands Assessment Assessment 1. Acute on chronic systolic heart failure; improved s/p IV diuresis 2. 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 3. Chest pain, atypical. Most recent LHC 06/15 without intervention. AMI ruled out. 4. CAD: past CABG with recent PCI/REGI 03/2019 on vein graft to the posterior lateral vessel. Clinically stable. 5. 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 recent device check with normal function, stable lead impedances. AFIB burden 100% 6. CKD; Cr stable 7. Hypertension; controlled 8. Hyperlipidemia; statin 9. Hypokalemia, hypomagnesemia 10. Elevated LFTs; improved Recommendations Low-dose oral Lasix. Secondary prevention Metoprolol for rate control Eliquis for stroke prophylaxis. Outpatient ischemic evaluation Supportive care Follow up with Dr. Vines as scheduled Justicifation of Admission Dx: Justifications for Admission: Justification of Admission Dx: Yes AYDIN VINES MD 12/16/21 1550: CARDIO Progress Notes Assessment Assessment Patient seen and examined He is mildly more comfortable today. I agree with our nurse practitioners assessment and plan. Acute on chronic systolic heart failure; improved s/p IV diuresis. Changing to oral Lasix. 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 Most recent [facility] 06/15 without intervention. AMI ruled out. CAD: past CABG with recent PCI/REGI 03/2019 on vein graft to the posterior lateral vessel. Clinically stable. 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 recent device check with normal function, stable lead impedances. AFIB burden 100% CKD; Cr stable Hypertension; controlled Hyperlipidemia; statin Hypokalemia, hypomagnesemia Elevated LFTs; improved RODNEY FRASER APRN Dec 16, 2021 11:11 AYDIN VINES MD Dec 16, 2021 15:50
[2021-12-16] MEDS ORDERED: FURO20TA3 PO (12:10)
--- NOTE | 2021-12-16 12:12 | SNU/HH DC ---
DISCHARGE WITH HOME HEALTH DISCHARGE INFORMATION: Discharge Date: Dec 16, 2021 Final Diagnosis: Problems Medical Problems: (1) Acute exacerbation of CHF (congestive heart failure) Status: Acute (2) Bilateral pleural effusion Status: Acute (3) CKD (chronic kidney disease) Status: Acute Condition on Discharge: Stable CODE STATUS: Code Status: Full HOME HEALTH: Face to Face: I certify this patient is under my care and that I, or a nurse practitioner or physician's medical assistant secretary working with me, had a face to face encounter that meets the physician face to face encounter requirements with this patient on 12/16/2021. Medical Complications: CHF, HTN Mcc For: Assess & Educate Safety, Medication Management RN For Eval/Treatment: Yes Physical Therapy For: Evalulation/Treatment Occupational Therapy For: Evaluation/Treatment Pt Meets Homebound Status: Unsteady balance w/ amb,, Extreme weakness w/ amb., Limited distance walking POST DISCHARGE ORDERS: Activity Instructions for Disc: Activity as tolerated, Avoid exertion Weight Bearing Status after Di: No restrictions, Full weight bearing, As tolerated Bathing Instructions: No Tub Bath until see DIET AFTER DISCHARGE: Cardiac Wound/Incision Care: Ice to area for comfort, May get incision wet CHECKS AFTER DISCHARGE: Checks after discharge: Check blood press - daily, Weigh Yourself Daily FOLLOW-UP: Additional Instructions: For left foot pain - Dr. Rob Kennedy: [facility] [id number] [facility], [address] [address] TREATMENT/EQUIPMENT ORDERS: Adaptive Equipment Issued: None CERTIFICATION STATEMENT: Certification Statement: Certification Statement: Based on the above finding, I certify that this patient is confined to the home and needs intermittent long-term care, physical therapy and/or speech therapy, or continues to need occupational therapy.~ This patient is under my care, and I have initiated the establishment of the plan of care.~ This patient will be followed by myself or a community physician who will periodically review the plan of care. Home Meds Active Scripts Furosemide (FUROSEMIDE) 20 Mg Tablet, 20 MG PO DAILY for CHF for 30 Days, #30 TAB 2 Refills Prov:MARSHA FRIAS MD 12/16/21 Metoprolol Succinate (METOPROLOL SUCCINATE ( XL )) 25 Mg Tab.er.24h, 25 MG PO DAILY for CAD for 30 Days, #30 TAB.SR 3 Refills Prov:NIMCO RAPHAEL MANAGER [employer] 02/20/20 Reported Medications Apixaban (ELIQUIS) 2.5 Mg Tablet, 2.5 MG PO BID for blood thinner, TAB 06/16/20 Pyridoxine Hcl (VITAMIN B-6) 50 Mg Capsule, 2 CAP PO DAILY for supplement for 30 Days, #60 CAP 0 Refills 06/16/20 Vitamin B Complex (B COMPLEX) 1 Each Tablet, 1 TAB PO DAILY for supplement for 30 Days, #30 TAB 0 Refills 06/16/20 Magnesium Oxide (MAGNESIUM) 400 Mg Capsule, 1 CAP PO DAILY for supplement for 30 Days, #30 CAP 0 Refills 06/16/20 Tramadol Hcl (TRAMADOL HCL) 50 Mg Tablet, 50 MG PO DAILY PRN for PAIN, TAB 0 Refills 06/16/20 Escitalopram Oxalate (ESCITALOPRAM OXALATE) 10 Mg Tablet, 1 TAB PO DAILY for anxiety, #30 TAB 3 Refills 06/16/20 [place]-3 Fatty Acids/Fish Oil (FISH OIL 1,000 MG SOFTGEL) 1 Each Capsule, 1 CAP PO DAILY for CAD for 30 Days, #30 CAP 0 Refills 08/25/19 Atorvastatin Calcium (ATORVASTATIN CALCIUM) 20 Mg Tablet, 40 MG PO HS for FOR CHOLESTEROL, #30 TAB 0 Refills 05/19/19 Pantoprazole Sodium (PANTOPRAZOLE SODIUM ) 40 Mg Tablet.dr, 40 MG PO DAILYAC for GERD, TAB 05/19/19 Gabapentin (GABAPENTIN ) 300 Mg Capsule, 300 MG PO BID for NEUROGENIC PAIN, CAP 05/13/19 Discontinued Scripts Apixaban (ELIQUIS) 2.5 Mg Tablet, 2.5 MG PO BID for anticoagulation for 30 Days, #60 TAB Prov:RADHA FOWLER III DO 02/20/20 MARSHA FRIAS MD Dec 16, 2021 12:12
--- NOTE | 2021-12-16 12:16 | PDOC ---
[facility] PROGRESS NOTE Date of Service DOS: DATE: 12/16/21 TIME: 12:13 Chief Complaint Chief Complaint Acute on chronic systolic diastolic heart failure - improved s/p IV diuresis. 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 recent device check with normal function, stable lead impedances. AFIB burden 100% Hypertension; controlled Hyperlipidemia; statin Hypokalemia, hypomagnesemia - replaced Elevated LFTs; improved, likely due to congestive hepatopathy History of Present Illness History of Present Illness 12/16: Worked well with therapy advised home with home health. Complaining of some left arch pain but overall shortness of breath is improved swelling is improved. Advised to continue home furosemide and metoprolol based on elevated creatinine and low blood pressure will not be able to tolerate ABRAN or ARB. 12/15: Radiograph improved. His dyspnea on exertion has minimally improved no further wheezing. He is feeling weak and a little unsteady today especially after a fall. 12/14/2021 Patient seen and examined Discussed with RN Discussed with case management Chart reviewed He seems to be approaching his baseline 12/13/2021 Patient seen and examined He is resting with no apparent distress CT of the head after his fall yesterday confirmed nasal fractures Chart reviewed Discussed with RN 12/12/2021 Patient seen and examined He fell last night and suffered facial trauma We have a CT of the head it is just completed but results are pending Discussed with RN Chart reviewed Vitals/I&O Vitals/I&O: Vital Signs Date Time Temp Pulse Resp B/P (MAP) Pulse Ox O2 Delivery O2 Flow Rate FiO2 12/16/21 10:29 97.4 65 18 108/55 (72) 99 Room Air 97.4 I & O 12/15/21 12/15/21 12/16/21 15:00 23:00 07:00 Intake Total 0 ml 100 ml Output Total 550 ml 450 ml 400 ml Balance -550 ml -450 ml -300 ml Physical Exam Physical Exam: HEENT He has some bruising around both eyes and the nasal septum and nares appear a little swollen and bruised General: Alert, Oriented X3, No acute distress Heart: Regular rate Lungs: Clear Abdomen: Normal bowel sounds Extremities: No clubbing Skin: No breakdown Labs Labs: Laboratory Tests Test 12/16/21 03:30 White Blood Count 4.2 x10^3/uL (4.0-11.0) Red Blood Count 4.26 x10^6/uL (4.30-5.70) Hemoglobin 11.8 g/dL (13.0-17.5) Hematocrit 36.0 % (39.0-53.0) Mean Corpuscular Volume 85 fL (79-100) Mean Corpuscular Hemoglobin 28 pg (25-35) Mean Corpuscular Hemoglobin Concent 33 g/dL (31-37) Red Cell Distribution Width 16.0 % (11.5-14.5) Platelet Count 105 x10^3/uL (140-400) Neutrophils (%) (Auto) 68 % (31-73) Lymphocytes (%) (Auto) 17 % (24-48) Monocytes (%) (Auto) 11 % (0-9) Eosinophils (%) (Auto) 4 % (0-3) Basophils (%) (Auto) 1 % (0-3) Neutrophils # (Auto) 2.9 x10^3/uL (1.8-7.7) Lymphocytes # (Auto) 0.7 x10^3/uL (1.0-4.8) Monocytes # (Auto) 0.5 x10^3/uL (0.0-1.1) Eosinophils # (Auto) 0.2 x10^3/uL (0.0-0.7) Basophils # (Auto) 0.0 x10^3/uL (0.0-0.2) Sodium Level 134 mmol/L (136-145) Potassium Level 4.0 mmol/L (3.5-5.1) Chloride Level 100 mmol/L (98-107) Carbon Dioxide Level 26 mmol/L (21-32) Anion Gap 8 (6-14) Blood Urea Nitrogen 34 mg/dL (8-26) Creatinine 1.7 mg/dL (0.7-1.3) Estimated GFR (Cockcroft-Gault) 38.7 Glucose Level 89 mg/dL (70-99) Calcium Level 8.3 mg/dL (8.5-10.1) Total Bilirubin 1.6 mg/dL (0.2-1.0) Direct Bilirubin 0.7 mg/dL (0.0-0.2) Aspartate Amino Transf (AST/SGOT) 38 U/L (15-37) Alanine Aminotransferase (ALT/SGPT) 40 U/L (16-63) Alkaline Phosphatase 88 U/L (46-116) Total Protein 6.1 g/dL (6.4-8.2) Albumin 2.8 g/dL (3.4-5.0) Assessment and Plan Assessmemt and Plan Problems Medical Problems: (1) Acute exacerbation of CHF (congestive heart failure) Status: Acute (2) Bilateral pleural effusion Status: Acute (3) CKD (chronic kidney disease) Status: Acute Comment Review of Relevant I have reviewed the following items nicola (where applicable) has been applied. Medications: Current Medications Medications (Trade) Dose Ordered Sig/Ava Route PRN Reason Start Time Stop Time Status Last Admin Dose Admin Furosemide (Lasix) 20 mg DAILY PO 12/16/21 09:00 12/16/21 08:26 Justifications for Admission Other Justification MARSHA FRIAS MD Dec 16, 2021 12:16
--- NOTE | 2021-12-16 13:40 | NUR ---
SS following up with discharge planning. SS reviewed pt chart and discussed with pt RN. Pt is currently on room air. PT/OT recommended residential unit. Pt declining residential unit but is agreeable to home healthcare services. Pt accepted on services with [facility], ; fax [phone]. Discharge orders received and sent to [facility]. Pt's RN notified.
[2021-12-16 14:14] VITALS: BP 112/58
== END 2021-12-16 16:42 | disposition home health service (06) | DRG 291 ==
LOC: ER 12:03 → 6 SOUTH 14:06
PROVIDERS: ADMIT Student in an Organized Health Care Education/Training Program; ATTEND Student in an Organized Health Care Education/Training Program
DX: I13.0 Hypertensive heart and chronic kidney disease with heart failure and stage 1 through stage 4 chronic kidney disease, or unspecified chronic kidney disease (principal); I50.43 Acute on chronic combined systolic (congestive) and diastolic (congestive) heart failure; N17.9 Acute kidney failure, unspecified; I48.92 Unspecified atrial flutter; J98.11 Atelectasis; R18.8 Other ascites; E87.1 Hypo-osmolality and hyponatremia; I42.9 Cardiomyopathy, unspecified; Z20.822 Contact with and (suspected) exposure to COVID-19; D64.9 Anemia, unspecified; D69.6 Thrombocytopenia, unspecified; E78.00 Pure hypercholesterolemia, unspecified; E78.5 Hyperlipidemia, unspecified; E83.42 Hypomagnesemia; E87.6 Hypokalemia; S02.2XXA Fracture of nasal bones, initial encounter for closed fracture; W18.30XA Fall on same level, unspecified, initial encounter; Y92.239 Unspecified place in hospital as the place of occurrence of the external cause; I25.10 Atherosclerotic heart disease of native coronary artery without angina pectoris; M19.90 Unspecified osteoarthritis, unspecified site; I48.91 Unspecified atrial fibrillation; I49.5 Sick sinus syndrome; K82.8 Other specified diseases of gallbladder; N18.32 Chronic kidney disease, stage 3b; Z79.01 Long term (current) use of anticoagulants; I42.8 Other cardiomyopathies; Z82.49 Family history of ischemic heart disease and other diseases of the circulatory system; Z85.46 Personal history of malignant neoplasm of prostate; Z86.73 Personal history of transient ischemic attack (TIA), and cerebral infarction without residual deficits; Z95.0 Presence of cardiac pacemaker; Z95.1 Presence of aortocoronary bypass graft; Z95.5 Presence of coronary angioplasty implant and graft; Z79.899 Other long term (current) drug therapy; Y93.89 Activity, other specified; Y99.8 Other external cause status
CPT/HCPCS: 36415; 70450; 70486; 71045; 71250; 73030; 74176; 80048; 80053; 80076; 80307; 83690; 83735; 83880; 84484; 85025; 87428; 93005; 93308; 93971; 96374; J1940; J3475; U0003; 97110-GP; 97116-GP; 97530-GO; 97535-GO; 99285-25; G0378